=== PATIENT | female | born 1975 | race Caucasian/White ===

== ENCOUNTER 2018-08-23 20:25 | Emergency (ER) | END 2018-08-24 01:36 | disposition home or self-care (01) ==

== ENCOUNTER 2018-12-18 14:46 | Inpatient (IN) | payer MEDICAID ==
[~2018-12-18] VITALS: Ht 162.6 cm; Wt 48.7 kg
[~2018-12-18 14:46] MED LIST: ACET325T33 GTB; BISA10SU75 PR; CRAN425C6 GTB; DOCU-144 GTB; MAGN400O19 GTB; OXCA150T3 GTB; SODI1TAB2 GTB; TYL500 GTB
[2018-12-18] MEDS ORDERED: SODIUM CHLORIDE 0.9% 1L BAG IV* STA (14:53)
[2018-12-18] MEDS ORDERED: CEFEPIME 2GM/50 ML (PMX) 50 ML IVPB STA (14:53)
[2018-12-18] MEDS ORDERED: VANCOMYCIN 1 GM (PMX) 250 ML IVPB STA (14:53)
--- NOTE | 2018-12-18 15:12 | ERD ---
ER Documentation Chief Complaint Chief Complaint HPI 43-year-old nonverbal female sent from her custodial facility after she wa s noted to be warm to the touch with a temp of 101, pulse of 114, and oxygen saturation of 91% on 3 L of oxygen. She has a history of quadriplegia, respiratory failure, sepsis, UTI, bacteremia, and anemia. She was given Tylenol 650 mg at 12:25 PM today prior to being sent to the ER. Otherwise history is unavailable as patient is nonverbal and unable to answer questions. ROS Unable to obtain due to altered mental status Medications Home Meds Reported Medications Ascorbic Acid (Vitamin C) 500 Mg Tab, 500 MG GTB DAILY, TAB 12/18/18 Cran/Vitc/Mannose/Inulin/Brom (Uti-Stat Liquid) 3,875 Mg/30 Ml Liquid, 30 MG GTB BID 12/18/18 Acetaminophen* (Acetaminophen*) 500 MG Extra Strength Tablet, 1000 MG GTB BID PRN for PAIN AND OR ELEVATED TEMP, TAB 12/18/18 Acetaminophen* (Acetaminophen*) 500 MG Extra Strength Tablet, 1000 MG GTB Q4H PRN for PAIN -02/24, TAB 12/18/18 Acetaminophen* (Tylenol*) 325 Mg Tablet, 650 MG GTB Q4H PRN for MILD PAIN LEVEL 1-3, TAB 12/18/18 Oxcarbazepine* (Trileptal*) 150 Mg Tablet, 150 MG GTB BID, TAB 12/18/18 Sodium Chloride* (Sodium Chloride*) 1 Gm Tablet, 1 GM GTB TID, TAB 12/18/18 Amino Acids/Protein Hydrolys (PRO-STAT LIQUID) 30 Ml Liquid.pkt, 30 ML GTB BID SUGAR FREE 12/18/18 Multivit &Minerals/Ferrous Fum (MULTIVITAMIN LIQUID) 9 Mg/15 Ml Liquid, 5 MG GTB DAILY 12/18/18 Magnesium Hydroxide* (Milk Of Magnesia*) 400 Mg/5 Ml Oral.susp, 30 ML GTB NEEDED for CONSTIPATION, ML 12/18/18 Na Phos,M-B/Na Phos,Di-Ba (Fleet Enema Extra) 230 Ml Enema, 1 APPLIC RC Q 2D, ENEMA 12/18/18 Ipratropium-Albuterol (Ipratropium-Albuterol) 0.5-3 Mg/3 Ml Ampul.neb, 3 ML INHALATION Q6, #30 VIAL 12/18/18 Bisacodyl* (Bisacodyl*) 10 Mg Supp, 10 MG SC Q24H for CONSTIPATION, SUPP 12/18/18 Cranberry Extract (Cranberry) 425 Mg Capsule, 425 MG GTB DAILY, CAP 12/18/18 Docusate Sodium* (Colace*) 100 Mg Capsule, 200 MG GTB QHS, #30 CAP 12/18/18 Discontinued Reported Medications Oxcarbazepine* (Trileptal*) 150 Mg Tablet, 450 MG GTB QHS, TAB 08/23/18 Acetaminophen* (Tylenol*) 500 Mg Tab, 1000 MG GTB Q4H PRN for -02/24, TAB 08/23/18 Acetaminophen* (Tylenol*) 325 Mg Tablet, 650 MG GTB Q4H PRN for MILD PAIN LEVEL 1-3, TAB 08/23/18 Oxcarbazepine* (Trileptal*) 150 Mg Tablet, 150 MG GTB DAILY, TAB 08/23/18 Sodium Chloride* (Sodium Chloride*) 1 Gm Tablet, 1 GM GTB TID, TAB 08/23/18 Magnesium Hydroxide* (Milk Of Magnesia*) 400 Mg/5 Ml Oral.susp, 30 ML GTB Q24H PRN for NEEDED, ML 08/23/18 Bisacodyl* (Bisacodyl*) 10 Mg Supp, 10 MG SC Q24H for CONSTIPATION, SUPP 08/23/18 Cranberry Extract (Cranberry) 425 Mg Capsule, 425 MG GTB DAILY, CAP 08/23/18 Docusate Sodium* (Colace*) 100 Mg Capsule, 200 MG GTB QHS, #30 CAP 08/23/18 Allergies Allergies: Coded Allergies: No Known Allergy (Unverified , 12/18/18) PMhx/Soc History of Surgery: Yes Hx Neurological Disorder: Yes (cerebral palsy, epilepsy) Hx Psychiatric Problems: Yes (anxiety, depression) Hx Miscellaneous Medical Probl: Yes (muscular dystrophy, GERD) Hx Alcohol Use: No Hx Substance Use: No Hx Tobacco Use: No FmHx Unable to obtain Physical Exam Vitals Vital Signs Date Temp Pulse Resp B/P (MAP) Pulse Ox O2 O2 Flow FiO2 Time Delivery Rate 12/18/18 112 100 40 16:02 12/18/18 101.7 15:30 12/18/18 101.7 136 40 127/94 90 15:00 (105) 12/18/18 Non 15 15:00 Raginirehardikneftali dutton Physical Exam INITIAL VITAL SIGNS: Reviewed by me GENERAL: Patient is lying on gurney, facemask in place, appears ill HEAD: Normocephalic EYES: PERRL. ENT: Mucous membranes dry, no erythema or tonsillar exudates. Airway patent. NECK: Supple. No masses. Full range of motion. No meningismus. No lymphadenopathy RESPIRATORY: Tachypneic with accessory muscle usage. Rales bilaterally. No wheezing CV: Tachycardic with regular rhythm. No murmurs, No rubs or gallops. ABDOMEN: Soft, non-distended, non-tender. No guarding. No rebound. No pulsatile mass. Bowel sounds normal. BACK: No wounds EXTREMITIES: Contractures in all 4 extremities. No edema. No clubbing or cyanosis. Pulses symmetric. No deficits or delays. Calves non-tender. No cords. SKIN: Warm and dry. Decreased turgor. No obvious rash, petechiae or purpura. NEUROLOGIC: Awake and alert. Nonverbal. Result Diagram: 12/18/18 1511 12/18/18 1511 Results 24 hrs Laboratory Tests Test 12/18/18 15:02 12/18/18 15:11 12/18/18 15:15 12/18/18 16:38 Bedside Glucose 167 mg/dL White Blood 18.8 10^3/ul Count Red Blood Count 4.79 10^6/ul Hemoglobin 13.4 g/dl Hematocrit 43.5 % Mean Corpuscular 90.8 fl Volume Mean Corpuscular 28.0 pg Hemoglobin Mean Corpuscular 30.8 g/dl Hemoglobin Charmaine nt Red Cell 16.4 % Distribution Width Platelet Count 237 10^3/UL Mean Platelet 10.2 fl Volume Immature 0.500 % Granulocytes % Neutrophils % % Segmented 62 % Neutrophils % (Manual) Band Neutrophils 33 % % (Manual) Lymphocytes % % Lymphocytes % 1 % (Manual) Monocytes % % Monocytes % 4 % (Manual) Eosinophils % % Basophils % % Nucleated Red 0.0 /100WBC Blood Cells % Immature 0.100 10^3/ul Granulocytes # Neutrophils # 10^3/ul Neutrophils # 12.8 10^3/ul (Manual) Band Neutrophils 6.2 10^3/ul # Lymphocytes 0.1 10^3/ul (Manual) Lymphocytes # 10^3/ul Monocytes # 10^3/ul Monocytes # 0.7 10^3/ul (Manual) Eosinophils # 10^3/ul Basophils # 10^3/ul Nucleated Red 10^3/ul Blood Cells # Anisocytosis 1+ Microcytosis 1+ Prothrombin Time 15.9 Sec Prothrombin Time 1.2 Ratio INR 1.26 International Normalized Ratio Activated 35.2 Sec Partial Thrombop last Time Sodium Level 148 mmol/L Potassium Level 3.3 mmol/L Chloride Level 114 mmol/L Carbon Dioxide 24 mmol/L Level Anion Gap 10 Blood Urea 27 mg/dl Nitrogen Creatinine 0.24 mg/dl Est Glomerular > 60 mL/min Filtrat Rate mL/min Glucose Level 171 mg/dl Lactic Acid 4.0 mmol/L Level Calcium Level 9.3 mg/dl Total Bilirubin 0.4 mg/dl Direct Bilirubin 0.00 mg/dl Indirect 0.4 mg/dl Bilirubin Aspartate Amino 33 IU/L Transf (AST/SGOT ) Alanine 8 IU/L Aminotransferase (ALT/SGPT) Alkaline 110 IU/L Phosphatase Troponin I < 0.012 ng/ml Total Protein 7.8 g/dl Albumin 3.7 g/dl Globulin 4.10 g/dl Albumin/Globulin 0.90 Ratio Urine Color SHRUTHI Urine Clarity CLOUDY Urine pH 5.0 Urine Specific 1.033 Douglas Urine Ketones TRACE mg/dL Urine Nitrite NEGATIVE mg/dL Urine Bilirubin NEGATIVE mg/dL Urine NEGATIVE mg/dL Urobilinogen Urine Leukocyte 2+ Margot/ul Esterase Urine 1 /HPF Microscopic RBC Urine 45 /HPF Microscopic WBC Urine Mucus FEW /HPF Urine Yeast MANY /HPF (Budding) Urine Hemoglobin NEGATIVE mg/dL Urine Glucose 1+ mg/dL Urine Total 1+ mg/dl Protein Blood Gas Blood arterial Specimen Source Arterial Blood 12/18/2018 4:45:1 Date Drawn 9 PM Arterial Blood 7.385 pH (Temp corrected) Arterial Blood 34.1 mmhg pCO2 (Temp correct) Arterial Blood 70.4 mmHG pO2 (Temp corrected) Arterial Blood 19.9 mmol/L HCO3 Arterial Blood -4.3 mmol/L Base Excess Arterial Blood 94.6 mmHG Oxygen Saturatio n Nabil Test ACCEPTAB Arterial Blood Left Radial Gas Puncture Site Arterial 0.3 % Blood Carboxyhem oglobin Arterial Blood 0.2 % Methemoglobin Blood Gas A-a O2 175.6 mmHg Differential Oxyhemoglobin 94.1 % Percent Blood Gas 37.0 C Temperature Blood Gas 14.0 Respiration Rate Blood Gas Actual 56 Respiration Rate Blood Gas MASK - BIPAP Modality FiO2 40.0 % Blood Gas 10 Pressure Support Blood Gas 15/5 IPAP/EPAP Ratio Blood Gas M.D. Notified Whom Blood Gas 12/18/2018 4:57:5 Notified Time 8 PM Current Medications Medications Dose Sig/Robyn Start Time Status Last (Trade) Ordered Route PRN Stop Time Admin Dose Reason Admin Sodium 1,590 ml BOLUS OVER 2 12/18/18 DC 12/18/18 Chloride HOURS STAT 14:53 12/18/18 15:16 (NS) IV* 14:57 Vancomycin 250 ml @ ONCE STAT 12/18/18 DC 12/18/18 HCl 125 mls/hr IVPB 14:53 12/18/18 15:52 16:52 Cefepime HCl 50 ml @ ONCE STAT 12/18/18 DC 12/18/18 100 mls/hr IVPB 14:53 12/18/18 15:16 15:22 Ibuprofen 400 mg ONCE STAT 12/18/18 DC 12/18/18 (Motrin GTB 15:18 12/18/18 15:30 Liquid 15:19 (Ped)) Morphine 4 mg ONCE STAT 12/18/18 DC 12/18/18 Sulfate IV 16:38 12/18/18 16:46 (morphine) 16:39 Ondansetron 4 mg ER BRIDGE 12/18/18 HCl (Zofran PRN IV 17:00 12/19/18 Inj) NAUSEA/VOMITI 16:59 NG 650 mg ER BRIDGE 12/18/18 Acetaminophen PRN PO 17:00 12/19/18 (Tylenol .MILD PAIN 16:59 Tab) 1-3 OR TEMP Procedures/MDM EMERGENT LABS AND DIAGNOSTIC STUDIES: Lab Results above were reviewed and interpreted by me. CBC: Leukocytosis, concerning for infection CMP: Hypernatremia with prerenal azotemia, likely due to dehydration. Borderline hypokalemia. No hypoglycemia. Troponin within normal limits, not indicative of cardiac ischemia Lactate 4, consistent with severe sepsis UA: evidence of infection 12-lead EKG was interpreted by Juancarlos Donovan MD: Sinus tachycardia at 129 bpm Left anterior fascicular block anterior Q waves normal intervals No acute ST or T wave changes suggestive of acute ischemia or STEMI. Radiology Results as interpreted by Radiology below were reviewed by Michael Donovan MD: Chest x-ray: Patchy air space disease in the left mid and bilateral lower lung zones with small bilateral pleural effusions, suspicious for pneumonia. Initial Nursing notes reviewed. Previous Medical Records requested via the Electronic Health Record. EMERGENCY DEPARTMENT COURSE / MEDICAL DECISION MAKING: Patient is presenting with fever and hypoxia, concerning for pneumonia. Sepsis workup initiated. Evidence of UTI and pneumonia. Given her tachypnea, she was placed on BiPAP. Her blood gas after she was on BiPAP was normal. She was given morphine for symptom control as she is DNR and DNI. Patient's infectious symptoms have not stabilized and the patient is at risk of rapid decompensation. The patient will be admitted for careful hydration, antibiotic therapy, and infectious source control. Severe Sepsis Assessment: Infectious Source: UTI, healthcare associated pneumonia End organ damage indicated by: Lactate > 2.0 mmol/L Acute Resp Failure (sat < 92% w/o oxygen) Severe Sepsis Managment: Blood Cultures X 2 before broad spectrum antibiotics initiated within 3 hours of recognition. 30 ml/kg NS bolus Completed Initial Lactate: 4 Repeat Lactate pending Critical Care: Time: 35 minutes Treatments/Evaluations: Emergent fluid management, while maintaining close respiratory support. Immediate broad spectrum antibiotic therapy. Simultaneous assessment for possible sources in order to direct therapy. Consideration for invasive and chemical support to prevent respiratory or cardiac collapse. Septic Shock Assessment (1 hour post 30 ml/kg fluid bolus): Hypotension (SBP < 90 or 40 mmHg drop, MAP < 65): No Lactic acid > 4.0 no Accepting Care Team: Current data and ongoing care discussed. Time: Time of admission Primary Provider: Dr. Bowman Patient is DNR Departure Diagnosis: Primary Impression: Severe sepsis Additional Impressions: Healthcare-associated pneumonia UTI (urinary tract infection) Urinary tract infection type: site unspecified Hematuria presence: without hematuria Qualified Codes: N39.0 - Urinary tract infection, site not specified Prerenal azotemia Acute respiratory failure with hypoxia Condition: Serious EKAGUSTO RODRIGUEZ MD Dec 18, 2018 15:07
[2018-12-18] MEDS ORDERED: IBUPROFEN LIQUID (PED) 20 MG/ML CUP GTB STA (15:18)
[2018-12-18] MEDS ORDERED: DOCU-144 GTB (16:08)
[2018-12-18] MEDS ORDERED: CRAN425C6 GTB (16:09)
[2018-12-18] MEDS ORDERED: BISA10SU75 PR (16:09)
[2018-12-18] MEDS ORDERED: IPRA3AMP29 INHALATION (16:10)
[2018-12-18] MEDS ORDERED: NA P230E RC (16:11)
[2018-12-18] MEDS ORDERED: MAGN400O19 GTB (16:12)
[2018-12-18] MEDS ORDERED: MULT9LIQ4 GTB (16:13)
[2018-12-18] MEDS ORDERED: AMIN30LI GTB (16:14)
[2018-12-18] MEDS ORDERED: SODI1TAB2 GTB (16:15)
[2018-12-18] MEDS ORDERED: OXCA150T3 GTB (16:16)
[2018-12-18] MEDS ORDERED: ACET-141 GTB ×2 (16:22→16:23)
[2018-12-18] MEDS ORDERED: ACET325T33 GTB (16:22)
[2018-12-18] MEDS ORDERED: ASC500 GTB (16:24)
[2018-12-18] MEDS ORDERED: CRAN3875 GTB (16:24)
[2018-12-18] MEDS ORDERED: morphine 4 MG/ML VIAL IV STA (16:38)
[2018-12-18] MEDS ORDERED: ONDANSETRON 4 MG INJ IV PRN (17:00)
[2018-12-18] MEDS ORDERED: ACETAMINOPHEN 325 MG TAB PO PRN (17:00)
[2018-12-18] MEDS ORDERED: POTASSIUM CHLORIDE (SR) 20 MEQ TAB PO STA (19:37)
[2018-12-18] MEDS ORDERED: VANCOMYCIN IV PER PHARMACY XX SCH (20:00)
[2018-12-18] MEDS: ALBUTEROL/IPRATROPIUM (NEB) 3 ML AMP HHN SCH (20:00)
[2018-12-18 21:50] VITALS: Ht 162.6 cm; Wt 48.7 kg
[2018-12-18 22:00] VITALS: BP 93/62; PULSE 100; RESP 16
[2018-12-18] MEDS: D5W-0.45 NACL + KCL 20 MEQ 1,000 ML IV SCH (22:33)
[2018-12-18] MEDS: CEFEPIME 1GM/50 ML (PMX) 50 ML IVPB SCH (22:38)
[2018-12-18 23:45] VITALS: PULSE 100
[2018-12-18 23:52] VITALS: BP 101/68; PULSE 98; RESP 16
[2018-12-19] VITALS (23 sets, daily range): BP systolic 96–138; BP diastolic 60–81; PULSE 81–108; RESP 16–25
[2018-12-19] MEDS: VANCOMYCIN 1 GM 250 ML IVPB SCH ×3 (00:38→17:29)
--- NOTE | 2018-12-19 00:54 | HP ---
DATE OF ADMISSION: 12/18/2018 CHIEF COMPLAINT: Shortness of breath and fever. HISTORY OF PRESENT ILLNESS: History is obtained from medical record as the patient is nonverbal due to cerebral palsy. The patient is a 43-year-old female with cerebral palsy, dysphagia, status post G -tube placement. The patient is a resident of [facility]. The patient was sent to [facility] ER after she was noted to have hypoxemia. The patient was saturating 85% on room ai r and on 3 liters oxygen via nasal cannula. Her saturation went up to 90%. The patient also had fev er at [facility]. The patient was subsequently sent to [facility] for furt her evaluation and management. The patient was evaluated by Dr. Donovan. The patient was noted to have white count of 18.8. Lactic acid was 4. Chest x-ray revealed pneumonia. The patient received vancomycin and cefepime due to a possibility of healthcare-acquired pneumonia. The patient also rec eived IV fluid bolus for severe sepsis. The patient was noted to be in acute respiratory failure and had to be placed on BiPAP. The patient has not had any tonic-clonic seizure. No reported vomiting. No reported leg edema. No report of any acute skin rash or any acute joint swelling. REVIEW OF SYSTEMS: Limited as the patient is nonverbal at baseline. PAST SURGICAL HISTORY: The patient is status post G-tube placement. ALLERGIES: NONE. SOCIAL HISTORY: Could not be obtained. FAMILY HISTORY: Noncontributory for patient's condition. PHYSICAL EXAMINATION: GENERAL: The patient appears lethargic but arousable, nonverbal at baseline. VITAL SIGNS: T-max 101.7, pulse 136, respirations 14, blood pressure 127/94, O2 saturation 90% initi ally on nonrebreather mask. After treatment in the ER, pulses gone down to 107 and the patient is sa turating 100% on BiPAP. HEENT: No eye discharge or redness. Nose is normal externally. Oropharynx examination was deferred due to BiPAP. NECK: No mass. CHEST: Diminished air entry at bases. No use of accessory muscles. CARDIOVASCULAR: S1, S2 normal. Sinus tachycardia. ABDOMEN: Soft, nondistended, nontender. G-tube in place. EXTREMITIES: No edema, clubbing, cyanosis. The patient has severe contractures in all extremities. NEUROLOGIC: The patient is nonverbal. LABORATORY DATA: WBC 18.8, hemoglobin 13.4. The patient has 33% bands. Sodium 148, potassium 3.3, BUN 27, creatinine 0.2. Lactic acid 4, liver enzymes normal. IMPRESSION: 1. Acute respiratory failure due to healthcare facility-acquired pneumonia. The patient will be adm itted on telemetry floor and will be continued on BiPAP and breathing treatment. Will continue IV va ncomycin and cefepime. Will hold off on G-tube feeding and will give IV fluids. The patient has alr luly gotten a bolus dose in the ER as per protocol. The patient is DNR and I called and spoke with nba welch's daughter, Alissa, who told me that patient's mom and mom also agrees with the DNR status du e to poor quality of life. 2. Dysphagia. Hold off on G-tube placement as mentioned above. 3. Cerebral palsy. The patient is not agitated. We will continue to monitor. We will use Lovenox for DVT prophylaxis and Protonix for gastrointestinal prophylaxis. We will also obtain a pulmonary consultation. The patient is unable to expectorate, therefore, will have to empir ically treat her for healthcare facility acquired pneumonia. Septic workup has been sent from ER. [facility] recommendation will depend on patient's hospital course. Dictated By: GLORIA PETTIT/TIP Conf#: [id number] DID#: [id number]
[2018-12-19] MEDS: ALBUTEROL/IPRATROPIUM (NEB) 3 ML AMP HHN SCH ×4 (01:52→19:36)
[2018-12-19] MEDS ORDERED: PENDING SANTYL ORDER FOR WOUND CARE XX PRN (05:00)
[2018-12-19] MEDS: PANTOPRAZOLE (EC) 40 MG TAB PO SCH (05:47)
[2018-12-19] MEDS: D5W-0.45 NACL + KCL 20 MEQ 1,000 ML IV SCH ×2 (08:20→17:32)
[2018-12-19] MEDS: CEFEPIME 1GM/50 ML (PMX) 50 ML IVPB SCH ×2 (08:25→22:04)
[2018-12-19] MEDS: ENOXAPARIN 40 MG/0.4 ML SYG SC SCH (09:05)
--- NOTE | 2018-12-19 13:56 | PN ---
Date/Time of Note Date/Time of Note DATE: 12/19/18 TIME: 13:50 Assessment/Plan VTE Prophylaxis Risk score (from Ns)>0 risk: 6 SCD applied (from Ns): No SCD contraindicated: other (contracted) Pharmacological prophylaxis: LMWH Lines/Catheters IV Catheter Type (from [facility]): Saline Lock Urinary Cath still in place: Yes Reason Cath still needed: urinary retention Assessment/Plan Hospital Course Patient is tachycardic, no fever today, continues on BiPAP, will restart G-tube feeding, continue to monitor residual. Assessment/Plan -Acute respiratory failure due to healthcare facility-acquired pneumonia requiring BiPAP. Dr. Hyatt is asked to see patient in pulmonology consultation. -Healthcare facility acquired pneumonia. Continue vancomycin and cefepime. -Dysphagia with G-tube. -Cerebral palsy. -Protein calorie malnutrition -DNR status. Further recommendations based on clinical course. Plan of care discussed with Dr. Bowman. Result Diagram: 12/19/18 0540 12/19/18 0540 Results 24hrs Laboratory Tests Test 12/18/18 15:02 12/18/18 15:11 12/18/18 15:15 12/18/18 16:38 Bedside Glucose 167 White Blood 18.8 H Count Red Blood Count 4.79 Hemoglobin 13.4 Hematocrit 43.5 Mean Corpuscular 90.8 Volume Mean Corpuscular 28.0 L Hemoglobin Mean Corpuscular 30.8 L Hemoglobin Charmaine nt Red Cell 16.4 H Distribution Width Platelet Count 237 Mean Platelet 10.2 Volume Immature 0.500 H Granulocytes % Neutrophils % Segmented 62 Neutrophils % (Manual) Band Neutrophils 33 H % (Manual) Lymphocytes % Lymphocytes % 1 L (Manual) Monocytes % Monocytes % 4 (Manual) Eosinophils % Basophils % Nucleated Red 0.0 Blood Cells % Immature 0.100 H Granulocytes # Neutrophils # Neutrophils # 12.8 H (Manual) Band Neutrophils 6.2 H # Lymphocytes 0.1 L (Manual) Lymphocytes # Monocytes # Monocytes # 0.7 (Manual) Eosinophils # Basophils # Nucleated Red Blood Cells # Anisocytosis 1+ Microcytosis 1+ Prothrombin Time 15.9 H Prothrombin Time 1.2 Ratio INR 1.26 International Normalized Ratio Activated 35.2 H Partial Thrombop last Time Sodium Level 148 H Potassium Level 3.3 L Chloride Level 114 H Carbon Dioxide 24 Level Anion Gap 10 Blood Urea 27 H Nitrogen Creatinine 0.24 L Est Glomerular > 60 Filtrat Rate mL/min Glucose Level 171 Lactic Acid 4.0 *H Level Calcium Level 9.3 Total Bilirubin 0.4 Direct Bilirubin 0.00 Indirect 0.4 Bilirubin Aspartate Amino 33 Transf (AST/SGOT ) Alanine 8 L Aminotransferase (ALT/SGPT) Alkaline 110 Phosphatase Troponin I < 0.012 Total Protein 7.8 Albumin 3.7 Globulin 4.10 H Albumin/Globulin 0.90 Ratio Urine Color SHRUTHI Urine Clarity CLOUDY A Urine pH 5.0 Urine Specific 1.033 H Ronald Urine Ketones TRACE A Urine Nitrite NEGATIVE Urine Bilirubin NEGATIVE Urine NEGATIVE Urobilinogen Urine Leukocyte 2+ H Esterase Urine 1 Microscopic RBC Urine 45 H Microscopic WBC Urine Mucus FEW A Urine Yeast MANY A (Budding) Urine Hemoglobin NEGATIVE Urine Glucose 1+ H Urine Total 1+ H Protein Blood Gas Blood arterial Specimen Source Arterial Blood 12/18/2018 4:45:19 Date Drawn PM Arterial Blood 7.385 pH (Temp corrected) Arterial Blood 34.1 L pCO2 (Temp correct) Arterial Blood 70.4 L pO2 (Temp corrected) Arterial Blood 19.9 L HCO3 Arterial Blood -4.3 L Base Excess Arterial Blood 94.6 L Oxygen Saturatio n Nabil Test ACCEPTAB Arterial Blood Left Radial Gas Puncture Site Arterial 0.3 Blood Carboxyhem oglobin Arterial Blood 0.2 Methemoglobin Blood Gas A-a O2 175.6 H Differential Oxyhemoglobin 94.1 Percent Blood Gas 37.0 Temperature Blood Gas 14.0 Respiration Rate Blood Gas Actual 56 Respiration Rate Blood Gas MASK - BIPAP Modality FiO2 40.0 Blood Gas 10 Pressure Support Blood Gas 15/5 IPAP/EPAP Ratio Blood Gas M.D. Notified Whom Blood Gas 12/18/2018 4:57:58 Notified Time PM Test 12/18/18 18:37 12/18/18 21:08 12/19/18 05:39 12/19/18 05:40 Lactic Acid 3.0 *H 2.5 *H 2.0 Level White Blood 12.3 #H Count Red Blood Count 3.94 L Hemoglobin 10.7 #L Hematocrit 37.0 Mean Corpuscular 93.9 Volume Mean Corpuscular 27.2 L Hemoglobin Mean Corpuscular 28.9 L Hemoglobin Charmaine nt Red Cell 16.4 H Distribution Width Platelet Count 177 # Mean Platelet 10.5 H Volume Immature 0.500 H Granulocytes % Neutrophils % Segmented 53 Neutrophils % (Manual) Band Neutrophils 38 H % (Manual) Lymphocytes % Lymphocytes % 8 L (Manual) Monocytes % Monocytes % 1 (Manual) Eosinophils % Basophils % Nucleated Red 0.0 Blood Cells % Immature 0.060 H Granulocytes # Neutrophils # Neutrophils # 7.1 (Manual) Band Neutrophils 4.6 H # Lymphocytes 0.9 (Manual) Lymphocytes # Monocytes # Monocytes # 0.1 L (Manual) Eosinophils # Basophils # Nucleated Red Blood Cells # Platelet NORMAL Estimate Poikilocytosis 1+ Anisocytosis 1+ Microcytosis 1+ Sodium Level 148 H Potassium Level 4.0 Chloride Level 116 H Carbon Dioxide 25 Level Anion Gap 7 Blood Urea 24 H Nitrogen Creatinine 0.17 L Est Glomerular > 60 Filtrat Rate mL/min Glucose Level 96 # Calcium Level 8.6 Prealbumin 14.4 L Test 12/19/18 07:00 Blood Gas Blood arterial Specimen Source Arterial Blood 12/19/2018 9:00:40 Date Drawn AM Arterial Blood 7.461 H pH (Temp corrected) Arterial Blood 32.7 L pCO2 (Temp correct) Arterial Blood 108.7 H pO2 (Temp corrected) Arterial Blood 22.8 HCO3 Arterial Blood -0.5 Base Excess Arterial Blood 98.0 Oxygen Saturatio n Nabil Test ACCEPTAB Arterial Blood Right Radial Gas Puncture Site Arterial 0.2 Blood Carboxyhem oglobin Arterial Blood 0.2 Methemoglobin Blood Gas A-a O2 138.9 H Differential Oxyhemoglobin 97.6 Percent Blood Gas 37.0 Temperature Blood Gas 14.0 Respiration Rate Blood Gas Actual 37 Respiration Rate Blood Gas MASK - BIPAP Modality FiO2 40.0 Blood Gas 10 Pressure Support Blood Gas 15/5 IPAP/EPAP Ratio Blood Gas RR Notified Whom Blood Gas 12/19/2018 9:11:43 Notified Time AM Exam/Review of Systems Exam Vitals Vital Signs Date Temp Pulse Resp B/P (MAP) Pulse Ox O2 O2 Flow FiO2 Time Delivery Rate 12/19/18 104 12:34 12/19/18 100 40 11:11 12/19/18 98.2 19 119/71 11:07 (87) 12/18/18 BIPAP 22:00 12/18/18 15 15:00 Intake and Output 12/18/18 12/18/18 12/19/18 1515:00 23:00 07:00 IntakeIntake Total 1640 ml 790 ml OutputOutput Total 300 ml BalanceBalance 1640 ml 490 ml Constitutional: non-verbal Head: normocephalic Respiratory: crackles/rales, diminished breath sounds Cardiovascular: regular rate and rhythm, other (Tachycardia) Gastrointestinal: soft, non-tender, other (G-tube) Musculoskeletal: muscle weakness Extremities: other (Contracted extremities) Neurological: confused, lethargic Results Results 24hrs Laboratory Tests Test 12/18/18 15:02 12/18/18 15:11 12/18/18 15:15 12/18/18 16:38 Bedside Glucose 167 White Blood 18.8 H Count Red Blood Count 4.79 Hemoglobin 13.4 Hematocrit 43.5 Mean Corpuscular 90.8 Volume Mean Corpuscular 28.0 L Hemoglobin Mean Corpuscular 30.8 L Hemoglobin Charmaine nt Red Cell 16.4 H Distribution Width Platelet Count 237 Mean Platelet 10.2 Volume Immature 0.500 H Granulocytes % Neutrophils % Segmented 62 Neutrophils % (Manual) Band Neutrophils 33 H % (Manual) Lymphocytes % Lymphocytes % 1 L (Manual) Monocytes % Monocytes % 4 (Manual) Eosinophils % Basophils % Nucleated Red 0.0 Blood Cells % Immature 0.100 H Granulocytes # Neutrophils # Neutrophils # 12.8 H (Manual) Band Neutrophils 6.2 H # Lymphocytes 0.1 L (Manual) Lymphocytes # Monocytes # Monocytes # 0.7 (Manual) Eosinophils # Basophils # Nucleated Red Blood Cells # Anisocytosis 1+ Microcytosis 1+ Prothrombin Time 15.9 H Prothrombin Time 1.2 Ratio INR 1.26 International Normalized Ratio Activated 35.2 H Partial Thrombop last Time Sodium Level 148 H Potassium Level 3.3 L Chloride Level 114 H Carbon Dioxide 24 Level Anion Gap 10 Blood Urea 27 H Nitrogen Creatinine 0.24 L Est Glomerular > 60 Filtrat Rate mL/min Glucose Level 171 Lactic Acid 4.0 *H Level Calcium Level 9.3 Total Bilirubin 0.4 Direct Bilirubin 0.00 Indirect 0.4 Bilirubin Aspartate Amino 33 Transf (AST/SGOT ) Alanine 8 L Aminotransferase (ALT/SGPT) Alkaline 110 Phosphatase Troponin I < 0.012 Total Protein 7.8 Albumin 3.7 Globulin 4.10 H Albumin/Globulin 0.90 Ratio Urine Color SHRUTHI Urine Clarity CLOUDY A Urine pH 5.0 Urine Specific 1.033 H Ronald Urine Ketones TRACE A Urine Nitrite NEGATIVE Urine Bilirubin NEGATIVE Urine NEGATIVE Urobilinogen Urine Leukocyte 2+ H Esterase Urine 1 Microscopic RBC Urine 45 H Microscopic WBC Urine Mucus FEW A Urine Yeast MANY A (Budding) Urine Hemoglobin NEGATIVE Urine Glucose 1+ H Urine Total 1+ H Protein Blood Gas Blood arterial Specimen Source Arterial Blood 12/18/2018 4:45:19 Date Drawn PM Arterial Blood 7.385 pH (Temp corrected) Arterial Blood 34.1 L pCO2 (Temp correct) Arterial Blood 70.4 L pO2 (Temp corrected) Arterial Blood 19.9 L HCO3 Arterial Blood -4.3 L Base Excess Arterial Blood 94.6 L Oxygen Saturatio n Nabil Test ACCEPTAB Arterial Blood Left Radial Gas Puncture Site Arterial 0.3 Blood Carboxyhem oglobin Arterial Blood 0.2 Methemoglobin Blood Gas A-a O2 175.6 H Differential Oxyhemoglobin 94.1 Percent Blood Gas 37.0 Temperature Blood Gas 14.0 Respiration Rate Blood Gas Actual 56 Respiration Rate Blood Gas MASK - BIPAP Modality FiO2 40.0 Blood Gas 10 Pressure Support Blood Gas 15/5 IPAP/EPAP Ratio Blood Gas M.D. Notified Whom Blood Gas 12/18/2018 4:57:58 Notified Time PM Test 12/18/18 18:37 12/18/18 21:08 12/19/18 05:39 12/19/18 05:40 Lactic Acid 3.0 *H 2.5 *H 2.0 Level White Blood 12.3 #H Count Red Blood Count 3.94 L Hemoglobin 10.7 #L Hematocrit 37.0 Mean Corpuscular 93.9 Volume Mean Corpuscular 27.2 L Hemoglobin Mean Corpuscular 28.9 L Hemoglobin Charmaine nt Red Cell 16.4 H Distribution Width Platelet Count 177 # Mean Platelet 10.5 H Volume Immature 0.500 H Granulocytes % Neutrophils % Segmented 53 Neutrophils % (Manual) Band Neutrophils 38 H % (Manual) Lymphocytes % Lymphocytes % 8 L (Manual) Monocytes % Monocytes % 1 (Manual) Eosinophils % Basophils % Nucleated Red 0.0 Blood Cells % Immature 0.060 H Granulocytes # Neutrophils # Neutrophils # 7.1 (Manual) Band Neutrophils 4.6 H # Lymphocytes 0.9 (Manual) Lymphocytes # Monocytes # Monocytes # 0.1 L (Manual) Eosinophils # Basophils # Nucleated Red Blood Cells # Platelet NORMAL Estimate Poikilocytosis 1+ Anisocytosis 1+ Microcytosis 1+ Sodium Level 148 H Potassium Level 4.0 Chloride Level 116 H Carbon Dioxide 25 Level Anion Gap 7 Blood Urea 24 H Nitrogen Creatinine 0.17 L Est Glomerular > 60 Filtrat Rate mL/min Glucose Level 96 # Calcium Level 8.6 Prealbumin 14.4 L Test 12/19/18 07:00 Blood Gas Blood arterial Specimen Source Arterial Blood 12/19/2018 9:00:40 Date Drawn AM Arterial Blood 7.461 H pH (Temp corrected) Arterial Blood 32.7 L pCO2 (Temp correct) Arterial Blood 108.7 H pO2 (Temp corrected) Arterial Blood 22.8 HCO3 Arterial Blood -0.5 Base Excess Arterial Blood 98.0 Oxygen Saturatio n Nabil Test ACCEPTAB Arterial Blood Right Radial Gas Puncture Site Arterial 0.2 Blood Carboxyhem oglobin Arterial Blood 0.2 Methemoglobin Blood Gas A-a O2 138.9 H Differential Oxyhemoglobin 97.6 Percent Blood Gas 37.0 Temperature Blood Gas 14.0 Respiration Rate Blood Gas Actual 37 Respiration Rate Blood Gas MASK - BIPAP Modality FiO2 40.0 Blood Gas 10 Pressure Support Blood Gas 15/5 IPAP/EPAP Ratio Blood Gas RR Notified Whom Blood Gas 12/19/2018 9:11:43 Notified Time AM Medications Medication Current Medications Potassium Chloride/Dextrose/ Sod Cl 1,000 ml @ 80 mls/hr [id number] IV Last administered on 12/18/18at 22:33; Admin Dose 80 MLS/HR; Start 12/18/18 at 20:00 Vancomycin HCl (Vanco Iv Per Pharmacy) VANCOMYCIN PER PHARMACY PER PROTOCOL XX ; Start 12/18/18 at 20:00 Cefepime HCl 50 ml @ 100 mls/hr Q12 IVPB Last administered on 12/19/18at 08:25; Admin Dose 100 MLS/HR; Start 12/18/18 at 21:00 Acetaminophen (Tylenol Liquid) 650 mg Q4H PRN GTB MILD PAIN(1-3)OR ELEVATED TEMP; Start 12/18/18 at 20:00 Pantoprazole (Protonix Tab) 40 mg DAILY@06 PO Last administered on 12/19/18at 05:47; Admin Dose 40 MG; Start 12/19/18 at 06:00 Albuterol/ Ipratropium (Duoneb) 3 ml Q6H RESP THERAPY HHN Last administered on 12/19/18at 07:53; Admin Dose 3 ML; Start 12/18/18 at 20:00 Enoxaparin Sodium (Lovenox) 40 mg DAILY SC Last administered on 12/19/18at 09:05; Admin Dose 40 MG; Start 12/19/18 at 09:00 Vancomycin HCl 250 ml @ 125 mls/hr Q8H IVPB Last administered on 12/19/18at 09:15; Admin Dose 125 MLS/HR; Start 12/19/18 at 00:00 [facility] This patient huggins... PRN PRN XX WOUND CARE; Start 12/19/18 at 05:00 Miscellaneous Information (*Rx Drug Level Order Reminder*) VANCO TROUGH @ 1,500 ON... 1500 ONCE XX ; Start 12/19/18 at 15:00; Stop 12/19/18 at 15:01 LIBIA CARBALLO Dec 19, 2018 13:56
[2018-12-20] VITALS (16 sets, daily range): BP systolic 117–159; BP diastolic 71–97; PULSE 70–103; RESP 20–23
[2018-12-20] MEDS: VANCOMYCIN 1 GM 250 ML IVPB SCH ×3 (00:45→16:39)
[2018-12-20] MEDS: ALBUTEROL/IPRATROPIUM (NEB) 3 ML AMP HHN SCH ×4 (01:42→20:18)
[2018-12-20] MEDS: PANTOPRAZOLE (EC) 40 MG TAB PO SCH (05:25)
[2018-12-20] MEDS: CEFEPIME 1GM/50 ML (PMX) 50 ML IVPB SCH ×2 (08:13→20:49)
[2018-12-20] MEDS: D5W-0.45 NACL + KCL 20 MEQ 1,000 ML IV SCH ×2 (08:13→16:39)
[2018-12-20] MEDS: ENOXAPARIN 40 MG/0.4 ML SYG SC SCH (08:25)
--- NOTE | 2018-12-20 09:53 | CONS ---
Assessment/Plan Assessment/Plan Assessment/Plan (Daily) Chest x-ray showing bilateral pneumonia. Assessment recommendations; 1. Patient with history of cerebral palsy admitted for bilateral pneumonia possibly aspiration, currently on appropriate antimicrobial regimen. 2. Anemia and thrombus cytopenia. Continue BiPAP. Continue current antibiotics. Obtain follow-up chest x-ray 24 hours. Consultation Date/Type/Reason Admit Date/Time Dec 18, 2018 at 16:43 Date of Consultation: Dec 20, 2018 Type of Consult Pulmonary Patient is a 43-year-old lady with history of cerebral palsy who was transferred from [facility] because of hypoxemia. Patient has been diagnosed with brown ateral pneumonia. By the time I saw the patient, the patient is on BiPAP and because of cerebral palsy is noncommunicative. Patient did not appear to be in any distress. Past medical history; 1. Cerebral palsy. Medications; reviewed. Allergies; none. Social history; noncontributory. Family history, not available. Review of systems; unable to be obtained. General exam; young female, awake, noncommunicative. Currently no distress. On BiPAP. Date/Time of Note DATE: 12/20/18 TIME: 09:50 Past Medical History Home Meds Reported Medications Ascorbic Acid (Vitamin C) 500 Mg Tab, 500 MG GTB DAILY, TAB 12/18/18 Cran/Vitc/Mannose/Inulin/Brom (Uti-Stat Liquid) 3,875 Mg/30 Ml Liquid, 30 MG GTB BID 12/18/18 Acetaminophen* (Acetaminophen*) 500 MG Extra Strength Tablet, 1000 MG GTB BID PRN for PAIN AND OR ELEVATED TEMP, TAB 12/18/18 Acetaminophen* (Acetaminophen*) 500 MG Extra Strength Tablet, 1000 MG GTB Q4H PRN for PAIN -02/24, TAB 12/18/18 Acetaminophen* (Tylenol*) 325 Mg Tablet, 650 MG GTB Q4H PRN for MILD PAIN LEVEL 1-3, TAB 12/18/18 Oxcarbazepine* (Trileptal*) 150 Mg Tablet, 150 MG GTB BID, TAB 12/18/18 Sodium Chloride* (Sodium Chloride*) 1 Gm Tablet, 1 GM GTB TID, TAB 12/18/18 Amino Acids/Protein Hydrolys (PRO-STAT LIQUID) 30 Ml Liquid.pkt, 30 ML GTB BID SUGAR FREE 12/18/18 Multivit &Minerals/Ferrous Fum (MULTIVITAMIN LIQUID) 9 Mg/15 Ml Liquid, 5 MG GTB DAILY 12/18/18 Magnesium Hydroxide* (Milk Of Magnesia*) 400 Mg/5 Ml Oral.susp, 30 ML GTB NEEDED for CONSTIPATION, ML 12/18/18 Na Phos,M-B/Na Phos,Di-Ba (Fleet Enema Extra) 230 Ml Enema, 1 APPLIC RC Q 2D, ENEMA 12/18/18 Ipratropium-Albuterol (Ipratropium-Albuterol) 0.5-3 Mg/3 Ml Ampul.neb, 3 ML INHALATION Q6, #30 VIAL 12/18/18 Bisacodyl* (Bisacodyl*) 10 Mg Supp, 10 MG WV Q24H for CONSTIPATION, SUPP 12/18/18 Cranberry Extract (Cranberry) 425 Mg Capsule, 425 MG GTB DAILY, CAP 12/18/18 Docusate Sodium* (Colace*) 100 Mg Capsule, 200 MG GTB QHS, #30 CAP 12/18/18 Discontinued Reported Medications Oxcarbazepine* (Trileptal*) 150 Mg Tablet, 450 MG GTB QHS, TAB 08/23/18 Acetaminophen* (Tylenol*) 500 Mg Tab, 1000 MG GTB Q4H PRN for -02/24, TAB 08/23/18 Acetaminophen* (Tylenol*) 325 Mg Tablet, 650 MG GTB Q4H PRN for MILD PAIN LEVEL 1-3, TAB 08/23/18 Oxcarbazepine* (Trileptal*) 150 Mg Tablet, 150 MG GTB DAILY, TAB 08/23/18 Sodium Chloride* (Sodium Chloride*) 1 Gm Tablet, 1 GM GTB TID, TAB 08/23/18 Magnesium Hydroxide* (Milk Of Magnesia*) 400 Mg/5 Ml Oral.susp, 30 ML GTB Q24H PRN for NEEDED, ML 08/23/18 Bisacodyl* (Bisacodyl*) 10 Mg Supp, 10 MG WV Q24H for CONSTIPATION, SUPP 08/23/18 Cranberry Extract (Cranberry) 425 Mg Capsule, 425 MG GTB DAILY, CAP 08/23/18 Docusate Sodium* (Colace*) 100 Mg Capsule, 200 MG GTB QHS, #30 CAP 08/23/18 Medications Current Medications Potassium Chloride/Dextrose/ Sod Cl 1,000 ml @ 80 mls/hr [id number] IV Last ad ministered on 12/19/18at 17:32; Admin Dose 80 MLS/HR; Start 12/18/18 at 20:00 Vancomycin HCl (Vanco Iv Per Pharmacy) VANCOMYCIN PER PHARMACY PER PROTOCOL XX ; Start 12/18/18 at 20:00 Cefepime HCl 50 ml @ 100 mls/hr Q12 IVPB Last administered on 12/20/18at 08:13; Admin Dose 100 MLS/HR; Start 12/18/18 at 21:00 Acetaminophen (Tylenol Liquid) 650 mg Q4H PRN GTB MILD PAIN(1-3)OR ELEVATED TEMP; Start 12/18/18 at 20:00 Pantoprazole (Protonix Tab) 40 mg DAILY@06 PO Last administered on 12/19/18at 05:47; Admin Dose 40 MG; Start 12/19/18 at 06:00 Albuterol/ Ipratropium (Duoneb) 3 ml Q6H RESP THERAPY HHN Last administered on 12/20/18 01:42; Admin Dose 3 ML; Start 12/18/18 at 20:00 Enoxaparin Sodium (Lovenox) 40 mg DAILY SC Last administered on 12/20/18 08:25; Admin Dose 40 MG; Start 12/19/18 at 09:00 Vancomycin HCl 250 ml @ 125 mls/hr Q8H IVPB Last administered on 12/20/18 08:46; Admin Dose 125 MLS/HR; Start 12/19/18 at 00:00 Miscellaneous Information (Pending [facility] Order For Wound Care) This patient huggins... PRN PRN XX WOUND CARE; Start 12/19/18 at 05:00 Allergies: Coded Allergies: No Known Allergy (Unverified , 12/18/18) Social History Smoking Status: Unknown if ever smoked Exam/Review of Systems Exam Vitals Vital Signs Date Temp Pulse Resp B/P (MAP) Pulse Ox O2 O2 Flow FiO2 Time Delivery Rate 12/20/18 70 08:00 12/20/18 98.3 22 129/79 99 07:31 (96) 12/20/18 30 05:40 12/18/18 BIPAP 22:00 12/18/18 15 15:00 Intake and Output 12/19/18 12/19/18 12/20/18 1515:00 23:00 07:00 IntakeIntake Total 300 ml 50 ml 1050 ml OutputOutput Total 350 ml BalanceBalance 300 ml -300 ml 1050 ml Exam H EENT exam; supple neck, no JVD. No lymphadenopathy. Midline trachea. No thyromegaly. Patient has fair dentition. Chest exam; diminished breath sounds bilaterally. S1-S2 audible, no murmurs. Regular rhythm. Abdomen exam; soft, G-tube in place. No organomegaly. Bowel sounds audible. Abdomen is nondistended. Extremity exam; peripheral edema. Patient does have flexion contractures. [employer] exam; she remains awake but noncommunicative. Results Result Diagram: 12/19/18 0540 12/19/18 0540 Results 24hrs Laboratory Tests Test 12/19/18 15:14 Vancomycin Level Trough 14.1 Medications Medication Current Medications Potassium Chloride/Dextrose/ Sod Cl 1,000 ml @ 80 mls/hr [id number] IV Last administered on 12/19/18at 17:32; Admin Dose 80 MLS/HR; Start 12/18/18 at 20:00 Vancomycin HCl (Vanco Iv Per Pharmacy) VANCOMYCIN PER PHARMACY PER PROTOCOL XX ; Start 12/18/18 at 20:00 Cefepime HCl 50 ml @ 100 mls/hr Q12 IVPB Last administered on 12/20/18 08:13; Admin Dose 100 MLS/HR; Start 12/18/18 at 21:00 Acetaminophen (Tylenol Liquid) 650 mg Q4H PRN GTB MILD PAIN(1-3)OR ELEVATED TEMP; Start 12/18/18 at 20:00 Pantoprazole (Protonix Tab) 40 mg DAILY@06 PO Last administered on 12/19/18 05:47; Admin Dose 40 MG; Start 12/19/18 at 06:00 Albuterol/ Ipratropium (Duoneb) 3 ml Q6H RESP THERAPY HHN Last administered on 12/20/18 01:42; Admin Dose 3 ML; Start 12/18/18 at 20:00 Enoxaparin Sodium (Lovenox) 40 mg DAILY SC Last administered on 12/20/18 08:25; Admin Dose 40 MG; Start 12/19/18 at 09:00 Vancomycin HCl 250 ml @ 125 mls/hr Q8H IVPB Last administered on 12/20/18at 08:46; Admin Dose 125 MLS/HR; Start 12/19/18 at 00:00 [facility] This patient huggins... PRN PRN XX WOUND CARE; Start 12/19/18 at 05:00 TRACY MARTINEZ Dec 20, 2018 09:53
[2018-12-20] MEDS: BALSAM PERU/CASTOR OIL 60 GM TUBE TOP SCH ×2 (13:00→20:49)
--- NOTE | 2018-12-20 14:42 | PN ---
Date/Time of Note Date/Time of Note DATE: 12/20/18 TIME: 14:42 Assessment/Plan VTE Prophylaxis Risk score (from Ns)>0 risk: 5 SCD applied (from [facility] [place]): No SCD contraindicated: other Pharmacological prophylaxis: other Pharm contraindication: other Lines/Catheters IV [facility] (from [facility] Saline Lock Urinary Cath still in place: Yes Reason Cath still needed: urinary retention Assessment/Plan Assessment/Plan DNR status -Acute respiratory failure due to healthcare facility-acquired pneumonia requiring BiPAP. -Dr. Hyatt is asked to see patient in pulmonology consultation. -Healthcare facility acquired pneumonia. Continue vancomycin and cefepime. -Dysphagia with G-tube. - aspiration precautions -Cerebral palsy. -cont assisting with ADLs -Protein calorie malnutrition - dietary recommendations - Hypernatremia- will change IVF - monitor BMP Further recommendations based on clinical course. Plan of care discussed with Dr. Bowman. Result Diagram: 12/19/18 0540 12/19/18 0540 Results 24hrs Laboratory Tests Test 12/19/18 15:14 Vancomycin Level Trough 14.1 Subjective 24 Hr Interval Summary Free Text/Dictation nad seems comfortable on BIPAP afebrile no new issues reported last night Constitutional: requiring O2 Exam/Review of Systems Exam Vitals Vital Signs Date Temp Pulse Resp B/P (MAP) Pulse Ox O2 O2 Flow FiO2 Time Delivery Rate 12/20/18 90 97 30 12:04 12/20/18 100.4 20 136/88 11:11 (104) 12/18/18 BIPAP 22:00 12/18/18 15 15:00 Intake and Output 12/19/18 12/19/18 12/20/18 1515:00 23:00 07:00 IntakeIntake Total 300 ml 50 ml 1050 ml OutputOutput Total 350 ml BalanceBalance 300 ml -300 ml 1050 ml Constitutional: non-verbal, frail Psych: nl mood/affect Head: atraumatic Eyes: nl lids, nl sclera ENMT: nl external ears & nose Neck: non-tender Cardiovascular: nl pulses, other (s1s2) Gastrointestinal: soft, other (gt intact) Musculoskeletal: muscle weakness, range of motion Extremities: normal pulses Neurological: confused Results Results 24hrs Laboratory Tests Test 12/19/18 15:14 Vancomycin Level Trough 14.1 Medications Medication Current Medications Potassium Chloride/Dextrose/ Sod Cl 1,000 ml @ 80 mls/hr [id number] IV Last administered on 12/19/18 17:32; Admin Dose 80 MLS/HR; Start 12/18/18 at 20:00 Vancomycin HCl (Vanco Iv Per Pharmacy) VANCOMYCIN PER PHARMACY PER PROTOCOL XX ; Start 12/18/18 at 20:00 Cefepime HCl 50 ml @ 100 mls/hr Q12 IVPB Last administered on 12/20/18 08:13; Admin Dose 100 MLS/HR; Start 12/18/18 at 21:00 Acetaminophen (Tylenol Liquid) 650 mg Q4H PRN GTB MILD PAIN(1-3)OR ELEVATED TEMP; Start 12/18/18 at 20:00 Pantoprazole (Protonix Tab) 40 mg DAILY@06 PO Last administered on 12/19/18 05:47; Admin Dose 40 MG; Start 12/19/18 at 06:00 Albuterol/ Ipratropium (Duoneb) 3 ml Q6H RESP THERAPY HHN Last administered on 12/20/18 14:20; Admin Dose 3 ML; Start 12/18/18 at 20:00 Enoxaparin Sodium (Lovenox) 40 mg DAILY SC Last administered on 12/20/18 08:25; Admin Dose 40 MG; Start 12/19/18 at 09:00 Vancomycin HCl 250 ml @ 125 mls/hr Q8H IVPB Last administered on 12/20/18 08:46; Admin Dose 125 MLS/HR; Start 12/19/18 at 00:00 Miscellaneous Information (Pending [facility] Order For Wound Care) This patient huggins... PRN PRN XX WOUND CARE; Start 12/19/18 at 05:00 JASMYNE HOOKS Dec 20, 2018 14:42
[2018-12-21] VITALS (13 sets, daily range): BP systolic 94–152; BP diastolic 57–96; PULSE 62–96; RESP 17–21
[2018-12-21] MEDS: VANCOMYCIN 1 GM 250 ML IVPB SCH ×3 (00:29→16:02)
[2018-12-21] MEDS: ALBUTEROL/IPRATROPIUM (NEB) 3 ML AMP HHN SCH ×4 (02:30→19:32)
[2018-12-21] MEDS: PANTOPRAZOLE (EC) 40 MG TAB PO SCH (05:36)
[2018-12-21] MEDS: BALSAM PERU/CASTOR OIL 60 GM TUBE TOP SCH ×2 (08:43→21:26)
[2018-12-21] MEDS: ACETAMINOPHEN 650MG/20.3ML CUP GTB PRN (08:43)
[2018-12-21] MEDS: CEFEPIME 1GM/50 ML (PMX) 50 ML IVPB SCH ×2 (08:43→21:25)
[2018-12-21] MEDS: ENOXAPARIN 40 MG/0.4 ML SYG SC SCH (09:18)
[2018-12-21] MEDS: D5W-0.45 NACL + KCL 20 MEQ 1,000 ML IV SCH ×2 (11:21→23:00)
--- NOTE | 2018-12-21 12:13 | PN ---
Date/Time of Note Date/Time of Note DATE: 12/21/18 TIME: 12:13 Assessment/Plan VTE Prophylaxis Risk score (from Ns)>0 risk: 5 SCD applied (from [facility] [place]): No SCD contraindicated: other Pharmacological prophylaxis: LMWH Lines/Catheters IV Catheter Type (from [facility]): Saline Lock Urinary Cath still in place: Yes Reason Cath still needed: skin wounds contaminated by urine Assessment/Plan Hospital Course -Acute respiratory failure due to healthcare facility-acquired pneumonia requiring BiPAP. Dr. Hyatt is asked to see patient in pulmonology cons ultation. -Healthcare facility acquired pneumonia. Continue vancomycin and cefepime. -Dysphagia with G-tube. -Cerebral palsy. -Protein calorie malnutrition -DNR status. Result Diagram: 12/19/18 0540 12/21/18 0542 Results 24hrs Laboratory Tests Test 12/21/18 05:42 Blood Urea Nitrogen 5 L Creatinine 0.24 L Subjective 24 Hr Interval Summary Free Text/Dictation Patient resting, appears comfortable Exam/Review of Systems Exam Vitals Vital Signs Date Temp Pulse Resp B/P (MAP) Pulse Ox O2 O2 Flow FiO2 Time Delivery Rate 12/21/18 98.7 62 20 94/57 (69) 100 11:07 12/21/18 Nasal 5.0 08:25 Cannula 12/20/18 40 20:33 Intake and Output 12/20/18 12/20/18 12/21/18 1515:00 23:00 07:00 IntakeIntake Total 300 ml 0 ml OutputOutput Total 500 ml 700 ml 1100 ml BalanceBalance -200 ml -700 ml -1100 ml Constitutional: well developed Head: normocephalic, atraumatic Neck: supple Respiratory: diminished breath sounds Cardiovascular: regular rate and rhythm Gastrointestinal: soft, non-tender Extremities: normal pulses Results Results 24hrs Laboratory Tests Test 12/21/18 05:42 Blood Urea Nitrogen 5 L Creatinine 0.24 L Medications Medication Current Medications Potassium Chloride/Dextrose/ Sod Cl 1,000 ml @ 80 mls/hr [id number] IV Last administered on 12/21/18at 11:21; Admin Dose 80 MLS/HR; Start 12/18/18 at 20:00 Vancomycin HCl (Vanco Iv Per Pharmacy) VANCOMYCIN PER PHARMACY PER PROTOCOL XX ; Start 12/18/18 at 20:00 Cefepime HCl 50 ml @ 100 mls/hr Q12 IVPB Last administered on 12/21/18 08:43; Admin Dose 100 MLS/HR; Start 12/18/18 at 21:00 Acetaminophen (Tylenol Liquid) 650 mg Q4H PRN GTB MILD PAIN(1-3)OR ELEVATED TEMP Last administered on 12/21/18 08:43; Admin Dose 650 MG; Start 12/18/18 at 20:00 Pantoprazole (Protonix Tab) 40 mg DAILY@06 PO Last administered on 12/21/18 05:36; Admin Dose 40 MG; Start 12/19/18 at 06:00 Albuterol/ Ipratropium (Duoneb) 3 ml Q6H RESP THERAPY HHN Last administered on 12/21/18 08:15; Admin Dose 3 ML; Start 12/18/18 at 20:00 Enoxaparin Sodium (Lovenox) 40 mg DAILY SC Last administered on 12/21/18 09:18; Admin Dose 40 MG; Start 12/19/18 at 09:00 Vancomycin HCl 250 ml @ 125 mls/hr Q8H IVPB Last administered on 12/21/18 08:43; Admin Dose 125 MLS/HR; Start 12/19/18 at 00:00 Miscellaneous Information (Pending [facility] Order For Wound Care) This patient huggins... PRN PRN XX WOUND CARE; Start 12/19/18 at 05:00 DICK WOOD Dec 21, 2018 12:13
--- NOTE | 2018-12-21 14:43 | CONS ---
Consult Date/Type/Reason Admit Date/Time Dec 18, 2018 at 16:43 Initial Consult Date 12/20/18 Type of Consultation: Pulm Date/Time of Note DATE: 12/21/18 TIME: 14:38 Subjective No events. Afebrile. Remains on high-flow FiO2. Objective Vitals Vital Signs Date Temp Pulse Resp B/P (MAP) Pulse Ox O2 O2 Flow FiO2 Time Delivery Rate 12/21/18 94 18 99 Nasal 5.0 13:32 Cannula 12/21/18 98.7 94/57 (69) 11:07 12/20/18 40 20:33 Intake and Output 12/20/18 12/20/18 12/21/18 1515:00 23:00 07:00 IntakeIntake Total 300 ml 0 ml OutputOutput Total 500 ml 700 ml 1100 ml BalanceBalance -200 ml -700 ml -1100 ml Exam HEENT: Neck supple; no JVD; no LAD CVS: RRR, S1 and S2 CHEST: Coarse rhonchi b/l ABD: Soft, NT, + BS EXT: No c/c/e Results/Medications Result Diagram: 12/19/18 0540 12/21/18 0542 Results 24 hrs Laboratory Tests Test 12/21/18 05:42 Blood Urea Nitrogen 5 L Creatinine 0.24 L Home Meds Reported Medications Ascorbic Acid (Vitamin C) 500 Mg Tab, 500 MG GTB DAILY, TAB 12/18/18 Cran/Vitc/Mannose/Inulin/Brom (Uti-Stat Liquid) 3,875 Mg/30 Ml Liquid, 30 MG GTB BID 12/18/18 Acetaminophen* (Acetaminophen*) 500 MG Extra Strength Tablet, 1000 MG GTB BID PRN for PAIN AND OR ELEVATED TEMP, TAB 12/18/18 Acetaminophen* (Acetaminophen*) 500 MG Extra Strength Tablet, 1000 MG GTB Q4H PRN for PAIN -02/24, TAB 12/18/18 Acetaminophen* (Tylenol*) 325 Mg Tablet, 650 MG GTB Q4H PRN for MILD PAIN LEVEL 1-3, TAB 12/18/18 Oxcarbazepine* (Trileptal*) 150 Mg Tablet, 150 MG GTB BID, TAB 12/18/18 Sodium Chloride* (Sodium Chloride*) 1 Gm Tablet, 1 GM GTB TID, TAB 12/18/18 Amino Acids/Protein Hydrolys (PRO-STAT LIQUID) 30 Ml Liquid.pkt, 30 ML GTB BID SUGAR FREE 12/18/18 Multivit &Minerals/Ferrous Fum (MULTIVITAMIN LIQUID) 9 Mg/15 Ml Liquid, 5 MG GTB DAILY 12/18/18 Magnesium Hydroxide* (Milk Of Magnesia*) 400 Mg/5 Ml Oral.susp, 30 ML GTB NEEDED for CONSTIPATION, ML 12/18/18 Na Phos,M-B/Na Phos,Di-Ba (Fleet Enema Extra) 230 Ml Enema, 1 APPLIC RC Q 2D, ENEMA 12/18/18 Ipratropium-Albuterol (Ipratropium-Albuterol) 0.5-3 Mg/3 Ml Ampul.neb, 3 ML INHALATION Q6, #30 VIAL 12/18/18 Bisacodyl* (Bisacodyl*) 10 Mg Supp, 10 MG [place] Q24H for CONSTIPATION, SUPP 12/18/18 Cranberry Extract (Cranberry) 425 Mg Capsule, 425 MG GTB DAILY, CAP 12/18/18 Docusate Sodium* (Colace*) 100 Mg Capsule, 200 MG GTB QHS, #30 CAP 12/18/18 Discontinued Reported Medications Oxcarbazepine* (Trileptal*) 150 Mg Tablet, 450 MG GTB QHS, TAB 08/23/18 Acetaminophen* (Tylenol*) 500 Mg Tab, 1000 MG GTB Q4H PRN for -02/24, TAB 08/23/18 Acetaminophen* (Tylenol*) 325 Mg Tablet, 650 MG GTB Q4H PRN for MILD PAIN LEVEL 1-3, TAB 08/23/18 Oxcarbazepine* (Trileptal*) 150 Mg Tablet, 150 MG GTB DAILY, TAB 08/23/18 Sodium Chloride* (Sodium Chloride*) 1 Gm Tablet, 1 GM GTB TID, TAB 08/23/18 Magnesium Hydroxide* (Milk Of Magnesia*) 400 Mg/5 Ml Oral.susp, 30 ML GTB Q24H PRN for NEEDED, ML 08/23/18 Bisacodyl* (Bisacodyl*) 10 Mg Supp, 10 MG [place] Q24H for CONSTIPATION, SUPP 08/23/18 Cranberry Extract (Cranberry) 425 Mg Capsule, 425 MG GTB DAILY, CAP 08/23/18 Docusate Sodium* (Colace*) 100 Mg Capsule, 200 MG GTB QHS, #30 CAP 08/23/18 Medications Current Medications Potassium Chloride/Dextrose/ Sod Cl 1,000 ml @ 80 mls/hr [id number] IV Last administered on 12/21/18 11:21; Admin Dose 80 MLS/HR; Start 12/18/18 at 20:00 Vancomycin HCl (Vanco Iv Per Pharmacy) VANCOMYCIN PER PHARMACY PER PROTOCOL XX ; Start 12/18/18 at 20:00 Cefepime HCl 50 ml @ 100 mls/hr Q12 IVPB Last administered on 12/21/18 08:43; Admin Dose 100 MLS/HR; Start 12/18/18 at 21:00 Acetaminophen (Tylenol Liquid) 650 mg Q4H PRN GTB MILD PAIN(1-3)OR ELEVATED TEMP Last administered on 12/21/18 08:43; Admin Dose 650 MG; Start 12/18/18 at 20:00 Pantoprazole (Protonix Tab) 40 mg DAILY@06 PO Last administered on 12/21/18 05:36; Admin Dose 40 MG; Start 12/19/18 at 06:00 Albuterol/ Ipratropium (Duoneb) 3 ml Q6H RESP THERAPY HHN Last administered on 12/21/18 13:22; Admin Dose 3 ML; Start 12/18/18 at 20:00 Enoxaparin Sodium (Lovenox) 40 mg DAILY SC Last administered on 12/21/18 09:18; Admin Dose 40 MG; Start 12/19/18 at 09:00 Vancomycin HCl 250 ml @ 125 mls/hr Q8H IVPB Last administered on 12/21/18 08:43; Admin Dose 125 MLS/HR; Start 12/19/18 at 00:00 Miscellaneous Information (Pending [facility] Order For Wound Care) This patient huggins... PRN PRN XX WOUND CARE; Start 12/19/18 at 05:00 Assessment/Plan Assessment/Plan (Daily) IMP: 1. Hypoxemic Respiratory Insufficiency 2. Aspiration pneumonitis 3. CP RECS: 1. Cont abx 2. Aspiration precautions 3. High flow FiO2 JOSSELYN COULTER MD Dec 21, 2018 14:43
[2018-12-22] VITALS (12 sets, daily range): BP systolic 115–146; BP diastolic 69–96; PULSE 77–94; RESP 18–21
[2018-12-22] MEDS: VANCOMYCIN 1 GM 250 ML IVPB SCH ×3 (01:14→18:39)
[2018-12-22] MEDS: ALBUTEROL/IPRATROPIUM (NEB) 3 ML AMP HHN SCH ×4 (02:41→19:40)
[2018-12-22] MEDS: PANTOPRAZOLE (EC) 40 MG TAB PO SCH (05:37)
[2018-12-22] MEDS: D5W-0.45 NACL + KCL 20 MEQ 1,000 ML IV SCH ×2 (05:38→19:21)
[2018-12-22] MEDS: BALSAM PERU/CASTOR OIL 60 GM TUBE TOP SCH ×2 (08:07→21:03)
[2018-12-22] MEDS: CEFEPIME 1GM/50 ML (PMX) 50 ML IVPB SCH ×2 (08:07→21:04)
[2018-12-22] MEDS: ENOXAPARIN 40 MG/0.4 ML SYG SC SCH (08:21)
--- NOTE | 2018-12-22 12:11 | PN ---
Date/Time of Note Date/Time of Note DATE: 12/22/18 TIME: 12:10 Assessment/Plan VTE Prophylaxis Risk score (from [facility] [place]0 risk: 5 SCD applied (from [facility] [place]): No SCD contraindicated: other Pharmacological prophylaxis: LMWH Lines/Catheters IV Catheter Type (from [facility]): Peripheral IV Urinary Cath still in place: Yes Reason Cath still needed: skin wounds contaminated by urine Assessment/Plan Hospital Course -Acute respiratory failure due to healthcare facility-acquired pneumonia requiring BiPAP. Dr. Hyatt is asked to see patient in pulmonology co nsultation. -Healthcare facility acquired pneumonia. Continue vancomycin and cefepime. -Dysphagia with G-tube. -Cerebral palsy. -Protein calorie malnutrition -DNR status. Result Diagram: 12/19/1840 12/21/18 0542 Results 24hrs Laboratory Tests Test 12/22/18 07:18 Vancomycin Level Trough 30.3 *H Subjective 24 Hr Interval Summary Free Text/Dictation Patient sedated but appears stable Exam/Review of Systems Exam Vitals Vital Signs Date Temp Pulse Resp B/P (MAP) Pulse Ox O2 O2 Flow FiO2 Time Delivery Rate 12/22/18 98.7 83 20 119/84 100 11:11 (96) 12/22/18 4.0 08:34 12/22/18 Nasal 08:32 Cannula 12/20/18 40 20:33 Intake and Output 12/21/18 12/21/18 12/22/18 1515:00 23:00 07:00 IntakeIntake Total 1000 ml 1130 ml 465 ml OutputOutput Total 1000 ml 700 ml BalanceBalance 1000 ml 130 ml -235 ml Constitutional: frail Head: normocephalic, atraumatic Neck: supple Respiratory: diminished breath sounds Cardiovascular: regular rate and rhythm Gastrointestinal: soft, non-tender Extremities: normal pulses Results Results 24hrs Laboratory Tests Test 12/22/18 07:18 Vancomycin Level Trough 30.3 *H Medications Medication Current Medications Potassium Chloride/Dextrose/ Sod Cl 1,000 ml @ 80 mls/hr [id number] IV Last a dministered on 12/22/18at 05:38; Admin Dose 80 MLS/HR; Start 12/18/18 at 20:00 Vancomycin HCl (Vanco Iv Per Pharmacy) VANCOMYCIN PER PHARMACY PER PROTOCOL XX ; Start 12/18/18 at 20:00 Cefepime HCl 50 ml @ 100 mls/hr Q12 IVPB Last administered on 12/22/18 08:07; Admin Dose 100 MLS/HR; Start 12/18/18 at 21:00 Acetaminophen (Tylenol Liquid) 650 mg Q4H PRN GTB MILD PAIN(1-3)OR ELEVATED TEMP Last administered on 12/21/18at 08:43; Admin Dose 650 MG; Start 12/18/18 at 20:00 Pantoprazole (Protonix Tab) 40 mg DAILY@06 PO Last administered on 12/22/18at 05:37; Admin Dose 40 MG; Start 12/19/18 at 06:00 Albuterol/ Ipratropium (Duoneb) 3 ml Q6H RESP THERAPY HHN Last administered on 12/22/18 08:28; Admin Dose 3 ML; Start 12/18/18 at 20:00 Enoxaparin Sodium (Lovenox) 40 mg DAILY SC Last administered on 12/22/18 08:21; Admin Dose 40 MG; Start 12/19/18 at 09:00 Miscellaneous Information (Pending [facility] Order For Wound Care) This patient huggins... PRN PRN XX WOUND CARE; Start 12/19/18 at 05:00 Vancomycin HCl 250 ml @ 125 mls/hr Q12H IVPB ; Start 12/22/18 at 19:00 DICK WOOD Dec 22, 2018 12:11
--- NOTE | 2018-12-22 13:12 | CONS ---
Consult Date/Type/Reason Admit Date/Time Dec 18, 2018 at 16:43 Initial Consult Date 12/20/18 Type of Consultation: Pulm Date/Time of Note DATE: 12/22/18 TIME: 13:11 Subjective Overall improved, having transitioned from high flow to NC Objective Vitals Vital Signs Date Temp Pulse Resp B/P (MAP) Pulse Ox O2 O2 Flow FiO2 Time Delivery Rate 12/22/18 98.7 83 20 119/84 100 11:11 (96) 12/22/18 4.0 08:34 12/22/18 Nasal 08:32 Cannula 12/20/18 40 20:33 Intake and Output 12/21/18 12/21/18 12/22/18 1515:00 23:00 07:00 IntakeIntake Total 1000 ml 1130 ml 465 ml OutputOutput Total 1000 ml 700 ml BalanceBalance 1000 ml 130 ml -235 ml Exam HEENT: Neck supple; no JVD; no LAD CVS: RRR, S1 and S2 CHEST: Coarse rhonchi b/l ABD: Soft, NT, + BS EXT: No c/c/e Results/Medications Result Diagram: 12/19/18 0540 12/21/18 0542 Results 24 hrs Laboratory Tests Test 12/22/18 07:18 Vancomycin Level Trough 30.3 *H Home Meds Reported Medications Ascorbic Acid (Vitamin C) 500 Mg Tab, 500 MG GTB DAILY, TAB 12/18/18 Cran/Vitc/Mannose/Inulin/Brom (Uti-Stat Liquid) 3,875 Mg/30 Ml Liquid, 30 MG GTB BID 12/18/18 Acetaminophen* (Acetaminophen*) 500 MG Extra Strength Tablet, 1000 MG GTB BID PRN for PAIN AND OR ELEVATED TEMP, TAB 12/18/18 Acetaminophen* (Acetaminophen*) 500 MG Extra Strength Tablet, 1000 MG GTB Q4H PRN for PAIN -02/24, TAB 12/18/18 Acetaminophen* (Tylenol*) 325 Mg Tablet, 650 MG GTB Q4H PRN for MILD PAIN LEVEL 1-3, TAB 12/18/18 Oxcarbazepine* (Trileptal*) 150 Mg Tablet, 150 MG GTB BID, TAB 12/18/18 Sodium Chloride* (Sodium Chloride*) 1 Gm Tablet, 1 GM GTB TID, TAB 12/18/18 Amino Acids/Protein Hydrolys (PRO-STAT LIQUID) 30 Ml Liquid.pkt, 30 ML GTB BID SUGAR FREE 12/18/18 Multivit &Minerals/Ferrous Fum (MULTIVITAMIN LIQUID) 9 Mg/15 Ml Liquid, 5 MG GTB DAILY 12/18/18 Magnesium Hydroxide* (Milk Of Magnesia*) 400 Mg/5 Ml Oral.susp, 30 ML GTB NEEDED for CONSTIPATION, ML 12/18/18 Na Phos,M-B/Na Phos,Di-Ba (Fleet Enema Extra) 230 Ml Enema, 1 APPLIC RC Q 2D, ENEMA 12/18/18 Ipratropium-Albuterol (Ipratropium-Albuterol) 0.5-3 Mg/3 Ml Ampul.neb, 3 ML INH ALATION Q6, #30 VIAL 12/18/18 Bisacodyl* (Bisacodyl*) 10 Mg Supp, 10 MG [place] Q24H for CONSTIPATION, SUPP 12/18/18 Cranberry Extract (Cranberry) 425 Mg Capsule, 425 MG GTB DAILY, CAP 12/18/18 Docusate Sodium* (Colace*) 100 Mg Capsule, 200 MG GTB QHS, #30 CAP 12/18/18 Discontinued Reported Medications Oxcarbazepine* (Trileptal*) 150 Mg Tablet, 450 MG GTB QHS, TAB 08/23/18 Acetaminophen* (Tylenol*) 500 Mg Tab, 1000 MG GTB Q4H PRN for 4-02/24, TAB 08/23/18 Acetaminophen* (Tylenol*) 325 Mg Tablet, 650 MG GTB Q4H PRN for MILD PAIN LEVEL 1-3, TAB 08/23/18 Oxcarbazepine* (Trileptal*) 150 Mg Tablet, 150 MG GTB DAILY, TAB 08/23/18 Sodium Chloride* (Sodium Chloride*) 1 Gm Tablet, 1 GM GTB TID, TAB 08/23/18 Magnesium Hydroxide* (Milk Of Magnesia*) 400 Mg/5 Ml Oral.susp, 30 ML GTB Q24H PRN for NEEDED, ML 08/23/18 Bisacodyl* (Bisacodyl*) 10 Mg Supp, 10 MG [place] Q24H for CONSTIPATION, SUPP 08/23/18 Cranberry Extract (Cranberry) 425 Mg Capsule, 425 MG GTB DAILY, CAP 08/23/18 Docusate Sodium* (Colace*) 100 Mg Capsule, 200 MG GTB QHS, #30 CAP 08/23/18 Medications Current Medications Potassium Chloride/Dextrose/ Sod Cl 1,000 ml @ 80 mls/hr [id number] IV Last administered on 12/22/18at 05:38; Admin Dose 80 MLS/HR; Start 12/18/18 at 20:00 Vancomycin HCl (Vanco Iv Per Pharmacy) VANCOMYCIN PER PHARMACY PER PROTOCOL XX ; Start 12/18/18 at 20:00 Cefepime HCl 50 ml @ 100 mls/hr Q12 IVPB Last administered on 12/22/18at 08:07; Admin Dose 100 MLS/HR; Start 12/18/18 at 21:00 Acetaminophen (Tylenol Liquid) 650 mg Q4H PRN GTB MILD PAIN(1-3)OR ELEVATED TEMP Last administered on 12/21/18at 08:43; Admin Dose 650 MG; Start 12/18/18 at 20:00 Pantoprazole (Protonix Tab) 40 mg DAILY@06 PO Last administered on 12/22/18at 05:37; Admin Dose 40 MG; Start 12/19/18 at 06:00 Albuterol/ Ipratropium (Duoneb) 3 ml Q6H RESP THERAPY HHN Last administered on 12/22/18at 08:28; Admin Dose 3 ML; Start 12/18/18 at 20:00 Enoxaparin Sodium (Lovenox) 40 mg DAILY SC Last administered on 12/22/18at 08:21; Admin Dose 40 MG; Start 12/19/18 at 09:00 [facility] This patient huggins... PRN PRN XX WOUND CARE; Start 12/19/18 at 05:00 Vancomycin HCl 250 ml @ 125 mls/hr Q12H IVPB ; Start 12/22/18 at 19:00 Assessment/Plan Assessment/Plan (Daily) IMP: 1. Hypoxemic Respiratory Insufficiency--improved 2. Aspiration pneumonitis 3. CP RECS: 1. Cont abx 2. Aspiration precautions 3. Titrate FiO2 JOSSELYN COULTER MD Dec 22, 2018 13:12
[2018-12-23] VITALS (11 sets, daily range): BP systolic 131–148; BP diastolic 79–88; PULSE 81–99; RESP 17–20
[2018-12-23] MEDS: ALBUTEROL/IPRATROPIUM (NEB) 3 ML AMP HHN SCH ×4 (01:29→19:40)
[2018-12-23] MEDS: PANTOPRAZOLE (EC) 40 MG TAB PO SCH (06:00)
[2018-12-23] MEDS: VANCOMYCIN 1 GM 250 ML IVPB SCH ×2 (06:01→18:44)
[2018-12-23] MEDS: CEFEPIME 1GM/50 ML (PMX) 50 ML IVPB SCH ×2 (10:12→22:18)
[2018-12-23] MEDS: BALSAM PERU/CASTOR OIL 60 GM TUBE TOP SCH ×2 (10:13→21:30)
--- NOTE | 2018-12-23 10:37 | CONS ---
Consult Date/Type/Reason Admit Date/Time Dec 18, 2018 at 16:43 Initial Consult Date 12/20/18 Type of Consult Pulmonary Date/Time of Note DATE: 12/23/18 TIME: 10:37 Subjective Patient appears comfortable this morning no new events decrease secretions no respiratory distress Objective Vital Signs Date Temp Pulse Resp B/P (MAP) Pulse Ox O2 O2 Flow FiO2 Time Delivery Rate 12/23/18 82 18 95 Nasal 2.0 08:44 Cannula 12/23/18 99.1 139/87 07:06 (104) 12/20/18 40 20:33 Intake and Output 12/22/18 12/22/18 12/23/18 1515:00 23:00 07:00 IntakeIntake Total 300 ml 1760 ml 660 ml OutputOutput Total 1300 ml 900 ml BalanceBalance 300 ml 460 ml -240 ml Exam GENERAL: Frail young lady on supplemental O2 VITAL SIGNS: per chart NECK: Supple. No JVD or lymphadenopathy. CARDIAC EXAM: S1, S2. No added sounds or murmurs. CHEST: Diminished air entry bilaterally ABDOMEN: Soft, nontender. No guarding or rebound. EXTREMITIES: No cyanosis, clubbing or edema. NEUROLOGIC: Generalized weakness. Vent Setting Fraction of Inspired Oxygen pe: 40 Results/Medications Result Diagram: 12/19/18 0540 12/23/18 0518 Results 24 hrs Laboratory Tests Test 12/23/18 05:18 Blood Urea Nitrogen 13 Creatinine 0.44 Medications Current Medications Potassium Chloride/Dextrose/ Sod Cl 1,000 ml @ 80 mls/hr [id number] IV Last administered on 12/22/18at 19:21; Admin Dose 80 MLS/HR; Start 12/18/18 at 20:00 Vancomycin HCl (Vanco Iv Per Pharmacy) VANCOMYCIN PER PHARMACY PER PROTOCOL XX ; Start 12/18/18 at 20:00 Cefepime HCl 50 ml @ 100 mls/hr Q12 IVPB Last administered on 12/23/18at 10:12; Admin Dose 100 MLS/HR; Start 12/18/18 at 21:00 Acetaminophen (Tylenol Liquid) 650 mg Q4H PRN GTB MILD PAIN(1-3)OR ELEVATED TEMP Last administered on 12/21/18at 08:43; Admin Dose 650 MG; Start 12/18/18 at 20:00 Pantoprazole (Protonix Tab) 40 mg DAILY@06 PO Last administered on 12/23/18at 06:00; Admin Dose 40 MG; Start 12/19/18 at 06:00 Albuterol/ Ipratropium (Duoneb) 3 ml Q6H RESP THERAPY HHN Last administered on 12/23/18at 07:45; Admin Dose 3 ML; Start 12/18/18 at 20:00 Enoxaparin Sodium (Lovenox) 40 mg DAILY SC Last administered on 12/22/18at 08:21; Admin Dose 40 MG; Start 12/19/18 at 09:00 [facility] This patient huggins... PRN PRN XX WOUND CARE; Start 12/19/18 at 05:00 Vancomycin HCl 250 ml @ 125 mls/hr Q12H IVPB Last administered on 12/23/18at 06:01; Admin Dose 125 MLS/HR; Start 12/22/18 at 19:00 Assessment/Plan Hospital Course (Demo Recall) IMP: 1. Hypoxemic Respiratory Insufficiency--improved 2. Aspiration pneumonitis 3. CP RECS: 1. Cont abx 2. Aspiration precautions 3. Titrate FiO2 DC planning okay from pulmonary standpoint Consider [facility] Kang [facility] Dec 23, 2018 10:37
[2018-12-23] MEDS: ENOXAPARIN 40 MG/0.4 ML SYG SC SCH (11:25)
[2018-12-23] MEDS: D5W-0.45 NACL + KCL 20 MEQ 1,000 ML IV SCH (12:30)
--- NOTE | 2018-12-23 14:44 | PN ---
Date/Time of Note Date/Time of Note DATE: 12/23/18 TIME: 14:37 Assessment/Plan VTE Prophylaxis Risk score (from Ns)>0 risk: 6 SCD applied (from Ns): Yes Pharmacological prophylaxis: LMWH Lines/Catheters IV C[facility]ter Type (from [facility]): Peripheral IV Urinary Cath still in place: Yes Reason Cath still needed: urinary retention Assessment/Plan Hospital Course Patient is currently on supplemental oxygen, sinus rhythm on telemetry residual is 60 cc per RN. Continue G-tube feeding at the goal rate of 55 cc/h, aspiration precaution head of bed 45 degrees continue to monitor residual. Continue to monitor patient on medical surgical floor. Assessment/Plan -Acute respiratory failure due to healthcare facility-acquired pneumonia requiring BiPAP. Dr. Hyatt is following in pulmonology consultation. -Healthcare facility acquired pneumonia. Continue vancomycin and cefepime. Dr. Poole to see patient in infection disease consultation. -Dysphagia with G-tube. -Cerebral palsy. -Protein calorie malnutrition, continue G-tube feeding, Adriana-Demi and zinc sulfate. -DNR status. Further recommendations based on clinical course. Plan of care discussed with Dr. Bowman. Result Diagram: 12/19/18 0540 12/23/18 0518 Results 24hrs Laboratory Tests Test 12/23/18 05:18 Blood Urea Nitrogen 13 Creatinine 0.44 Exam/Review of Systems Exam Vitals Vital Signs Date Temp Pulse Resp B/P (MAP) Pulse Ox O2 O2 Flow FiO2 Time Delivery Rate 12/23/18 2.0 14:31 12/23/18 86 18 95 Nasal 14:31 Cannula 12/23/18 98.2 147/88 11:20 (107) 12/20/18 40 20:33 Intake and Output 12/22/18 12/22/18 12/23/18 1515:00 23:00 07:00 IntakeIntake Total 300 ml 1760 ml 660 ml OutputOutput Total 1300 ml 900 ml BalanceBalance 300 ml 460 ml -240 ml Exam Constitutional: non-verbal Respiratory: diminished breath sounds Cardiovascular: regular rate and rhythm Gastrointestinal: soft, non-tender, other (G-tube) Musculoskeletal: muscle weakness Extremities: other (Contracted extremities) Results Results 24hrs Laboratory Tests Test 12/23/18 05:18 Blood Urea Nitrogen 13 Creatinine 0.44 Medications Medication Current Medications Potassium Chloride/Dextrose/ Sod Cl 1,000 ml @ 80 mls/hr [id number] IV Last administered on 12/22/18 19:21; Admin Dose 80 MLS/HR; Start 12/18/18 at 20:00 Vancomycin HCl (Vanco Iv Per Pharmacy) VANCOMYCIN PER PHARMACY PER PROTOCOL XX ; Start 12/18/18 at 20:00 Cefepime HCl 50 ml @ 100 mls/hr Q12 IVPB Last administered on 12/23/18 10:12; Admin Dose 100 MLS/HR; Start 12/18/18 at 21:00 Acetaminophen (Tylenol Liquid) 650 mg Q4H PRN GTB MILD PAIN(1-3)OR ELEVATED TEMP Last administered on 12/21/18 08:43; Admin Dose 650 MG; Start 12/18/18 at 20:00 Pantoprazole (Protonix Tab) 40 mg DAILY@06 PO Last administered on 12/23/18 06:00; Admin Dose 40 MG; Start 12/19/18 at 06:00 Albuterol/ Ipratropium (Duoneb) 3 ml Q6H RESP THERAPY HHN Last administered on 12/23/18 14:30; Admin Dose 3 ML; Start 12/18/18 at 20:00 Enoxaparin Sodium (Lovenox) 40 mg DAILY SC Last administered on 12/23/18 11:25; Admin Dose 40 MG; Start 12/19/18 at 09:00 Miscellaneous Information (Pending [facility] Order For Wound Care) This patient huggins... PRN PRN XX WOUND CARE; Start 12/19/18 at 05:00 Vancomycin HCl 250 ml @ 125 mls/hr Q12H IVPB Last administered on 12/23/18 06:01; Admin Dose 125 MLS/HR; Start 12/22/18 at 19:00 Miscellaneous Information (*Rx Drug Level Order Reminder*) 1 0600 ONCE XX ; Start 12/24/18 at 06:00; Stop 12/24/18 at 06:01 LIBIA CARBALLO Dec 23, 2018 14:44
--- NOTE | 2018-12-23 16:17 | CONS ---
DATE OF ADMISSION: 12/18/2018 DATE OF CONSULTATION: 12/23/2018 TYPE OF CONSULTATION: Infectious disease. REASON FOR CONSULTATION: Antibiotic management. HISTORY OF PRESENT ILLNESS: Rosaura Vega is a 43-year-old unfortunate female with cerebral palsy, comes in with shortness of breath and fever. The patient has: 1. Cerebral palsy. 2. Dysphagia. 3. Status post G-tube placement. [facility] She was sent to [facility] with hypoxemia with a saturation of 85% on room air. She also had fever. She was evaluated in the emergency room and had a white count of 18.8, lactic acid of 4. A chest x-ray revealed pneumonia. She was started on vanc omycin and cefepime due to the possibility of healthcare-associated or acquired pneumonia. She also received IV fluids for severe sepsis. She was noted to have acute respiratory failure and had to be placed on BiPAP. She did not have tonic-clonic seizures. No reported vomiting. No reported leg malik ma. On admission, her temperature was 101.7. Her white count was 18.8, hemoglobin 13.4. She had 33 % bands. BUN and creatinine is 27/0.2. She was seen by Dr. Clayton. Today, she seems comfortable. Chest x-ray showed bilateral patchy alveolar opacities with dense consolidation in the left lower lo be. Findings reflect a combination of edema and pneumonia. Small bilateral pleural effusions are al so markedly increased. Her urine is growing Marine glabrata. Blood cultures are negative. The pat ient is on vancomycin and cefepime. Currently, white count is 12.3. PAST MEDICAL HISTORY: Operations as outlined. FAMILY HISTORY: Noncontributory. SOCIAL HISTORY: She does not smoke, drink or abuse drugs. ALLERGIES: NONE TO PENICILLIN, SULFA OR FOODS. MEDICATIONS: Per chart. REVIEW OF SYSTEMS: As per HPI. PHYSICAL EXAMINATION: GENERAL: The patient is an elderly ill-appearing female who is awake, responsive, nonverbal. SKIN: Without generalized rash. HEENT: Within normal limits. NECK: Supple. LYMPH NODES: None palpable. CHEST: Decreased breath sounds at the bases. HEART: Without murmur or gallop. ABDOMEN: Soft, nontender. G-tube is in place. EXTREMITIES: Muscle weakness with contractions of both lower extremities. RECTAL AND GENITAL: Deferred. NEUROLOGICAL: No focal neurological abnormality. IMPRESSION AND PLAN: Continue vancomycin and cefepime. Add fluconazole to her regimen, which should cover Marine glabrata. She had 50,000 to 60,000 colony-forming units which may also be colonizatio n. I will dictate my findings to Dr. Vargas and nurse practitioner Dolores. Dictated By: JOEY TYLER MD, JD/NTS Conf#: [id number] DID#: [id number] CC: GLORIA VARGAS MD; PAYTON CLAYTON MD;*EndCC*
[2018-12-23] MEDS ORDERED: FAMOTIDINE 20 MG TAB NGT SCH (21:00)
[2018-12-23] MEDS: OXCARBAZEPINE 150 MG TAB GTB SCH (23:51)
[2018-12-24 02:00] VITALS: BP 157/95; PULSE 89; RESP 18
[2018-12-24] MEDS: ALBUTEROL/IPRATROPIUM (NEB) 3 ML AMP HHN SCH ×4 (02:45→20:58)
[2018-12-24] MEDS: LANSOPRAZOLE 30 MG CAP PO SCH (06:20)
[2018-12-24] MEDS: VANCOMYCIN 1 GM 250 ML IVPB SCH (07:00)
[2018-12-24 07:21] VITALS: BP 125/80; PULSE 87; RESP 16
[2018-12-24] MEDS ORDERED: POTASSIUM CHLORIDE (SR) 20 MEQ TAB PO STA (08:08)
[2018-12-24] MEDS: ZINC SULFATE 220 MG CAP GTB SCH (09:00)
[2018-12-24] MEDS: MULTIVIT/CA CARB/B CMPLX/FA TAB GTB SCH (09:00)
[2018-12-24] MEDS ORDERED: FLUCONAZOLE 200 MG TAB GTB SCH (09:00)
[2018-12-24] MEDS: OXCARBAZEPINE 150 MG TAB GTB SCH ×2 (09:00→21:44)
[2018-12-24] MEDS: ENOXAPARIN 40 MG/0.4 ML SYG SC SCH (09:01)
[2018-12-24] MEDS: BALSAM PERU/CASTOR OIL 60 GM TUBE TOP SCH ×2 (09:01→21:44)
[2018-12-24] MEDS: CEFEPIME 1GM/50 ML (PMX) 50 ML IVPB SCH ×2 (10:45→21:45)
[2018-12-24] MEDS ORDERED: POTASSIUM CHLORIDE (SR) 20 MEQ TAB PO ONE (12:30)
[2018-12-24 14:10] VITALS: BP 161/82; PULSE 88; RESP 20
--- NOTE | 2018-12-24 17:03 | PN ---
Date/Time of Note Date/Time of Note DATE: 12/24/18 TIME: 17:00 Assessment/Plan VTE Prophylaxis Risk score (from Ns)>0 risk: 5 SCD applied (from Ns): Yes Pharmacological prophylaxis: LMWH Lines/Catheters IV Catheter Type (from [facility]): Peripheral IV Central line still needed: Yes Urinary Cath still in place: Yes Reason Cath still needed: urinary retention Assessment/Plan Hospital Course No acute events overnight patient continues on supplemental oxygen via nasal cannula without distress. Patient's continues on antibiotics for healthcare associated pneumonia. Potassium is 2.7, status post replacement will check BMP and magnesium tomorrow. Assessment/Plan -Hypokalemia, status post potassium replacement, BMP tomorrow. -Acute respiratory failure due to healthcare facility-acquired pneumonia requiring BiPAP, resolving. Dr. Hyatt is following in pulmonology consultation. -Healthcare facility acquired pneumonia. Continue abx per ID. Dr. Poole is following in infection disease consultation. -Dysphagia with G-tube. -Cerebral palsy. -Protein calorie malnutrition, continue G-tube feeding, Adriana-Demi and zinc s ulfate. -DNR status. Further recommendations based on clinical course. Plan of care discussed with Dr. Bowman. Result Diagram: 12/24/18 0559 12/24/18 0559 Results 24hrs Laboratory Tests Test 12/24/18 05:59 White Blood Count 12.2 H Red Blood Count 3.49 L Hemoglobin 9.5 L Hematocrit 30.6 L Mean Corpuscular Volume 87.7 Mean Corpuscular Hemoglobin 27.2 L Mean Corpuscular Hemoglobin Concent 31.0 L Red Cell Distribution Width 15.2 H Platelet Count 263 # Mean Platelet Volume 10.4 Immature Granulocytes % 0.700 H Neutrophils % 76.8 Lymphocytes % 15.9 Monocytes % 3.6 Eosinophils % 2.8 Basophils % 0.2 Nucleated Red Blood Cells % 0.0 Immature Granulocytes # 0.080 H Neutrophils # 9.4 H Lymphocytes # 1.9 Monocytes # 0.4 Eosinophils # 0.3 Basophils # 0.0 Nucleated Red Blood Cells # 0.0 Sodium Level 145 H Potassium Level 2.7 *L Chloride Level 103 Carbon Dioxide Level 39 H Anion Gap 3 L Blood Urea Nitrogen 16 Creatinine 0.41 L Est Glomerular Filtrat Rate mL/min > 60 Glucose Level 118 Calcium Level 8.4 Magnesium Level 2.1 Vancomycin Level Trough 22.9 *H Exam/Review of Systems Exam Vitals Vital Signs Date Temp Pulse Resp B/P (MAP) Pulse Ox O2 O2 Flow FiO2 Time Delivery Rate 12/24/18 2.0 15:00 12/24/18 90 19 97 Nasal 14:59 Cannula 12/24/18 98.8 161/82 14:10 (108) 12/20/18 40 20:33 Intake and Output 12/23/18 12/23/18 12/24/18 1515:00 23:00 07:00 IntakeIntake Total 1310 ml OutputOutput Total 1200 ml 650 ml BalanceBalance 110 ml -650 ml Exam Constitutional: non-verbal Respiratory: diminished breath sounds Cardiovascular: nl pulse Gastrointestinal: soft, non-tender, other (G-tube) Musculoskeletal: muscle weakness Extremities: other (Contracted extremities) Results Results 24hrs Laboratory Tests Test 12/24/18 05:59 White Blood Count 12.2 H Red Blood Count 3.49 L Hemoglobin 9.5 L Hematocrit 30.6 L Mean Corpuscular Volume 87.7 Mean Corpuscular Hemoglobin 27.2 L Mean Corpuscular Hemoglobin Concent 31.0 L Red Cell Distribution Width 15.2 H Platelet Count 263 # Mean Platelet Volume 10.4 Immature Granulocytes % 0.700 H Neutrophils % 76.8 Lymphocytes % 15.9 Monocytes % 3.6 Eosinophils % 2.8 Basophils % 0.2 Nucleated Red Blood Cells % 0.0 Immature Granulocytes # 0.080 H Neutrophils # 9.4 H Lymphocytes # 1.9 Monocytes # 0.4 Eosinophils # 0.3 Basophils # 0.0 Nucleated Red Blood Cells # 0.0 Sodium Level 145 H Potassium Level 2.7 *L Chloride Level 103 Carbon Dioxide Level 39 H Anion Gap 3 L Blood Urea Nitrogen 16 Creatinine 0.41 L Est Glomerular Filtrat Rate mL/min > 60 Glucose Level 118 Calcium Level 8.4 Magnesium Level 2.1 Vancomycin Level Trough 22.9 *H Medications Medication Current Medications Vancomycin HCl (Vanco Iv Per Pharmacy) VANCOMYCIN PER PHARMACY PER PROTOCOL XX ; Start 12/18/18 at 20:00 Cefepime HCl 50 ml @ 100 mls/hr Q12 IVPB Last administered on 12/24/18at 10:45; Admin Dose 100 MLS/HR; Start 12/18/18 at 21:00 Acetaminophen (Tylenol Liquid) 650 mg Q4H PRN GTB MILD PAIN(1-3)OR ELEVATED TEMP Last administered on 12/21/18 08:43; Admin Dose 650 MG; Start 12/18/18 at 20:00 Albuterol/ Ipratropium (Duoneb) 3 ml Q6H RESP THERAPY HHN Last administered on 12/24/18 14:58; Admin Dose 3 ML; Start 12/18/18 at 20:00 Enoxaparin Sodium (Lovenox) 40 mg DAILY SC Last administered on 12/24/18 09:01; Admin Dose 40 MG; Start 12/19/18 at 09:00 Miscellaneous Information (Pending Santyl Order For Wound Care) This patient huggins... PRN PRN XX WOUND CARE; Start 12/19/18 at 05:00 Oxcarbazepine (Trileptal) 150 mg BID GTB Last administered on 12/24/18 09:00; Admin Dose 150 MG; Start 12/23/18 at 21:00 Zinc Sulfate (Zinc Sulfate) 220 mg DAILY GTB Last administered on 12/24/18 09:00; Admin Dose 220 MG; Start 12/24/18 at 09:00 Multivit/Ca Carb/ B Cmplx/FA/Prenat (Adriana-Demi) 1 tab DAILY GTB Last administered on 12/24/18 09:00; Admin Dose 1 TAB; Start 12/24/18 at 09:00 Fluconazole (Diflucan) 200 mg DAILY GTB Last administered on 12/24/18 09:00; Admin Dose 200 MG; Start 12/24/18 at 09:00 Lansoprazole (Prevacid) 30 mg DAILY@06 PO Last administered on 12/24/18at 06:20; Admin Dose 30 MG; Start 12/24/18 at 06:00 Vancomycin HCl 100 ml @ 100 mls/hr Q12H IVPB ; Start 12/24/18 at 18:00 LIBIA CARBALLO Dec 24, 2018 17:03
--- NOTE | 2018-12-24 17:18 | CONS ---
Assessment/Plan Assessment/Plan Hospital Course (Demo Recall) No acute changes patient is lying comfortably in bed no fevers overnight. WBC today 12.2 no shift no bands. BUN 16 creatinine 0.41. Microbiology: Blood cultures remain negative, urine culture grew Marine glabrata Indwelling: Stanford catheter, pack Chest x-ray on admission revealed pneumonia. Please see full report Antimicrobials: Vancomycin, cefepime Physical examination: Chronically ill-appearing debilitated middle-aged woman in no distress. Head atraumatic normocephalic. Neck is supple chest rise symmetrical breath sounds diminished bases. Heart: S1-S2. Abdomen soft bowel sounds present. Extremities wasted contractures. Skin: Patient has multiple pressure sores Assessment: 1. Sepsis, present on admission 2. Healthcare associated pneumonia possibly aspirated 3. Marine albicans UTI 4. Dysphagia 5. Cerebral palsy Plan: Add fluconazole, continue antibiotics, aspiration precautions Consultation Date/Type/Reason Admit Date/Time Dec 18, 2018 at 16:43 Initial Consult Date 12/20/18 Type of Consult id Date/Time of Note DATE: 12/24/18 TIME: 17:18 Exam/Review of Systems Exam Vitals Vital Signs Date Temp Pulse Resp B/P (MAP) Pulse Ox O2 O2 Flow FiO2 Time Delivery Rate 12/24/18 2.0 15:00 12/24/18 90 19 97 Nasal 14:59 Cannula 12/24/18 98.8 161/82 14:10 (108) 12/20/18 40 20:33 Intake and Output 12/23/18 12/23/18 12/24/18 1515:00 23:00 07:00 IntakeIntake Total 1310 ml OutputOutput Total 1200 ml 650 ml BalanceBalance 110 ml -650 ml Results Result Diagram: 12/24/18 0559 12/24/18 0559 Results 24hrs Laboratory Tests Test 12/24/18 05:59 White Blood Count 12.2 H Red Blood Count 3.49 L Hemoglobin 9.5 L Hematocrit 30.6 L Mean Corpuscular Volume 87.7 Mean Corpuscular Hemoglobin 27.2 L Mean Corpuscular Hemoglobin Concent 31.0 L Red Cell Distribution Width 15.2 H Platelet Count 263 # Mean Platelet Volume 10.4 Immature Granulocytes % 0.700 H Neutrophils % 76.8 Lymphocytes % 15.9 Monocytes % 3.6 Eosinophils % 2.8 Basophils % 0.2 Nucleated Red Blood Cells % 0.0 Immature Granulocytes # 0.080 H Neutrophils # 9.4 H Lymphocytes # 1.9 Monocytes # 0.4 Eosinophils # 0.3 Basophils # 0.0 Nucleated Red Blood Cells # 0.0 Sodium Level 145 H Potassium Level 2.7 *L Chloride Level 103 Carbon Dioxide Level 39 H Anion Gap 3 L Blood Urea Nitrogen 16 Creatinine 0.41 L Est Glomerular Filtrat Rate mL/min > 60 Glucose Level 118 Calcium Level 8.4 Magnesium Level 2.1 Vancomycin Level Trough 22.9 *H Medications Medication Current Medications Vancomycin HCl (Vanco Iv Per Pharmacy) VANCOMYCIN PER PHARMACY PER PROTOCOL XX ; Start 12/18/18 at 20:00 Cefepime HCl 50 ml @ 100 mls/hr Q12 IVPB Last administered on 12/24/18 10:45; Admin Dose 100 MLS/HR; Start 12/18/18 at 21:00 Acetaminophen (Tylenol Liquid) 650 mg Q4H PRN GTB MILD PAIN(1-3)OR ELEVATED TEMP Last administered on 12/21/18 08:43; Admin Dose 650 MG; Start 12/18/18 at 20:00 Albuterol/ Ipratropium (Duoneb) 3 ml Q6H RESP THERAPY HHN Last administered on 12/24/18 14:58; Admin Dose 3 ML; Start 12/18/18 at 20:00 Enoxaparin Sodium (Lovenox) 40 mg DAILY SC Last administered on 12/24/18 09:01; Admin Dose 40 MG; Start 12/19/18 at 09:00 Miscellaneous Information (Pending [facility] Order For Wound Care) This patient huggins... PRN PRN XX WOUND CARE; Start 12/19/18 at 05:00 Oxcarbazepine (Trileptal) 150 mg BID GTB Last administered on 12/24/18 09:00; Admin Dose 150 MG; Start 12/23/18 at 21:00 Zinc Sulfate (Zinc Sulfate) 220 mg DAILY GTB Last administered on 12/24/18 09:00; Admin Dose 220 MG; Start 12/24/18 at 09:00 Multivit/Ca Carb/ B Cmplx/FA/Prenat (Adriana-Demi) 1 tab DAILY GTB Last administered on 12/24/18 09:00; Admin Dose 1 TAB; Start 12/24/18 at 09:00 Fluconazole (Diflucan) 200 mg DAILY GTB Last administered on 12/24/18at 09:00; Admin Dose 200 MG; Start 12/24/18 at 09:00 Lansoprazole (Prevacid) 30 mg DAILY@06 PO Last administered on 12/24/18at 06:20; Admin Dose 30 MG; Start 12/24/18 at 06:00 Vancomycin HCl 100 ml @ 100 mls/hr Q12H IVPB ; Start 12/24/18 at 18:00 ALLISON LOMELI INSPECTOR [employer] Dec 24, 2018 17:18
[2018-12-24] MEDS: VANCOMYCIN 500 MG (PMX) 100 ML IVPB SCH (18:18)
[2018-12-24 20:00] VITALS: BP 143/97; PULSE 85; RESP 17
[2018-12-25] MEDS: ALBUTEROL/IPRATROPIUM (NEB) 3 ML AMP HHN SCH ×4 (01:45→19:36)
[2018-12-25 02:00] VITALS: BP 126/87; PULSE 97; RESP 17
[2018-12-25] MEDS: LANSOPRAZOLE 30 MG CAP PO SCH (04:43)
[2018-12-25] MEDS: VANCOMYCIN 500 MG (PMX) 100 ML IVPB SCH ×2 (04:45→18:00)
[2018-12-25 08:10] VITALS: BP 122/83; PULSE 83; RESP 20
[2018-12-25] MEDS: ENOXAPARIN 40 MG/0.4 ML SYG SC SCH (08:59)
[2018-12-25] MEDS: MULTIVIT/CA CARB/B CMPLX/FA TAB GTB SCH (08:59)
[2018-12-25] MEDS: OXCARBAZEPINE 150 MG TAB GTB SCH ×2 (08:59→20:27)
[2018-12-25] MEDS: ZINC SULFATE 220 MG CAP GTB SCH (08:59)
[2018-12-25] MEDS: FLUCONAZOLE 100 MG TAB GTB SCH (08:59)
[2018-12-25] MEDS: BALSAM PERU/CASTOR OIL 60 GM TUBE TOP SCH ×2 (09:02→20:29)
[2018-12-25] MEDS: CEFEPIME 1GM/50 ML (PMX) 50 ML IVPB SCH ×2 (09:45→20:29)
--- NOTE | 2018-12-25 10:37 | CONS ---
Assessment/Plan Assessment/Plan Assessment/Plan (Daily) Assessment and recommendations; 1. Patient with history of cerebral palsy admitted with bilateral pneumonia currently on appropriate antimicrobial regimen. Continue current supportive care. Obtain follow-up chest x-ray. Further recommendations once chest x-ray is obtained. Consultation Date/Type/Reason Admit Date/Time Dec 18, 2018 at 16:43 Initial Consult Date 12/20/18 Type of Consult Pulmonary Patient is a 43-year-old lady with history of cerebral palsy who was transferred from [facility] because of hypoxemia. Patient has been diagnosed with bilateral pneumonia. By the time I saw the patient, the patient is on BiPAP and because of cerebral palsy is noncommunicative. Patient did not appear to be in any distress. Past medical history; 1. Cerebral palsy. Medications; reviewed. Allergies; none. Social history; noncontributory. Family history, not available. Review of systems; unable to be obtained. General exam; young female, awake, noncommunicative. Currently no distress. On BiPAP. Date/Time of Note DATE: 12/25/18 TIME: 10:35 24 HR Interval Summary Free Text/Dictation Patient's condition is stable. Remains noncommunicative due to cerebral palsy. General exam; young female, awake, currently no distress. Remains noncommunicative. Exam/Review of Systems Exam Vitals Vital Signs Date Temp Pulse Resp B/P (MAP) Pulse Ox O2 O2 Flow FiO2 Time Delivery Rate 12/25/18 97.4 83 20 122/83 99 Nasal 08:10 (96) Cannula 12/25/18 2.0 01:45 Intake and Output 12/24/18 12/24/18 12/25/18 1414:59 22:59 06:59 IntakeIntake Total 50 ml 100 ml 150 ml OutputOutput Total 1100 ml BalanceBalance 50 ml -1000 ml 150 ml Exam HEENT exam; supple neck, no JVD. Patient has carious teeth. No neck masses. Chest exam; diminished breath sounds throughout. S1-S2 audible, no murmurs. Regular rhythm. Abdomen exam; soft, G-tube in place. Nondistended. Bowel sounds audible. No organomegaly. Extremity exam; peripheral edema. Patient does have flexion contractures. WELLNESS NURSE RN exam; patient remains awake but noncommunicative. Results Result Diagram: 12/25/1828 4/10/19 0528 Results 24hrs Laboratory Tests Test 12/25/18 05:28 White Blood Count 14.3 H Red Blood Count 3.48 L Hemoglobin 9.6 L Hematocrit 31.3 L Mean Corpuscular Volume 89.9 Mean Corpuscular Hemoglobin 27.6 L Mean Corpuscular Hemoglobin Concent 30.7 L Red Cell Distribution Width 15.1 H Platelet Count 300 Mean Platelet Volume 10.1 Immature Granulocytes % 0.400 Neutrophils % 79.8 H Lymphocytes % 13.3 L Monocytes % 3.7 Eosinophils % 2.6 Basophils % 0.2 Nucleated Red Blood Cells % 0.0 Immature Granulocytes # 0.060 H Neutrophils # 11.4 H Lymphocytes # 1.9 Monocytes # 0.5 Eosinophils # 0.4 Basophils # 0.0 Nucleated Red Blood Cells # 0.0 Sodium Level 143 Potassium Level 4.4 Chloride Level 104 Carbon Dioxide Level 36 H Anion Gap 3 L Blood Urea Nitrogen 18 Creatinine 0.40 L Est Glomerular Filtrat Rate mL/min > 60 Glucose Level 129 Calcium Level 8.8 Magnesium Level 2.1 Medications Medication Current Medications Vancomycin HCl (Vanco Iv Per Pharmacy) VANCOMYCIN PER PHARMACY PER PROTOCOL XX ; Start 12/18/18 at 20:00 Cefepime HCl 50 ml @ 100 mls/hr Q12 IVPB Last administered on 12/25/18at 09:45; Admin Dose 100 MLS/HR; Start 12/18/18 at 21:00 Acetaminophen (Tylenol Liquid) 650 mg Q4H PRN GTB MILD PAIN(1-3)OR ELEVATED TEMP Last administered on 12/21/18at 08:43; Admin Dose 650 MG; Start 12/18/18 at 20:00 Albuterol/ Ipratropium (Duoneb) 3 ml Q6H RESP THERAPY HHN Last administered on 12/25/18at 08:54; Admin Dose 3 ML; Start 12/18/18 at 20:00 Enoxaparin Sodium (Lovenox) 40 mg DAILY SC Last administered on 12/25/18at 08:59; Admin Dose 40 MG; Start 12/19/18 at 09:00 Miscellaneous Information (Pending Santyl Order For Wound Care) This patient huggins... PRN PRN XX WOUND CARE; Start 12/19/18 at 05:00 Oxcarbazepine (Trileptal) 150 mg BID GTB Last administered on 12/25/18 08:59; Admin Dose 150 MG; Start 12/23/18 at 21:00 Zinc Sulfate (Zinc Sulfate) 220 mg DAILY GTB Last administered on 12/25/18 08:59; Admin Dose 220 MG; Start 12/24/18 at 09:00 Multivit/Ca Carb/ B Cmplx/FA/Prenat (Adriana-Demi) 1 tab DAILY GTB Last administered on 12/25/18 08:59; Admin Dose 1 TAB; Start 12/24/18 at 09:00 Lansoprazole (Prevacid) 30 mg DAILY@06 PO Last administered on 12/25/18 04:43; Admin Dose 30 MG; Start 12/24/18 at 06:00 Vancomycin HCl 100 ml @ 100 mls/hr Q12H IVPB Last administered on 12/25/18 04:45; Admin Dose 100 MLS/HR; Start 12/24/18 at 18:00 Fluconazole (Diflucan) 100 mg DAILY GTB Last administered on 12/25/18 08:59; Admin Dose 100 MG; Start 12/25/18 at 09:00 TRACY MARTINEZ Dec 25, 2018 10:37
--- NOTE | 2018-12-25 13:05 | CONS ---
Assessment/Plan Assessment/Plan Hospital Course (Demo Recall) No acute events, looks comfortable Microbiology: Blood cultures remain negative, urine culture grew Marine glabrata Indwelling: Stanford catheter, PEG Chest x-ray on admission revealed pneumonia. Please see full report Antimicrobials: Vancomycin, cefepime Diflucan Physical examination: Chronically ill-appearing debilitated middle-aged woman in no distress. Head atraumatic normocephalic. Neck is supple chest rise symmetrical breath sounds diminished bases. Heart: S1-S2. Abdomen soft bowel sounds present. Extremities wasted contractures. Skin: Patient has multiple pressure sores Assessment: 1. Sepsis, present on admission 2. Healthcare associated pneumonia possibly aspirated 3. Marine albicans UTI 4. Dysphagia 5. Cerebral palsy Plan: Clinically unchanged, cxr noted, continue antibiotics, aspiration precautions, f/u pulmonary rec-s Consultation Date/Type/Reason Admit Date/Time Dec 18, 2018 at 16:43 Initial Consult Date 12/20/18 Type of Consult id Date/Time of Note DATE: 12/25/18 TIME: 13:04 Exam/Review of Systems Exam Vitals Vital Signs Date Temp Pulse Resp B/P (MAP) Pulse Ox O2 O2 Flow FiO2 Time Delivery Rate 12/25/18 Nasal 2.0 10:45 Cannula 12/25/18 97.4 83 20 122/83 99 08:10 (96) Intake and Output 12/24/18 12/24/18 12/25/18 1515:00 23:00 07:00 IntakeIntake Total 50 ml 150 ml 100 ml OutputOutput Total 1100 ml BalanceBalance 50 ml -950 ml 100 ml Results Result Diagram: 12/25/18 0528 12/25/18 0528 Results 24hrs Laboratory Tests Test 12/25/18 05:28 White Blood Count 14.3 H Red Blood Count 3.48 L Hemoglobin 9.6 L Hematocrit 31.3 L Mean Corpuscular Volume 89.9 Mean Corpuscular Hemoglobin 27.6 L Mean Corpuscular Hemoglobin Concent 30.7 L Red Cell Distribution Width 15.1 H Platelet Count 300 Mean Platelet Volume 10.1 Immature Granulocytes % 0.400 Neutrophils % 79.8 H Lymphocytes % 13.3 L Monocytes % 3.7 Eosinophils % 2.6 Basophils % 0.2 Nucleated Red Blood Cells % 0.0 Immature Granulocytes # 0.060 H Neutrophils # 11.4 H Lymphocytes # 1.9 Monocytes # 0.5 Eosinophils # 0.4 Basophils # 0.0 Nucleated Red Blood Cells # 0.0 Sodium Level 143 Potassium Level 4.4 Chloride Level 104 Carbon Dioxide Level 36 H Anion Gap 3 L Blood Urea Nitrogen 18 Creatinine 0.40 L Est Glomerular Filtrat Rate mL/min > 60 Glucose Level 129 Calcium Level 8.8 Magnesium Level 2.1 Medications Medication Current Medications Vancomycin HCl (Vanco Iv Per Pharmacy) VANCOMYCIN PER PHARMACY PER PROTOCOL XX ; Start 12/18/18 at 20:00 Cefepime HCl 50 ml @ 100 mls/hr Q12 IVPB Last administered on 12/25/18 09:45; Admin Dose 100 MLS/HR; Start 12/18/18 at 21:00 Acetaminophen (Tylenol Liquid) 650 mg Q4H PRN GTB MILD PAIN(1-3)OR ELEVATED TEMP Last administered on 12/21/18 08:43; Admin Dose 650 MG; Start 12/18/18 at 20:00 Albuterol/ Ipratropium (Duoneb) 3 ml Q6H RESP THERAPY HHN Last administered on 12/25/18 08:54; Admin Dose 3 ML; Start 12/18/18 at 20:00 Enoxaparin Sodium (Lovenox) 40 mg DAILY SC Last administered on 12/25/18 08 :59; Admin Dose 40 MG; Start 12/19/18 at 09:00 Miscellaneous Information (Pending [facility] Order For Wound Care) This patient huggins... PRN PRN XX WOUND CARE; Start 12/19/18 at 05:00 Oxcarbazepine (Trileptal) 150 mg BID GTB Last administered on 12/25/18 08:59; Admin Dose 150 MG; Start 12/23/18 at 21:00 Zinc Sulfate (Zinc Sulfate) 220 mg DAILY GTB Last administered on 12/25/18 08:59; Admin Dose 220 MG; Start 12/24/18 at 09:00 Multivit/Ca Carb/ B Cmplx/FA/Prenat (Adriana-Demi) 1 tab DAILY GTB Last admini stered on 12/25/18 08:59; Admin Dose 1 TAB; Start 12/24/18 at 09:00 Lansoprazole (Prevacid) 30 mg DAILY@06 PO Last administered on 4/10/19at 04:43; Admin Dose 30 MG; Start 12/24/18 at 06:00 Vancomycin HCl 100 ml @ 100 mls/hr Q12H IVPB Last administered on 12/25/18at 04:45; Admin Dose 100 MLS/HR; Start 12/24/18 at 18:00 Fluconazole (Diflucan) 100 mg DAILY GTB Last administered on 12/25/18at 08:59; Admin Dose 100 MG; Start 12/25/18 at 09:00 ALLISON LOMELI NP Dec 25, 2018 13:05
[2018-12-25 13:35] VITALS: BP 130/87; PULSE 86; RESP 20
--- NOTE | 2018-12-25 16:14 | PN ---
Date/Time of Note Date/Time of Note DATE: 12/25/18 TIME: 16:11 Assessment/Plan VTE Prophylaxis Risk score (from Ns)>0 risk: 5 SCD applied (from Ns): Yes Pharmacological prophylaxis: LMWH Lines/Catheters IV Catheter Type (from [email or web address] Peripheral IV Urinary Cath still in place: Yes Reason Cath still needed: urinary retention Assessment/Plan Hospital Course Patient was persistent leukocytosis, continued on antibiotics for pneumonia, no acute events reported per RN patient remains afebrile. Assessment/Plan -Hypokalemia, resolved. -Acute respiratory failure due to healthcare facility-acquired pneumonia requiring BiPAP, resolving. Dr. Hyatt is following in pulmonology consultation. -Healthcare facility acquired pneumonia. Continue abx per ID. Dr. Poole is following in infection disease consultation. -Dysphagia with G-tube. -Cerebral palsy. -Protein calorie malnutrition, continue G-tube feeding, Adriana-Demi and zinc sulfate. -DNR status. Further recommendations based on clinical course. Plan of care discussed with Dr. Bowman. Result Diagram: 12/25/1852712/25/1828 Results 24hrs Laboratory Tests Test 12/25/18 05:28 White Blood Count 14.3 H Red Blood Count 3.48 L Hemoglobin 9.6 L Hematocrit 31.3 L Mean Corpuscular Volume 89.9 Mean Corpuscular Hemoglobin 27.6 L Mean Corpuscular Hemoglobin Concent 30.7 L Red Cell Distribution Width 15.1 H Platelet Count 300 Mean Platelet Volume 10.1 Immature Granulocytes % 0.400 Neutrophils % 79.8 H Lymphocytes % 13.3 L Monocytes % 3.7 Eosinophils % 2.6 Basophils % 0.2 Nucleated Red Blood Cells % 0.0 Immature Granulocytes # 0.060 H Neutrophils # 11.4 H Lymphocytes # 1.9 Monocytes # 0.5 Eosinophils # 0.4 Basophils # 0.0 Nucleated Red Blood Cells # 0.0 Sodium Level 143 Potassium Level 4.4 Chloride Level 104 Carbon Dioxide Level 36 H Anion Gap 3 L Blood Urea Nitrogen 18 Creatinine 0.40 L Est Glomerular Filtrat Rate mL/min > 60 Glucose Level 129 Calcium Level 8.8 Magnesium Level 2.1 Exam/Review of Systems Exam Vitals Vital Signs Date Temp Pulse Resp B/P (MAP) Pulse Ox O2 O2 Flow FiO2 Time Delivery Rate 12/25/18 84 18 100 Nasal 2.0 14:32 Cannula 12/25/18 98.5 130/87 13:35 (101) Intake and Output 12/24/18 12/24/18 12/25/18 1515:00 23:00 07:00 IntakeIntake Total 50 ml 150 ml 100 ml OutputOutput Total 1100 ml BalanceBalance 50 ml -950 ml 100 ml Exam Constitutional: non-verbal Respiratory: diminished breath sounds Cardiovascular: nl pulse Gastrointestinal: soft, non-tender, other (G-tube) Musculoskeletal: muscle weakness Extremities: other (Contracted extremities) Results Results 24hrs Laboratory Tests Test 12/25/18 05:28 White Blood Count 14.3 H Red Blood Count 3.48 L Hemoglobin 9.6 L Hematocrit 31.3 L Mean Corpuscular Volume 89.9 Mean Corpuscular Hemoglobin 27.6 L Mean Corpuscular Hemoglobin Concent 30.7 L Red Cell Distribution Width 15.1 H Platelet Count 300 Mean Platelet Volume 10.1 Immature Granulocytes % 0.400 Neutrophils % 79.8 H Lymphocytes % 13.3 L Monocytes % 3.7 Eosinophils % 2.6 Basophils % 0.2 Nucleated Red Blood Cells % 0.0 Immature Granulocytes # 0.060 H Neutrophils # 11.4 H Lymphocytes # 1.9 Monocytes # 0.5 Eosinophils # 0.4 Basophils # 0.0 Nucleated Red Blood Cells # 0.0 Sodium Level 143 Potassium Level 4.4 Chloride Level 104 Carbon Dioxide Level 36 H Anion Gap 3 L Blood Urea Nitrogen 18 Creatinine 0.40 L Est Glomerular Filtrat Rate mL/min > 60 Glucose Level 129 Calcium Level 8.8 Magnesium Level 2.1 Medications Medication Current Medications Vancomycin HCl (Vanco Iv Per Pharmacy) VANCOMYCIN PER PHARMACY PER PROTOCOL XX ; Start 12/18/18 at 20:00 Cefepime HCl 50 ml @ 100 mls/hr Q12 IVPB Last administered on 12/25/18at 09:45; Admin Dose 100 MLS/HR; Start 12/18/18 at 21:00 Acetaminophen (Tylenol Liquid) 650 mg Q4H PRN GTB MILD PAIN(1-3)OR ELEVATED TEMP Last administered on 12/21/18at 08:43; Admin Dose 650 MG; Start 12/18/18 at 20:00 Albuterol/ Ipratropium (Duoneb) 3 ml Q6H RESP THERAPY HHN Last administered on 12/25/18 14:31; Admin Dose 3 ML; Start 12/18/18 at 20:00 Enoxaparin Sodium (Lovenox) 40 mg DAILY SC Last administered on 12/25/18 08:59; Admin Dose 40 MG; Start 12/19/18 at 09:00 Miscellaneous Information (Pending Santyl Order For Wound Care) This patient huggins... PRN PRN XX WOUND CARE; Start 12/19/18 at 05:00 Oxcarbazepine (Trileptal) 150 mg BID GTB Last administered on 12/25/18 08:59; Admin Dose 150 MG; Start 12/23/18 at 21:00 Zinc Sulfate (Zinc Sulfate) 220 mg DAILY GTB Last administered on 12/25/18 08:59; Admin Dose 220 MG; Start 12/24/18 at 09:00 Multivit/Ca Carb/ B Cmplx/FA/Prenat (Adriana-Demi) 1 tab DAILY GTB Last administered on 12/25/18 08:59; Admin Dose 1 TAB; Start 12/24/18 at 09:00 Lansoprazole (Prevacid) 30 mg DAILY@06 PO Last administered on 12/25/18 04:43; Admin Dose 30 MG; Start 12/24/18 at 06:00 Vancomycin HCl 100 ml @ 100 mls/hr Q12H IVPB Last administered on 12/25/18 04:45; Admin Dose 100 MLS/HR; Start 12/24/18 at 18:00 Fluconazole (Diflucan) 100 mg DAILY GTB Last administered on 12/25/18 08:59; Admin Dose 100 MG; Start 12/25/18 at 09:00 LIBIA CARBALLO Dec 25, 2018 16:14
[2018-12-25] MEDS: ACETAMINOPHEN 650MG/20.3ML CUP GTB PRN (16:43)
[2018-12-25 20:15] VITALS: BP 111/78; PULSE 95; RESP 20
[2018-12-26] MEDS: ALBUTEROL/IPRATROPIUM (NEB) 3 ML AMP HHN SCH ×4 (01:29→21:41)
[2018-12-26 01:42] VITALS: BP 98/57; PULSE 81; RESP 20
[2018-12-26] MEDS: LANSOPRAZOLE 30 MG CAP PO SCH (05:57)
[2018-12-26] MEDS: VANCOMYCIN 500 MG (PMX) 100 ML IVPB SCH ×2 (05:57→19:43)
[2018-12-26 07:36] VITALS: BP 126/75; PULSE 77; RESP 16
--- NOTE | 2018-12-26 09:11 | CONS ---
Assessment/Plan Assessment/Plan Assessment/Plan (Daily) Chest x-ray was reviewed from yesterday which went significant improvement in bilateral pneumonia. Assessment and recommendations; 1. Patient with history of cerebral palsy admitted with bilateral pneumonia with significant clinical and radiological improvement. 2. Chronic anemia. Continue current supportive care. Consider discharge on antibiotics per ID recommendations at correction. Consultation Date/Type/Reason Admit Date/Time Dec 18, 2018 at 16:43 Initial Consult Date 12/20/18 Type of Consult Pulmonary Patient is a 43-year-old lady with history of cerebral palsy who was transferred from correction because of hypoxemia. Patient has been diagnosed with bilateral pneumonia. By the time I saw the patient, the patient is on BiPAP and because of cerebral palsy is noncommunicative. Patient did not appear to be in any distress. Past medical history; 1. Cerebral palsy. Medications; reviewed. Allergies; none. Social history; noncontributory. Family history, not available. Review of systems; unable to be obtained. General exam; young female, awake, noncommunicative. Currently no distress. On BiPAP. Date/Time of Note DATE: 12/26/18 TIME: 09:09 24 HR Interval Summary Free Text/Dictation Patient's condition is stable. Has remained hemodynamically stable. Also exhibiting stable pulmonary status. General exam; middle-aged woman, awake, noncommunicative due to cerebral palsy, currently in no distress. Exam/Review of Systems Exam Vitals Vital Signs Date Temp Pulse Resp B/P (MAP) Pulse Ox O2 O2 Flow FiO2 Time Delivery Rate 12/26/18 98.4 77 16 126/75 99 Nasal 07:36 (92) Cannula 12/26/18 2.0 01:29 Intake and Output 12/25/18 12/25/18 12/26/18 1515:00 23:00 07:00 IntakeIntake Total 50 ml 50 ml 100 ml OutputOutput Total 1200 ml 900 ml 250 ml BalanceBalance -1150 ml -850 ml -150 ml Exam H EENT exam; supple neck, no JVD. No lymphadenopathy. Midline trachea. No thyromegaly. Patient has fair dentition. Chest exam; diminished but clear breath sounds. S1-S2 audible, no murmurs. Regular rhythm. Abdomen exam; soft, scaphoid. G-tube in place. No organomegaly. Bowel sounds audible. Extremity exam; peripheral edema. Patient does have flexion contractures. L[employer]OGR[employer]IC [employer]ATEMAKER exam; patient is awake but noncommunicative. Results Result Diagram: 12/26/18 0542 12/26/18 0542 Results 24hrs Laboratory Tests Test 12/26/18 05:42 White Blood Count 9.9 # Red Blood Count 3.21 L Hemoglobin 8.7 L Hematocrit 30.3 L Mean Corpuscular Volume 94.4 Mean Corpuscular Hemoglobin 27.1 L Mean Corpuscular Hemoglobin Concent 28.7 L Red Cell Distribution Width 15.4 H Platelet Count 297 Mean Platelet Volume 10.2 Immature Granulocytes % 0.500 H Neutrophils % 76.1 Lymphocytes % 16.0 Monocytes % 4.1 Eosinophils % 3.0 Basophils % 0.3 Nucleated Red Blood Cells % 0.0 Immature Granulocytes # 0.050 H Neutrophils # 7.6 H Lymphocytes # 1.6 Monocytes # 0.4 Eosinophils # 0.3 Basophils # 0.0 Nucleated Red Blood Cells # 0.0 Sodium Level 139 Potassium Level 4.6 Chloride Level 101 Carbon Dioxide Level 33 H Anion Gap 5 Blood Urea Nitrogen 25 H Creatinine 0.40 L Est Glomerular Filtrat Rate mL/min > 60 Glucose Level 131 Calcium Level 8.6 Medications Medication Current Medications Vancomycin HCl (Vanco Iv Per Pharmacy) VANCOMYCIN PER PHARMACY PER PROTOCOL XX ; Start 12/18/18 at 20:00 Cefepime HCl 50 ml @ 100 mls/hr Q12 IVPB Last administered on 12/25/18at 20:29; Admin Dose 100 MLS/HR; Start 12/18/18 at 21:00 Acetaminophen (Tylenol Liquid) 650 mg Q4H PRN GTB MILD PAIN(1-3)OR ELEVATED TEMP Last administered on 12/25/18at 16:43; Admin Dose 650 MG; Start 12/18/18 at 20:00 Albuterol/ Ipratropium (Duoneb) 3 ml Q6H RESP THERAPY HHN Last administered on 12/26/18at 01:29; Admin Dose 3 ML; Start 12/18/18 at 20:00 Enoxaparin Sodium (Lovenox) 40 mg DAILY SC Last administered on 12/25/18 08:59; Admin Dose 40 MG; Start 12/19/18 at 09:00 Miscellaneous Information (Pending Santyl Order For Wound Care) This patient huggins... PRN PRN XX WOUND CARE; Start 12/19/18 at 05:00 Oxcarbazepine (Trileptal) 150 mg BID GTB Last administered on 12/25/18at 20:27; Admin Dose 150 MG; Start 12/23/18 at 21:00 Zinc Sulfate (Zinc Sulfate) 220 mg DAILY GTB Last administered on 12/25/18at 08:59; Admin Dose 220 MG; Start 12/24/18 at 09:00 Multivit/Ca Carb/ B Cmplx/FA/Prenat (Adriana-Demi) 1 tab DAILY GTB Last administered on 12/25/18at 08:59; Admin Dose 1 TAB; Start 12/24/18 at 09:00 Lansoprazole (Prevacid) 30 mg DAILY@06 PO Last administered on 12/26/18at 05:57; Admin Dose 30 MG; Start 12/24/18 at 06:00 Vancomycin HCl 100 ml @ 100 mls/hr Q12H IVPB Last administered on 12/26/18at 05:57; Admin Dose 100 MLS/HR; Start 12/24/18 at 18:00 Fluconazole (Diflucan) 100 mg DAILY GTB Last administered on 12/25/18at 08:59; Admin Dose 100 MG; Start 12/25/18 at 09:00 Miscellaneous Information (*Rx Drug Level Order Reminder*) VANCO TROUGH @ 1,700 1700 ONCE XX ; Start 12/26/18 at 17:00; Stop 12/26/18 at 17:01 TRACY MARTINEZ Dec 26, 2018 09:11
[2018-12-26] MEDS: FLUCONAZOLE 100 MG TAB GTB SCH (09:58)
[2018-12-26] MEDS: ZINC SULFATE 220 MG CAP GTB SCH (09:59)
[2018-12-26] MEDS: OXCARBAZEPINE 150 MG TAB GTB SCH ×2 (09:59→20:37)
[2018-12-26] MEDS: BALSAM PERU/CASTOR OIL 60 GM TUBE TOP SCH ×2 (10:00→20:37)
[2018-12-26] MEDS: ENOXAPARIN 40 MG/0.4 ML SYG SC SCH (10:06)
[2018-12-26] MEDS: MULTIVIT/CA CARB/B CMPLX/FA TAB GTB SCH (10:12)
[2018-12-26] MEDS: CEFEPIME 1GM/50 ML (PMX) 50 ML IVPB SCH ×2 (10:12→21:05)
--- NOTE | 2018-12-26 12:44 | CONS ---
Assessment/Plan Assessment/Plan Hospital Course (Demo Recall) No acute events, patient is noncommunicative, afebrile, looks comfortable Microbiology: Blood cultures remain negative, urine culture grew Marine glabrata Indwelling: Stanford catheter, PEG Chest x-ray on admission revealed pneumonia. Please see full report Antimicrobials: Vancomycin, cefepime Diflucan Physical examination: Chronically ill-appearing debilitated middle-aged woman in no distress. Head atraumatic normocephalic. Neck is supple chest rise symmetrical breath sounds diminished bases. Heart: S1-S2. Abdomen soft bowel sounds present. Extremities wasted contractures. Skin: Patient has multiple pressure sores Assessment: 1. Sepsis, present on admission 2. Healthcare associated pneumonia possibly aspirated 3. Marine albicans UTI 4. Dysphagia 5. Cerebral palsy Plan: Clinically unchanged, WBC trending down, continue antibiotics, aspiration precautions, f/u pulmonary rec-s Consultation Date/Type/Reason Admit Date/Time Dec 18, 2018 at 16:43 Initial Consult Date 12/20/18 Type of Consult id Date/Time of Note DATE: 12/26/18 TIME: 12:43 Exam/Review of Systems Exam Vitals Vital Signs Date Temp Pulse Resp B/P (MAP) Pulse Ox O2 O2 Flow FiO2 Time Delivery Rate 12/26/18 87 23 96 Nasal 2.0 12:36 Cannula 12/26/18 98.4 126/75 07:36 (92) Intake and Output 12/25/18 12/25/18 12/26/18 1515:00 23:00 07:00 IntakeIntake Total 50 ml 50 ml 100 ml OutputOutput Total 1200 ml 900 ml 250 ml BalanceBalance -1150 ml -850 ml -150 ml Results Result Diagram: 12/26/18 0542 12/26/18 0542 Results 24hrs Laboratory Tests Test 12/26/18 05:42 White Blood Count 9.9 # Red Blood Count 3.21 L Hemoglobin 8.7 L Hematocrit 30.3 L Mean Corpuscular Volume 94.4 Mean Corpuscular Hemoglobin 27.1 L Mean Corpuscular Hemoglobin Concent 28.7 L Red Cell Distribution Width 15.4 H Platelet Count 297 Mean Platelet Volume 10.2 Immature Granulocytes % 0.500 H Neutrophils % 76.1 Lymphocytes % 16.0 Monocytes % 4.1 Eosinophils % 3.0 Basophils % 0.3 Nucleated Red Blood Cells % 0.0 Immature Granulocytes # 0.050 H Neutrophils # 7.6 H Lymphocytes # 1.6 Monocytes # 0.4 Eosinophils # 0.3 Basophils # 0.0 Nucleated Red Blood Cells # 0.0 Sodium Level 139 Potassium Level 4.6 Chloride Level 101 Carbon Dioxide Level 33 H Anion Gap 5 Blood Urea Nitrogen 25 H Creatinine 0.40 L Est Glomerular Filtrat Rate mL/min > 60 Glucose Level 131 Calcium Level 8.6 Medications Medication Current Medications Vancomycin HCl (Vanco Iv Per Pharmacy) VANCOMYCIN PER PHARMACY PER PROTOCOL XX ; Start 12/18/18 at 20:00 Cefepime HCl 50 ml @ 100 mls/hr Q12 IVPB Last administered on 12/26/18 10:12; Admin Dose 100 MLS/HR; Start 12/18/18 at 21:00 Acetaminophen (Tylenol Liquid) 650 mg Q4H PRN GTB MILD PAIN(1-3)OR ELEVATED TEMP Last administered on 12/25/18 16:43; Admin Dose 650 MG; Start 12/18/18 at 20:00 Albuterol/ Ipratropium (Duoneb) 3 ml Q6H RESP THERAPY HHN Last administered on 12/26/18 12:35; Admin Dose 3 ML; Start 12/18/18 at 20:00 Enoxaparin Sodium (Lovenox) 40 mg DAILY SC Last administered on 12/26/18 10:06; Admin Dose 40 MG; Start 12/19/18 at 09:00 Miscellaneous Information (Pending Santyl Order For Wound Care) This patient huggins... PRN PRN XX WOUND CARE; Start 12/19/18 at 05:00 Oxcarbazepine (Trileptal) 150 mg BID GTB Last administered on 12/26/18 09:59; Admin Dose 150 MG; Start 12/23/18 at 21:00 Zinc Sulfate (Zinc Sulfate) 220 mg DAILY GTB Last administered on 12/26/18 09:59; Admin Dose 220 MG; Start 12/24/18 at 09:00 Multivit/Ca Carb/ B Cmplx/FA/Prenat (Adriana-Demi) 1 tab DAILY GTB Last administered on 12/26/18 10:12; Admin Dose 1 TAB; Start 12/24/18 at 09:00 Lansoprazole (Prevacid) 30 mg DAILY@06 PO Last administered on 12/26/18at 05:57; Admin Dose 30 MG; Start 12/24/18 at 06:00 Vancomycin HCl 100 ml @ 100 mls/hr Q12H IVPB Last administered on 12/26/18at 05:57; Admin Dose 100 MLS/HR; Start 12/24/18 at 18:00 Fluconazole (Diflucan) 100 mg DAILY GTB Last administered on 12/26/18at 09:58; Admin Dose 100 MG; Start 12/25/18 at 09:00 Miscellaneous Information (*Rx Drug Level Order Reminder*) VANCO TROUGH @ 1,700 1700 ONCE XX ; Start 12/26/18 at 17:00; Stop 12/26/18 at 17:01 ALLISON LOMELI NP Dec 26, 2018 12:44
[2018-12-26 14:32] VITALS: BP 128/76; RESP 16
--- NOTE | 2018-12-26 18:03 | PN ---
Date/Time of Note Date/Time of Note DATE: 12/26/18 TIME: 17:52 Assessment/Plan VTE Prophylaxis Risk score (from Ns)>0 risk: 6 SCD applied (from [facility] [place]): No SCD contraindicated: low risk/ambulating Pharmacological prophylaxis: LMWH Lines/Catheters IV Catheter Type (from [facility]): [place] Urinary Cath still in place: Yes Reason Cath still needed: urinary retention Assessment/Plan Hospital Course Patient continues on antibiotics for pneumonia, white blood cells are trending down, continue wound care per wound care consult recommendation. Assessment/Plan -Hypokalemia, resolved. -Acute respiratory failure due to healthcare facility-acquired pneumonia requiring BiPAP, resolving. Dr. Hyatt is following in pulmonology consultation. -Healthcare facility acquired pneumonia. Continue abx per ID. Dr. Poole is following in infection disease consultation. -Dysphagia with G-tube. -Cerebral palsy. -Protein calorie malnutrition, continue G-tube feeding, Adriana-Demi and zinc sulfate. -DNR status. Further recommendations based on clinical course. Plan of care discussed with Dr. Bowman. Result Diagram: 12/26/18 0542 12/26/18 0542 Results 24hrs Laboratory Tests Test 12/26/18 05:42 White Blood Count 9.9 # Red Blood Count 3.21 L Hemoglobin 8.7 L Hematocrit 30.3 L Mean Corpuscular Volume 94.4 Mean Corpuscular Hemoglobin 27.1 L Mean Corpuscular Hemoglobin Concent 28.7 L Red Cell Distribution Width 15.4 H Platelet Count 297 Mean Platelet Volume 10.2 Immature Granulocytes % 0.500 H Neutrophils % 76.1 Lymphocytes % 16.0 Monocytes % 4.1 Eosinophils % 3.0 Basophils % 0.3 Nucleated Red Blood Cells % 0.0 Immature Granulocytes # 0.050 H Neutrophils # 7.6 H Lymphocytes # 1.6 Monocytes # 0.4 Eosinophils # 0.3 Basophils # 0.0 Nucleated Red Blood Cells # 0.0 Sodium Level 139 Potassium Level 4.6 Chloride Level 101 Carbon Dioxide Level 33 H Anion Gap 5 Blood Urea Nitrogen 25 H Creatinine 0.40 L Est Glomerular Filtrat Rate mL/min > 60 Glucose Level 131 Calcium Level 8.6 Exam/Review of Systems Exam Vitals Vital Signs Date Temp Pulse Resp B/P (MAP) Pulse Ox O2 O2 Flow FiO2 Time Delivery Rate 12/26/18 98.6 16 128/76 98 Nasal 14:32 (93) Cannula 12/26/18 87 2.0 12:36 Intake and Output 12/25/18 12/25/18 12/26/18 1515:00 23:00 07:00 IntakeIntake Total 50 ml 50 ml 100 ml OutputOutput Total 1200 ml 900 ml 250 ml BalanceBalance -1150 ml -850 ml -150 ml Exam Constitutional: non-verbal Respiratory: diminished breath sounds Cardiovascular: nl pulse Gastrointestinal: soft, non-tender, other (G-tube) Musculoskeletal: muscle weakness Extremities: other (Contracted extremities) Results Results 24hrs Laboratory Tests Test 12/26/18 05:42 White Blood Count 9.9 # Red Blood Count 3.21 L Hemoglobin 8.7 L Hematocrit 30.3 L Mean Corpuscular Volume 94.4 Mean Corpuscular Hemoglobin 27.1 L Mean Corpuscular Hemoglobin Concent 28.7 L Red Cell Distribution Width 15.4 H Platelet Count 297 Mean Platelet Volume 10.2 Immature Granulocytes % 0.500 H Neutrophils % 76.1 Lymphocytes % 16.0 Monocytes % 4.1 Eosinophils % 3.0 Basophils % 0.3 Nucleated Red Blood Cells % 0.0 Immature Granulocytes # 0.050 H Neutrophils # 7.6 H Lymphocytes # 1.6 Monocytes # 0.4 Eosinophils # 0.3 Basophils # 0.0 Nucleated Red Blood Cells # 0.0 Sodium Level 139 Potassium Level 4.6 Chloride Level 101 Carbon Dioxide Level 33 H Anion Gap 5 Blood Urea Nitrogen 25 H Creatinine 0.40 L Est Glomerular Filtrat Rate mL/min > 60 Glucose Level 131 Calcium Level 8.6 Medications Medication Current Medications Vancomycin HCl (Vanco Iv Per Pharmacy) VANCOMYCIN PER PHARMACY PER PROTOCOL XX ; Start 12/18/18 at 20:00 Cefepime HCl 50 ml @ 100 mls/hr Q12 IVPB Last administered on 12/26/18at 10:12; Admin Dose 100 MLS/HR; Start 12/18/18 at 21:00 Acetaminophen (Tylenol Liquid) 650 mg Q4H PRN GTB MILD PAIN(1-3)OR ELEVATED TEMP Last administered on 12/25/18at 16:43; Admin Dose 650 MG; Start 12/18/18 at 20:00 Albuterol/ Ipratropium (Duoneb) 3 ml Q6H RESP THERAPY HHN Last administered on 12/26/18 12:35; Admin Dose 3 ML; Start 12/18/18 at 20:00 Enoxaparin Sodium (Lovenox) 40 mg DAILY SC Last administered on 12/26/18 10:06; Admin Dose 40 MG; Start 12/19/18 at 09:00 Miscellaneous Information (Pending Santyl Order For Wound Care) This patient huggins... PRN PRN XX WOUND CARE; Start 12/19/18 at 05:00 Oxcarbazepine (Trileptal) 150 mg BID GTB Last administered on 12/26/18 09:59; Admin Dose 150 MG; Start 12/23/18 at 21:00 Zinc Sulfate (Zinc Sulfate) 220 mg DAILY GTB Last administered on 12/26/18 09:59; Admin Dose 220 MG; Start 12/24/18 at 09:00 Multivit/Ca Carb/ B Cmplx/FA/Prenat (Adriana-Demi) 1 tab DAILY GTB Last adm inistered on 12/26/18 10:12; Admin Dose 1 TAB; Start 12/24/18 at 09:00 Lansoprazole (Prevacid) 30 mg DAILY@06 PO Last administered on 12/26/18 05:57; Admin Dose 30 MG; Start 12/24/18 at 06:00 Vancomycin HCl 100 ml @ 100 mls/hr Q12H IVPB Last administered on 12/26/18 05:57; Admin Dose 100 MLS/HR; Start 12/24/18 at 18:00 Fluconazole (Diflucan) 100 mg DAILY GTB Last administered on 12/26/18 09:58; Admin Dose 100 MG; Start 12/25/18 at 09:00 LIBIA CARBALLO Dec 26, 2018 18:02
[2018-12-26 19:51] VITALS: BP 127/81; PULSE 107; RESP 20
[2018-12-26] MEDS: ACETAMINOPHEN 650MG/20.3ML CUP GTB PRN (20:37)
[2018-12-27 01:47] VITALS: BP 85/55; PULSE 71; RESP 20
[2018-12-27] MEDS: ALBUTEROL/IPRATROPIUM (NEB) 3 ML AMP HHN SCH ×4 (02:03→21:16)
[2018-12-27] MEDS: LANSOPRAZOLE 30 MG CAP PO SCH (05:45)
[2018-12-27] MEDS: VANCOMYCIN 500 MG (PMX) 100 ML IVPB SCH (05:45)
[2018-12-27 07:49] VITALS: BP 110/72; PULSE 93; RESP 18
[2018-12-27] MEDS: CEFEPIME 1GM/50 ML (PMX) 50 ML IVPB SCH (09:54)
[2018-12-27] MEDS: FLUCONAZOLE 100 MG TAB GTB SCH (09:57)
[2018-12-27] MEDS: ZINC SULFATE 220 MG CAP GTB SCH (09:57)
[2018-12-27] MEDS: MULTIVIT/CA CARB/B CMPLX/FA TAB GTB SCH (09:58)
[2018-12-27] MEDS: OXCARBAZEPINE 150 MG TAB GTB SCH ×2 (09:58→20:22)
[2018-12-27] MEDS: BALSAM PERU/CASTOR OIL 60 GM TUBE TOP SCH ×2 (10:00→20:22)
[2018-12-27] MEDS: ENOXAPARIN 40 MG/0.4 ML SYG SC SCH (10:17)
--- NOTE | 2018-12-27 11:06 | CONS ---
Assessment/Plan Assessment/Plan Assessment/Plan (Daily) Assessment and recommendations; 1. Patient with history of cerebral palsy admitted with bilateral pneumonia with significant clinical improvement. Consider stopping antibiotics. Consider discharge. Consultation Date/Type/Reason Admit Date/Time Dec 18, 2018 at 16:43 Initial Consult Date 12/20/18 Type of Consult Pulmonary Patient is a 43-year-old lady with history of cerebral palsy who was transferred from assisted because of hypoxemia. Patient has been diagnosed with bilateral pneumonia. By the time I saw the patient, the patient is on BiPAP and because of cerebral palsy is noncommunicative. Patient did not appear to be in any distress. Past medical history; 1. Cerebral palsy. Medications; reviewed. Allergies; none. Social history; noncontributory. Family history, not available. Review of systems; unable to be obtained. General exam; young female, awake, noncommunicative. Currently no distress. On BiPAP. Date/Time of Note DATE: 12/27/18 TIME: 11:05 24 HR Interval Summary Free Text/Dictation Patient's condition is stable. Remains awake but noncommunicative due to cerebral palsy. General exam; young female, currently no distress. Exam/Review of Systems Exam Vitals Vital Signs Date Temp Pulse Resp B/P (MAP) Pulse Ox O2 O2 Flow FiO2 Time Delivery Rate 12/27/18 Nasal 2.0 08:25 Cannula 12/27/18 98.0 93 18 110/72 98 07:49 (85) Intake and Output 12/26/18 12/26/18 12/27/18 1515:00 23:00 07:00 IntakeIntake Total 50 ml 801 ml 950 ml OutputOutput Total 800 ml 600 ml BalanceBalance 50 ml 1 ml 350 ml Exam H EENT exam; supple neck, no JVD. No lymphadenopathy. Midline trachea. No thyromegaly. Patient does have carious teeth. Chest exam; diminished but clear breath sounds no added sounds S1-S2 audible no murmurs regular rhythm Abdomen exam; soft, scaphoid. No organomegaly. G-tube in place. Bowel sounds audible. Extremity exam; no peripheral edema. Patient does have flexion contractures. 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 Results Result Diagram: 12/27/18 0525 12/27/1825 Results 24hrs Laboratory Tests Test 12/26/18 17:14 12/27/18 05:25 12/27/18 06:55 Vancomycin Level Trough 14.8 White Blood Count 10.0 Red Blood Count 3.23 L Hemoglobin 8.8 L Hematocrit 29.6 L Mean Corpuscular Volume 91.6 Mean Corpuscular Hemoglobin 27.2 L Mean Corpuscular 29.7 L Hemoglobin Concent Red Cell Distribution Width 15.4 H Platelet Count 352 Mean Platelet Volume 10.1 Immature Granulocytes % 0.500 H Neutrophils % 76.6 Lymphocytes % 15.3 Monocytes % 3.6 Eosinophils % 3.6 Basophils % 0.4 Nucleated Red Blood Cells % 0.0 Immature Granulocytes # 0.050 H Neutrophils # 7.6 H Lymphocytes # 1.5 Monocytes # 0.4 Eosinophils # 0.4 Basophils # 0.0 Nucleated Red Blood Cells # 0.0 Sodium Level 142 Potassium Level 4.9 Chloride Level 105 Carbon Dioxide Level 32 H Anion Gap 5 Blood Urea Nitrogen 25 H Creatinine 0.40 L Est Glomerular Filtrat > 60 Rate mL/min Glucose Level 124 Calcium Level 8.6 Lab Scanned Report REFERENCE LAB Medications Medication Current Medications Vancomycin HCl (Vanco Iv Per Pharmacy) VANCOMYCIN PER PHARMACY PER PROTOCOL XX ; Start 12/18/18 at 20:00 Cefepime HCl 50 ml @ 100 mls/hr Q12 IVPB Last administered on 12/27/18at 09:54; Admin Dose 100 MLS/HR; Start 12/18/18 at 21:00 Acetaminophen (Tylenol Liquid) 650 mg Q4H PRN GTB MILD PAIN(1-3)OR ELEVATED TEMP Last administered on 12/26/18at 20:37; Admin Dose 650 MG; Start 12/18/18 at 20:00 Albuterol/ Ipratropium (Duoneb) 3 ml Q6H RESP THERAPY HHN Last administered on 12/27/18at 07:13; Admin Dose 3 ML; Start 12/18/18 at 20:00 Enoxaparin Sodium (Lovenox) 40 mg DAILY SC Last administered on 12/27/18at 10:17; Admin Dose 40 MG; Start 12/19/18 at 09:00 Miscellaneous Information (Pending Santyl Order For Wound Care) This patient huggins... PRN PRN XX WOUND CARE; Start 12/19/18 at 05:00 Oxcarbazepine (Trileptal) 150 mg BID GTB Last administered on 12/27/18 09:58; Admin Dose 150 MG; Start 12/23/18 at 21:00 Zinc Sulfate (Zinc Sulfate) 220 mg DAILY GTB Last administered on 12/27/18 09:57; Admin Dose 220 MG; Start 12/24/18 at 09:00 Multivit/Ca Carb/ B Cmplx/FA/Prenat (Adriana-Demi) 1 tab DAILY GTB Last administered on 12/27/18 09:58; Admin Dose 1 TAB; Start 12/24/18 at 09:00 Lansoprazole (Prevacid) 30 mg DAILY@06 PO Last administered on 12/27/18 05:45; Admin Dose 30 MG; Start 12/24/18 at 06:00 Vancomycin HCl 100 ml @ 100 mls/hr Q12H IVPB Last administered on 12/27/18 05:45; Admin Dose 100 MLS/HR; Start 12/24/18 at 18:00 Fluconazole (Diflucan) 100 mg DAILY GTB Last administered on 12/27/18 09:57; Admin Dose 100 MG; Start 12/25/18 at 09:00 TRACY MARTINEZ Dec 27, 2018 11:06
--- NOTE | 2018-12-27 11:41 | CONS ---
Assessment/Plan Assessment/Plan Hospital Course (Demo Recall) No acute events, all noted, no fevers Microbiology: Blood cultures remain negative, urine culture grew Marine glabrata Indwelling: Stanford catheter, PEG Chest x-ray on admission revealed pneumonia. Please see full report Antimicrobials: Vancomycin, cefepime Diflucan Physical examination: Chronically ill-appearing debilitated middle-aged woman in no distress. Head atraumatic normocephalic. Neck is supple chest rise symmetrical breath sounds diminished bases. Heart: S1-S2. Abdomen soft bowel sounds present. Extremities wasted contractures. Skin: Patient has multiple pressure sores Assessment: 1. Sepsis, present on admission 2. Healthcare associated pneumonia possibly aspirated 3. Marine albicans UTI 4. Dysphagia 5. Cerebral palsy Plan: Stable, pulmonary rec-s noted, will dc abx and observe Consultation Date/Type/Reason Admit Date/Time Dec 18, 2018 at 16:43 Initial Consult Date 12/20/18 Type of Consult id Date/Time of Note DATE: 12/27/18 TIME: 11:40 Exam/Review of Systems Exam Vitals Vital Signs Date Temp Pulse Resp B/P (MAP) Pulse Ox O2 O2 Flow FiO2 Time Delivery Rate 12/27/18 Nasal 2.0 08:25 Cannula 12/27/18 98.0 93 18 110/72 98 07:49 (85) Intake and Output 12/26/18 12/26/18 12/27/18 1414:59 22:59 06:59 IntakeIntake Total 150 ml 801 ml 100 ml OutputOutput Total 800 ml 600 ml BalanceBalance 150 ml 1 ml -500 ml Results Result Diagram: 12/27/18 0525 12/27/18 0525 Results 24hrs Laboratory Tests Test 12/26/18 17:14 12/27/18 05:25 12/27/18 06:55 Vancomycin Level Trough 14.8 White Blood Count 10.0 Red Blood Count 3.23 L Hemoglobin 8.8 L Hematocrit 29.6 L Mean Corpuscular Volume 91.6 Mean Corpuscular Hemoglobin 27.2 L Mean Corpuscular 29.7 L Hemoglobin Concent Red Cell Distribution Width 15.4 H Platelet Count 352 Mean Platelet Volume 10.1 Immature Granulocytes % 0.500 H Neutrophils % 76.6 Lymphocytes % 15.3 Monocytes % 3.6 Eosinophils % 3.6 Basophils % 0.4 Nucleated Red Blood Cells % 0.0 Immature Granulocytes # 0.050 H Neutrophils # 7.6 H Lymphocytes # 1.5 Monocytes # 0.4 Eosinophils # 0.4 Basophils # 0.0 Nucleated Red Blood Cells # 0.0 Sodium Level 142 Potassium Level 4.9 Chloride Level 105 Carbon Dioxide Level 32 H Anion Gap 5 Blood Urea Nitrogen 25 H Creatinine 0.40 L Est Glomerular Filtrat > 60 Rate mL/min Glucose Level 124 Calcium Level 8.6 Lab Scanned Report REFERENCE LAB Medications Medication Current Medications Vancomycin HCl (Vanco Iv Per Pharmacy) VANCOMYCIN PER PHARMACY PER PROTOCOL XX ; Start 12/18/18 at 20:00 Cefepime HCl 50 ml @ 100 mls/hr Q12 IVPB Last administered on 12/27/18 09:54; Admin Dose 100 MLS/HR; Start 12/18/18 at 21:00 Acetaminophen (Tylenol Liquid) 650 mg Q4H PRN GTB MILD PAIN(1-3)OR ELEVATED TEMP Last administered on 12/26/18 20:37; Admin Dose 650 MG; Start 12/18/18 at 20:00 Albuterol/ Ipratropium (Duoneb) 3 ml Q6H RESP THERAPY HHN Last administered on 12/27/18 07:13; Admin Dose 3 ML; Start 12/18/18 at 20:00 Enoxaparin Sodium (Lovenox) 40 mg DAILY SC Last administered on 12/27/18 10:17; Admin Dose 40 MG; Start 12/19/18 at 09:00 Miscellaneous Information (Pending [facility] Order For Wound Care) This patient huggisn... PRN PRN XX WOUND CARE; Start 12/19/18 at 05:00 Oxcarbazepine (Trileptal) 150 mg BID GTB Last administered on 12/27/18 09:58; Admin Dose 150 MG; Start 12/23/18 at 21:00 Zinc Sulfate (Zinc Sulfate) 220 mg DAILY GTB Last administered on 12/27/18 09:57; Admin Dose 220 MG; Start 12/24/18 at 09:00 Multivit/Ca Carb/ B Cmplx/FA/Prenat (Adriana-Demi) 1 tab DAILY GTB Last administered on 12/27/18 09:58; Admin Dose 1 TAB; Start 12/24/18 at 09:00 Lansoprazole (Prevacid) 30 mg DAILY@06 PO Last administered on 12/27/18at 05:45; Admin Dose 30 MG; Start 12/24/18 at 06:00 Vancomycin HCl 100 ml @ 100 mls/hr Q12H IVPB Last administered on 12/27/18at 05:45; Admin Dose 100 MLS/HR; Start 12/24/18 at 18:00 Fluconazole (Diflucan) 100 mg DAILY GTB Last administered on 12/27/18at 09:57; Admin Dose 100 MG; Start 12/25/18 at 09:00 ALLISON LOMELI NP Dec 27, 2018 11:41
[2018-12-27 13:50] VITALS: BP 133/84; PULSE 90
--- NOTE | 2018-12-27 15:13 | PN ---
Date/Time of Note Date/Time of Note DATE: 12/27/18 TIME: 15:12 Assessment/Plan VTE Prophylaxis [place] [facility] risk: 4 SCD applied [place]from [facility] No SCD contraindicated: other Pharmacological prophylaxis: other Pharm contraindication: other Lines/Catheters IV [facility] Type ([facility] Saline Lock Urinary Cath still in place: Yes Reason Cath still needed: urinary retention Assessment/Plan Assessment/Plan -Hypokalemia, resolved. -Acute respiratory failure due to healthcare facility-acquired pneumonia requiring BiPAP, resolving. Dr. Hyatt is following in pulmonology consultation. -Healthcare facility acquired pneumonia. Continue abx per ID. Dr. Poole is following in infection disease consultation. -Dysphagia with G-tube. -Cerebral palsy. -Protein calorie malnutrition, continue G-tube feeding, Adriana-Demi and zinc sulfate. -DNR status. Further recommendations based on clinical course. Plan of care discussed with Dr. Bowman. Result Diagram: 12/27/1825 12/27/1825 Results 24hrs Laboratory Tests Test 12/26/18 17:14 12/27/18 05:25 12/27/18 06:55 Vancomycin Level Trough 14.8 White Blood Count 10.0 Red Blood Count 3.23 L Hemoglobin 8.8 L Hematocrit 29.6 L Mean Corpuscular Volume 91.6 Mean Corpuscular Hemoglobin 27.2 L Mean Corpuscular 29.7 L Hemoglobin Concent Red Cell Distribution Width 15.4 H Platelet Count 352 Mean Platelet Volume 10.1 Immature Granulocytes % 0.500 H Neutrophils % 76.6 Lymphocytes % 15.3 Monocytes % 3.6 Eosinophils % 3.6 Basophils % 0.4 Nucleated Red Blood Cells % 0.0 Immature Granulocytes # 0.050 H Neutrophils # 7.6 H Lymphocytes # 1.5 Monocytes # 0.4 Eosinophils # 0.4 Basophils # 0.0 Nucleated Red Blood Cells # 0.0 Sodium Level 142 Potassium Level 4.9 Chloride Level 105 Carbon Dioxide Level 32 H Anion Gap 5 Blood Urea Nitrogen 25 H Creatinine 0.40 L Est Glomerular Filtrat > 60 Rate mL/min Glucose Level 124 Calcium Level 8.6 Lab Scanned Report REFERENCE LAB Exam/Review of Systems Exam Vitals Vital Signs Date Temp Pulse Resp B/P (MAP) Pulse Ox O2 O2 Flow FiO2 Time Delivery Rate 12/27/18 89 18 100 Nasal 2.0 14:32 Cannula 12/27/18 98.0 133/84 13:50 (100) Intake and Output 12/26/18 12/26/18 12/27/18 1515:00 23:00 07:00 IntakeIntake Total 50 ml 801 ml 950 ml OutputOutput Total 800 ml 600 ml BalanceBalance 50 ml 1 ml 350 ml Results Results 24hrs Laboratory Tests Test 12/26/18 17:14 12/27/18 05:25 12/27/18 06:55 Vancomycin Level Trough 14.8 White Blood Count 10.0 Red Blood Count 3.23 L Hemoglobin 8.8 L Hematocrit 29.6 L Mean Corpuscular Volume 91.6 Mean Corpuscular Hemoglobin 27.2 L Mean Corpuscular 29.7 L Hemoglobin Concent Red Cell Distribution Width 15.4 H Platelet Count 352 Mean Platelet Volume 10.1 Immature Granulocytes % 0.500 H Neutrophils % 76.6 Lymphocytes % 15.3 Monocytes % 3.6 Eosinophils % 3.6 Basophils % 0.4 Nucleated Red Blood Cells % 0.0 Immature Granulocytes # 0.050 H Neutrophils # 7.6 H Lymphocytes # 1.5 Monocytes # 0.4 Eosinophils # 0.4 Basophils # 0.0 Nucleated Red Blood Cells # 0.0 Sodium Level 142 Potassium Level 4.9 Chloride Level 105 Carbon Dioxide Level 32 H Anion Gap 5 Blood Urea Nitrogen 25 H Creatinine 0.40 L Est Glomerular Filtrat > 60 Rate mL/min Glucose Level 124 Calcium Level 8.6 Lab Scanned Report REFERENCE LAB Medications Medication Current Medications Acetaminophen (Tylenol Liquid) 650 mg Q4H PRN GTB MILD PAIN(1-3)OR ELEVATED TEMP Last administered on 12/26/18at 20:37; Admin Dose 650 MG; Start 12/18/18 at 20:00 Albuterol/ Ipratropium (Duoneb) 3 ml Q6H RESP THERAPY HHN Last administered on 12/27/18at 14:30; Admin Dose 3 ML; Start 12/18/18 at 20:00 Enoxaparin Sodium (Lovenox) 40 mg DAILY SC Last administered on 12/27/18at 10:17; Admin Dose 40 MG; Start 12/19/18 at 09:00 Miscellaneous Information (Pending Santyl Order For Wound Care) This patient huggins... PRN PRN XX WOUND CARE; Start 12/19/18 at 05:00 Oxcarbazepine (Trileptal) 150 mg BID GTB Last administered on 12/27/18 09:58; Admin Dose 150 MG; Start 12/23/18 at 21:00 Zinc Sulfate (Zinc Sulfate) 220 mg DAILY GTB Last administered on 12/27/18at 09:57; Admin Dose 220 MG; Start 12/24/18 at 09:00 Multivit/Ca Carb/ B Cmplx/FA/Prenat (Adriana-Demi) 1 tab DAILY GTB Last administered on 12/27/18 09:58; Admin Dose 1 TAB; Start 12/24/18 at 09:00 Lansoprazole (Prevacid) 30 mg DAILY@06 PO Last administered on 12/27/18at 05:45; Admin Dose 30 MG; Start 12/24/18 at 06:00 JASMYNE HOOKS Dec 27, 2018 15:13
[2018-12-27 20:00] VITALS: BP 131/84; PULSE 86; RESP 18
[2018-12-28 02:00] VITALS: BP 103/64; PULSE 77; RESP 18
[2018-12-28] MEDS: ALBUTEROL/IPRATROPIUM (NEB) 3 ML AMP HHN SCH ×4 (02:04→20:03)
[2018-12-28] MEDS: LANSOPRAZOLE 30 MG CAP PO SCH (05:25)
[2018-12-28 07:27] VITALS: BP 106/64; PULSE 62; RESP 16
[2018-12-28 08:00] VITALS: BP 116/68; PULSE 81; RESP 18
[2018-12-28] MEDS: ENOXAPARIN 40 MG/0.4 ML SYG SC SCH (08:20)
[2018-12-28] MEDS: BALSAM PERU/CASTOR OIL 60 GM TUBE TOP SCH ×2 (08:21→20:58)
[2018-12-28] MEDS: MULTIVIT/CA CARB/B CMPLX/FA TAB GTB SCH (08:21)
[2018-12-28] MEDS: ZINC SULFATE 220 MG CAP GTB SCH (08:21)
[2018-12-28] MEDS: OXCARBAZEPINE 150 MG TAB GTB SCH ×2 (08:21→20:58)
[2018-12-28] MEDS ORDERED: BISACODYL 10 MG SUPP PR PRN (10:30)
[2018-12-28 13:59] VITALS: BP 113/71; PULSE 89; RESP 18
--- NOTE | 2018-12-28 16:35 | CONS ---
Consultation Date/Type/Reason Admit Date/Time Dec 18, 2018 at 16:43 Initial Consult Date SUBJECTIVE: No acute events. Looks comfortable, no fevers Microbiology: Blood cultures remain negative, urine culture grew Marine glabrata Indwelling: Stanford catheter, PEG Chest x-ray on admission revealed pneumonia. Please see full report Antimicrobials: off of antbx. Physical examination: GEN: Chronically ill-appearing debilitated middle-aged woman in no distress. HENT: Head atraumatic normocephalic. Neck is supple PULM: chest rise symmetrical, breath sounds diminished bases. Heart: S1-S2. Abdomen: soft bowel sounds present. Extremities: muscle wasting, contractures. Skin: Patient has multiple pressure sores Assessment: 1. Sepsis, present on admission 2. Healthcare associated pneumonia possibly aspirated 3. Marine albicans UTI 4. Dysphagia 5. Cerebral palsy Plan: Pt is stable. Will continue to observe off of abx. Date/Time of Note DATE: 12/28/18 TIME: 16:33 Exam/Review of Systems Exam Vitals Vital Signs Date Temp Pulse Resp B/P (MAP) Pulse Ox O2 O2 Flow FiO2 Time Delivery Rate 12/28/18 87 20 98 Nasal 2.0 15:18 Cannula 12/28/18 97.9 113/71 13:59 (85) Intake and Output 12/27/18 12/27/18 12/28/18 1515:00 23:00 07:00 IntakeIntake Total 50 ml OutputOutput Total 400 ml 450 ml 600 ml BalanceBalance -350 ml -450 ml -600 ml Results Result Diagram: 12/27/18 0525 12/27/18 0525 Medications Medication Current Medications Acetaminophen (Tylenol Liquid) 650 mg Q4H PRN GTB MILD PAIN(1-3)OR ELEVATED TEMP Last administered on 12/26/18at 20:37; Admin Dose 650 MG; Start 12/18/18 at 20:00 Albuterol/ Ipratropium (Duoneb) 3 ml Q6H RESP THERAPY HHN Last administered on 12/28/18at 15:18; Admin Dose 3 ML; Start 12/18/18 at 20:00 Enoxaparin Sodium (Lovenox) 40 mg DAILY SC Last administered on 12/28/18at 08:20; Admin Dose 40 MG; Start 12/19/18 at 09:00 Miscellaneous Information (Pending Santyl Order For Wound Care) This patient huggins... PRN PRN XX WOUND CARE; Start 12/19/18 at 05:00 Oxcarbazepine (Trileptal) 150 mg BID GTB Last administered on 12/28/18at 08:21; Admin Dose 150 MG; Start 12/23/18 at 21:00 Zinc Sulfate (Zinc Sulfate) 220 mg DAILY GTB Last administered on 12/28/18at 08:21; Admin Dose 220 MG; Start 12/24/18 at 09:00 Multivit/Ca Carb/ B Cmplx/FA/Prenat (Adriana-Demi) 1 tab DAILY GTB Last administered on 12/28/18at 08:21; Admin Dose 1 TAB; Start 12/24/18 at 09:00 Lansoprazole (Prevacid) 30 mg DAILY@06 PO Last administered on 12/28/18 05:25; Admin Dose 30 MG; Start 12/24/18 at 06:00 Bisacodyl (Dulcolax Supp) 10 mg DAILY PRN [place] CON[employer]IPATION Last administered on 12/28/18at 10:39; Admin Dose 10 MG; Start 12/28/18 at 10:30 CASPER RODRIGUEZ Dec 28, 2018 16:35
[2018-12-28] MEDS: METOCLOPRAMIDE (1 MG/ML) 10 ML CUP PO SCH (18:00)
--- NOTE | 2018-12-28 19:51 | PN ---
DATE: 12/28/2018 SUBJECTIVE: The patient is breathing comfortably, looks more awake; however, remains nonverbal. Occ asional dry cough. Occasional chest congestion. PHYSICAL EXAMINATION: GENERAL: Revealed the patient to be awake, but nonverbal. VITAL SIGNS: Temperature 97.9, pulse 89, respirations 18, blood pressure 130/71, O2 saturation 100% on 2 liters nasal cannula. HEENT: No eye discharge or redness. No nystagmus. NECK: No mass. CHEST: Fairly clear. CARDIOVASCULAR: S1, S2 normal. Regular rate and rhythm. ABDOMEN: Soft, nondistended, nontender. EXTREMITIES: Contracted and atrophic. IMPRESSION: 1. Healthcare facility-acquired pneumonia, status post IV antibiotic including vancomycin, cefepime and Diflucan. 2. Marine albicans, urinary tract infection. The patient is currently afebrile. 3. Cerebral palsy. No acute issue. 4. Dysphagia. Continue G-tube feeding. DISPOSITION: Will initiate discharge planning to SNF. The patient did have high residual. Once the patient is able to tolerate G-tube feeding, she will be discharged back to SNF. Patient also had hi gh residual last night. I will add Reglan. Dictated By: GLORIA PETTIT/TIP Conf#: [id number] DID#: [id number]
[2018-12-28 20:07] VITALS: BP 122/75; PULSE 90; RESP 18
[2018-12-29] MEDS: METOCLOPRAMIDE (1 MG/ML) 10 ML CUP PO SCH ×4 (00:20→17:50)
[2018-12-29] MEDS: ALBUTEROL/IPRATROPIUM (NEB) 3 ML AMP HHN SCH ×3 (01:47→15:49)
[2018-12-29 02:29] VITALS: BP 97/54; PULSE 79; RESP 20
[2018-12-29] MEDS: LANSOPRAZOLE 30 MG CAP PO SCH (05:17)
[2018-12-29 07:33] VITALS: BP 101/58; PULSE 86; RESP 18
[2018-12-29] MEDS: OXCARBAZEPINE 150 MG TAB GTB SCH (08:10)
[2018-12-29] MEDS: ZINC SULFATE 220 MG CAP GTB SCH (08:10)
[2018-12-29] MEDS: MULTIVIT/CA CARB/B CMPLX/FA TAB GTB SCH (08:10)
[2018-12-29] MEDS: ENOXAPARIN 40 MG/0.4 ML SYG SC SCH (08:11)
[2018-12-29] MEDS: BALSAM PERU/CASTOR OIL 60 GM TUBE TOP SCH (08:11)
[2018-12-29] MEDS: ACETAMINOPHEN 650MG/20.3ML CUP GTB PRN (12:41)
--- NOTE | 2018-12-29 13:16 | CONS ---
Consultation Date/Type/Reason Admit Date/Time Dec 18, 2018 at 16:43 Initial Consult Date SUBJECTIVE: No acute events over night. No fevers. VS: stable. T: 98.4 LABS: Reviewed. Microbiology: Blood cultures remain negative, urine culture grew Marine glabrata Indwelling: Stanford catheter, PEG Chest x-ray on admission revealed pneumonia. Please see full report Antimicrobials: off of antbx at this time. Physical examination: GEN: Chronically ill-appearing debilitated middle-aged woman in no distress. HENT: Head atraumatic normocephalic. Neck is supple PULM: chest rise symmetrical, breath sounds diminished bases. Heart: S1-S2. Abdomen: soft bowel sounds present. Extremities: muscle wasting, contractures. Skin: Patient has multiple pressure sores Assessment: 1. Sepsis, present on admission 2. Healthcare associated pneumonia possibly aspirated 3. Marine albicans UTI 4. Dysphagia 5. Cerebral palsy Plan: Pt is stable. Will continue to observe off of abx. Date/Time of Note DATE: 12/29/18 TIME: 13:14 Exam/Review of Systems Exam Vitals Vital Signs Date Temp Pulse Resp B/P (MAP) Pulse Ox O2 O2 Flow FiO2 Time Delivery Rate 12/29/18 Nasal 2.0 10:58 Cannula 12/29/18 88 16 96 10:27 12/29/18 98.4 101/58 07:33 (72) Intake and Output 12/28/18 12/28/18 12/29/18 1515:00 23:00 07:00 IntakeIntake Total 520 ml OutputOutput Total 700 ml 200 ml 400 ml BalanceBalance -700 ml 320 ml -400 ml Results Result Diagram: 12/27/18 0525 12/27/18 0525 Medications Medication Current Medications Acetaminophen (Tylenol Liquid) 650 mg Q4H PRN GTB MILD PAIN(1-3)OR ELEVATED TEMP Last administered on 12/29/18at 12:41; Admin Dose 650 MG; Start 12/18/18 at 20:00 Albuterol/ Ipratropium (Duoneb) 3 ml Q6H RESP THERAPY HHN Last administered on 12/29/18at 10:25; Admin Dose 3 ML; Start 12/18/18 at 20:00 Enoxaparin Sodium (Lovenox) 40 mg DAILY SC Last administered on 12/29/18at 08:11; Admin Dose 40 MG; Start 12/19/18 at 09:00 Miscellaneous Information (Pending [facility] Order For Wound Care) This patient huggins... PRN PRN XX WOUND CARE; Start 12/19/18 at 05:00 Oxcarbazepine (Trileptal) 150 mg BID GTB Last administered on 12/29/18at 08:10; Admin Dose 150 MG; Start 12/23/18 at 21:00 Zinc Sulfate (Zinc Sulfate) 220 mg DAILY GTB Last administered on 12/29/18at 08:10; Admin Dose 220 MG; Start 12/24/18 at 09:00 Multivit/Ca Carb/ B Cmplx/FA/Prenat (Adriana-Demi) 1 tab DAILY GTB Last administered on 12/29/18at 08:10; Admin Dose 1 TAB; Start 12/24/18 at 09:00 Lansoprazole (Prevacid) 30 mg DAILY@06 PO Last administered on 12/29/18 05:17; Admin Dose 30 MG; Start 12/24/18 at 06:00 Bisacodyl (Dulcolax Supp) 10 mg DAILY PRN [place] CONSTIPATION Last administered on 12/28/18at 10:39; Admin Dose 10 MG; Start 12/28/18 at 10:30 Metoclopramide HCl (Reglan Liq) 10 mg Q6 PO Last administered on 12/29/18at 12:41; Admin Dose 10 MG; Start 12/28/18 at 18:00 CASPER RODRIGUEZ Dec 29, 2018 13:16
[2018-12-29 14:06] VITALS: BP 94/53; PULSE 97; RESP 18
[2018-12-29] MEDS ORDERED: DOCUSATE SODIUM 10 MG/ML (10ML CUP) GTB SCH (21:00)
--- NOTE | 2018-12-30 03:08 | DS ---
DATE OF ADMISSION: 12/18/2018 DATE OF DISCHARGE: 12/29/2018 DISCHARGE DIAGNOSES: 1. Healthcare-associated pneumonia, resolved, off antibiotic. 2. Marine albicans urinary tract infection, resolved. 3. Dysphagia. 4. Cerebral palsy. 5. Seizure disorder. REASON FOR ADMISSION: The patient is a 43-year-old female with cerebral palsy who had been nonverbal for the last several years. The patient also has dysphagia and is being fed through G-tube. The rommel lombardo was sent to [facility] ER for hypoxemia. The patient was saturating 85% on room air. The patient also was noted to be febrile with temperature of 101.7, tachycardic with pulse of 136. The patient was diagnosed with sepsis due to healthcare-associated pneumonia. The patient's lactic a elijah level was 4. The patient was started on broad spectrum IV antibiotic including vancomycin and ce fepime. The patient also was put on BiPAP, which was subsequently weaned off. While the patient was on BiPAP, she was taken off G-tube feeding and was only given IV fluid. The patient did have compon ent of dehydration with BUN of 27. With treatment, the patient continued to get better and her lacti c acid got better within 24 hours. The patient was seen by Dr. Poole from infectious disease standp oint and Dr. Hughes from pulmonary standpoint and their recommendations were carried out. The patient on the day of discharge is breathing comfortably and was tolerating G-tube feeding well after she huggins d a bowel movement. PHYSICAL EXAMINATION: VITAL SIGNS: Today, temperature 98.5, pulse 97, respirations 18, blood pressure 94/53, O2 saturation 95% on 2 liters cannula. HEENT: No eye discharge or redness. Nose and ears are normal. NECK: No mass. CHEST: Fairly clear. CARDIOVASCULAR: S1, S2 normal. No murmur. ABDOMEN: Soft, nondistended, nontender. EXTREMITIES: No edema. NEUROLOGIC: The patient is awake, alert, but nonverbal. CONDITION ON DISCHARGE: Stable. DIET: Via G-tube. MEDICATIONS: Via G-tube. CODE STATUS: DNR. Dictated By: GLORIA VARGAS MD AB/TIP Conf#: [id number] DID#: [id number] CC: PAYTON SOTO MD;*EndCC*
== END 2018-12-29 18:00 | DRG 871 ==
LOC: E/R 14:46 → 6WM 16:43 → 5EC 12-23 21:06
PROVIDERS: ADMIT Internal Medicine; ATTEND Internal Medicine
PROC: 5A09357 Assistance with Respiratory Ventilation, Less than 24 Consecutive Hours, Continuous Positive Airway Pressure (ICD-10-PCS; principal; 2018-12-18)
DX: A41.9 Sepsis, unspecified organism (principal); J96.01 Acute respiratory failure with hypoxia; J18.9 Pneumonia, unspecified organism; G80.8 Other cerebral palsy; E46 Unspecified protein-calorie malnutrition; R65.20 Severe sepsis without septic shock; Z68.1 Body mass index [BMI] 19.9 or less, adult; B37.49 Other urogenital candidiasis; E87.0 Hyperosmolality and hypernatremia; E87.6 Hypokalemia; E86.0 Dehydration; Y95 Nosocomial condition; D64.9 Anemia, unspecified; G40.909 Epilepsy, unspecified, not intractable, without status epilepticus; Z66 Do not resuscitate
CPT/HCPCS: 36415; 36600; 71045; 80048; 80053; 80202; 81001; 82565; 82803; 82962; 83605; 83735; 84134; 84484; 84520; 85025; 85610; 85730; 87081; 87086; 93005; 94640; 94660; 94664; 96365; 96375; J0692; J1650; J2270; J3370; J3480; J7030

== ENCOUNTER 2019-01-15 20:32 | Inpatient (IN) | payer MEDICAID ==
[~2019-01-15] VITALS: Ht 154.9 cm; Wt 44.0 kg
[~2019-01-15 20:32] MED LIST changes: +ACET-141 GTB; +AMIN30LI GTB; +ASC500 GTB; +CRAN3875 GTB; +IPRA3AMP29 INHALATION; +MULT9LIQ4 GTB; +NA P230E RC; -TYL500 GTB
[2019-01-15] MEDS ORDERED: SODIUM CHLORIDE 0.9% 1L BAG IV* STA (21:02)
[2019-01-15] MEDS ORDERED: VANCOMYCIN 1 GM (PMX) 250 ML IVPB STA (21:02)
[2019-01-15] MEDS ORDERED: CEFEPIME 2GM/50 ML (PMX) 50 ML IVPB STA (21:02)
--- NOTE | 2019-01-15 22:35 | ERD ---
ER Documentation Chief Complaint Chief Complaint bib ra from care home for sob, chest congestion HPI 43-year-old female brought in from her care home with shortness of breath and chest congestion. She has a history of cerebral palsy and is nonverbal at baseline. Otherwise history is limited as the patient is unable to answer questions. ROS Unable to obtain due to mental status Medications Home Meds Reported Medications Ascorbic Acid (Vitamin C) 500 Mg Tab, 500 MG GTB DAILY, TAB 12/18/18 Cran/Vitc/Mannose/Inulin/Brom (Uti-Stat Liquid) 3,875 Mg/30 Ml Liquid, 30 MG GTB BID 12/18/18 Acetaminophen* (Acetaminophen*) 500 MG Extra Strength Tablet, 1000 MG GTB BID PRN for PAIN AND OR ELEVATED TEMP, TAB 12/18/18 Acetaminophen* (Acetaminophen*) 500 MG Extra Strength Tablet, 1000 MG GTB Q4H PRN for PAIN -02/24, TAB 12/18/18 Acetaminophen* (Tylenol*) 325 Mg Tablet, 650 MG GTB Q4H PRN for MILD PAIN LEVEL 1-3, TAB 12/18/18 Oxcarbazepine* (Trileptal*) 150 Mg Tablet, 150 MG GTB BID, TAB 12/18/18 Sodium Chloride* (Sodium Chloride*) 1 Gm Tablet, 1 GM GTB TID, TAB 12/18/18 Amino Acids/Protein Hydrolys (PRO-STAT LIQUID) 30 Ml Liquid.pkt, 30 ML GTB BID SUGAR FREE 12/18/18 Multivit &Minerals/Ferrous Fum (MULTIVITAMIN LIQUID) 9 Mg/15 Ml Liquid, 5 MG GTB DAILY 12/18/18 Magnesium Hydroxide* (Milk Of Magnesia*) 400 Mg/5 Ml Oral.susp, 30 ML GTB NEEDED for CONSTIPATION, ML 12/18/18 Na Phos,M-B/Na Phos,Di-Ba (Fleet Enema Extra) 230 Ml Enema, 1 APPLIC RC Q 2D, ENEMA 12/18/18 Ipratropium-Albuterol (Ipratropium-Albuterol) 0.5-3 Mg/3 Ml Ampul.neb, 3 ML I NHALATION Q6, #30 VIAL 12/18/18 Bisacodyl* (Bisacodyl*) 10 Mg Supp, 10 MG MI Q24H for CONSTIPATION, SUPP 12/18/18 Cranberry Extract (Cranberry) 425 Mg Capsule, 425 MG GTB DAILY, CAP 12/18/18 Docusate Sodium* (Colace*) 100 Mg Capsule, 200 MG GTB QHS, #30 CAP 12/18/18 Allergies Allergies: Coded Allergies: No Known Allergy (Unverified , 12/18/18) PMhx/Soc Medical and Surgical Hx: Unable to obtain History of Surgery: Yes (PEG placement) Hx Neurological Disorder: Yes (cerebral palsy, epilepsy) Hx Respiratory Disorders: Yes (respiratory failure) Hx Cardiac Disorders: No Hx Psychiatric Problems: Yes (anxiety, depression) Hx Miscellaneous Medical Probl: Yes (depression, anxiety) Hx Alcohol Use: No Hx Tobacco Use: No Smoking Status: Never smoker FmHx Unable to obtain Physical Exam Vitals Vital Signs Date Temp Pulse Resp B/P (MAP) Pulse Ox O2 O2 Flow FiO2 Time Delivery Rate 01/15/19 Nasal 21:21 Cannula 01/15/19 122 32 100 Nasal 3.0 21:20 Cannula 01/15/19 100 3.0 21:20 01/15/19 99.1 124 27 128/79 100 Nasal 2.0 20:48 (95) Cannula 01/15/19 99.1 126 21 132/102 97 20:35 (112) Physical Exam Const: Appears to be in mild respiratory distress, audible rhonchi Head: Atraumatic Eyes: Normal Conjunctiva ENT: Dry mucous membranes Neck: Full range of motion. No meningismus. Resp: Tachypneic, rhonchi bilaterally Cardio: Tachycardic with regular rhythm, no murmurs Abd: Soft, non tender, non distended. Normal bowel sounds Skin: No petechiae or rashes Back: No midline or flank tenderness Ext: No cyanosis, or edema Neur: Awake and alert, nonverbal, not moving extremities spontaneously. Contractures in all 4 extremities Result Diagram: 01/15/19211601/15/192116 Results 24 hrs Laboratory Tests Test 01/15/19 21:16 01/15/19 21:17 01/15/19 21:20 01/15/19 22:10 Prothrombin Time 14.5 Sec Prothrombin Time 1.1 Ratio INR International 1.12 Normalized Ratio Activated 29.8 Sec Partial Thromboplas t Time White Blood Count 13.1 10^3/ul Red Blood Count 3.74 10^6/ul Hemoglobin 10.2 g/dl Hematocrit 33.0 % Mean Corpuscular 88.2 fl Volume Mean Corpuscular 27.3 pg Hemoglobin Mean Corpuscular 30.9 g/dl Hemoglobin Concent Red Cell 14.1 % Distribution Width Platelet Count 438 10^3/UL Mean Platelet 10.0 fl Volume Immature 0.300 % Granulocytes % Neutrophils % 77.7 % Lymphocytes % 15.3 % Monocytes % 3.8 % Eosinophils % 2.6 % Basophils % 0.3 % Nucleated Red Blood 0.0 /100WBC Cells % Immature 0.040 10^3/ul Granulocytes # Neutrophils # 10.2 10^3/ul Lymphocytes # 2.0 10^3/ul Monocytes # 0.5 10^3/ul Eosinophils # 0.3 10^3/ul Basophils # 0.0 10^3/ul Nucleated Red Blood 0.0 10^3/ul Cells # Sodium Level 141 mmol/L Potassium Level 4.2 mmol/L Chloride Level 101 mmol/L Carbon Dioxide 32 mmol/L Level Anion Gap 8 Blood Urea Nitrogen 16 mg/dl Creatinine 0.33 mg/dl Est Glomerular > 60 mL/min Filtrat Rate mL/min Glucose Level 121 mg/dl Calcium Level 9.3 mg/dl Total Bilirubin 0.1 mg/dl Direct Bilirubin 0.00 mg/dl Indirect Bilirubin 0.1 mg/dl Aspartate Amino 24 IU/L Transf (AST/SGOT) Alanine 9 IU/L Aminotransferase (A LT/SGPT) Alkaline 121 IU/L Phosphatase Troponin I < 0.012 ng/ml Total Protein 8.3 g/dl Albumin 3.4 g/dl Globulin 4.90 g/dl Albumin/Globulin 0.69 Ratio POC Venous Lactate 1.6 mmol/L Urine Color YELLOW Urine Clarity SLIGHTLY CLOUDY Urine pH 7.0 Urine Specific 1.015 [place] Urine Ketones NEGATIVE mg/dL Urine Nitrite NEGATIVE mg/dL Urine Bilirubin NEGATIVE mg/dL Urine Urobilinogen NEGATIVE mg/dL Urine Leukocyte NEGATIVE Margot/ul Esterase Urine Microscopic 1 /HPF RBC Urine Microscopic 8 /HPF WBC Urine Hemoglobin NEGATIVE mg/dL Urine Glucose NEGATIVE mg/dL Urine Total Protein NEGATIVE mg/dl Current Medications Medications Dose Sig/Robyn Start Time Status Last (Trade) Ordered Route PRN Stop Time Admin Dose Reason Admin Sodium 1,670 ml BOLUS OVER 2 01/15/19 DC 01/15/19 Chloride HOURS STAT 21:02 01/15/19 21:26 (NS) IV* 21:04 Vancomycin 250 ml @ ONCE STAT 01/15/19 DC HCl 125 mls/hr IVPB 21:02 01/15/19 23:01 Cefepime HCl 50 ml @ ONCE STAT 01/15/19 DC 01/15/19 100 mls/hr IVPB 21:02 01/15/19 21:26 21:31 Ondansetron 4 mg ER BRIDGE 01/15/19 HCl (Zofran PRN IV 23:00 01/16/19 Inj) NAUSEA/VOMITI 22:59 NG 650 mg ER BRIDGE 01/15/19 Acetaminophen PRN PO 23:00 01/16/19 (Tylenol .MILD PAIN 22:59 Tab) 1-3 OR TEMP Procedures/MDM EMERGENT LABS AND DIAGNOSTIC STUDIES: Lab Results above were reviewed and interpreted by me. CBC: Mild leukocytosis, anemia, thrombocytosis, possibly due to infection CMP: No evidence of clinically significant electrolyte abnormality, acidosis, renal failure, hypoglycemia, liver disease, or biliary obstruction Troponin within normal limits, not indicative of cardiac ischemia Lactate within normal limits without evidence of sepsis or tissue hypoperfusion UA: 8 WBCs, possibly due to infection 12-lead EKG was interpreted by Juancarlos Donovan MD: Sinus tachycardia at 121 bpm Left anterior fascicular block Normal intervals No acute ST or T wave changes suggestive of acute ischemia or STEMI. Radiology Results as interpreted by Radiology below were reviewed by Michael Donovan MD: Chest x-ray: 1. Bibasilar infiltrates, left greater than right. 2. Probable trace pleural effusions. Initial Nursing notes reviewed. Previous Medical Records requested via the Electronic Health Record. EMERGENCY DEPARTMENT COURSE / MEDICAL DECISION MAKING: Patient is presenting with cough and congestion. Sepsis work-up was initiated. However there is no evidence of severe sepsis or septic shock. Patient does not require BiPAP at this time. She is DNR. IV antibiotics and fluids were given. Patient will be admitted for further stabilization. I spoke with Dr. Bowman, who agreed to admit the patient. Departure Diagnosis: Primary Impression: Bilateral pneumonia Pneumonia type: due to unspecified organism Lung location: unspecified part of lung Qualified Codes: J18.9 - Pneumonia, unspecified organism Additional Impression: Sepsis Sepsis type: sepsis due to unspecified organism Qualified Codes: A41.9 - Sepsis, unspecified organism Condition: Serious AGUSTO DONOVAN MD January 15, 2019 22:35
[2019-01-15] MEDS ORDERED: ONDANSETRON 4 MG INJ IV PRN (23:00)
[2019-01-15] MEDS ORDERED: ACETAMINOPHEN 325 MG TAB PO PRN (23:00)
[2019-01-16] VITALS (10 sets, daily range): BP systolic 105–156; BP diastolic 69–95; PULSE 13–113; RESP 18–20; Ht 154.9 cm; Wt 44.0 kg
[2019-01-16] MEDS ORDERED: VANCOMYCIN IV PER PHARMACY XX SCH ×2 (02:30→13:00)
[2019-01-16] MEDS: DEXTROSE 5%-0.45% NACL 1,000 ML IV SCH ×2 (03:40→15:55)
[2019-01-16] MEDS ORDERED: ALBUTEROL/IPRATROPIUM (NEB) 3 ML AMP ONE (04:13)
[2019-01-16] MEDS: ALBUTEROL/IPRATROPIUM (NEB) 3 ML AMP HHN SCH ×4 (04:19→20:38)
[2019-01-16] MEDS ORDERED: PENDING SANTYL ORDER FOR WOUND CARE XX PRN (06:30)
[2019-01-16] MEDS: CEFEPIME 1GM/50 ML (PMX) 50 ML IVPB SCH ×2 (09:30→21:07)
[2019-01-16] MEDS ORDERED: COLLAGENASE 5 GM (UD JAR) TOP ONE (12:27)
[2019-01-16] MEDS: VANCOMYCIN 500 MG (PMX) 100 ML IVPB SCH ×2 (12:29→23:45)
--- NOTE | 2019-01-16 12:53 | HP ---
Date/Time of Note Date/Time of Note DATE: 01/16/19 TIME: 12:25 Assessment/Plan VTE [place] [facility] [place]: 5 [place] [facility] [place] SCD contraindicated: other Pharmacological prophylaxis: other Pharm contraindication: other Lines/Catheters [facility] Peripheral IV Assessment/Plan Assessment/Plan Do Not Resuscitate Code Status - Sepsis - admitted on telemetry floor - admission orders done - 02 by NC - ID consult - Pneumonia - 02 by NC - Pulm consult - breathing treatment. - IV vancomycin and cefepime. - Possible Community Acquired Pneumonia . The patient is unable to expectorate SO - cont empirically treatment - hold off on G-tube feeding - cont IV fluids. - Cerebral palsy. - continue to monitor. - Lovenox for DVT prophylaxis - Protonix for gastrointestinal prophylaxis. Patient is seen in collaboration with Dr Perez. The patient is DNR - Dr Bowman spoke with patient's daughter, Alissa. Further recommendation will depend on patient's hospital course. Result Diagram: 01/16/19 0459 01/16/19 0459 Results 24hrs Laboratory Tests Test 01/15/19 21:16 01/15/19 21:17 01/15/19 21:20 01/15/19 22:10 Prothrombin Time 14.5 Prothrombin Time 1.1 Ratio INR International 1.12 Normalized Ratio Activated 29.[address] Time White Blood Count 13.1 #H Red Blood Count 3.74 L Hemoglobin 10.2 L Hematocrit 33.0 L Mean Corpuscular 88.2 Volume Mean Corpuscular 27.3 L Hemoglobin Mean Corpuscular 30.9 L Hemoglobin Concent Red Cell 14.1 Distribution Width Platelet Count 438 #H Mean Platelet 10.0 Volume Immature 0.300 Granulocytes % Neutrophils % 77.7 H Lymphocytes % 15.3 Monocytes % 3.8 Eosinophils % 2.6 Basophils % 0.3 Nucleated Red 0.0 Blood Cells % Immature 0.040 H Granulocytes # Neutrophils # 10.2 H Lymphocytes # 2.0 Monocytes # 0.5 Eosinophils # 0.3 Basophils # 0.0 Nucleated Red 0.0 Blood Cells # Sodium Level 141 Potassium Level 4.2 Chloride Level 101 Carbon Dioxide 32 H Level Anion Gap 8 Blood Urea 16 Nitrogen Creatinine 0.33 L Est Glomerular > 60 Filtrat Rate mL/min Glucose Level 121 Calcium Level 9.3 Total Bilirubin 0.1 L Direct Bilirubin 0.00 Indirect Bilirubin 0.1 Aspartate Amino 24 Transf (AST/SGOT) Alanine 9 L Aminotransferase ( ALT/SGPT) Alkaline 121 Phosphatase Troponin I < 0.012 Total Protein 8.3 H Albumin 3.4 Globulin 4.90 H Albumin/Globulin 0.69 Ratio POC Venous Lactate 1.6 Urine Color YELLOW Urine Clarity SLIGHTLY CLOUDY A Urine pH 7.0 Urine Specific 1.015 [place] Urine Ketones NEGATIVE Urine Nitrite NEGATIVE Urine Bilirubin NEGATIVE Urine Urobilinogen NEGATIVE Urine Leukocyte NEGATIVE Esterase Urine Microscopic 1 RBC Urine Microscopic 8 H WBC Urine Hemoglobin NEGATIVE Urine Glucose NEGATIVE Urine Total NEGATIVE Protein Test 01/15/19 23:49 01/16/19 00:33 01/16/19 04:59 01/16/19 05:00 POC Venous Lactate 1.2 Lactic Acid Level 1.1 1.3 White Blood Count 12.7 H Red Blood Count 3.23 L Hemoglobin 8.8 L Hematocrit 28.5 L Mean Corpuscular 88.2 Volume Mean Corpuscular 27.2 L Hemoglobin Mean Corpuscular 30.9 L Hemoglobin Concent Red Cell 14.3 Distribution Width Platelet Count 373 Mean Platelet 10.0 Volume Immature 0.500 H Granulocytes % Neutrophils % 71.3 Lymphocytes % 20.9 Monocytes % 4.2 Eosinophils % 2.8 Basophils % 0.3 Nucleated Red 0.0 Blood Cells % Immature 0.060 H Granulocytes # Neutrophils # 9.1 H Lymphocytes # 2.7 Monocytes # 0.5 Eosinophils # 0.4 Basophils # 0.0 Nucleated Red 0.0 Blood Cells # Sodium Level 141 Potassium Level 3.9 Chloride Level 108 Carbon Dioxide 26 Level Anion Gap 7 Blood Urea 12 Nitrogen Creatinine 0.24 L Est Glomerular > 60 Filtrat Rate mL/min Glucose Level 111 Calcium Level 8.6 Blood Gas Specimen Blood arterial Source Arterial Blood 01/16/2019 6:00:52 Date Drawn AM Arterial Blood pH 7.457 H (Temp corrected) Arterial Blood 36.0 pCO2 (Temp correct) Arterial Blood pO2 98.4 (Temp corrected) Arterial Blood 24.9 HCO3 Arterial Blood 1.1 Base Excess Arterial Blood 97.5 Oxygen Saturation Nabil Test ACCEPTAB Arterial Blood Gas Left Radial Puncture Site Arterial 0.3 Blood Carboxyhemog lobin Arterial Blood 0.3 Methemoglobin Blood Gas A-a O2 94.9 H Differential Oxyhemoglobin 96.9 Percent Blood Gas 37.0 Temperature Blood Gas Modality NASAL CANNULA FiO2 33.0 Blood Gas Notified MA Whom Blood Gas Notified 01/16/2019 6:11:36 Time AM HPI/ROS Admit Date/Time Admit Date/Time January 15, 2019 at 22:36 ROS bib ra from shelter for sob, chest congestion HPI 43-year-old female brought in from her shelter with shortness of breath and chest congestion. She has a history of cerebral palsy and is nonverbal at baseline. Otherwise history is limited as the patient is unable to answer questions. During assessment, no reported shortness of breath, chest pain, palpitations, headache, fever, chills, focal weakness or numbness, abdominal pain, urinary frequency, dysuria, nausea/vomiting, diarrhea, constipation, any right/left calf pain/swelling. Patient denies any recent sick contacts or hospitalizations. Patient is admitted under Dr Bowman for further treatment and evaluation. ROS Unable to obtain due to mental status Medications Home Meds Reported Medications Ascorbic Acid (Vitamin C) 500 Mg Tab, 500 MG GTB DAILY, TAB 12/18/18 Cran/Vitc/Mannose/Inulin/Brom (Uti-Stat Liquid) 3,875 Mg/30 Ml Liquid, 30 MG GTB BID 12/18/18 Acetaminophen* (Acetaminophen*) 500 MG Extra Strength Tablet, 1000 MG GTB BID PRN for PAIN AND OR ELEVATED TEMP, TAB 12/18/18 Acetaminophen* (Acetaminophen*) 500 MG Extra Strength Tablet, 1000 MG GTB Q4H PRN for PAIN 4-10, TAB 12/18/18 Acetaminophen* (Tylenol*) 325 Mg Tablet, 650 MG GTB Q4H PRN for MILD PAIN LEVEL 1-3, TAB 12/18/18 Oxcarbazepine* (Trileptal*) 150 Mg Tablet, 150 MG GTB BID, TAB 12/18/18 Sodium Chloride* (Sodium Chloride*) 1 Gm Tablet, 1 GM GTB TID, TAB 12/18/18 Amino Acids/Protein Hydrolys (PRO-STAT LIQUID) 30 Ml Liquid.pkt, 30 ML GTB BID SUGAR FREE 12/18/18 Multivit &Minerals/Ferrous Fum (MULTIVITAMIN LIQUID) 9 Mg/15 Ml Liquid, 5 MG GTB DAILY 12/18/18 Magnesium Hydroxide* (Milk Of Magnesia*) 400 Mg/5 Ml Oral.susp, 30 ML GTB NEEDED for CONSTIPATION, ML 12/18/18 Na Phos,M-B/Na Phos,Di-Ba (Fleet Enema Extra) 230 Ml Enema, 1 APPLIC RC Q 2D, ENEMA 12/18/18 Ipratropium-Albuterol (Ipratropium-Albuterol) 0.5-3 Mg/3 Ml Ampul.neb, 3 ML INHALATION Q6, #30 VIAL 12/18/18 Bisacodyl* (Bisacodyl*) 10 Mg Supp, 10 MG MS Q24H for CONSTIPATION, SUPP 12/18/18 Cranberry Extract (Cranberry) 425 Mg Capsule, 425 MG GTB DAILY, CAP 12/18/18 Docusate Sodium* (Colace*) 100 Mg Capsule, 200 MG GTB QHS, #30 CAP 12/18/18 Allergies Allergies: Coded Allergies: No Known Allergy (Unverified , 12/18/18) PMhx/Soc Medical and Surgical Hx: Unable to obtain History of Surgery: Yes (PEG placement) Hx Neurological Disorder: Yes (cerebral palsy, epilepsy) Hx Respiratory Disorders: Yes (respiratory failure) Hx Cardiac Disorders: No Hx Psychiatric Problems: Yes (anxiety, depression) Hx Miscellaneous Medical Probl: Yes (depression, anxiety) Hx Alcohol Use: No Hx Tobacco Use: No Smoking Status: Never smoker FmHx Unable to obtain PMH/Family/Social Past Medical History Medications Current Medications Ondansetron HCl (Zofran Inj) 4 mg ER BRIDGE PRN IV NAUSEA/VOMITING; Start 01/15/19 at 23:00; Stop 01/16/19 at 22:59 Acetaminophen (Tylenol Tab) 650 mg ER BRIDGE PRN PO .MILD PAIN 1-3 OR TEMP; Start 01/15/19 at 23:00; Stop 01/16/19 at 22:59 Cefepime HCl 50 ml @ 100 mls/hr Q12 IVPB Last administered on 01/16/19at 09:30; Admin Dose 100 MLS/HR; Start 01/16/19 at 09:00 Vancomycin HCl (Vanco Iv Per Pharmacy) VANCOMYCIN PER PHARMACY PER PROTOCOL XX ; Start 01/16/19 at 02:30 Albuterol/ Ipratropium (Duoneb) 3 ml Q6HWA RESP THERAPY HHN Last administered on 01/16/19at 04:19; Admin Dose 3 ML; Start 01/16/19 at 08:00 Dextrose/Sodium Chloride 1,000 ml @ 75 mls/hr [id number] IV Last administered on 01/16/19at 03:40; Admin Dose 75 MLS/HR; Start 01/16/19 at 02:30 Vancomycin HCl 100 ml @ 100 mls/hr Q12H IVPB ; Start 01/16/19 at 11:30 Miscellaneous Information (Pending Santyl Order For Wound Care) This patient huggins... PRN PRN XX WOUND CARE; Start 01/16/19 at 06:30 Collagenase (Santyl) 1 applic DAILY TOP ; Start 01/17/19 at 09:00 Coded Allergies: No Known Allergy (Unverified , 01/23/19) Social History Smoking Status: Never smoker Exam/Review of Systems Vital Signs Vitals Vital Signs Date Temp Pulse Resp B/P (MAP) Pulse Ox O2 O2 Flow FiO2 Time Delivery Rate 01/16/19 97.8 97 19 155/92 100 11:21 (113) 01/16/19 Nasal 3.0 08:00 Cannula 01/16/19 33 05:03 Intake and Output 01/15/19 01/15/19 01/16/19 1515:00 23:00 07:00 IntakeIntake Total 0 ml BalanceBalance 0 ml Exam Constitutional: non-verbal, frail Psych: nl mood/affect Eyes: EOMI ENMT: nl external ears & nose Neck: supple Respiratory: diminished breath sounds (bilaterally at bases) Cardiovascular: nl pulses, other (s1s2) Gastrointestinal: soft, other (gt inatct) Musculoskeletal: joint tenderness, muscle weakness, range of motion Extremities: normal pulses Neurological: confused, unresponsive Skin: other JASMYNE HOOKS January 16, 2019 12:35
--- NOTE | 2019-01-16 18:39 | CONS ---
DATE OF ADMISSION: 01/15/2019 DATE OF CONSULTATION: 01/16/2019 TYPE OF CONSULTATION: Infectious disease. REASON FOR CONSULTATION: Antibiotic management. HISTORY OF PRESENT ILLNESS: Rosaura Vega is a 43-year-old female who was brought in from [facility] with shortness of breath and congestion. The patient has a history of cerebral palsy and is non verbal. Her past problems include cerebral palsy, epilepsy, G-tube placement, respiratory failure, a nxiety, and depression. On admission, her white count was 13.1, H and H of 10.2 and 33, and platelet count 438,000. BUN and creatinine 16/0.33, and neutrophils were 78%. PAST MEDICAL HISTORY: As outlined. FAMILY HISTORY: Noncontributory. SOCIAL HISTORY: She does not smoke, drink, or abuse drugs. ALLERGIES: NONE TO PENICILLIN, SULFA, OR FOODS. MEDICATIONS: Per chart. REVIEW OF SYSTEMS: As per HPI. PHYSICAL EXAMINATION: GENERAL: She is awake, nonverbal, and in mild respiratory distress. VITAL SIGNS: Stable. She is afebrile. SKIN: Without generalized rash. HEENT: Within normal limits. NECK: Supple. LYMPH NODES: None palpable. CHEST: Decreased breath sounds at the bases with scattered rhonchi bilaterally. She is tachypneic. HEART: Tachycardic without murmur or gallop. ABDOMEN: Soft. Nontender. Without organosplenomegaly or masses. EXTREMITIES: Without cyanosis or clubbing or edema. RECTAL AND GENITAL: Deferred. NEUROLOGIC: The patient has contractures in all 4 extremities. She is nonverbal. IMPRESSION AND PLAN: She comes in with an elevated white count and shortness of breath. Her urine i s negative for leukocytes and for nitrites. Her x-ray shows bibasilar infiltrates, left greater than right and probable trace pleural effusion. She has mild leukocytosis, anemia, and thrombocytosis an d she is started on vancomycin and cefepime for bilateral pneumonia. Urine culture is negative at th is point. She has what appears to be healthcare-acquired pneumonia. We are going to hold off on her G-tube feeding. Her white count today is 12.7, slightly lower. The patient is DNR. Dictate my findings to Dr. Vargas. Dictated By: JOEY TYLER MD, JD/TIP Conf#: [id number] [facility]#: [id number] CC: GLORIA VARGAS MD; MELYSSA BORDEN MD; JOEY TYLER MD; PAYTON SOTO MD;*EndCC*
[2019-01-16] MEDS ORDERED: hydrALAzine 20 MG INJ IV PRN (20:30)
[2019-01-16] MEDS ORDERED: CEFEPIME 1GM/50 ML (PMX) 50 ML IVPB SCH (21:00)
[2019-01-16] MEDS: FAMOTIDINE 20 MG INJ IV SCH (21:07)
[2019-01-17] VITALS (9 sets, daily range): BP systolic 113–136; BP diastolic 68–97; PULSE 79–101; RESP 15–19
[2019-01-17] MEDS: DEXTROSE 5%-0.45% NACL 1,000 ML IV SCH ×2 (05:10→10:03)
[2019-01-17] MEDS ORDERED: PANTOPRAZOLE 40 MG INJ IV SCH (06:00)
[2019-01-17] MEDS: ALBUTEROL/IPRATROPIUM (NEB) 3 ML AMP HHN SCH ×3 (09:06→19:43)
--- NOTE | 2019-01-17 09:40 | PN ---
Date/Time of Note Date/Time of Note DATE: 01/17/19 TIME: 09:38 Assessment/Plan VTE Prophylaxis Risk score (from Nsg)>0 risk: 3 SCD applied (from Nsg): No Lines/Catheters IV Catheter Type (from Nrsg): Peripheral IV Assessment/Plan Assessment/Plan - Sepsis - admitted on telemetry floor - 02 by NC - id CONSULT - PNA - - 02 by NC - Pulm consult - breathing treatment. - IV vancomycin and cefepime. The patient is unable to expectorate SO - empirically treat her for healthcare facility acquired pneumonia. - hold off on G-tube feeding and will give IV fluids. - Cerebral palsy. - continue to monitor. - Lovenox for DVT prophylaxis - Protonix for gastrointestinal prophylaxis. The patient is DNR Dr Bowman spoke with patient's daughter, Alissa. Further recommendation will depend on patient's hospital course. Result Diagram: 01/17/19 0456 01/17/19 0456 Results 24hrs Laboratory Tests Test 01/16/19 12:57 01/17/19 04:56 Lactic Acid Level 0.9 White Blood Count 15.0 H Red Blood Count 3.01 L Hemoglobin 8.0 L Hematocrit 26.4 L Mean Corpuscular Volume 87.7 Mean Corpuscular Hemoglobin 26.6 L Mean Corpuscular Hemoglobin Concent 30.3 L Red Cell Distribution Width 14.1 Platelet Count 405 Mean Platelet Volume 10.0 Immature Granulocytes % 0.600 H Neutrophils % 78.5 H Lymphocytes % 15.1 Monocytes % 3.5 Eosinophils % 2.0 Basophils % 0.3 Nucleated Red Blood Cells % 0.0 Immature Granulocytes # 0.090 H Neutrophils # 11.8 H Lymphocytes # 2.3 Monocytes # 0.5 Eosinophils # 0.3 Basophils # 0.0 Nucleated Red Blood Cells # 0.0 Sodium Level 140 Potassium Level 3.6 Chloride Level 105 Carbon Dioxide Level 29 Anion Gap 6 Blood Urea Nitrogen 9 Creatinine 0.30 L Est Glomerular Filtrat Rate mL/min > 60 Glucose Level 96 Calcium Level 8.5 Subjective 24 Hr Interval Summary Free Text/Dictation 0603- pt seen today Exam/Review of Systems Exam Vitals Vital Signs Date Temp Pulse Resp B/P (MAP) Pulse Ox O2 O2 Flow FiO2 Time Delivery Rate 01/17/19 80 08:00 01/17/19 97.8 15 116/78 100 07:29 (91) 01/17/19 100 02:24 01/16/19 Aerosol 6.0 20:50 Mask Intake and Output 01/16/19 01/16/19 01/17/19 1515:00 23:00 07:00 IntakeIntake Total 525 ml 225 ml 0 ml BalanceBalance 525 ml 225 ml 0 ml Results Results 24hrs Laboratory Tests Test 01/16/19 12:57 01/17/19 04:56 Lactic Acid Level 0.9 White Blood Count 15.0 H Red Blood Count 3.01 L Hemoglobin 8.0 L Hematocrit 26.4 L Mean Corpuscular Volume 87.7 Mean Corpuscular Hemoglobin 26.6 L Mean Corpuscular Hemoglobin Concent 30.3 L Red Cell Distribution Width 14.1 Platelet Count 405 Mean Platelet Volume 10.0 Immature Granulocytes % 0.600 H Neutrophils % 78.5 H Lymphocytes % 15.1 Monocytes % 3.5 Eosinophils % 2.0 Basophils % 0.3 Nucleated Red Blood Cells % 0.0 Immature Granulocytes # 0.090 H Neutrophils # 11.8 H Lymphocytes # 2.3 Monocytes # 0.5 Eosinophils # 0.3 Basophils # 0.0 Nucleated Red Blood Cells # 0.0 Sodium Level 140 Potassium Level 3.6 Chloride Level 105 Carbon Dioxide Level 29 Anion Gap 6 Blood Urea Nitrogen 9 Creatinine 0.30 L Est Glomerular Filtrat Rate mL/min > 60 Glucose Level 96 Calcium Level 8.5 Medications Medication Current Medications Cefepime HCl 50 ml @ 100 mls/hr Q12 IVPB Last administered on 01/16/19at 21:07; Admin Dose 100 MLS/HR; Start 01/16/19 at 09:00 Vancomycin HCl (Vanco Iv Per Pharmacy) VANCOMYCIN PER PHARMACY PER PROTOCOL XX ; Start 01/16/19 at 02:30 Albuterol/ Ipratropium (Duoneb) 3 ml Q6HWA RESP THERAPY HHN Last administered on 01/17/19at 09:06; Admin Dose 3 ML; Start 01/16/19 at 08:00 Dextrose/Sodium Chloride 1,000 ml @ 75 mls/hr [id number] IV Last administered on 01/17/19at 05:10; Admin Dose 75 MLS/HR; Start 01/16/19 at 02:30 Vancomycin HCl 100 ml @ 100 mls/hr Q12H IVPB Last administered on 01/16/19at 23:45; Admin Dose 100 MLS/HR; Start 01/16/19 at 11:30 Miscellaneous Information (Pending Santyl Order For Wound Care) This patient huggins... PRN PRN XX WOUND CARE; Start 01/16/19 at 06:30 Collagenase (Santyl) 1 applic DAILY TOP ; Start 01/17/19 at 09:00 Famotidine (Pepcid Iv) 20 mg BID IV Last administered on 01/16/19at 21:07; Admin Dose 20 MG; Start 01/16/19 at 21:00 Miscellaneous Information (*Rx Drug Level Order Reminder*) VANCO TR LEVEL PRIOR... 1030 ONCE XX ; Start 01/17/19 at 10:30; Stop 01/17/19 at 10:31 Amlodipine Besylate (Norvasc) 5 mg DAILY GTB ; Start 01/17/19 at 09:00 Hydralazine HCl (Apresoline) 20 mg Q6H PRN IV HIGH BP; SYSTOLIC > 170; Start 01/16/19 at 20:30 JASMYNE HOOKS January 17, 2019 09:40
[2019-01-17] MEDS: CEFEPIME 1GM/50 ML (PMX) 50 ML IVPB SCH ×2 (10:03→20:23)
[2019-01-17] MEDS: AMLODIPINE 5 MG TAB GTB SCH (10:04)
[2019-01-17] MEDS: COLLAGENASE 5 GM (UD JAR) TOP SCH (10:04)
[2019-01-17] MEDS: FAMOTIDINE 20 MG INJ IV SCH ×2 (10:04→20:22)
--- NOTE | 2019-01-17 11:43 | CONS ---
Assessment/Plan Assessment/Plan Assessment/Plan (Daily) Chest x-ray showing bilateral basilar pneumonia slightly more pronounced in the left lung. Assessment and recommendations; 1. Patient with history of cerebral palsy admitted with bilateral pneumonia possibly aspiration, currently on appropriate antimicrobial regimen. Continue current supportive care. Obtain follow-up chest x-ray in 48 hours. Consultation Date/Type/Reason Admit Date/Time January 15, 2019 at 22:36 Date of Consultation: January 17, 2019 Type of Consult Pulmonary Patient is a 43-year-old lady with history of cerebral palsy admitted for fever. Chest x-ray showing bilateral pneumonia. Patient has advanced dementia and was unable to give any history by herself whatsoever. Patient however did not appear to be in any distress. Past medical history; Cerebral palsy. Medications; reviewed. Allergies; none. Family history, social history not available. Review of system; unable to be obtained. General exam; middle-aged woman, awake, noncommunicative. Currently no distress. She appears contracted. Date/Time of Note DATE: 01/17/19 TIME: 11:41 Past Medical History Home Meds Reported Medications Ascorbic Acid (Vitamin C) 500 Mg Tab, 500 MG GTB DAILY, TAB 12/18/18 Cran/Vitc/Mannose/Inulin/Brom (Uti-Stat Liquid) 3,875 Mg/30 Ml Liquid, 30 MG GTB BID 12/18/18 Acetaminophen* (Acetaminophen*) 500 MG Extra Strength Tablet, 1000 MG GTB BID PRN for PAIN AND OR ELEVATED TEMP, TAB 12/18/18 Acetaminophen* (Acetaminophen*) 500 MG Extra Strength Tablet, 1000 MG GTB Q4H PRN for PAIN 4-6/10, TAB 12/18/18 Acetaminophen* (Tylenol*) 325 Mg Tablet, 650 MG GTB Q4H PRN for MILD PAIN LEVEL 1-3, TAB 12/18/18 Oxcarbazepine* (Trileptal*) 150 Mg Tablet, 150 MG GTB BID, TAB 12/18/18 Sodium Chloride* (Sodium Chloride*) 1 Gm Tablet, 1 GM GTB TID, TAB 12/18/18 Amino Acids/Protein Hydrolys (PRO-STAT LIQUID) 30 Ml Liquid.pkt, 30 ML GTB BID SUGAR FREE 12/18/18 Multivit &Minerals/Ferrous Fum (MULTIVITAMIN LIQUID) 9 Mg/15 Ml Liquid, 5 MG GTB DAILY 12/18/18 Magnesium Hydroxide* (Milk Of Magnesia*) 400 Mg/5 Ml Oral.susp, 30 ML GTB NEEDED for CONSTIPATION, ML 12/18/18 Na Phos,M-B/Na Phos,Di-Ba (Fleet Enema Extra) 230 Ml Enema, 1 APPLIC RC Q 2D, ENEMA 12/18/18 Ipratropium-Albuterol (Ipratropium-Albuterol) 0.5-3 Mg/3 Ml Ampul.neb, 3 ML INHALATION Q6, #30 VIAL 12/18/18 Bisacodyl* (Bisacodyl*) 10 Mg Supp, 10 MG [place] Q24H for CONSTIPATION, SUPP 12/18/18 Cranberry Extract (Cranberry) 425 Mg Capsule, 425 MG GTB DAILY, CAP 12/18/18 Docusate Sodium* (Colace*) 100 Mg Capsule, 200 MG GTB QHS, #30 CAP 12/18/18 Medications Current Medications Cefepime HCl 50 ml @ 100 mls/hr Q12 IVPB Last administered on 01/17/19at 10:03; Admin Dose 100 MLS/HR; Start 01/16/19 at 09:00 Vancomycin HCl (Vanco Iv Per Pharmacy) VANCOMYCIN PER PHARMACY PER PROTOCOL XX ; Start 01/16/19 at 02:30 Albuterol/ Ipratropium (Duoneb) 3 ml Q6HWA RESP THERAPY HHN Last administered on 01/17/19 09:06; Admin Dose 3 ML; Start 01/16/19 at 08:00 Dextrose/Sodium Chloride 1,000 ml @ 75 mls/hr [id number] IV Last administered on 01/17/19at 10:03; Admin Dose 75 MLS/HR; Start 01/16/19 at 02:30 Vancomycin HCl 100 ml @ 100 mls/hr Q12H IVPB Last administered on 01/16/19at 23:45; Admin Dose 100 MLS/HR; Start 01/16/19 at 11:30 Miscellaneous Information (Pending Santyl Order For Wound Care) This patient huggins... PRN PRN XX WOUND CARE; Start 01/16/19 at 06:30 Collagenase (Santyl) 1 applic DAILY TOP Last administered on 01/17/19at 10:04; Admin Dose 1 APPLIC; Start 01/17/19 at 09:00 Famotidine (Pepcid Iv) 20 mg BID IV Last administered on 01/17/19at 10:04; Admin Dose 20 MG; Start 01/16/19 at 21:00 Amlodipine Besylate (Norvasc) 5 mg DAILY GTB Last administered on 01/17/19at 10:04; Admin Dose 5 MG; Start 01/17/19 at 09:00 Hydralazine HCl (Apresoline) 20 mg Q6H PRN IV HIGH BP; SYSTOLIC > 170; Start 01/16/19 at 20:30 Allergies: Coded Allergies: No Known Allergy (Unverified , 12/18/18) Social History Smoking Status: Never smoker Exam/Review of Systems Exam Vitals Vital Signs Date Temp Pulse Resp B/P (MAP) Pulse Ox O2 O2 Flow FiO2 Time Delivery Rate 01/17/19 80 08:00 01/17/19 97.8 15 116/78 100 07:29 (91) 01/17/19 100 02:24 01/16/19 Aerosol 6.0 20:50 Mask Intake and Output 01/16/19 01/16/19 01/17/19 1515:00 23:00 07:00 IntakeIntake Total 525 ml 225 ml 0 ml BalanceBalance 525 ml 225 ml 0 ml Exam H EENT exam; supple neck, no JVD. No lymphadenopathy. Midline trachea. No thyromegaly. Patient has fair dentition. No neck masses. Chest exam; diminished breath sounds bilaterally. No added sounds. S1-S2 audible, no murmurs. Regular rhythm. Abdomen exam; soft, nondistended. No organomegaly. Bowel sounds audible. Extremity exam; no peripheral edema. Patient has a flexion contractures. SENIOR MANAGER MMCOE exam; patient is awake but noncommunicative. Results Result Diagram: 01/17/19 0456 01/17/19 0456 Results 24hrs Laboratory Tests Test 01/16/19 12:57 01/17/19 04:56 Lactic Acid Level 0.9 White Blood Count 15.0 H Red Blood Count 3.01 L Hemoglobin 8.0 L Hematocrit 26.4 L Mean Corpuscular Volume 87.7 Mean Corpuscular Hemoglobin 26.6 L Mean Corpuscular Hemoglobin Concent 30.3 L Red Cell Distribution Width 14.1 Platelet Count 405 Mean Platelet Volume 10.0 Immature Granulocytes % 0.600 H Neutrophils % 78.5 H Lymphocytes % 15.1 Monocytes % 3.5 Eosinophils % 2.0 Basophils % 0.3 Nucleated Red Blood Cells % 0.0 Immature Granulocytes # 0.090 H Neutrophils # 11.8 H Lymphocytes # 2.3 Monocytes # 0.5 Eosinophils # 0.3 Basophils # 0.0 Nucleated Red Blood Cells # 0.0 Sodium Level 140 Potassium Level 3.6 Chloride Level 105 Carbon Dioxide Level 29 Anion Gap 6 Blood Urea Nitrogen 9 Creatinine 0.30 L Est Glomerular Filtrat Rate mL/min > 60 Glucose Level 96 Calcium Level 8.5 Medications Medication Current Medications Cefepime HCl 50 ml @ 100 mls/hr Q12 IVPB Last administered on 01/17/19 10:03; Admin Dose 100 MLS/HR; Start 01/16/19 at 09:00 Vancomycin HCl (Vanco Iv Per Pharmacy) VANCOMYCIN PER PHARMACY PER PROTOCOL XX ; Start 01/16/19 at 02:30 Albuterol/ Ipratropium (Duoneb) 3 ml Q6HWA RESP THERAPY HHN Last administered on 01/17/19 09:06; Admin Dose 3 ML; Start 01/16/19 at 08:00 Dextrose/Sodium Chloride 1,000 ml @ 75 mls/hr [id number] IV Last administered on 01/17/19 10:03; Admin Dose 75 MLS/HR; Start 01/16/19 at 02:30 Vancomycin HCl 100 ml @ 100 mls/hr Q12H IVPB Last administered on 01/16/19 23:45; Admin Dose 100 MLS/HR; Start 01/16/19 at 11:30 Miscellaneous Information (Pending Santyl Order For Wound Care) This patient huggisn... PRN PRN XX WOUND CARE; Start 01/16/19 at 06:30 Collagenase (Santyl) 1 applic DAILY TOP Last administered on 01/17/19 10:04; Admin Dose 1 APPLIC; Start 01/17/19 at 09:00 Famotidine (Pepcid Iv) 20 mg BID IV Last administered on 01/17/19 10:04; Admin Dose 20 MG; Start 01/16/19 at 21:00 Amlodipine Besylate (Norvasc) 5 mg DAILY GTB Last administered on 01/17/19 10:04; Admin Dose 5 MG; Start 01/17/19 at 09:00 Hydralazine HCl (Apresoline) 20 mg Q6H PRN IV HIGH BP; SYSTOLIC > 170; Start 01/16/19 at 20:30 TRACY MARTINEZ January 17, 2019 11:43
[2019-01-17] MEDS: VANCOMYCIN 500 MG (PMX) 100 ML IVPB SCH (12:28)
--- NOTE | 2019-01-17 13:34 | CONS ---
Assessment/Plan Assessment/Plan Hospital Course (Demo Recall) No acute changes overnight patient is in no distress looks comfortable she is on nonrebreather mask no fevers overnight WBC 15 H&H 8 and 26.4 platelets 405 neutrophils 78.4 BUN 9 creatinine 0.30 Microbiology: Blood and urine cultures negative Indwelling: PEG Antimicrobials Vanco, cefepime Physical examination: Chronically ill-appearing middle-aged woman who is laying comfortably in bed. Head atraumatic normocephalic sclera nonicteric vehicle mucosa dry neck is supple chest rise symmetrical breath sounds with bilateral rails. Heart: S1-S2 abdomen soft bowel sounds present extremities without cyanosis Assessment: 1. Acute hypoxemic respiratory failure 2. Pneumonia possibly aspirated 3. Dysphasia 4. Cerebral palsy Plan: Remains stable, on appropriate antibiotic regimen, continue aspiration precautions and pulmonary toilet Consultation Date/Type/Reason Admit Date/Time January 15, 2019 at 22:36 Initial Consult Date 01/17/19 Type of Consult id Date/Time of Note DATE: 01/17/19 TIME: 13:34 Exam/Review of Systems Exam Vitals Vital Signs Date Temp Pulse Resp B/P (MAP) Pulse Ox O2 O2 Flow FiO2 Time Delivery Rate 01/17/19 89 20 100 Non 15.0 100 12:06 Rebreather Mask 01/17/19 97.9 113/68 11:44 (83) Intake and Output 01/16/19 01/16/19 01/17/19 1515:00 23:00 07:00 IntakeIntake Total 525 ml 225 ml 0 ml BalanceBalance 525 ml 225 ml 0 ml Results Result Diagram: 01/17/19 0456 01/17/19 0456 Results 24hrs Laboratory Tests Test 01/17/19 04:56 01/17/19 10:49 White Blood Count 15.0 H Red Blood Count 3.01 L Hemoglobin 8.0 L Hematocrit 26.4 L Mean Corpuscular Volume 87.7 Mean Corpuscular Hemoglobin 26.6 L Mean Corpuscular Hemoglobin Concent 30.3 L Red Cell Distribution Width 14.1 Platelet Count 405 Mean Platelet Volume 10.0 Immature Granulocytes % 0.600 H Neutrophils % 78.5 H Lymphocytes % 15.1 Monocytes % 3.5 Eosinophils % 2.0 Basophils % 0.3 Nucleated Red Blood Cells % 0.0 Immature Granulocytes # 0.090 H Neutrophils # 11.8 H Lymphocytes # 2.3 Monocytes # 0.5 Eosinophils # 0.3 Basophils # 0.0 Nucleated Red Blood Cells # 0.0 Sodium Level 140 Potassium Level 3.6 Chloride Level 105 Carbon Dioxide Level 29 Anion Gap 6 Blood Urea Nitrogen 9 Creatinine 0.30 L Est Glomerular Filtrat Rate mL/min > 60 Glucose Level 96 Calcium Level 8.5 Vancomycin Level Trough 8.8 L Medications Medication Current Medications Cefepime HCl 50 ml @ 100 mls/hr Q12 IVPB Last administered on 01/17/19 10:03; Admin Dose 100 MLS/HR; Start 01/16/19 at 09:00 Vancomycin HCl (Vanco Iv Per Pharmacy) VANCOMYCIN PER PHARMACY PER PROTOCOL XX ; Start 01/16/19 at 02:30 Albuterol/ Ipratropium (Duoneb) 3 ml Q6HWA RESP THERAPY HHN Last administered on 01/17/19 09:06; Admin Dose 3 ML; Start 01/16/19 at 08:00 Dextrose/Sodium Chloride 1,000 ml @ 75 mls/hr [id number] IV Last administered on 01/17/19 10:03; Admin Dose 75 MLS/HR; Start 01/16/19 at 02:30 Vancomycin HCl 100 ml @ 100 mls/hr Q12H IVPB Last administered on 01/17/19 12:28; Admin Dose 100 MLS/HR; Start 01/16/19 at 11:30 Miscellaneous Information (Pending Santyl Order For Wound Care) This patient huggins... PRN PRN XX WOUND CARE; Start 01/16/19 at 06:30 Collagenase (Santyl) 1 applic DAILY TOP Last administered on 01/17/19 10:04; Admin Dose 1 APPLIC; Start 01/17/19 at 09:00 Famotidine (Pepcid Iv) 20 mg BID IV Last administered on 01/17/19 10:04; Admin Dose 20 MG; Start 01/16/19 at 21:00 Amlodipine Besylate (Norvasc) 5 mg DAILY GTB Last administered on 01/17/19 10:04; Admin Dose 5 MG; Start 01/17/19 at 09:00 Hydralazine HCl (Apresoline) 20 mg Q6H PRN IV HIGH BP; SYSTOLIC > 170; Start 5/2/19 at 20:30 ALLISON LOMELI NP January 17, 2019 13:34
[2019-01-17] MEDS: VANCOMYCIN 750 MG (PMX) 250 ML IVPB SCH (23:15)
[2019-01-18] VITALS (10 sets, daily range): BP systolic 110–140; BP diastolic 70–94; PULSE 70–86; RESP 17–20
[2019-01-18] MEDS: DEXTROSE 5%-0.45% NACL 1,000 ML IV SCH ×2 (03:11→19:59)
[2019-01-18] MEDS: ALBUTEROL/IPRATROPIUM (NEB) 3 ML AMP HHN SCH ×3 (07:40→20:07)
[2019-01-18] MEDS: CEFEPIME 1GM/50 ML (PMX) 50 ML IVPB SCH ×2 (09:53→21:47)
[2019-01-18] MEDS: COLLAGENASE 5 GM (UD JAR) TOP SCH (09:54)
[2019-01-18] MEDS: AMLODIPINE 5 MG TAB GTB SCH (09:54)
[2019-01-18] MEDS: FAMOTIDINE 20 MG INJ IV SCH ×2 (09:54→21:45)
--- NOTE | 2019-01-18 10:54 | CONS ---
Consultation Date/Type/Reason Admit Date/Time January 15, 2019 at 22:36 Initial Consult Date 01/17/19 Type of Consult SUBJECTIVE: Pt is awake, afebrile. NO acute events over night. VS: stable T: 98.2 LABS: Reviewed. CXR 01/15/19: IMPRESSION: 1. Bibasilar infiltrates, left greater than right. 2. Probable trace pleural effusions. Microbiology: Blood and urine cultures negative Indwelling: PEG Antimicrobials Vanco, cefepime Physical examination: GEN: Chronically ill-appearing middle-aged woman, who is laying comfortably in bed. HENT: Head atraumatic normocephalic; sclera nonicteric vehicle mucosa dry; neck is supple PULM: chest rise symmetrical breath sounds with bilateral rails. Heart: S1-S2 Abdomen: soft, bowel sounds present Extremities without cyanosis Assessment: 1. Acute hypoxemic respiratory failure 2. Pneumonia possibly aspirated 3. Dysphasia 4. Cerebral palsy Plan: Pt is stable. Will continue current antibiotic regimen. Aspiration precautions and pulmonary toilet. Repeat CXR in AM Date/Time of Note DATE: 01/18/19 TIME: 10:50 Exam/Review of Systems Exam Vitals Vital Signs Date Temp Pulse Resp B/P (MAP) Pulse Ox O2 O2 Flow FiO2 Time Delivery Rate 01/18/19 84 08:01 01/18/19 99 5.0 07:46 01/18/19 20 Nasal 07:44 Cannula 01/18/19 98.2 132/79 07:29 (96) 01/17/19 100 16:05 Intake and Output 01/17/19 01/17/19 01/18/19 1414:59 22:59 06:59 IntakeIntake Total 750 ml 225 ml BalanceBalance 750 ml 225 ml Results Result Diagram: 01/17/19 0456 01/17/19 0456 Medications Medication Current Medications Cefepime HCl 50 ml @ 100 mls/hr Q12 IVPB Last administered on 01/18/19at 09:53; Admin Dose 100 MLS/HR; Start 01/16/19 at 09:00 Vancomycin HCl (Vanco Iv Per Pharmacy) VANCOMYCIN PER PHARMACY PER PROTOCOL XX ; Start 01/16/19 at 02:30 Albuterol/ Ipratropium (Duoneb) 3 ml Q6HWA RESP THERAPY HHN Last administered on 5/4/19at 07:40; Admin Dose 3 ML; Start 01/16/19 at 08:00 Dextrose/Sodium Chloride 1,000 ml @ 75 mls/hr [id number] IV Last administered on 01/18/19 03:11; Admin Dose 75 MLS/HR; Start 01/16/19 at 02:30 Miscellaneous Information (Pending Santyl Order For Wound Care) This patient huggins... PRN PRN XX WOUND CARE; Start 01/16/19 at 06:30 Collagenase (Santyl) 1 applic DAILY TOP Last administered on 01/18/19 09:54; Admin Dose 1 APPLIC; Start 01/17/19 at 09:00 Famotidine (Pepcid Iv) 20 mg BID IV Last administered on 01/18/19 09:54; Admin Dose 20 MG; Start 01/16/19 at 21:00 Amlodipine Besylate (Norvasc) 5 mg DAILY GTB Last administered on 01/18/19 09:54; Admin Dose 5 MG; Start 01/17/19 at 09:00 Hydralazine HCl (Apresoline) 20 mg Q6H PRN IV HIGH BP; SYSTOLIC > 170; Start 01/16/19 at 20:30 Vancomycin/Sodium Chloride 250 ml @ 125 mls/hr Q12H IVPB Last administered on 01/17/19 23:15; Admin Dose 125 MLS/HR; Start 01/17/19 at 23:00 CASPER RODRIGUEZ January 18, 2019 10:54
--- NOTE | 2019-01-18 11:36 | PN ---
Date/Time of Note Date/Time of Note DATE: 01/18/19 TIME: 11:36 Assessment/Plan VTE Prophylaxis Risk score (from Ns)>0 risk: 5 SCD applied (from Ns): Yes Pharmacological prophylaxis: LMWH Lines/Catheters IV Catheter Type (from [facility]): Peripheral IV Assessment/Plan Hospital Course - Sepsis - admitted on telemetry floor - 02 by NC - id CONSULT - PNA - - 02 by NC - Pulm consult - breathing treatment. - IV vancomycin and cefepime. The patient is unable to expectorate SO - empirically treat her for healthcare facility acquired pneumonia. - hold off on G-tube feeding and will give IV fluids. - Cerebral palsy. - continue to monitor. - Lovenox for DVT prophylaxis - Protonix for gastrointestinal prophylaxis. Result Diagram: 01/17/19 0456 01/17/196 Subjective 24 Hr Interval Summary Free Text/Dictation Patient has no complaints Exam/Review of Systems Exam Vitals Vital Signs Date Temp Pulse Resp B/P (MAP) Pulse Ox O2 O2 Flow FiO2 Time Delivery Rate 01/18/19 84 08:01 01/18/19 99 5.0 07:46 01/18/19 20 Nasal 07:44 Cannula 01/18/19 98.2 132/79 07:29 (96) 01/17/19 100 16:05 Intake and Output 01/17/19 01/17/19 01/18/19 1515:00 23:00 07:00 IntakeIntake Total 750 ml 225 ml BalanceBalance 750 ml 225 ml Constitutional: well developed Head: normocephalic, atraumatic Neck: supple Respiratory: diminished breath sounds Cardiovascular: regular rate and rhythm Gastrointestinal: soft, non-tender Extremities: normal pulses Medications Medication Current Medications Cefepime HCl 50 ml @ 100 mls/hr Q12 IVPB Last administered on 01/18/19at 09:53; Admin Dose 100 MLS/HR; Start 01/16/19 at 09:00 Vancomycin HCl (Vanco Iv Per Pharmacy) VANCOMYCIN PER PHARMACY PER PROTOCOL XX ; Start 01/16/19 at 02:30 Albuterol/ Ipratropium (Duoneb) 3 ml Q6HWA RESP THERAPY HHN Last administered on 01/18/19at 07:40; Admin Dose 3 ML; Start 01/16/19 at 08:00 Dextrose/Sodium Chloride 1,000 ml @ 75 mls/hr [id number] IV Last administered on 01/18/19 03:11; Admin Dose 75 MLS/HR; Start 01/16/19 at 02:30 Miscellaneous Information (Pending Santyl Order For Wound Care) This patient huggins... PRN PRN XX WOUND CARE; Start 01/16/19 at 06:30 Collagenase (Santyl) 1 applic DAILY TOP Last administered on 01/18/19 09:54; Admin Dose 1 APPLIC; Start 01/17/19 at 09:00 Famotidine (Pepcid Iv) 20 mg BID IV Last administered on 01/18/19 09:54; Admin Dose 20 MG; Start 01/16/19 at 21:00 Amlodipine Besylate (Norvasc) 5 mg DAILY GTB Last administered on 01/18/19 09:54; Admin Dose 5 MG; Start 01/17/19 at 09:00 Hydralazine HCl (Apresoline) 20 mg Q6H PRN IV HIGH BP; SYSTOLIC > 170; Start 01/16/19 at 20:30 Vancomycin/Sodium Chloride 250 ml @ 125 mls/hr Q12H IVPB Last administered on 01/17/19 23:15; Admin Dose 125 MLS/HR; Start 01/17/19 at 23:00 DICK WOOD January 18, 2019 11:36
[2019-01-18] MEDS: VANCOMYCIN 750 MG (PMX) 250 ML IVPB SCH ×2 (11:52→23:35)
--- NOTE | 2019-01-18 14:41 | CONS ---
Consult Date/Type/Reason Admit Date/Time January 15, 2019 at 22:36 Initial Consult Date 01/17/19 Type of Consultation: Pulm Date/Time of Note DATE: 01/18/19 TIME: 14:39 Subjective No events overnight Objective Vitals Vital Signs Date Temp Pulse Resp B/P (MAP) Pulse Ox O2 O2 Flow FiO2 Time Delivery Rate 01/18/19 100 4.0 13:54 01/18/19 83 20 Nasal 13:51 Cannula 01/18/19 97.6 140/87 11:42 (104) 01/17/19 100 16:05 Intake and Output 01/17/19 01/17/19 01/18/19 1515:00 23:00 07:00 IntakeIntake Total 750 ml 225 ml BalanceBalance 750 ml 225 ml Exam HEENT: Neck supple; no JVD; no LAD CVS: RRR, S1 and S2 CHEST: Coarse BS b/l ABD: Soft, NT, + BS EXT: No c/c/e Results/Medications Result Diagram: 01/17/19 0456 01/17/19 045 Home Meds Reported Medications Ascorbic Acid (Vitamin C) 500 Mg Tab, 500 MG GTB DAILY, TAB 12/18/18 Cran/Vitc/Mannose/Inulin/Brom (Uti-Stat Liquid) 3,875 Mg/30 Ml Liquid, 30 MG GTB BID 12/18/18 Acetaminophen* (Acetaminophen*) 500 MG Extra Strength Tablet, 1000 MG GTB BID PRN for PAIN AND OR ELEVATED TEMP, TAB 12/18/18 Acetaminophen* (Acetaminophen*) 500 MG Extra Strength Tablet, 1000 MG GTB Q4H PRN for PAIN 4-610, TAB 12/18/18 Acetaminophen* (Tylenol*) 325 Mg Tablet, 650 MG GTB Q4H PRN for MILD PAIN LEVEL 1-3, TAB 12/18/18 Oxcarbazepine* (Trileptal*) 150 Mg Tablet, 150 MG GTB BID, TAB 12/18/18 Sodium Chloride* (Sodium Chloride*) 1 Gm Tablet, 1 GM GTB TID, TAB 12/18/18 Amino Acids/Protein Hydrolys (PRO-STAT LIQUID) 30 Ml Liquid.pkt, 30 ML GTB BID SUGAR FREE 12/18/18 Multivit &Minerals/Ferrous Fum (MULTIVITAMIN LIQUID) 9 Mg/15 Ml Liquid, 5 MG GTB DAILY 12/18/18 Magnesium Hydroxide* (Milk Of Magnesia*) 400 Mg/5 Ml Oral.susp, 30 ML GTB NEEDED for CONSTIPATION, ML 12/18/18 Na Phos,M-B/Na Phos,Di-Ba (Fleet Enema Extra) 230 Ml Enema, 1 APPLIC RC Q 2D, ENEMA 12/18/18 Ipratropium-Albuterol (Ipratropium-Albuterol) 0.5-3 Mg/3 Ml Ampul.neb, 3 ML INHALATION Q6, #30 VIAL 12/18/18 Bisacodyl* (Bisacodyl*) 10 Mg Supp, 10 MG [place] Q24H for CONSTIPATION, SUPP 12/18/18 Cranberry Extract (Cranberry) 425 Mg Capsule, 425 MG GTB DAILY, CAP 12/18/18 Docusate Sodium* (Colace*) 100 Mg Capsule, 200 MG GTB QHS, #30 CAP 12/18/18 Medications Current Medications Cefepime HCl 50 ml @ 100 mls/hr Q12 IVPB Last administered on 01/18/19at 09:53; Admin Dose 100 MLS/HR; Start 01/16/19 at 09:00 Vancomycin HCl (Vanco Iv Per Pharmacy) VANCOMYCIN PER PHARMACY PER PROTOCOL XX ; Start 01/16/19 at 02:30 Albuterol/ Ipratropium (Duoneb) 3 ml Q6HWA RESP THERAPY HHN Last administered on 01/18/19at 13:48; Admin Dose 3 ML; Start 01/16/19 at 08:00 Dextrose/Sodium Chloride 1,000 ml @ 75 mls/hr [id number] IV Last administered on 01/18/19at 03:11; Admin Dose 75 MLS/HR; Start 01/16/19 at 02:30 Miscellaneous Information (Pending Santyl Order For Wound Care) This patient huggins... PRN PRN XX WOUND CARE; Start 01/16/19 at 06:30 Collagenase (Santyl) 1 applic DAILY TOP Last administered on 01/18/19at 09:54; Admin Dose 1 APPLIC; Start 01/17/19 at 09:00 Famotidine (Pepcid Iv) 20 mg BID IV Last administered on 01/18/19at 09:54; Admin Dose 20 MG; Start 01/16/19 at 21:00 Amlodipine Besylate (Norvasc) 5 mg DAILY GTB Last administered on 01/18/19at 09:54; Admin Dose 5 MG; Start 01/17/19 at 09:00 Hydralazine HCl (Apresoline) 20 mg Q6H PRN IV HIGH BP; SYSTOLIC > 170; Start 01/16/19 at 20:30 Vancomycin/Sodium Chloride 250 ml @ 125 mls/hr Q12H IVPB Last administered on 01/18/19at 11:52; Admin Dose 125 MLS/HR; Start 01/17/19 at 23:00 Assessment/Plan Assessment/Plan (Daily) IMP: 1. Hypoxemic Resp Insufficiency 2. Aspiration vs. CAP 3. Anemia 4. CP RECS: 1. BDs 2. Abx 3. Aspiration precautions 4. Follow H/H JOSSELYN COULTER MD January 18, 2019 14:41
[2019-01-19] VITALS (11 sets, daily range): BP systolic 96–156; BP diastolic 67–96; PULSE 75–99; RESP 16–18
[2019-01-19] MEDS: ALBUTEROL/IPRATROPIUM (NEB) 3 ML AMP HHN SCH ×3 (08:18→19:34)
[2019-01-19] MEDS: COLLAGENASE 5 GM (UD JAR) TOP SCH (09:00)
[2019-01-19] MEDS: CEFEPIME 1GM/50 ML (PMX) 50 ML IVPB SCH ×2 (09:38→21:11)
[2019-01-19] MEDS: DEXTROSE 5%-0.45% NACL 1,000 ML IV SCH ×2 (09:39→23:25)
[2019-01-19] MEDS: FAMOTIDINE 20 MG INJ IV SCH ×2 (09:39→21:10)
[2019-01-19] MEDS: AMLODIPINE 5 MG TAB GTB SCH (09:40)
--- NOTE | 2019-01-19 11:49 | CONS ---
Consultation Date/Type/Reason Admit Date/Time January 15, 2019 at 22:36 Initial Consult Date 01/17/19 Type of Consult SUBJECTIVE: Pt is awake, afebrile. NO acute events over night.Resting in bed. VS: stable T: 98.2 LABS: Reviewed. CXR 01/15/19: IMPRESSION: 1. Bibasilar infiltrates, left greater than right. 2. Probable trace pleural effusions. Microbiology: Blood and urine cultures negative Indwelling: PEG Antimicrobials Vanco, cefepime Physical examination: GEN: Chronically ill-appearing middle-aged woman, who is laying comfortably in bed. HENT: Head atraumatic normocephalic; sclera nonicteric vehicle mucosa dry; neck is supple PULM: chest rise symmetrical breath sounds with bilateral rails. Heart: S1-S2 Abdomen: soft, bowel sounds present Extremities without cyanosis Assessment: 1. Acute hypoxemic respiratory failure 2. Pneumonia possibly aspirated 3. Dysphasia 4. Cerebral palsy Plan: Pt is stable. Will continue current antibiotics. Aspiration precautions and pulmonary toilet. Date/Time of Note DATE: 01/19/19 TIME: 11:48 Exam/Review of Systems Exam Vitals Vital Signs Date Temp Pulse Resp B/P (MAP) Pulse Ox O2 O2 Flow FiO2 Time Delivery Rate 01/19/19 99 3.0 08:25 01/19/19 76 20 Nasal 08:23 Cannula 01/19/19 98.2 154/96 07:58 (115) 01/17/19 100 16:05 Intake and Output 01/18/19 01/18/19 01/19/19 1515:00 23:00 07:00 IntakeIntake Total 50 ml 1000 ml BalanceBalance 50 ml 1000 ml Results Result Diagram: 01/17/19 0456 01/17/19 0456 Results 24hrs Laboratory Tests Test 01/19/19 10:04 Vancomycin Level Trough 13.3 Medications Medication Current Medications Cefepime HCl 50 ml @ 100 mls/hr Q12 IVPB Last administered on 01/19/19at 09:38; Admin Dose 100 MLS/HR; Start 01/16/19 at 09:00 Vancomycin HCl (Vanco Iv Per Pharmacy) VANCOMYCIN PER PHARMACY PER PROTOCOL XX ; Start 01/16/19 at 02:30 Albuterol/ Ipratropium (Duoneb) 3 ml Q6HWA RESP THERAPY HHN Last administered on 01/19/19 08:18; Admin Dose 3 ML; Start 01/16/19 at 08:00 Dextrose/Sodium Chloride 1,000 ml @ 75 mls/hr [id number] IV Last administered on 01/19/19 09:39; Admin Dose 75 MLS/HR; Start 01/16/19 at 02:30 Miscellaneous Information (Pending Santyl Order For Wound Care) This patient huggins... PRN PRN XX WOUND CARE; Start 01/16/19 at 06:30 Collagenase (Santyl) 1 applic DAILY TOP Last administered on 01/18/19 09:54; Admin Dose 1 APPLIC; Start 01/17/19 at 09:00 Famotidine (Pepcid Iv) 20 mg BID IV Last administered on 01/19/19 09:39; Admin Dose 20 MG; Start 01/16/19 at 21:00 Amlodipine Besylate (Norvasc) 5 mg DAILY GTB Last administered on 01/19/19 0 9:40; Admin Dose 5 MG; Start 01/17/19 at 09:00 Hydralazine HCl (Apresoline) 20 mg Q6H PRN IV HIGH BP; SYSTOLIC > 170; Start 01/16/19 at 20:30 Vancomycin/Sodium Chloride 250 ml @ 125 mls/hr Q12H IVPB Last administered on 01/18/19 23:35; Admin Dose 125 MLS/HR; Start 01/17/19 at 23:00 CASPER RODRIGUEZ January 19, 2019 11:49
[2019-01-19] MEDS: VANCOMYCIN 750 MG (PMX) 250 ML IVPB SCH ×2 (12:07→23:25)
--- NOTE | 2019-01-19 12:35 | PN ---
Date/Time of Note Date/Time of Note DATE: 01/19/19 TIME: 12:34 Assessment/Plan VTE Prophylaxis Risk score (from Ns)>0 risk: 7 SCD applied (from Ns): Yes Pharmacological prophylaxis: LMWH Lines/Catheters IV Catheter Type (from Nrs): Peripheral IV Assessment/Plan Hospital Course - Sepsis - admitted on telemetry floor - 02 by NC - id CONSULT - PNA - - 02 by NC - Pulm consult - breathing treatment. - IV vancomycin and cefepime. The patient is unable to expectorate SO - empirically treat her for healthcare facility acquired pneumonia. - hold off on G-tube feeding and will give IV fluids. - Cerebral palsy. - continue to monitor. - Lovenox for DVT prophylaxis - Protonix for gastrointestinal prophylaxis. Result Diagram: 01/17/19 0456 01/17/19 0456 Results 24hrs Laboratory Tests Test 01/19/19 10:04 Vancomycin Level Trough 13.3 Subjective 24 Hr Interval Summary Free Text/Dictation Patient is not verbally responsive Exam/Review of Systems Exam Vitals Vital Signs Date Temp Pulse Resp B/P (MAP) Pulse Ox O2 O2 Flow FiO2 Time Delivery Rate 01/19/19 Nasal 3.0 12:08 Cannula 01/19/19 98.1 85 16 140/93 97 12:01 (109) 01/17/19 100 16:05 Intake and Output 01/18/19 01/18/19 01/19/19 1515:00 23:00 07:00 IntakeIntake Total 50 ml 1000 ml BalanceBalance 50 ml 1000 ml Constitutional: well developed Head: normocephalic, atraumatic Neck: supple Respiratory: diminished breath sounds Cardiovascular: regular rate and rhythm Gastrointestinal: soft, non-tender Extremities: normal pulses Results Results 24hrs Laboratory Tests Test 01/19/19 10:04 Vancomycin Level Trough 13.3 Medications Medication Current Medications Cefepime HCl 50 ml @ 100 mls/hr Q12 IVPB Last administered on 01/19/19at 09:38; Admin Dose 100 MLS/HR; Start 01/16/19 at 09:00 Vancomycin HCl (Vanco Iv Per Pharmacy) VANCOMYCIN PER PHARMACY PER PROTOCOL XX ; Start 01/16/19 at 02:30 Albuterol/ Ipratropium (Duoneb) 3 ml Q6HWA RESP THERAPY HHN Last administered on 5/5/19at 08:18; Admin Dose 3 ML; Start 01/16/19 at 08:00 Dextrose/Sodium Chloride 1,000 ml @ 75 mls/hr [id number] IV Last administered on 01/19/19 09:39; Admin Dose 75 MLS/HR; Start 01/16/19 at 02:30 Miscellaneous Information (Pending Santyl Order For Wound Care) This patient huggins... PRN PRN XX WOUND CARE; Start 01/16/19 at 06:30 Collagenase (Santyl) 1 applic DAILY TOP Last administered on 01/18/19 09:54; Admin Dose 1 APPLIC; Start 01/17/19 at 09:00 Famotidine (Pepcid Iv) 20 mg BID IV Last administered on 01/19/19 09:39; Admin Dose 20 MG; Start 01/16/19 at 21:00 Amlodipine Besylate (Norvasc) 5 mg DAILY GTB Last administered on 01/19/19 09:40; Admin Dose 5 MG; Start 01/17/19 at 09:00 Hydralazine HCl (Apresoline) 20 mg Q6H PRN IV HIGH BP; SYSTOLIC > 170; Start 01/16/19 at 20:30 Vancomycin/Sodium Chloride 250 ml @ 125 mls/hr Q12H IVPB Last administered on 01/19/19 12:07; Admin Dose 125 MLS/HR; Start 01/17/19 at 23:00 DICK WOOD January 19, 2019 12:35
--- NOTE | 2019-01-19 13:08 | CONS ---
Consult Date/Type/Reason Admit Date/Time January 15, 2019 at 22:36 Initial Consult Date 01/17/19 Type of Consultation: Pulm Date/Time of Note DATE: 01/19/19 TIME: 13:07 Subjective No events overnight. Objective Vitals Vital Signs Date Temp Pulse Resp B/P (MAP) Pulse Ox O2 O2 Flow FiO2 Time Delivery Rate 01/19/19 Nasal 3.0 12:08 Cannula 01/19/19 98.1 85 16 140/93 97 12:01 (109) 01/17/19 100 16:05 Intake and Output 01/18/19 01/18/19 01/19/19 1515:00 23:00 07:00 IntakeIntake Total 50 ml 1000 ml BalanceBalance 50 ml 1000 ml Exam HEENT: Neck supple; no JVD; no LAD CVS: RRR, S1 and S2 CHEST: Coarse BS b/l ABD: Soft, NT, + BS EXT: No c/c/e Results/Medications Result Diagram: 01/17/19 0456 01/17/19 0456 Results 24 hrs Laboratory Tests Test 01/19/19 10:04 Vancomycin Level Trough 13.3 Home Meds Reported Medications Ascorbic Acid (Vitamin C) 500 Mg Tab, 500 MG GTB DAILY, TAB 12/18/18 Cran/Vitc/Mannose/Inulin/Brom (Uti-Stat Liquid) 3,875 Mg/30 Ml Liquid, 30 MG GTB BID 12/18/18 Acetaminophen* (Acetaminophen*) 500 MG Extra Strength Tablet, 1000 MG GTB BID PRN for PAIN AND OR ELEVATED TEMP, TAB 12/18/18 Acetaminophen* (Acetaminophen*) 500 MG Extra Strength Tablet, 1000 MG GTB Q4H PRN for PAIN 4-02/24, TAB 12/18/18 Acetaminophen* (Tylenol*) 325 Mg Tablet, 650 MG GTB Q4H PRN for MILD PAIN LEVEL 1-3, TAB 12/18/18 Oxcarbazepine* (Trileptal*) 150 Mg Tablet, 150 MG GTB BID, TAB 12/18/18 Sodium Chloride* (Sodium Chloride*) 1 Gm Tablet, 1 GM GTB TID, TAB 12/18/18 Amino Acids/Protein Hydrolys (PRO-STAT LIQUID) 30 Ml Liquid.pkt, 30 ML GTB BID SUGAR FREE 12/18/18 Multivit &Minerals/Ferrous Fum (MULTIVITAMIN LIQUID) 9 Mg/15 Ml Liquid, 5 MG GTB DAILY 12/18/18 Magnesium Hydroxide* (Milk Of Magnesia*) 400 Mg/5 Ml Oral.susp, 30 ML GTB NEEDED for CONSTIPATION, ML 12/18/18 Na Phos,M-B/Na Phos,Di-Ba (Fleet Enema Extra) 230 Ml Enema, 1 APPLIC RC Q 2D, ENEMA 12/18/18 Ipratropium-Albuterol (Ipratropium-Albuterol) 0.5-3 Mg/3 Ml Ampul.neb, 3 ML INHALATION Q6, #30 VIAL 12/18/18 Bisacodyl* (Bisacodyl*) 10 Mg Supp, 10 MG WV Q24H for CONSTIPATION, SUPP 12/18/18 Cranberry Extract (Cranberry) 425 Mg Capsule, 425 MG GTB DAILY, CAP 12/18/18 Docusate Sodium* (Colace*) 100 Mg Capsule, 200 MG GTB QHS, #30 CAP 12/18/18 Medications Current Medications Cefepime HCl 50 ml @ 100 mls/hr Q12 IVPB Last administered on 01/19/19 09:38; Admin Dose 100 MLS/HR; Start 01/16/19 at 09:00 Vancomycin HCl (Vanco Iv Per Pharmacy) VANCOMYCIN PER PHARMACY PER PROTOCOL XX ; Start 01/16/19 at 02:30 Albuterol/ Ipratropium (Duoneb) 3 ml Q6HWA RESP THERAPY HHN Last administered on 01/19/19 08:18; Admin Dose 3 ML; Start 01/16/19 at 08:00 Dextrose/Sodium Chloride 1,000 ml @ 75 mls/hr [id number] IV Last administered on 01/19/19 09:39; Admin Dose 75 MLS/HR; Start 01/16/19 at 02:30 Miscellaneous Information (Pending Santyl Order For Wound Care) This patient huggins... PRN PRN XX WOUND CARE; Start 01/16/19 at 06:30 Collagenase (Santyl) 1 applic DAILY TOP Last administered on 01/18/19 09:54; Admin Dose 1 APPLIC; Start 01/17/19 at 09:00 Famotidine (Pepcid Iv) 20 mg BID IV Last administered on 01/19/19 09:39; Admin Dose 20 MG; Start 01/16/19 at 21:00 Amlodipine Besylate (Norvasc) 5 mg DAILY GTB Last administered on 01/19/19at 09:40; Admin Dose 5 MG; Start 01/17/19 at 09:00 Hydralazine HCl (Apresoline) 20 mg Q6H PRN IV HIGH BP; SYSTOLIC > 170; Start 01/16/19 at 20:30 Vancomycin/Sodium Chloride 250 ml @ 125 mls/hr Q12H IVPB Last administered on 01/19/19at 12:07; Admin Dose 125 MLS/HR; Start 01/17/19 at 23:00 Assessment/Plan Assessment/Plan (Daily) IMP: 1. Hypoxemic Resp Insufficiency 2. Aspiration vs. CAP--CXR with mildly increased volume and subsegmental atx. 3. Anemia 4. CP RECS: 1. BDs 2. Abx 3. Aspiration precautions 4. Follow H/H JOSSELYN COULTER MD January 19, 2019 13:08
[2019-01-20] VITALS (12 sets, daily range): BP systolic 108–184; BP diastolic 66–93; PULSE 62–102; RESP 17–20
[2019-01-20] MEDS: DEXTROSE 5%-0.45% NACL 1,000 ML IV SCH (05:48)
[2019-01-20] MEDS: ALBUTEROL/IPRATROPIUM (NEB) 3 ML AMP HHN SCH ×3 (08:33→20:56)
[2019-01-20] MEDS: COLLAGENASE 5 GM (UD JAR) TOP SCH (08:35)
[2019-01-20] MEDS ORDERED: POTASSIUM CHLORIDE 20 MEQ POWDER FOR ORAL SOLN GTB ONE (09:00)
[2019-01-20] MEDS: CEFEPIME 1GM/50 ML (PMX) 50 ML IVPB SCH ×2 (09:05→21:13)
[2019-01-20] MEDS: AMLODIPINE 5 MG TAB GTB SCH (09:06)
[2019-01-20] MEDS: FAMOTIDINE 20 MG INJ IV SCH ×2 (09:06→21:13)
[2019-01-20] MEDS: VANCOMYCIN 750 MG (PMX) 250 ML IVPB SCH ×2 (12:04→22:57)
--- NOTE | 2019-01-20 12:21 | PN ---
Date/Time of Note Date/Time of Note DATE: 01/20/19 TIME: 12:17 Assessment/Plan VTE Prophylaxis Risk score (from Ns)>0 risk: 7 SCD applied (from Ns): Yes Pharmacological prophylaxis: LMWH Lines/Catheters IV C[facility]ter Type (from [facility] Peripheral IV Assessment/Plan Hospital Course Patient remains hemodynamically stable, afebrile still slightly congested with worsening chest x-ray. Will resume G-tube feeding, hold IV fluids, continue aspiration precaution, replace potassium, BMP tomorrow. Assessment/Plan -Hypokalemia, potassium replaced. -Acute respiratory insufficiency. Dr. Clayton is following in pulmonology consultation -Healthcare facility acquired pneumonia versus aspiration pneumonia. Continue abx per ID. Dr. Poole is following in infection disease consultation. -Dysphagia with G-tube. -Cerebral palsy. -Chronic coccygeal decubitus ulcer. Continue current wound care, air mattress, offloading. -Protein calorie malnutrition, continue G-tube feeding, vitamins, zinc sulfate. -DNR status. Further recommendations based on clinical course. Plan of care discussed with Dr. Bowman. Result Diagram: 01/20/1919 01/20/19 0519 Results 24hrs Laboratory Tests Test 01/20/19 05:19 White Blood Count 8.0 # Red Blood Count 3.49 L Hemoglobin 9.3 L Hematocrit 30.3 L Mean Corpuscular Volume 86.8 Mean Corpuscular Hemoglobin 26.6 L Mean Corpuscular Hemoglobin Concent 30.7 L Red Cell Distribution Width 14.2 Platelet Count 432 H Mean Platelet Volume 9.4 Immature Granulocytes % 0.400 Neutrophils % 68.9 Lymphocytes % 20.9 Monocytes % 5.3 Eosinophils % 3.9 Basophils % 0.6 Nucleated Red Blood Cells % 0.0 Immature Granulocytes # 0.030 Neutrophils # 5.5 Lymphocytes # 1.7 Monocytes # 0.4 Eosinophils # 0.3 Basophils # 0.1 Nucleated Red Blood Cells # 0.0 Sodium Level 142 Potassium Level 2.9 *L Chloride Level 102 Carbon Dioxide Level 34 H Anion Gap 6 Blood Urea Nitrogen 4 L Creatinine 0.22 L Est Glomerular Filtrat Rate mL/min > 60 Glucose Level 109 Calcium Level 9.0 Exam/Review of Systems Exam Vitals Vital Signs Date Temp Pulse Resp B/P (MAP) Pulse Ox O2 O2 Flow FiO2 Time Delivery Rate 01/20/19 Nasal 3.0 12:07 Cannula 01/20/19 98.3 91 20 124/90 100 11:20 (101) 01/17/19 100 16:05 Intake and Output 01/19/19 01/19/19 01/20/19 1414:59 22:59 06:59 IntakeIntake Total 300 ml 750 ml 1175 ml BalanceBalance 300 ml 750 ml 1175 ml Exam Constitutional: non-verbal Respiratory: diminished breath sounds Cardiovascular: nl pulse Gastrointestinal: soft, non-tender, other (G-tube) Musculoskeletal: muscle weakness Extremities: other (Contracted extremities) Results Results 24hrs Laboratory Tests Test 01/20/19 05:19 White Blood Count 8.0 # Red Blood Count 3.49 L Hemoglobin 9.3 L Hematocrit 30.3 L Mean Corpuscular Volume 86.8 Mean Corpuscular Hemoglobin 26.6 L Mean Corpuscular Hemoglobin Concent 30.7 L Red Cell Distribution Width 14.2 Platelet Count 432 H Mean Platelet Volume 9.4 Immature Granulocytes % 0.400 Neutrophils % 68.9 Lymphocytes % 20.9 Monocytes % 5.3 Eosinophils % 3.9 Basophils % 0.6 Nucleated Red Blood Cells % 0.0 Immature Granulocytes # 0.030 Neutrophils # 5.5 Lymphocytes # 1.7 Monocytes # 0.4 Eosinophils # 0.3 Basophils # 0.1 Nucleated Red Blood Cells # 0.0 Sodium Level 142 Potassium Level 2.9 *L Chloride Level 102 Carbon Dioxide Level 34 H Anion Gap 6 Blood Urea Nitrogen 4 L Creatinine 0.22 L Est Glomerular Filtrat Rate mL/min > 60 Glucose Level 109 Calcium Level 9.0 Medications Medication Current Medications Cefepime HCl 50 ml @ 100 mls/hr Q12 IVPB Last administered on 01/20/19at 09:05; Admin Dose 100 MLS/HR; Start 01/16/19 at 09:00 Vancomycin HCl (Vanco Iv Per Pharmacy) VANCOMYCIN PER PHARMACY PER PROTOCOL XX ; Start 01/16/19 at 02:30 Albuterol/ Ipratropium (Duoneb) 3 ml Q6HWA RESP THERAPY HHN Last administered on 01/20/19at 08:33; Admin Dose 3 ML; Start 01/16/19 at 08:00 Dextrose/Sodium Chloride 1,000 ml @ 75 mls/hr [id number] IV Last administered on 01/20/19 05:48; Admin Dose 75 MLS/HR; Start 01/16/19 at 02:30 Miscellaneous Information (Pending Santyl Order For Wound Care) This patient huggins... PRN PRN XX WOUND CARE; Start 01/16/19 at 06:30 Collagenase (Santyl) 1 applic DAILY TOP Last administered on 01/18/19 09:54; Admin Dose 1 APPLIC; Start 01/17/19 at 09:00 Famotidine (Pepcid Iv) 20 mg BID IV Last administered on 01/20/19 09:06; Admin Dose 20 MG; Start 01/16/19 at 21:00 Amlodipine Besylate (Norvasc) 5 mg DAILY GTB Last administered on 01/20/19 09:06; Admin Dose 5 MG; Start 01/17/19 at 09:00 Hydralazine HCl (Apresoline) 20 mg Q6H PRN IV HIGH BP; SYSTOLIC > 170; Start 01/16/19 at 20:30 Vancomycin/Sodium Chloride 250 ml @ 125 mls/hr Q12H IVPB Last administered on 01/20/19 12:04; Admin Dose 125 MLS/HR; Start 01/17/19 at 23:00 LIBIA CARBALLO January 20, 2019 12:21
--- NOTE | 2019-01-20 13:10 | CONS ---
Consult Date/Type/Reason Admit Date/Time January 15, 2019 at 22:36 Initial Consult Date 01/17/19 Type of Consult Pulmonary Date/Time of Note DATE: 01/20/19 TIME: 13:09 Subjective Patient appears comfortable this morning no respiratory distress moderate secretions. Objective Vital Signs Date Temp Pulse Resp B/P (MAP) Pulse Ox O2 O2 Flow FiO2 Time Delivery Rate 01/20/19 Nasal 3.0 12:30 Cannula 01/20/19 98.3 91 20 124/90 100 11:20 (101) 01/17/19 100 16:05 Intake and Output 01/19/19 01/19/19 01/20/19 1515:00 23:00 07:00 IntakeIntake Total 300 ml 750 ml 1175 ml BalanceBalance 300 ml 750 ml 1175 ml Exam GENERAL: VITAL SIGNS: per chart NECK: Supple. No JVD or lymphadenopathy. Trach site clean and intact CARDIAC EXAM: S1, S2. No added sounds or murmurs. CHEST: Diminished air entry bilaterally with few rales ABDOMEN: Soft, nontender. No guarding or rebound. EXTREMITIES: No cyanosis, clubbing or edema. NEUROLOGIC: Generalized weakness. No focal deficits. Frail elderly lady comfortable at rest Vent Setting Fraction of Inspired Oxygen pe: 100 Results/Medications Result Diagram: 01/20/1951801/20/19518 Results 24 hrs Laboratory Tests Test 01/20/19 05:19 White Blood Count 8.0 # Red Blood Count 3.49 L Hemoglobin 9.3 L Hematocrit 30.3 L Mean Corpuscular Volume 86.8 Mean Corpuscular Hemoglobin 26.6 L Mean Corpuscular Hemoglobin Concent 30.7 L Red Cell Distribution Width 14.2 Platelet Count 432 H Mean Platelet Volume 9.4 Immature Granulocytes % 0.400 Neutrophils % 68.9 Lymphocytes % 20.9 Monocytes % 5.3 Eosinophils % 3.9 Basophils % 0.6 Nucleated Red Blood Cells % 0.0 Immature Granulocytes # 0.030 Neutrophils # 5.5 Lymphocytes # 1.7 Monocytes # 0.4 Eosinophils # 0.3 Basophils # 0.1 Nucleated Red Blood Cells # 0.0 Sodium Level 142 Potassium Level 2.9 *L Chloride Level 102 Carbon Dioxide Level 34 H Anion Gap 6 Blood Urea Nitrogen 4 L Creatinine 0.22 L Est Glomerular Filtrat Rate mL/min > 60 Glucose Level 109 Calcium Level 9.0 Medications Current Medications Cefepime HCl 50 ml @ 100 mls/hr Q12 IVPB Last administered on 01/20/19 09:05; Admin Dose 100 MLS/HR; Start 01/16/19 at 09:00 Vancomycin HCl (Vanco Iv Per Pharmacy) VANCOMYCIN PER PHARMACY PER PROTOCOL XX ; Start 01/16/19 at 02:30 Albuterol/ Ipratropium (Duoneb) 3 ml Q6HWA RESP THERAPY HHN Last administered on 01/20/19 08:33; Admin Dose 3 ML; Start 01/16/19 at 08:00 Dextrose/Sodium Chloride 1,000 ml @ 75 mls/hr [id number] IV Last administered on 01/20/19 05:48; Admin Dose 75 MLS/HR; Start 01/16/19 at 02:30 Miscellaneous Information (Pending Santyl Order For Wound Care) This patient huggins... PRN PRN XX WOUND CARE; Start 01/16/19 at 06:30 Collagenase (Santyl) 1 applic DAILY TOP Last administered on 01/18/19 09:54; Admin Dose 1 APPLIC; Start 01/17/19 at 09:00 Famotidine (Pepcid Iv) 20 mg BID IV Last administered on 01/20/19 09:06; Admin Dose 20 MG; Start 01/16/19 at 21:00 Amlodipine Besylate (Norvasc) 5 mg DAILY GTB Last administered on 01/20/19 09:06; Admin Dose 5 MG; Start 01/17/19 at 09:00 Hydralazine HCl (Apresoline) 20 mg Q6H PRN IV HIGH BP; SYSTOLIC > 170; Start 01/16/19 at 20:30 Vancomycin/Sodium Chloride 250 ml @ 125 mls/hr Q12H IVPB Last administered on 01/20/19 12:04; Admin Dose 125 MLS/HR; Start 01/17/19 at 23:00 Assessment/Plan Hospital Course (Demo Recall) IMP: 1. Hypoxemic Resp Insufficiency 2. Aspiration vs. CAP--CXR with mildly increased volume and subsegmental atx. 3. Anemia 4. CP RECS: 1. BDs 2. Abx 3. Aspiration precautions 4. Follow H/H DC planning? PAYTON SOTO [facility] January 20, 2019 13:10
--- NOTE | 2019-01-20 13:50 | CONS ---
Assessment/Plan Assessment/Plan Hospital Course (Demo Recall) Noncommunicative in no distress. No fevers overnight. Microbiology: Blood and urine cultures negative Indwelling: PEG Antimicrobials Vanco, cefepime Physical examination: Chronically ill-appearing middle-aged woman who is laying comfortably in bed. Head atraumatic normocephalic sclera nonicteric vehicle mucosa dry neck is supple chest rise symmetrical breath sounds with bilateral rails. Heart: S1-S2 abdomen soft bowel sounds present extremities without cyanosis Assessment: 1. Acute hypoxemic respiratory failure 2. Pneumonia possibly aspirated 3. Dysphasia 4. Cerebral palsy Plan: Clinically unchanged, comfortable on nasal cannula, chest x-ray noted, continue antibiotics, aspiration precautions and pulmonary toilet, consider to start on tube feeding and discontinue IV fluids Consultation Date/Type/Reason Admit Date/Time January 15, 2019 at 22:36 Initial Consult Date 01/17/19 Type of Consult id Date/Time of Note DATE: 01/20/19 TIME: 13:49 Exam/Review of Systems Exam Vitals Vital Signs Date Temp Pulse Resp B/P (MAP) Pulse Ox O2 O2 Flow FiO2 Time Delivery Rate 01/20/19 Nasal 3.0 12:30 Cannula 01/20/19 91 12:01 01/20/19 98.3 20 124/90 100 11:20 (101) 01/17/19 100 16:05 Intake and Output 01/19/19 01/19/19 01/20/19 1515:00 23:00 07:00 IntakeIntake Total 300 ml 750 ml 1175 ml BalanceBalance 300 ml 750 ml 1175 ml Results Result Diagram: 01/20/1951801/20/19518 Results 24hrs Laboratory Tests Test 01/20/19 05:19 White Blood Count 8.0 # Red Blood Count 3.49 L Hemoglobin 9.3 L Hematocrit 30.3 L Mean Corpuscular Volume 86.8 Mean Corpuscular Hemoglobin 26.6 L Mean Corpuscular Hemoglobin Concent 30.7 L Red Cell Distribution Width 14.2 Platelet Count 432 H Mean Platelet Volume 9.4 Immature Granulocytes % 0.400 Neutrophils % 68.9 Lymphocytes % 20.9 Monocytes % 5.3 Eosinophils % 3.9 Basophils % 0.6 Nucleated Red Blood Cells % 0.0 Immature Granulocytes # 0.030 Neutrophils # 5.5 Lymphocytes # 1.7 Monocytes # 0.4 Eosinophils # 0.3 Basophils # 0.1 Nucleated Red Blood Cells # 0.0 Sodium Level 142 Potassium Level 2.9 *L Chloride Level 102 Carbon Dioxide Level 34 H Anion Gap 6 Blood Urea Nitrogen 4 L Creatinine 0.22 L Est Glomerular Filtrat Rate mL/min > 60 Glucose Level 109 Calcium Level 9.0 Medications Medication Current Medications Cefepime HCl 50 ml @ 100 mls/hr Q12 IVPB Last administered on 01/20/19 09:05; Admin Dose 100 MLS/HR; Start 01/16/19 at 09:00 Vancomycin HCl (Vanco Iv Per Pharmacy) VANCOMYCIN PER PHARMACY PER PROTOCOL XX ; Start 01/16/19 at 02:30 Albuterol/ Ipratropium (Duoneb) 3 ml Q6HWA RESP THERAPY HHN Last administered on 01/20/19 08:33; Admin Dose 3 ML; Start 01/16/19 at 08:00 Dextrose/Sodium Chloride 1,000 ml @ 75 mls/hr [id number] IV Last administered on 01/20/19 05:48; Admin Dose 75 MLS/HR; Start 01/16/19 at 02:30 Miscellaneous Information (Pending Santyl Order For Wound Care) This patient huggins... PRN PRN XX WOUND CARE; Start 01/16/19 at 06:30 Collagenase (Santyl) 1 applic DAILY TOP Last administered on 01/18/19 09:54; Admin Dose 1 APPLIC; Start 01/17/19 at 09:00 Famotidine (Pepcid Iv) 20 mg BID IV Last administered on 01/20/19 09:06; Admin Dose 20 MG; Start 01/16/19 at 21:00 Amlodipine Besylate (Norvasc) 5 mg DAILY GTB Last administered on 01/20/19 09:06; Admin Dose 5 MG; Start 01/17/19 at 09:00 Hydralazine HCl (Apresoline) 20 mg Q6H PRN IV HIGH BP; SYSTOLIC > 170; Start 01/16/19 at 20:30 Vancomycin/Sodium Chloride 250 ml @ 125 mls/hr Q12H IVPB Last administered on 01/20/19 12:04; Admin Dose 125 MLS/HR; Start 01/17/19 at 23:00 ALLISON LOMELI NP January 20, 2019 13:50
[2019-01-21] VITALS (10 sets, daily range): BP systolic 101–157; BP diastolic 64–96; PULSE 69–102; RESP 18–20
[2019-01-21] MEDS: ALBUTEROL/IPRATROPIUM (NEB) 3 ML AMP HHN SCH ×3 (08:04→20:03)
[2019-01-21] MEDS: COLLAGENASE 5 GM (UD JAR) TOP SCH (09:09)
[2019-01-21] MEDS: FAMOTIDINE 20 MG INJ IV SCH ×2 (09:09→20:36)
[2019-01-21] MEDS: AMLODIPINE 5 MG TAB GTB SCH (09:09)
[2019-01-21] MEDS: CEFEPIME 1GM/50 ML (PMX) 50 ML IVPB SCH ×2 (09:09→20:36)
[2019-01-21] MEDS: VANCOMYCIN 750 MG (PMX) 250 ML IVPB SCH ×2 (11:49→23:56)
--- NOTE | 2019-01-21 12:02 | CONS ---
Assessment/Plan Assessment/Plan Hospital Course (Demo Recall) Noncommunicative in no distress. No fevers overnight. Microbiology: Blood and urine cultures negative Indwelling: PEG Antimicrobials Vanco, cefepime Physical examination: Chronically ill-appearing middle-aged woman who is laying comfortably in bed. Head atraumatic normocephalic sclera nonicteric vehicle mucosa dry neck is supple chest rise symmetrical breath sounds with bilateral rails. Heart: S1-S2 abdomen soft bowel sounds present extremities without cyanosis Assessment: 1. Acute hypoxemic respiratory failure 2. Pneumonia possibly aspirated 3. Dysphasia 4. Cerebral palsy Plan: Clinically unchanged, comfortable on nasal cannula, continue antibiotics, aspiration precautions and pulmonary toilet Consultation Date/Type/Reason Admit Date/Time January 15, 2019 at 22:36 Initial Consult Date 01/17/19 Type of Consult id Date/Time of Note DATE: 01/21/19 TIME: 12:01 Exam/Review of Systems Exam Vitals Vital Signs Date Temp Pulse Resp B/P (MAP) Pulse Ox O2 O2 Flow FiO2 Time Delivery Rate 01/21/19 Nasal 4.0 09:20 Cannula 01/21/19 84 20 100 08:04 01/21/19 98.3 157/95 07:23 (115) 01/17/19 100 16:05 Intake and Output 01/20/19 01/20/19 01/21/19 1515:00 23:00 07:00 IntakeIntake Total 300 ml 510 ml 440 ml BalanceBalance 300 ml 510 ml 440 ml Results Result Diagram: 01/21/19 0531 01/21/19 0531 Results 24hrs Laboratory Tests Test 01/21/19 05:31 White Blood Count 7.4 Red Blood Count 3.65 L Hemoglobin 9.6 L Hematocrit 32.3 L Mean Corpuscular Volume 88.5 Mean Corpuscular Hemoglobin 26.3 L Mean Corpuscular Hemoglobin Concent 29.7 L Red Cell Distribution Width 14.2 Platelet Count 469 H Mean Platelet Volume 9.6 Immature Granulocytes % 0.300 Neutrophils % 66.8 Lymphocytes % 23.1 Monocytes % 5.8 Eosinophils % 3.5 Basophils % 0.5 Nucleated Red Blood Cells % 0.0 Immature Granulocytes # 0.020 Neutrophils # 5.0 Lymphocytes # 1.7 Monocytes # 0.4 Eosinophils # 0.3 Basophils # 0.0 Nucleated Red Blood Cells # 0.0 Sodium Level 141 Potassium Level 3.4 L Chloride Level 104 Carbon Dioxide Level 29 Anion Gap 8 Blood Urea Nitrogen 9 Creatinine 0.21 L Est Glomerular Filtrat Rate mL/min > 60 Glucose Level 98 Calcium Level 9.1 Medications Medication Current Medications Cefepime HCl 50 ml @ 100 mls/hr Q12 IVPB Last administered on 01/21/19 09:09; Admin Dose 100 MLS/HR; Start 01/16/19 at 09:00 Vancomycin HCl (Vanco Iv Per Pharmacy) VANCOMYCIN PER PHARMACY PER PROTOCOL XX ; Start 01/16/19 at 02:30 Albuterol/ Ipratropium (Duoneb) 3 ml Q6HWA RESP THERAPY [facility]N Last administered on 01/21/19 08:04; Admin Dose 3 ML; Start 01/16/19 at 08:00 Miscellaneous Information (Pending Santyl Order For Wound Care) This patient huggins... PRN PRN XX WOUND CARE; Start 01/16/19 at 06:30 Collagenase (Santyl) 1 applic DAILY TOP Last administered on 01/21/19 09:09; Admin Dose 1 APPLIC; Start 01/17/19 at 09:00 Famotidine (Pepcid Iv) 20 mg BID IV Last administered on 01/21/19 09:09; Admin Dose 20 MG; Start 01/16/19 at 21:00 Amlodipine Besylate (Norvasc) 5 mg DAILY GTB Last administered on 01/21/19 09:09; Admin Dose 5 MG; Start 01/17/19 at 09:00 Hydralazine HCl (Apresoline) 20 mg Q6H PRN IV HIGH BP; SYSTOLIC > 170; Start 01/16/19 at 20:30 Vancomycin/Sodium Chloride 250 ml @ 125 mls/hr Q12H IVPB Last administered on 01/21/19at 11:49; Admin Dose 125 MLS/HR; Start 01/17/19 at 23:00 Potassium Chloride (Potassium Chloride Pwd/Soln) 20 meq ONCE ONCE NGT ; Start 01/21/19 at 12:00; Stop 01/21/19 at 12:01; Status UNV Ascorbic Acid (Vitamin C) 500 mg DAILY GTB ; Start 01/22/19 at 09:00; Status UNV Zinc Sulfate (Zinc Sulfate) 220 mg DAILY GTB ; Start 01/21/19 at 12:00; Status ALLISON CORDOVA NP January 21, 2019 12:02
[2019-01-21] MEDS: ZINC SULFATE 220 MG CAP GTB SCH (12:14)
[2019-01-21] MEDS ORDERED: POTASSIUM CHLORIDE 20 MEQ POWDER FOR ORAL SOLN NGT ONE (12:30)
--- NOTE | 2019-01-21 13:56 | CONS ---
Consult Date/Type/Reason Admit Date/Time January 15, 2019 at 22:36 Initial Consult Date 01/17/19 Type of Consult Pulmonary Date/Time of Note DATE: 01/21/19 TIME: 13:53 Subjective Patient stable this morning. No new events Objective Vital Signs Date Temp Pulse Resp B/P (MAP) Pulse Ox O2 O2 Flow FiO2 Time Delivery Rate 01/21/19 98 12:01 01/21/19 Nasal 4.0 09:20 Cannula 01/21/19 20 100 08:04 01/21/19 98.3 157/95 07:23 (115) 01/17/19 100 16:05 Intake and Output 01/20/19 01/20/19 01/21/19 1515:00 23:00 07:00 IntakeIntake Total 300 ml 510 ml 440 ml BalanceBalance 300 ml 510 ml 440 ml Exam GENERAL: VITAL SIGNS: per chart NECK: Supple. No JVD or lymphadenopathy. Trach site clean and intact CARDIAC EXAM: S1, S2. No added sounds or murmurs. CHEST: Diminished air entry bilaterally with few rales ABDOMEN: Soft, nontender. No guarding or rebound. EXTREMITIES: No cyanosis, clubbing or edema. NEUROLOGIC: Generalized weakness. No focal deficits. Frail elderly lady comfortable at rest Vent Setting Fraction of Inspired Oxygen pe: 100 Results/Medications Result Diagram: 01/21/1953001/21/19530 Results 24 hrs Laboratory Tests Test 01/21/19 05:31 White Blood Count 7.4 Red Blood Count 3.65 L Hemoglobin 9.6 L Hematocrit 32.3 L Mean Corpuscular Volume 88.5 Mean Corpuscular Hemoglobin 26.3 L Mean Corpuscular Hemoglobin Concent 29.7 L Red Cell Distribution Width 14.2 Platelet Count 469 H Mean Platelet Volume 9.6 Immature Granulocytes % 0.300 Neutrophils % 66.8 Lymphocytes % 23.1 Monocytes % 5.8 Eosinophils % 3.5 Basophils % 0.5 Nucleated Red Blood Cells % 0.0 Immature Granulocytes # 0.020 Neutrophils # 5.0 Lymphocytes # 1.7 Monocytes # 0.4 Eosinophils # 0.3 Basophils # 0.0 Nucleated Red Blood Cells # 0.0 Sodium Level 141 Potassium Level 3.4 L Chloride Level 104 Carbon Dioxide Level 29 Anion Gap 8 Blood Urea Nitrogen 9 Creatinine 0.21 L Est Glomerular Filtrat Rate mL/min > 60 Glucose Level 98 Calcium Level 9.1 Medications Current Medications Cefepime HCl 50 ml @ 100 mls/hr Q12 IVPB Last administered on 01/21/19 09:09; Admin Dose 100 MLS/HR; Start 01/16/19 at 09:00 Vancomycin HCl (Vanco Iv Per Pharmacy) VANCOMYCIN PER PHARMACY PER PROTOCOL XX ; Start 01/16/19 at 02:30 Albuterol/ Ipratropium (Duoneb) 3 ml Q6HWA RESP THERAPY HHN Last administered on 01/21/19 08:04; Admin Dose 3 ML; Start 01/16/19 at 08:00 Miscellaneous Information (Pending Santyl Order For Wound Care) This patient huggins... PRN PRN XX WOUND CARE; Start 01/16/19 at 06:30 Collagenase (Santyl) 1 applic DAILY TOP Last administered on 01/21/19 09:09; Admin Dose 1 APPLIC; Start 01/17/19 at 09:00 Famotidine (Pepcid Iv) 20 mg BID IV Last administered on 01/21/19 09:09; Admin Dose 20 MG; Start 01/16/19 at 21:00 Amlodipine Besylate (Norvasc) 5 mg DAILY GTB Last administered on 01/21/19 09:09; Admin Dose 5 MG; Start 01/17/19 at 09:00 Hydralazine HCl (Apresoline) 20 mg Q6H PRN IV HIGH BP; SYSTOLIC > 170; Start 01/16/19 at 20:30 Vancomycin/Sodium Chloride 250 ml @ 125 mls/hr Q12H IVPB Last administered on 01/21/19 11:49; Admin Dose 125 MLS/HR; Start 01/17/19 at 23:00 Ascorbic Acid (Vitamin C) 500 mg DAILY GTB ; Start 01/22/19 at 09:00 Zinc Sulfate (Zinc Sulfate) 220 mg DAILY GTB Last administered on 01/21/19 12:14; Admin Dose 220 MG; Start 01/21/19 at 12:30 Assessment/Plan Hospital Course (Demo Recall) IMP: 1. Hypoxemic Resp Insufficiency 2. Aspiration vs. CAP--CXR with mildly increased volume and subsegmental atx. 3. Anemia 4. CP RECS: 1. BDs 2. Abx 3. Aspiration precautions 4. Follow H/H DC planning? [facility], [facility] January 21, 2019 13:56
--- NOTE | 2019-01-21 18:27 | PN ---
Date/Time of Note Date/Time of Note DATE: 01/21/19 TIME: 18:25 Assessment/Plan VTE Prophylaxis Risk score (from Ns)>0 risk: 7 SCD applied (from Ns): Yes Pharmacological prophylaxis: LMWH Lines/Catheters IV Catheter Type (from [facility]): Saline Lock Assessment/Plan Hospital Course Patient requires frequent suctioning, continue gradually to increase her G-tube feeding to the goal of 50 cc/h, aspiration precaution. Assessment/Plan -Hypokalemia, potassium replaced. -Acute respiratory insufficiency. Dr. Clayton is following in pulmonology consultation -Healthcare facility acquired pneumonia versus aspiration pneumonia. Continue abx per ID. Dr. Poole is following in infection disease consultation. -Dysphagia with G-tube. -Cerebral palsy. -Chronic coccygeal decubitus ulcer. Continue current wound care, air mattress, offloading. -Protein calorie malnutrition, continue G-tube feeding, vitamins, zinc sulfate. -DNR status. Further recommendations based on clinical course. Plan of care discussed with Dr. Bowman. Result Diagram: 01/21/1931 01/21/1931 Results 24hrs Laboratory Tests Test 01/21/19 05:31 White Blood Count 7.4 Red Blood Count 3.65 L Hemoglobin 9.6 L Hematocrit 32.3 L Mean Corpuscular Volume 88.5 Mean Corpuscular Hemoglobin 26.3 L Mean Corpuscular Hemoglobin Concent 29.7 L Red Cell Distribution Width 14.2 Platelet Count 469 H Mean Platelet Volume 9.6 Immature Granulocytes % 0.300 Neutrophils % 66.8 Lymphocytes % 23.1 Monocytes % 5.8 Eosinophils % 3.5 Basophils % 0.5 Nucleated Red Blood Cells % 0.0 Immature Granulocytes # 0.020 Neutrophils # 5.0 Lymphocytes # 1.7 Monocytes # 0.4 Eosinophils # 0.3 Basophils # 0.0 Nucleated Red Blood Cells # 0.0 Sodium Level 141 Potassium Level 3.4 L Chloride Level 104 Carbon Dioxide Level 29 Anion Gap 8 Blood Urea Nitrogen 9 Creatinine 0.21 L Est Glomerular Filtrat Rate mL/min > 60 Glucose Level 98 Calcium Level 9.1 Exam/Review of Systems Exam Vitals Vital Signs Date Temp Pulse Resp B/P (MAP) Pulse Ox O2 O2 Flow FiO2 Time Delivery Rate 01/21/19 97 16:01 01/21/19 98.6 20 138/96 100 16:01 (110) 01/21/19 3.0 15:44 01/21/19 Nasal 13:57 Cannula 01/17/19 100 16:05 Intake and Output 01/20/19 01/20/19 01/21/19 1414:59 22:59 06:59 IntakeIntake Total 300 ml 510 ml 440 ml BalanceBalance 300 ml 510 ml 440 ml Exam Constitutional: non-verbal Respiratory: diminished breath sounds Cardiovascular: nl pulse Gastrointestinal: soft, non-tender, other (G-tube) Musculoskeletal: muscle weakness Extremities: other (Contracted extremities) Results Results 24hrs Laboratory Tests Test 01/21/19 05:31 White Blood Count 7.4 Red Blood Count 3.65 L Hemoglobin 9.6 L Hematocrit 32.3 L Mean Corpuscular Volume 88.5 Mean Corpuscular Hemoglobin 26.3 L Mean Corpuscular Hemoglobin Concent 29.7 L Red Cell Distribution Width 14.2 Platelet Count 469 H Mean Platelet Volume 9.6 Immature Granulocytes % 0.300 Neutrophils % 66.8 Lymphocytes % 23.1 Monocytes % 5.8 Eosinophils % 3.5 Basophils % 0.5 Nucleated Red Blood Cells % 0.0 Immature Granulocytes # 0.020 Neutrophils # 5.0 Lymphocytes # 1.7 Monocytes # 0.4 Eosinophils # 0.3 Basophils # 0.0 Nucleated Red Blood Cells # 0.0 Sodium Level 141 Potassium Level 3.4 L Chloride Level 104 Carbon Dioxide Level 29 Anion Gap 8 Blood Urea Nitrogen 9 Creatinine 0.21 L Est Glomerular Filtrat Rate mL/min > 60 Glucose Level 98 Calcium Level 9.1 Medications Medication Current Medications Cefepime HCl 50 ml @ 100 mls/hr Q12 IVPB Last administered on 01/21/19at 09:09; Admin Dose 100 MLS/HR; Start 01/16/19 at 09:00 Vancomycin HCl (Vanco Iv Per Pharmacy) VANCOMYCIN PER PHARMACY PER PROTOCOL XX ; Start 01/16/19 at 02:30 Albuterol/ Ipratropium (Duoneb) 3 ml Q6HWA RESP THERAPY HHN Last administered on 01/21/19at 13:56; Admin Dose 3 ML; Start 01/16/19 at 08:00 Miscellaneous Information (Pending [facility] Order For Wound Care) This patient huggins... PRN PRN XX WOUND CARE; Start 01/16/19 at 06:30 Collagenase (Santyl) 1 applic DAILY TOP Last administered on 01/21/19at 09:09; Admin Dose 1 APPLIC; Start 01/17/19 at 09:00 Famotidine (Pepcid Iv) 20 mg BID IV Last administered on 01/21/19at 09:09; Admin Dose 20 MG; Start 01/16/19 at 21:00 Amlodipine Besylate (Norvasc) 5 mg DAILY GTB Last administered on 01/21/19at 09:09; Admin Dose 5 MG; Start 01/17/19 at 09:00 Hydralazine HCl (Apresoline) 20 mg Q6H PRN IV HIGH BP; SYSTOLIC > 170; Start 01/16/19 at 20:30 Vancomycin/Sodium Chloride 250 ml @ 125 mls/hr Q12H IVPB Last administered on 01/21/19at 11:49; Admin Dose 125 MLS/HR; Start 01/17/19 at 23:00 Ascorbic Acid (Vitamin C) 500 mg DAILY GTB ; Start 01/22/19 at 09:00 Zinc Sulfate (Zinc Sulfate) 220 mg DAILY GTB Last administered on 01/21/19at 12:14; Admin Dose 220 MG; Start 01/21/19 at 12:30 Miscellaneous Information (*Rx Drug Level Order Reminder*) KIMBERLYN HAYES 01/22 AT 1000 1000 ONCE XX ; Start 01/22/19 at 10:00; Stop 01/22/19 at 10:01 LIBIA CARBALLO January 21, 2019 18:27
[2019-01-22] VITALS (9 sets, daily range): BP systolic 114–147; BP diastolic 60–95; PULSE 92–113; RESP 18–20
[2019-01-22] MEDS: ZINC SULFATE 220 MG CAP GTB SCH (08:10)
[2019-01-22] MEDS: ASCORBIC ACID 500 MG TAB GTB SCH (08:10)
[2019-01-22] MEDS: AMLODIPINE 5 MG TAB GTB SCH (08:10)
[2019-01-22] MEDS: FAMOTIDINE 20 MG INJ IV SCH (08:10)
[2019-01-22] MEDS: CEFEPIME 1GM/50 ML (PMX) 50 ML IVPB SCH ×2 (08:10→21:03)
[2019-01-22] MEDS: ALBUTEROL/IPRATROPIUM (NEB) 3 ML AMP HHN SCH ×3 (08:38→19:56)
[2019-01-22] MEDS: COLLAGENASE 5 GM (UD JAR) TOP SCH (09:36)
[2019-01-22] MEDS: HYDROCODONE/APAP (5/325) TAB PO PRN (09:36)
--- NOTE | 2019-01-22 11:12 | PN ---
Date/Time of Note Date/Time of Note DATE: 01/22/19 TIME: 11:09 Assessment/Plan VTE Prophylaxis Risk score (from Ns)>0 risk: 7 SCD applied (from Ns): Yes Pharmacological prophylaxis: LMWH Lines/Catheters IV Catheter Type (from [facility]): Saline Lock Assessment/Plan Hospital Course Patient sounds congested requiring frequent suctioning, bilateral rhonchi will give 1 dose of Lasix. Patient continues on G-tube feeding at 40 cc/h., Continue aspiration precaution. Is currently on vancomycin and cefepime for H CAP. Assessment/Plan -Hypokalemia, potassium replaced. -Acute respiratory insufficiency. Dr. Clayton is following in pulmonology consultation -Healthcare facility acquired pneumonia versus aspiration pneumonia. Continue abx per ID. Dr. Poole is following in infection disease consultation. -Dysphagia with G-tube. -Cerebral palsy. -Chronic coccygeal decubitus ulcer. Continue current wound care, air mattress, offloading. -Protein calorie malnutrition, continue G-tube feeding, vitamins, zinc sulfate. -DNR status. Further recommendations based on clinical course. Plan of care discussed with Dr. Bowman. Result Diagram: 01/21/19 0531 01/22/19 0458 Results 24hrs Laboratory Tests Test 01/22/19 04:58 Sodium Level 142 Potassium Level 3.6 Chloride Level 101 Carbon Dioxide Level 36 H Anion Gap 5 Blood Urea Nitrogen 12 Creatinine 0.27 L Est Glomerular Filtrat Rate mL/min > 60 Glucose Level 115 Calcium Level 9.1 Exam/Review of Systems Exam Vitals Vital Signs Date Temp Pulse Resp B/P (MAP) Pulse Ox O2 O2 Flow FiO2 Time Delivery Rate 01/22/19 97 20 97 Aerosol 3.0 08:50 Mask 01/22/19 98.7 128/87 07:50 (101) Intake and Output 01/21/19 01/21/19 01/22/19 1515:00 23:00 07:00 IntakeIntake Total 300 ml 650 ml 930 ml BalanceBalance 300 ml 650 ml 930 ml Exam Constitutional: non-verbal Respiratory: diminished breath sounds Cardiovascular: nl pulse Gastrointestinal: soft, non-tender, other (G-tube) Musculoskeletal: muscle weakness Extremities: other (Contracted extremities) Results Results 24hrs Laboratory Tests Test 01/22/19 04:58 Sodium Level 142 Potassium Level 3.6 Chloride Level 101 Carbon Dioxide Level 36 H Anion Gap 5 Blood Urea Nitrogen 12 Creatinine 0.27 L Est Glomerular Filtrat Rate mL/min > 60 Glucose Level 115 Calcium Level 9.1 Medications Medication Current Medications Cefepime HCl 50 ml @ 100 mls/hr Q12 IVPB Last administered on 01/22/19 08:10; Admin Dose 100 MLS/HR; Start 01/16/19 at 09:00 Vancomycin HCl (Vanco Iv Per Pharmacy) VANCOMYCIN PER PHARMACY PER PROTOCOL XX ; Start 01/16/19 at 02:30 Albuterol/ Ipratropium (Duoneb) 3 ml Q6HWA RESP THERAPY HHN Last administered on 01/22/19 08:38; Admin Dose 3 ML; Start 01/16/19 at 08:00 Miscellaneous Information (Pending Santyl Order For Wound Care) This patient huggins... PRN PRN XX WOUND CARE; Start 01/16/19 at 06:30 Collagenase (Santyl) 1 applic DAILY TOP Last administered on 01/22/19 09:36; Admin Dose 1 APPLIC; Start 01/17/19 at 09:00 Famotidine (Pepcid Iv) 20 mg BID IV Last administered on 01/22/19 08:10; Admin Dose 20 MG; Start 01/16/19 at 21:00 Amlodipine Besylate (Norvasc) 5 mg DAILY GTB Last administered on 01/22/19 08:10; Admin Dose 5 MG; Start 01/17/19 at 09:00 Hydralazine HCl (Apresoline) 20 mg Q6H PRN IV HIGH BP; SYSTOLIC > 170; Start 01/16/19 at 20:30 Vancomycin/Sodium Chloride 250 ml @ 125 mls/hr Q12H IVPB Last administered on 01/21/19 23:56; Admin Dose 125 MLS/HR; Start 01/17/19 at 23:00 Ascorbic Acid (Vitamin C) 500 mg DAILY GTB Last administered on 01/22/19 08:10; Admin Dose 500 MG; Start 01/22/19 at 09:00 Zinc Sulfate (Zinc Sulfate) 220 mg DAILY GTB Last administered on 01/22/19 08:10; Admin Dose 220 MG; Start 01/21/19 at 12:30 Acetaminophen (Tylenol Tab) 650 mg Q6H PRN PO MILD PAIN(1-3)OR ELEVATED TEMP; Start 01/22/19 at 09:00 Acetaminophen/ Hydrocodone Bitart ([place] (5/325)) 1 tab Q6H PRN PO MODERATE PAIN LEVEL 4-6 Last administered on 01/22/19at 09:36; Admin Dose 1 TAB; Start 01/22/19 at 09:00 LIBIA CARBALLO January 22, 2019 11:12
[2019-01-22] MEDS ORDERED: FUROSEMIDE 20 MG INJ IV ONE (11:30)
--- NOTE | 2019-01-22 11:56 | CONS ---
Consult Date/Type/Reason Admit Date/Time January 15, 2019 at 22:36 Initial Consult Date 01/17/19 Type of Consult Pulmonary Date/Time of Note DATE: 01/22/19 TIME: 11:55 Subjective Patient appears comfortable no respiratory distress Objective Vital Signs Date Temp Pulse Resp B/P (MAP) Pulse Ox O2 O2 Flow FiO2 Time Delivery Rate 01/22/19 98.8 98 20 119/87 96 Nasal 11:24 (98) Cannula 01/22/19 3.0 08:50 Intake and Output 01/21/19 01/21/19 01/22/19 1515:00 23:00 07:00 IntakeIntake Total 300 ml 650 ml 930 ml BalanceBalance 300 ml 650 ml 930 ml Exam GENERAL: VITAL SIGNS: per chart NECK: Supple. No JVD or lymphadenopathy. Trach site clean and intact CARDIAC EXAM: S1, S2. No added sounds or murmurs. CHEST: Diminished air entry bilaterally with few rales ABDOMEN: Soft, nontender. No guarding or rebound. EXTREMITIES: No cyanosis, clubbing or edema. NEUROLOGIC: Generalized weakness. No focal deficits. Frail elderly lady comfortable at rest Vent Setting Fraction of Inspired Oxygen pe: 100 Results/Medications Result Diagram: 01/21/19 0531 01/22/19 0458 Results 24 hrs Laboratory Tests Test 01/22/19 04:58 01/22/19 10:28 Sodium Level 142 Potassium Level 3.6 Chloride Level 101 Carbon Dioxide Level 36 H Anion Gap 5 Blood Urea Nitrogen 12 Creatinine 0.27 L Est Glomerular Filtrat Rate mL/min > 60 Glucose Level 115 Calcium Level 9.1 Vancomycin Level Trough 8.6 L Medications Current Medications Cefepime HCl 50 ml @ 100 mls/hr Q12 IVPB Last administered on 01/22/19at 08:10; Admin Dose 100 MLS/HR; Start 01/16/19 at 09:00 Vancomycin HCl (Vanco Iv Per Pharmacy) VANCOMYCIN PER PHARMACY PER PROTOCOL XX ; Start 01/16/19 at 02:30 Albuterol/ Ipratropium (Duoneb) 3 ml Q6HWA RESP THERAPY HHN Last administered on 01/22/19at 08:38; Admin Dose 3 ML; Start 01/16/19 at 08:00 Miscellaneous Information (Pending [facility] Order For Wound Care) This patient huggins... PRN PRN XX WOUND CARE; Start 01/16/19 at 06:30 Collagenase (Santyl) 1 applic DAILY TOP Last administered on 01/22/19 09:36; Admin Dose 1 APPLIC; Start 01/17/19 at 09:00 Famotidine (Pepcid Iv) 20 mg BID IV Last administered on 01/22/19 08:10; Admin Dose 20 MG; Start 01/16/19 at 21:00 Amlodipine Besylate (Norvasc) 5 mg DAILY GTB Last administered on 01/22/19 08:10; Admin Dose 5 MG; Start 01/17/19 at 09:00 Hydralazine HCl (Apresoline) 20 mg Q6H PRN IV HIGH BP; SYSTOLIC > 170; Start 01/16/19 at 20:30 Vancomycin/Sodium Chloride 250 ml @ 125 mls/hr Q12H IVPB Last administered on 01/21/19 23:56; Admin Dose 125 MLS/HR; Start 01/17/19 at 23:00 Ascorbic Acid (Vitamin C) 500 mg DAILY GTB Last administered on 01/22/19 08:10; Admin Dose 500 MG; Start 01/22/19 at 09:00 Zinc Sulfate (Zinc Sulfate) 220 mg DAILY GTB Last administered on 01/22/19 08:10; Admin Dose 220 MG; Start 01/21/19 at 12:30 Acetaminophen (Tylenol Tab) 650 mg Q6H PRN PO MILD PAIN(1-3)OR ELEVATED TEMP; Start 01/22/19 at 09:00 Acetaminophen/ Hydrocodone Bitart ([place] (5/325)) 1 tab Q6H PRN PO MODERATE PAIN LEVEL 4-6 Last administered on 01/22/19 09:36; Admin Dose 1 TAB; Start 01/22/19 at 09:00 Metoclopramide HCl (Reglan) 5 mg Q6 IV ; Start 01/22/19 at 12:00 Assessment/Plan Hospital Course (Demo Recall) IMP: 1. Hypoxemic Resp Insufficiency 2. Aspiration vs. CAP--CXR with mildly increased volume and subsegmental atx. 3. Anemia 4. CP RECS: 1. BDs 2. Consider stopping antibiotics 3. Aspiration precautions 4. Follow H/H DC planning? PAYTON SOTO MD, [facility] January 22, 2019 11:55
[2019-01-22] MEDS: METOCLOPRAMIDE 10 MG INJ IV SCH ×3 (12:12→23:38)
[2019-01-22] MEDS: VANCOMYCIN 750 MG (PMX) 250 ML IVPB SCH ×2 (12:12→23:34)
--- NOTE | 2019-01-22 14:13 | CONS ---
Assessment/Plan Assessment/Plan Hospital Course (Demo Recall) No acute events, looks comfortable, no fevers, tolerates TF Microbiology: Blood and urine cultures negative Indwelling: PEG Antimicrobials Vanco, cefepime Physical examination: Chronically ill-appearing middle-aged woman who is laying comfortably in bed. Head atraumatic normocephalic sclera nonicteric vehicle mucosa dry neck is supple chest rise symmetrical breath sounds with bilateral rails. Heart: S1-S2 abdomen soft bowel sounds present extremities without cyanosis Assessment: 1. Acute hypoxemic respiratory failure on admission 2. Pneumonia possibly aspirated 3. Dysphasia 4. Cerebral palsy Plan: Clinically unchanged, comfortable on nasal cannula, continue antibiotics, repeat cxr Consultation Date/Type/Reason Admit Date/Time January 15, 2019 at 22:36 Initial Consult Date 01/17/19 Type of Consult id Date/Time of Note DATE: 01/22/19 TIME: 14:11 Exam/Review of Systems Exam Vitals Vital Signs Date Temp Pulse Resp B/P (MAP) Pulse Ox O2 O2 Flow FiO2 Time Delivery Rate 01/22/19 93 20 98 Nasal 3.0 14:07 Cannula 01/22/19 98.8 119/87 11:24 (98) Intake and Output 01/21/19 01/21/19 01/22/19 1414:59 22:59 06:59 IntakeIntake Total 300 ml 650 ml 930 ml BalanceBalance 300 ml 650 ml 930 ml Results Result Diagram: 01/21/19 0531 01/22/19 0458 Results 24hrs Laboratory Tests Test 01/22/19 04:58 01/22/19 10:28 Sodium Level 142 Potassium Level 3.6 Chloride Level 101 Carbon Dioxide Level 36 H Anion Gap 5 Blood Urea Nitrogen 12 Creatinine 0.27 L Est Glomerular Filtrat Rate mL/min > 60 Glucose Level 115 Calcium Level 9.1 Vancomycin Level Trough 8.6 L Medications Medication Current Medications Cefepime HCl 50 ml @ 100 mls/hr Q12 IVPB Last administered on 01/22/19at 08:10; Admin Dose 100 MLS/HR; Start 01/16/19 at 09:00 Vancomycin HCl (Vanco Iv Per Pharmacy) VANCOMYCIN PER PHARMACY PER PROTOCOL XX ; Start 01/16/19 at 02:30 Albuterol/ Ipratropium (Duoneb) 3 ml Q6HWA RESP THERAPY HHN Last administered on 01/22/19 14:06; Admin Dose 3 ML; Start 01/16/19 at 08:00 Miscellaneous Information (Pending Santyl Order For Wound Care) This patient huggins... PRN PRN XX WOUND CARE; Start 01/16/19 at 06:30 Collagenase (Santyl) 1 applic DAILY TOP Last administered on 01/22/19 09:36; Admin Dose 1 APPLIC; Start 01/17/19 at 09:00 Famotidine (Pepcid Iv) 20 mg BID IV Last administered on 01/22/19 08:10; Admin Dose 20 MG; Start 01/16/19 at 21:00 Amlodipine Besylate (Norvasc) 5 mg DAILY GTB Last administered on 01/22/19 08:10; Admin Dose 5 MG; Start 01/17/19 at 09:00 Hydralazine HCl (Apresoline) 20 mg Q6H PRN IV HIGH BP; SYSTOLIC > 170; Start 01/16/19 at 20:30 Vancomycin/Sodium Chloride 250 ml @ 125 mls/hr Q12H IVPB Last administered on 01/22/19 12:12; Admin Dose 125 MLS/HR; Start 01/17/19 at 23:00 Ascorbic Acid (Vitamin C) 500 mg DAILY GTB Last administered on 01/22/19 08:10; Admin Dose 500 MG; Start 01/22/19 at 09:00 Zinc Sulfate (Zinc Sulfate) 220 mg DAILY GTB Last administered on 01/22/19 08:10; Admin Dose 220 MG; Start 01/21/19 at 12:30 Acetaminophen (Tylenol Tab) 650 mg Q6H PRN PO MILD PAIN(1-3)OR ELEVATED TEMP; Start 01/22/19 at 09:00 Acetaminophen/ Hydrocodone Bitart ([place] (5/325)) 1 tab Q6H PRN PO MODERATE P AIN LEVEL 4-6 Last administered on 01/22/19 09:36; Admin Dose 1 TAB; Start 01/22/19 at 09:00 Metoclopramide HCl (Reglan) 5 mg Q6 IV Last administered on 01/22/19 12:12; Admin Dose 5 MG; Start 01/22/19 at 12:00 ALLISON LOMELI NP January 22, 2019 14:13
[2019-01-22] MEDS: SCOPOLAMINE 1.5 MG PATCH TRANSDERM SCH (17:34)
[2019-01-22] MEDS: FAMOTIDINE 20 MG TAB PO SCH (21:03)
[2019-01-23] VITALS (12 sets, daily range): BP systolic 102–139; BP diastolic 63–78; PULSE 81–102; RESP 16–20
[2019-01-23] MEDS: METOCLOPRAMIDE 10 MG INJ IV SCH ×4 (05:16→23:07)
[2019-01-23] MEDS: ALBUTEROL/IPRATROPIUM (NEB) 3 ML AMP HHN SCH ×3 (08:17→19:45)
[2019-01-23] MEDS: ASCORBIC ACID 500 MG TAB GTB SCH (09:25)
[2019-01-23] MEDS: FAMOTIDINE 20 MG TAB PO SCH ×2 (09:25→20:59)
[2019-01-23] MEDS: ZINC SULFATE 220 MG CAP GTB SCH (09:25)
[2019-01-23] MEDS: CEFEPIME 1GM/50 ML (PMX) 50 ML IVPB SCH ×2 (09:26→20:59)
[2019-01-23] MEDS: COLLAGENASE 5 GM (UD JAR) TOP SCH (09:26)
[2019-01-23] MEDS: AMLODIPINE 5 MG TAB GTB SCH (09:26)
[2019-01-23] MEDS: VANCOMYCIN 750 MG (PMX) 250 ML IVPB SCH ×2 (10:48→23:07)
--- NOTE | 2019-01-23 12:37 | CONS ---
Consult Date/Type/Reason Admit Date/Time January 15, 2019 at 22:36 Initial Consult Date 01/17/19 Type of Consult Pulmonary Date/Time of Note DATE: 01/23/19 TIME: 12:37 Subjective Patient stable. No new events. Objective Vital Signs Date Temp Pulse Resp B/P (MAP) Pulse Ox O2 O2 Flow FiO2 Time Delivery Rate 01/23/19 98.2 97 19 110/74 100 Nasal 3.0 11:30 (86) Cannula Intake and Output 01/22/19 01/22/19 01/23/19 1515:00 23:00 07:00 IntakeIntake Total 300 ml 730 ml 950 ml BalanceBalance 300 ml 730 ml 950 ml Exam GENERAL: VITAL SIGNS: per chart NECK: Supple. No JVD or lymphadenopathy. Trach site clean and intact CARDIAC EXAM: S1, S2. No added sounds or murmurs. CHEST: Diminished air entry bilaterally with few rales ABDOMEN: Soft, nontender. No guarding or rebound. EXTREMITIES: No cyanosis, clubbing or edema. NEUROLOGIC: Generalized weakness. No focal deficits. Frail elderly lady comfortable at rest Vent Setting Fraction of Inspired Oxygen pe: 100 Results/Medications Result Diagram: 01/21/19 0531 01/23/19 0520 Results 24 hrs Laboratory Tests Test 01/23/19 05:20 Sodium Level 141 Potassium Level 4.0 Chloride Level 100 Carbon Dioxide Level 37 H Anion Gap 4 L Blood Urea Nitrogen 18 Creatinine 0.26 L Est Glomerular Filtrat Rate mL/min > 60 Glucose Level 108 Calcium Level 9.0 Medications Current Medications Cefepime HCl 50 ml @ 100 mls/hr Q12 IVPB Last administered on 01/23/19at 09:26; Admin Dose 100 MLS/HR; Start 01/16/19 at 09:00 Vancomycin HCl (Vanco Iv Per Pharmacy) VANCOMYCIN PER PHARMACY PER PROTOCOL XX ; Start 01/16/19 at 02:30 Albuterol/ Ipratropium (Duoneb) 3 ml Q6HWA RESP THERAPY [facility]N Last administered on 01/23/19at 08:17; Admin Dose 3 ML; Start 01/16/19 at 08:00 Miscellaneous Information (Pending Santyl Order For Wound Care) This patient huggins... PRN PRN XX WOUND CARE; Start 01/16/19 at 06:30 Collagenase (Santyl) 1 applic DAILY TOP Last administered on 01/23/19 09:26; Admin Dose 1 APPLIC; Start 01/17/19 at 09:00 Amlodipine Besylate (Norvasc) 5 mg DAILY GTB Last administered on 01/23/19 09:26; Admin Dose 5 MG; Start 01/17/19 at 09:00 Hydralazine HCl (Apresoline) 20 mg Q6H PRN IV HIGH BP; SYSTOLIC > 170; Start 01/16/19 at 20:30 Vancomycin/Sodium Chloride 250 ml @ 125 mls/hr Q12H IVPB Last administered on 01/23/19 10:48; Admin Dose 125 MLS/HR; Start 01/17/19 at 23:00 Ascorbic Acid (Vitamin C) 500 mg DAILY GTB Last administered on 01/23/19 09:25; Admin Dose 500 MG; Start 01/22/19 at 09:00 Zinc Sulfate (Zinc Sulfate) 220 mg DAILY GTB Last administered on 01/23/19 09:25; Admin Dose 220 MG; Start 01/21/19 at 12:30 Acetaminophen (Tylenol Tab) 650 mg Q6H PRN PO MILD PAIN(1-3)OR ELEVATED TEMP; Start 01/22/19 at 09:00 Acetaminophen/ Hydrocodone Bitart ([place] (5/325)) 1 tab Q6H PRN PO MODERATE PAIN LEVEL 4-6 Last administered on 01/22/19 09:36; Admin Dose 1 TAB; Start 01/22/19 at 09:00 Metoclopramide HCl (Reglan) 5 mg Q6 IV Last administered on 01/23/19 10:47; Admin Dose 5 MG; Start 01/22/19 at 12:00 Famotidine (Pepcid) 20 mg BID PO Last administered on 01/23/19 09:25; Admin Dose 20 MG; Start 01/22/19 at 21:00 Scopolamine (Transderm-Scop) 1 patch Q72H TRANSDERM Last administered on 01/22/19 17:34; Admin Dose 1 PATCH; Start 01/22/19 at 17:00 Assessment/Plan Hospital Course (Demo Recall) IMP: 1. Hypoxemic Resp Insufficiency 2. Aspiration vs. CAP--CXR with mildly increased volume and subsegmental atx. 3. Anemia 4. CP RECS: 1. BDs 2. Consider stopping antibiotics 3. Aspiration precautions 4. Follow H/H DC planning? [facility] SOTO MD, [facility] January 23, 2019 12:37
--- NOTE | 2019-01-23 12:37 | CONS ---
Assessment/Plan Assessment/Plan Hospital Course (Demo Recall) No acute events, looks comfortable, no fevers Microbiology: Blood and urine cultures negative Indwelling: PEG Antimicrobials Vanco, cefepime Physical examination: Chronically ill-appearing middle-aged woman who is laying comfortably in bed. Head atraumatic normocephalic sclera nonicteric vehicle mucosa dry neck is supple chest rise symmetrical breath sounds with bilateral rails. Heart: S1-S2 abdomen soft bowel sounds present extremities without cyanosis Assessment: 1. Acute hypoxemic respiratory failure on admission 2. Pneumonia possibly aspirated 3. Dysphasia 4. Cerebral palsy Plan: Overall improving, continue antibiotics, aspiration precautions, f/u repeat cxr Consultation Date/Type/Reason Admit Date/Time January 15, 2019 at 22:36 Initial Consult Date 01/17/19 Type of Consult id Date/Time of Note DATE: 01/23/19 TIME: 12:36 Exam/Review of Systems Exam Vitals Vital Signs Date Temp Pulse Resp B/P (MAP) Pulse Ox O2 O2 Flow FiO2 Time Delivery Rate 01/23/19 98.2 97 19 110/74 100 Nasal 3.0 11:30 (86) Cannula Intake and Output 01/22/19 01/22/19 01/23/19 1515:00 23:00 07:00 IntakeIntake Total 300 ml 730 ml 950 ml BalanceBalance 300 ml 730 ml 950 ml Results Result Diagram: 01/21/19 0531 01/23/19 0520 Results 24hrs Laboratory Tests Test 01/23/19 05:20 Sodium Level 141 Potassium Level 4.0 Chloride Level 100 Carbon Dioxide Level 37 H Anion Gap 4 L Blood Urea Nitrogen 18 Creatinine 0.26 L Est Glomerular Filtrat Rate mL/min > 60 Glucose Level 108 Calcium Level 9.0 Medications Medication Current Medications Cefepime HCl 50 ml @ 100 mls/hr Q12 IVPB Last administered on 01/23/19at 09:26; Admin Dose 100 MLS/HR; Start 01/16/19 at 09:00 Vancomycin HCl (Vanco Iv Per Pharmacy) VANCOMYCIN PER PHARMACY PER PROTOCOL XX ; Start 01/16/19 at 02:30 Albuterol/ Ipratropium (Duoneb) 3 ml Q6HWA RESP THERAPY HHN Last administered on 01/23/19at 08:17; Admin Dose 3 ML; Start 01/16/19 at 08:00 Miscellaneous Information (Pending Santyl Order For Wound Care) This patient huggins... PRN PRN XX WOUND CARE; Start 01/16/19 at 06:30 Collagenase (Santyl) 1 applic DAILY TOP Last administered on 01/23/19 09:26; Admin Dose 1 APPLIC; Start 01/17/19 at 09:00 Amlodipine Besylate (Norvasc) 5 mg DAILY GTB Last administered on 01/23/19 09:26; Admin Dose 5 MG; Start 01/17/19 at 09:00 Hydralazine HCl (Apresoline) 20 mg Q6H PRN IV HIGH BP; SYSTOLIC > 170; Start 01/16/19 at 20:30 Vancomycin/Sodium Chloride 250 ml @ 125 mls/hr Q12H IVPB Last administered on 01/23/19 10:48; Admin Dose 125 MLS/HR; Start 01/17/19 at 23:00 Ascorbic Acid (Vitamin C) 500 mg DAILY GTB Last administered on 01/23/19 09:25; Admin Dose 500 MG; Start 01/22/19 at 09:00 Zinc Sulfate (Zinc Sulfate) 220 mg DAILY GTB Last administered on 01/23/19 09:25; Admin Dose 220 MG; Start 01/21/19 at 12:30 Acetaminophen (Tylenol Tab) 650 mg Q6H PRN PO MILD PAIN(1-3)OR ELEVATED TEMP; Start 01/22/19 at 09:00 Acetaminophen/ Hydrocodone Bitart ([place] (5/325)) 1 tab Q6H PRN PO MODERATE PAIN LEVEL 4-6 Last administered on 01/22/19 09:36; Admin Dose 1 TAB; Start 01/22/19 at 09:00 Metoclopramide HCl (Reglan) 5 mg Q6 IV Last administered on 01/23/19 10:47; Admin Dose 5 MG; Start 01/22/19 at 12:00 Famotidine (Pepcid) 20 mg BID PO Last administered on 01/23/19 09:25; Admin Dose 20 MG; Start 01/22/19 at 21:00 Scopolamine (Transderm-Scop) 1 patch Q72H TRANSDERM Last administered on 01/22/19 17:34; Admin Dose 1 PATCH; Start 01/22/19 at 17:00 ALLISON LOMELI NP January 23, 2019 12:37
--- NOTE | 2019-01-23 13:17 | PN ---
Date/Time of Note Date/Time of Note DATE: 01/23/19 TIME: 13:14 Assessment/Plan VTE Prophylaxis Risk score (from Ns)>0 risk: 7 SCD applied (from Ns): Yes Pharmacological prophylaxis: LMWH Lines/Catheters IV Catheter Type (from [facility]): Peripheral IV Assessment/Plan Hospital Course Patient still has a lot of congestion requiring frequent suctioning and sometimes deep suctioning by RT, remains hemodynamically stable, patient has G- tube feeding now with a goal rate of 50, residual is 40 cc per RN, continue R eglan. Patient continues on vancomycin and cefepime for healthcare associated pneumonia. Assessment/Plan -Hypokalemia, potassium replaced. -Acute respiratory insufficiency. Dr. Clayton is following in pulmonology consultation -Healthcare facility acquired pneumonia versus aspiration pneumonia. Continue abx per ID. Dr. Poole is following in infection disease consultation. -Dysphagia with G-tube. -Cerebral palsy. -Chronic coccygeal decubitus ulcer. Continue current wound care, air mattress, offloading. -Protein calorie malnutrition, continue G-tube feeding, vitamins, zinc sulfate. -DNR status. Further recommendations based on clinical course. Plan of care discussed with Dr. Bowman. Result Diagram: 01/21/19 0531 01/23/19 0520 Results 24hrs Laboratory Tests Test 01/23/19 05:20 Sodium Level 141 Potassium Level 4.0 Chloride Level 100 Carbon Dioxide Level 37 H Anion Gap 4 L Blood Urea Nitrogen 18 Creatinine 0.26 L Est Glomerular Filtrat Rate mL/min > 60 Glucose Level 108 Calcium Level 9.0 Exam/Review of Systems Exam Vitals Vital Signs Date Temp Pulse Resp B/P (MAP) Pulse Ox O2 O2 Flow FiO2 Time Delivery Rate 01/23/19 98.2 97 19 110/74 100 Nasal 3.0 11:30 (86) Cannula Intake and Output 01/22/19 01/22/19 01/23/19 1515:00 23:00 07:00 IntakeIntake Total 300 ml 730 ml 950 ml BalanceBalance 300 ml 730 ml 950 ml Exam Constitutional: non-verbal Respiratory: diminished breath sounds Cardiovascular: nl pulse Gastrointestinal: soft, non-tender, other (G-tube) Musculoskeletal: muscle weakness Extremities: other (Contracted extremities) Results Results 24hrs Laboratory Tests Test 01/23/19 05:20 Sodium Level 141 Potassium Level 4.0 Chloride Level 100 Carbon Dioxide Level 37 H Anion Gap 4 L Blood Urea Nitrogen 18 Creatinine 0.26 L Est Glomerular Filtrat Rate mL/min > 60 Glucose Level 108 Calcium Level 9.0 Medications Medication Current Medications Cefepime HCl 50 ml @ 100 mls/hr Q12 IVPB Last administered on 01/23/19 09:26; Admin Dose 100 MLS/HR; Start 01/16/19 at 09:00 Vancomycin HCl (Vanco Iv Per Pharmacy) VANCOMYCIN PER PHARMACY PER PROTOCOL XX ; Start 01/16/19 at 02:30 Albuterol/ Ipratropium (Duoneb) 3 ml Q6HWA RESP THERAPY HHN Last administered on 01/23/19 08:17; Admin Dose 3 ML; Start 01/16/19 at 08:00 Miscellaneous Information (Pending Santyl Order For Wound Care) This patient huggins... PRN PRN XX WOUND CARE; Start 01/16/19 at 06:30 Collagenase (Santyl) 1 applic DAILY TOP Last administered on 01/23/19 09:26; Admin Dose 1 APPLIC; Start 01/17/19 at 09:00 Amlodipine Besylate (Norvasc) 5 mg DAILY GTB Last administered on 01/23/19 09:26; Admin Dose 5 MG; Start 01/17/19 at 09:00 Hydralazine HCl (Apresoline) 20 mg Q6H PRN IV HIGH BP; SYSTOLIC > 170; Start 01/16/19 at 20:30 Vancomycin/Sodium Chloride 250 ml @ 125 mls/hr Q12H IVPB Last administered on 01/23/19 10:48; Admin Dose 125 MLS/HR; Start 01/17/19 at 23:00 Ascorbic Acid (Vitamin C) 500 mg DAILY GTB Last administered on 01/23/19 09:25; Admin Dose 500 MG; Start 01/22/19 at 09:00 Zinc Sulfate (Zinc Sulfate) 220 mg DAILY GTB Last administered on 01/23/19 09:25; Admin Dose 220 MG; Start 01/21/19 at 12:30 Acetaminophen (Tylenol Tab) 650 mg Q6H PRN PO MILD PAIN(1-3)OR ELEVATED TEMP; Start 01/22/19 at 09:00 Acetaminophen/ Hydrocodone Bitart ([place] (5/325)) 1 tab Q6H PRN PO MODERATE PAIN LEVEL 4-6 Last administered on 01/22/19 09:36; Admin Dose 1 TAB; Start 01/22/19 at 09:00 Metoclopramide HCl (Reglan) 5 mg Q6 IV Last administered on 01/23/19 10:47; Admin Dose 5 MG; Start 01/22/19 at 12:00 Famotidine (Pepcid) 20 mg BID PO Last administered on 01/23/19 09:25; Admin Dose 20 MG; Start 01/22/19 at 21:00 Scopolamine (Transderm-Scop) 1 patch Q72H TRANSDERM Last administered on 01/22/19 17:34; Admin Dose 1 PATCH; Start 01/22/19 at 17:00 LIBIA CARBALLO January 23, 2019 13:17
[2019-01-24] VITALS (12 sets, daily range): BP systolic 109–124; BP diastolic 68–88; PULSE 70–109; RESP 18–20
[2019-01-24] MEDS: METOCLOPRAMIDE 10 MG INJ IV SCH ×3 (05:46→17:12)
[2019-01-24] MEDS: ALBUTEROL/IPRATROPIUM (NEB) 3 ML AMP HHN SCH ×3 (07:19→20:22)
[2019-01-24] MEDS: FAMOTIDINE 20 MG TAB PO SCH ×2 (09:29→20:49)
[2019-01-24] MEDS: ZINC SULFATE 220 MG CAP GTB SCH (09:30)
[2019-01-24] MEDS: CEFEPIME 1GM/50 ML (PMX) 50 ML IVPB SCH (09:30)
[2019-01-24] MEDS: AMLODIPINE 5 MG TAB GTB SCH (09:30)
[2019-01-24] MEDS: ASCORBIC ACID 500 MG TAB GTB SCH (09:30)
--- NOTE | 2019-01-24 10:20 | PN ---
Date/Time of Note Date/Time of Note DATE: 01/24/19 TIME: 10: Assessment/Plan VTE Prophylaxis Risk score (from Ns)>0 risk: 6 SCD applied (from Nsg): Yes Lines/Catheters IV Catheter Type (from Nrsg): Peripheral IV Assessment/Plan Assessment/Plan -Hypokalemia, potassium replaced. -Acute respiratory insufficiency. Dr. Clayton is following in pulmonology consultation -Healthcare facility acquired pneumonia versus aspiration pneumonia. Continue abx per ID. Dr. Poole is following in infection disease consultation. -Dysphagia with G-tube. -Cerebral palsy. -Chronic coccygeal decubitus ulcer. Continue current wound care, air mattress, offloading. -Protein calorie malnutrition, continue G-tube feeding, vitamins, zinc sulfate. -DNR status. Further recommendations based on clinical course. Plan of care discussed with Dr. Bowman. Result Diagram: Result Diagram: 01/21/19 0531 01/24/19 0513 Results 24hrs Laboratory Tests Test 01/24/19 05:13 Sodium Level 137 Potassium Level 4.5 Chloride Level 98 Carbon Dioxide Level 35 H Anion Gap 4 L Blood Urea Nitrogen 15 Creatinine 0.26 L Est Glomerular Filtrat Rate mL/min > 60 Glucose Level 101 Calcium Level 9.0 Exam/Review of Systems Exam Vitals Vital Signs Date Temp Pulse Resp B/P (MAP) Pulse Ox O2 O2 Flow FiO2 Time Delivery Rate 01/24/19 109 08:58 01/24/19 98.2 19 121/72 96 07:55 (88) 01/24/19 2.0 07:20 01/24/19 Nasal 07:20 Cannula Intake and Output 01/23/19 01/23/19 01/24/19 1515:00 23:00 07:00 IntakeIntake Total 900 ml 1050 ml BalanceBalance 900 ml 1050 ml Constitutional: well developed, non-verbal, frail Psych: nl mood/affect Eyes: nl lids, nl sclera ENMT: nl external ears & nose Neck: non-tender Respiratory: clear to auscultation Cardiovascular: nl pulses Gastrointestinal: soft, non-tender, other Musculoskeletal: muscle weakness Neurological: confused Results Results 24hrs Laboratory Tests Test 01/24/19 05:13 Sodium Level 137 Potassium Level 4.5 Chloride Level 98 Carbon Dioxide Level 35 H Anion Gap 4 L Blood Urea Nitrogen 15 Creatinine 0.26 L Est Glomerular Filtrat Rate mL/min > 60 Glucose Level 101 Calcium Level 9.0 Medications Medication Current Medications Albuterol/ Ipratropium (Duoneb) 3 ml Q6HWA RESP THERAPY HHN Last administered on 01/24/19 07:19; Admin Dose 3 ML; Start 01/16/19 at 08:00 Miscellaneous Information (Pending Santyl Order For Wound Care) This patient huggins... PRN PRN XX WOUND CARE; Start 01/16/19 at 06:30 Collagenase (Santyl) 1 applic DAILY TOP Last administered on 01/23/19 09:26; Admin Dose 1 APPLIC; Start 01/17/19 at 09:00 Amlodipine Besylate (Norvasc) 5 mg DAILY GTB Last administered on 01/24/19 09:30; Admin Dose 5 MG; Start 01/17/19 at 09:00 Hydralazine HCl (Apresoline) 20 mg Q6H PRN IV HIGH BP; SYSTOLIC > 170; Start 01/16/19 at 20:30 Ascorbic Acid (Vitamin C) 500 mg DAILY GTB Last administered on 01/24/19 09:30; Admin Dose 500 MG; Start 01/22/19 at 09:00 Zinc Sulfate (Zinc Sulfate) 220 mg DAILY GTB Last administered on 01/24/19 09:30; Admin Dose 220 MG; Start 01/21/19 at 12:30 Acetaminophen (Tylenol Tab) 650 mg Q6H PRN PO MILD PAIN(1-3)OR ELEVATED TEMP; Start 01/22/19 at 09:00 Acetaminophen/ Hydrocodone Bitart ([place] (5/325)) 1 tab Q6H PRN PO MODERATE PAIN LEVEL 4-6 Last administered on 01/22/19 09:36; Admin Dose 1 TAB; Start 01/22/19 at 09:00 Metoclopramide HCl (Reglan) 5 mg Q6 IV Last administered on 01/24/19 05:46; Admin Dose 5 MG; Start 01/22/19 at 12:00 Famotidine (Pepcid) 20 mg BID PO Last administered on 01/24/19 09:29; Admin Dose 20 MG; Start 01/22/19 at 21:00 Scopolamine (Transderm-Scop) 1 patch Q72H TRANSDERM Last administered on 01/22/19at 17:34; Admin Dose 1 PATCH; Start 01/22/19 at 17:00 JASMYNE HOOKS January 24, 2019 10:20
--- NOTE | 2019-01-24 12:42 | CONS ---
Assessment/Plan Assessment/Plan Hospital Course (Demo Recall) No acute events pt loosk comfortable, no fevers Microbiology: Blood and urine cultures negative Indwelling: PEG Antimicrobials Vanco, cefepime Physical examination: Chronically ill-appearing middle-aged woman who is laying comfortably in bed. Head atraumatic normocephalic sclera nonicteric vehicle mucosa dry neck is supple chest rise symmetrical breath sounds with bilateral rails. Heart: S1-S2 abdomen soft bowel sounds present extremities without cyanosis Assessment: 1. Acute hypoxemic respiratory failure on admission 2. Pneumonia possibly aspirated 3. Dysphasia 4. Cerebral palsy Plan: Stable, pulmonary rec-s noted, continue aspiration precautions, dc abx Consultation Date/Type/Reason Admit Date/Time January 15, 2019 at 22:36 Initial Consult Date 01/17/19 Type of Consult id Date/Time of Note DATE: 01/24/19 TIME: 12:42 Exam/Review of Systems Exam Vitals Vital Signs Date Temp Pulse Resp B/P (MAP) Pulse Ox O2 O2 Flow FiO2 Time Delivery Rate 01/24/19 97.9 100 19 118/88 99 11:57 (98) 01/24/19 2.0 07:20 01/24/19 Nasal 07:20 Cannula Intake and Output 01/23/19 01/23/19 01/24/19 1414:59 22:59 06:59 IntakeIntake Total 900 ml 1050 ml BalanceBalance 900 ml 1050 ml Results Result Diagram: 01/24/19 1051 01/24/19 1051 Results 24hrs Laboratory Tests Test 01/24/19 05:13 01/24/19 10:51 Sodium Level 137 135 Potassium Level 4.5 4.5 Chloride Level 98 95 L Carbon Dioxide Level 35 H 34 H Anion Gap 4 L 6 Blood Urea Nitrogen 15 16 Creatinine 0.26 L 0.29 L Est Glomerular Filtrat Rate mL/min > 60 > 60 Glucose Level 101 106 Calcium Level 9.0 9.4 White Blood Count 10.1 # Red Blood Count 3.53 L Hemoglobin 9.3 L Hematocrit 30.6 L Mean Corpuscular Volume 86.7 Mean Corpuscular Hemoglobin 26.3 L Mean Corpuscular Hemoglobin Concent 30.4 L Red Cell Distribution Width 14.1 Platelet Count 375 # Mean Platelet Volume 9.4 Immature Granulocytes % 0.400 Neutrophils % 69.2 Lymphocytes % 19.4 Monocytes % 5.2 Eosinophils % 5.0 Basophils % 0.8 Nucleated Red Blood Cells % 0.0 Immature Granulocytes # 0.040 H Neutrophils # 7.0 Lymphocytes # 2.0 Monocytes # 0.5 Eosinophils # 0.5 Basophils # 0.1 Nucleated Red Blood Cells # 0.0 Medications Medication Current Medications Albuterol/ Ipratropium (Duoneb) 3 ml Q6HWA RESP THERAPY HHN Last administered on 01/24/19 07:19; Admin Dose 3 ML; Start 01/16/19 at 08:00 Miscellaneous Information (Pending Santyl Order For Wound Care) This patient huggins... PRN PRN XX WOUND CARE; Start 01/16/19 at 06:30 Collagenase (Santyl) 1 applic DAILY TOP Last administered on 01/23/19 09:26; Admin Dose 1 APPLIC; Start 01/17/19 at 09:00 Amlodipine Besylate (Norvasc) 5 mg DAILY GTB Last administered on 01/24/19 09:30; Admin Dose 5 MG; Start 01/17/19 at 09:00 Hydralazine HCl (Apresoline) 20 mg Q6H PRN IV HIGH BP; SYSTOLIC > 170; Start 01/16/19 at 20:30 Ascorbic Acid (Vitamin C) 500 mg DAILY GTB Last administered on 01/24/19 09:30; Admin Dose 500 MG; Start 01/22/19 at 09:00 Zinc Sulfate (Zinc Sulfate) 220 mg DAILY GTB Last administered on 01/24/19 09:30; Admin Dose 220 MG; Start 01/21/19 at 12:30 Acetaminophen (Tylenol Tab) 650 mg Q6H PRN PO MILD PAIN(1-3)OR ELEVATED TEMP; Start 01/22/19 at 09:00 Acetaminophen/ Hydrocodone Bitart ([place] (5/325)) 1 tab Q6H PRN PO MODERATE PAIN LEVEL 4-6 Last administered on 01/22/19 09:36; Admin Dose 1 TAB; Start 01/22/19 at 09:00 Metoclopramide HCl (Reglan) 5 mg Q6 IV Last administered on 01/24/19 12:24; Admin Dose 5 MG; Start 01/22/19 at 12:00 Famotidine (Pepcid) 20 mg BID PO Last administered on 5/10/19at 09:29; Admin Dose 20 MG; Start 01/22/19 at 21:00 Scopolamine (Transderm-Scop) 1 patch Q72H TRANSDERM Last administered on 01/22/19at 17:34; Admin Dose 1 PATCH; Start 01/22/19 at 17:00 ALLISON LOMELI NP January 24, 2019 12:42
[2019-01-24] MEDS: COLLAGENASE 5 GM (UD JAR) TOP SCH (14:07)
--- NOTE | 2019-01-24 14:28 | PN ---
DATE: 01/24/2019 ATTENDING PHYSICIAN: Amaya Hassan MD SUBJECTIVE: Chart was reviewed. The patient remains congested requiring frequent suctioning. Curre ntly on 2 liters' O2 nasal cannula, saturating 97%. PHYSICAL EXAMINATION: VITAL SIGNS: Blood pressure 118/88, pulse 100, respiration 19, temperature 97.9. HEENT: Pupils are equal and reactive to light. NECK: Supple. No JVD noted. LUNGS: Scattered rhonchi bilaterally. CARDIOVASCULAR: S1, S2 normal. ABDOMEN: Soft, nontender. G-tube in place. EXTREMITIES: No clubbing, cyanosis. Contractures are present. NEUROLOGIC: Encephalopathic. LABORATORY DATA: WBC 10.1, hemoglobin 9.3, hematocrit 30.6, platelets 375. Sodium 135, potassium 4. 5, chloride 95, CO2 of 34, BUN 16, creatinine 0.29, glucose 106. DIAGNOSTIC DATA: Chest x-ray shows no significant change, patchy bibasilar infiltrates. IMPRESSION: 1. Healthcare-associated pneumonia. 2. History of cerebral palsy. 3. Hypoxemic respiratory failure, improving. 4. Anemia. RECOMMENDATIONS: 1. Continue aggressive pulmonary toilet. 2. Antibiotics per ID. 3. Bronchodilators. 4. Aspiration precautions. 5. Nutritional support. 6. Wound care. 7. Consultants noted. Dictated By: AMAYA HASSAN MD, MA/TIP Conf#: [id number] DID#: [id number] CC: GLORIA VARGAS MD; JOEY TYLER MD;*EndCC*
[2019-01-25] VITALS (10 sets, daily range): BP systolic 107–122; BP diastolic 77–82; PULSE 94–117; RESP 20–28
[2019-01-25] MEDS: METOCLOPRAMIDE 10 MG INJ IV SCH ×4 (00:27→17:10)
[2019-01-25] MEDS: FAMOTIDINE 20 MG TAB PO SCH ×2 (08:24→21:58)
[2019-01-25] MEDS: AMLODIPINE 5 MG TAB GTB SCH (08:24)
[2019-01-25] MEDS: ASCORBIC ACID 500 MG TAB GTB SCH (08:24)
[2019-01-25] MEDS: ZINC SULFATE 220 MG CAP GTB SCH (08:24)
[2019-01-25] MEDS: COLLAGENASE 5 GM (UD JAR) TOP SCH (08:24)
[2019-01-25] MEDS: LEVALBUTEROL (NEB) 0.63 MG/3 ML AMP HHN SCH ×3 (09:50→23:55)
--- NOTE | 2019-01-25 13:21 | CONS ---
Assessment/Plan Assessment/Plan Hospital Course (Demo Recall) ID PROGRESS NOTE CURRENT ABX: DAY # => OFF ABX s/p Vanco IV + Cefepime 01/16 - 01/2401/25/19 0502 01/25/19 0502 24H INTERVAL SUMMARY * ABX DC'd yesterday -- she now demonstrates low grade higher temps 99.7 + tachycardia, (+) dyspnea and rising WBC * Secretion retention due to cerebral palsy neurogenic weakness w/ chest congestion requiring frequent suctioning. Currently on 2 liters * TF dependent for nutrition w/dysphagia RADIOLOGY IMAGING * 01/24/19 CXR: No significant change. Very limited study due to overlying patient's hands. Repeat study is recommended.Patchy bibasilar atelectatic changes and infiltrates. MICRO/OTHER * 01/15/19: BCX (-) * 01/15/19: URINE CX (-) PHYSICAL EXAMINATION: GENERAL: VSS, NAD HEENT: AT, NC, anicteric, oral secretions NECK: Supple, laryngeal congestion CHEST: Equal chest rise bilaterally, without dyspnea on observation = coarse chest congestion HEART: Pulse RRR ABDOMEN: Soft / NT EXTREMITIES: Warm, dry SKIN: No rash, no diaphoresis ID ASSESSMENT 43 yo F admit with: 1. SIRS w/Twmp 99.7, tachycardia, hypoxemia, dyspnea == WORSE AFTER ABX DC'D YESTERDAY 2. HCAP w/significant secretion retention, aspiration syndrome 3. Acute hypoxemic respiratory failure on admission 4. Dysphasia 5. Cerebral palsy w/neuromuscular degenerative weakness ABX ALLERGIES: KNDA INVASIVES: PIV CURRENT ABX: DAY # > OFF ABX s/p Vanco IV + Cefepime 01/16 - 01/24 ID RECOMMENDATIONS/PLAN: 1. Concern for recurrent secretion retention, chest congestion w/ongoing aspiration * Restart Cefepime + Doxy IV 2. Check nares for MRSA . Consultation Date/Type/Reason Admit Date/Time January 15, 2019 at 22:36 Initial Consult Date 01/17/19 Date/Time of Note DATE: 01/25/19 TIME: 13:21 Exam/Review of Systems Exam Vitals Vital Signs Date Temp Pulse Resp B/P (MAP) Pulse Ox O2 O2 Flow FiO2 Time Delivery Rate 01/25/19 99.3 115 21 117/80 99 11:11 (92) 01/25/19 Nasal 2.0 09:51 Cannula Intake and Output 01/24/19 01/24/19 01/25/19 1515:00 23:00 07:00 IntakeIntake Total 50 ml 950 ml 900 ml BalanceBalance 50 ml 950 ml 900 ml Results Result Diagram: 01/25/19 0502 01/25/19 0502 Results 24hrs Laboratory Tests Test 01/25/19 05:02 White Blood Count 12.2 #H Red Blood Count 4.27 # Hemoglobin 11.3 #L Hematocrit 36.4 L Mean Corpuscular Volume 85.2 Mean Corpuscular Hemoglobin 26.5 L Mean Corpuscular Hemoglobin Concent 31.0 L Red Cell Distribution Width 14.2 Platelet Count 385 Mean Platelet Volume 9.6 Immature Granulocytes % 0.300 Neutrophils % 74.2 Lymphocytes % 17.0 Monocytes % 5.0 Eosinophils % 3.0 Basophils % 0.5 Nucleated Red Blood Cells % 0.0 Immature Granulocytes # 0.040 H Neutrophils # 9.0 H Lymphocytes # 2.1 Monocytes # 0.6 Eosinophils # 0.4 Basophils # 0.1 Nucleated Red Blood Cells # 0.0 Sodium Level 134 L Potassium Level 5.0 Chloride Level 94 L Carbon Dioxide Level 33 H Anion Gap 7 Blood Urea Nitrogen 17 Creatinine 0.26 L Est Glomerular Filtrat Rate mL/min > 60 Glucose Level 122 Calcium Level 9.7 Medications Medication Current Medications Miscellaneous Information (Pending Santyl Order For Wound Care) This patient huggins... PRN PRN XX WOUND CARE; Start 01/16/19 at 06:30 Collagenase (Santyl) 1 applic DAILY TOP Last administered on 01/25/19at 08:24; Admin Dose 1 APPLIC; Start 01/17/19 at 09:00 Amlodipine Besylate (Norvasc) 5 mg DAILY GTB Last administered on 01/25/19at 08:24; Admin Dose 5 MG; Start 01/17/19 at 09:00 Hydralazine HCl (Apresoline) 20 mg Q6H PRN IV HIGH BP; SYSTOLIC > 170; Start 01/16/19 at 20:30 Ascorbic Acid (Vitamin C) 500 mg DAILY GTB Last administered on 01/25/19at 08:24; Admin Dose 500 MG; Start 01/22/19 at 09:00 Zinc Sulfate (Zinc Sulfate) 220 mg DAILY GTB Last administered on 01/25/19 08:24; Admin Dose 220 MG; Start 01/21/19 at 12:30 Acetaminophen (Tylenol Tab) 650 mg Q6H PRN PO MILD PAIN(1-3)OR ELEVATED TEMP; Start 01/22/19 at 09:00 Acetaminophen/ Hydrocodone Bitart ([place] (5/325)) 1 tab Q6H PRN PO MODERATE PAIN LEVEL 4-6 Last administered on 01/22/19 09:36; Admin Dose 1 TAB; Start 01/22/19 at 09:00 Metoclopramide HCl (Reglan) 5 mg Q6 IV Last administered on 01/25/19 12:16; Admin Dose 5 MG; Start 01/22/19 at 12:00 Famotidine (Pepcid) 20 mg BID PO Last administered on 01/25/19 08:24; Admin Dose 20 MG; Start 01/22/19 at 21:00 Scopolamine (Transderm-Scop) 1 patch Q72H TRANSDERM Last administered on 01/22/19 17:34; Admin Dose 1 PATCH; Start 01/22/19 at 17:00 Levalbuterol (Xopenex Neb) 0.63 mg Q8H RESP THERAPY HHN Last administered on 01/25/19 09:50; Admin Dose 0.63 MG; Start 01/25/19 at 08:00 CHARLOTTE THOMAS NP January 25, 2019 13:21
--- NOTE | 2019-01-25 13:26 | PN ---
Date/Time of Note Date/Time of Note DATE: 01/25/19 TIME: 13:15 Assessment/Plan VTE Prophylaxis Risk score (from Ns)>0 risk: 7 SCD applied (from Ns): Yes Lines/Catheters IV Catheter Type (from Nrs): Saline Lock Urinary Cath still in place: No Assessment/Plan Assessment/Plan -Acute respiratory insufficiency. Dr. Clayton is following in pulmonology consultation -Healthcare facility acquired pneumonia versus aspiration pneumonia. Continue abx per ID. Dr. Poole is following in infection disease consultation. -Dysphagia with G-tube. -Cerebral palsy. -Chronic coccygeal decubitus ulcer. Continue current wound care, air mattress, offloading. -Protein calorie malnutrition, continue G-tube feeding, vitamins, zinc sulfate. -DNR status. Further recommendations based on clinical course. Plan of care discussed with Dr. Bowman. Result Diagram: 01/25/19 0502 01/25/19 0502 Results 24hrs Laboratory Tests Test 01/25/19 05:02 White Blood Count 12.2 #H Red Blood Count 4.27 # Hemoglobin 11.3 #L Hematocrit 36.4 L Mean Corpuscular Volume 85.2 Mean Corpuscular Hemoglobin 26.5 L Mean Corpuscular Hemoglobin Concent 31.0 L Red Cell Distribution Width 14.2 Platelet Count 385 Mean Platelet Volume 9.6 Immature Granulocytes % 0.300 Neutrophils % 74.2 Lymphocytes % 17.0 Monocytes % 5.0 Eosinophils % 3.0 Basophils % 0.5 Nucleated Red Blood Cells % 0.0 Immature Granulocytes # 0.040 H Neutrophils # 9.0 H Lymphocytes # 2.1 Monocytes # 0.6 Eosinophils # 0.4 Basophils # 0.1 Nucleated Red Blood Cells # 0.0 Sodium Level 134 L Potassium Level 5.0 Chloride Level 94 L Carbon Dioxide Level 33 H Anion Gap 7 Blood Urea Nitrogen 17 Creatinine 0.26 L Est Glomerular Filtrat Rate mL/min > 60 Glucose Level 122 Calcium Level 9.7 Exam/Review of Systems Exam Vitals Vital Signs Date Temp Pulse Resp B/P (MAP) Pulse Ox O2 O2 Flow FiO2 Time Delivery Rate 01/25/19 99.3 115 21 117/80 99 11:11 (92) 01/25/19 Nasal 2.0 09:51 Cannula Intake and Output 01/24/19 01/24/19 01/25/19 1515:00 23:00 07:00 IntakeIntake Total 50 ml 950 ml 900 ml BalanceBalance 50 ml 950 ml 900 ml Constitutional: alert, non-verbal, frail Psych: nl mood/affect Eyes: nl lids ENMT: nl external ears & nose Respiratory: diminished breath sounds Cardiovascular: nl pulses, other Gastrointestinal: soft, other Musculoskeletal: muscle weakness, range of motion Extremities: normal pulses Neurological: confused Results Results 24hrs Laboratory Tests Test 01/25/19 05:02 White Blood Count 12.2 #H Red Blood Count 4.27 # Hemoglobin 11.3 #L Hematocrit 36.4 L Mean Corpuscular Volume 85.2 Mean Corpuscular Hemoglobin 26.5 L Mean Corpuscular Hemoglobin Concent 31.0 L Red Cell Distribution Width 14.2 Platelet Count 385 Mean Platelet Volume 9.6 Immature Granulocytes % 0.300 Neutrophils % 74.2 Lymphocytes % 17.0 Monocytes % 5.0 Eosinophils % 3.0 Basophils % 0.5 Nucleated Red Blood Cells % 0.0 Immature Granulocytes # 0.040 H Neutrophils # 9.0 H Lymphocytes # 2.1 Monocytes # 0.6 Eosinophils # 0.4 Basophils # 0.1 Nucleated Red Blood Cells # 0.0 Sodium Level 134 L Potassium Level 5.0 Chloride Level 94 L Carbon Dioxide Level 33 H Anion Gap 7 Blood Urea Nitrogen 17 Creatinine 0.26 L Est Glomerular Filtrat Rate mL/min > 60 Glucose Level 122 Calcium Level 9.7 Medications Medication Current Medications Miscellaneous Information (Pending Santyl Order For Wound Care) This patient huggins... PRN PRN XX WOUND CARE; Start 01/16/19 at 06:30 Collagenase (Santyl) 1 applic DAILY TOP Last administered on 01/25/19at 08:24; Admin Dose 1 APPLIC; Start 01/17/19 at 09:00 Amlodipine Besylate (Norvasc) 5 mg DAILY GTB Last administered on 01/25/19at 08:24; Admin Dose 5 MG; Start 01/17/19 at 09:00 Hydralazine HCl (Apresoline) 20 mg Q6H PRN IV HIGH BP; SYSTOLIC > 170; Start 01/16/19 at 20:30 Ascorbic Acid (Vitamin C) 500 mg DAILY GTB Last administered on 01/25/19at 08:24; Admin Dose 500 MG; Start 01/22/19 at 09:00 Zinc Sulfate (Zinc Sulfate) 220 mg DAILY GTB Last administered on 01/25/19 08:24; Admin Dose 220 MG; Start 01/21/19 at 12:30 Acetaminophen (Tylenol Tab) 650 mg Q6H PRN PO MILD PAIN(1-3)OR ELEVATED TEMP; Start 01/22/19 at 09:00 Acetaminophen/ Hydrocodone Bitart ([place] (5/325)) 1 tab Q6H PRN PO MODERATE PAIN LEVEL 4-6 Last administered on 01/22/19 09:36; Admin Dose 1 TAB; Start 01/22/19 at 09:00 Metoclopramide HCl (Reglan) 5 mg Q6 IV Last administered on 01/25/19 12:16; Admin Dose 5 MG; Start 01/22/19 at 12:00 Famotidine (Pepcid) 20 mg BID PO Last administered on 01/25/19 08:24; Admin Dose 20 MG; Start 01/22/19 at 21:00 Scopolamine (Transderm-Scop) 1 patch Q72H TRANSDERM Last administered on 01/22/19 17:34; Admin Dose 1 PATCH; Start 01/22/19 at 17:00 Levalbuterol (Xopenex Neb) 0.63 mg Q8H RESP THERAPY HHN Last administered on 01/25/19 09:50; Admin Dose 0.63 MG; Start 01/25/19 at 08:00 JASMYNE HOOKS January 25, 2019 13:25
[2019-01-25] MEDS: HYDROCODONE/APAP (5/325) TAB PO PRN (15:48)
[2019-01-25] MEDS: CEFEPIME 1GM/50 ML (PMX) 50 ML IVPB SCH (16:22)
--- NOTE | 2019-01-25 16:31 | CONS ---
Consult Date/Type/Reason Admit Date/Time January 15, 2019 at 22:36 Initial Consult Date 01/17/19 Type of Consultation: Pulm Date/Time of Note DATE: 01/25/19 TIME: 16:30 Subjective Low grade temp and tachycardia Objective Vitals Vital Signs Date Temp Pulse Resp B/P (MAP) Pulse Ox O2 O2 Flow FiO2 Time Delivery Rate 01/25/19 99.7 117 22 122/79 95 15:28 (93) 01/25/19 Nasal 2.0 15:08 Cannula Intake and Output 01/24/19 01/24/19 01/25/19 1515:00 23:00 07:00 IntakeIntake Total 50 ml 950 ml 900 ml BalanceBalance 50 ml 950 ml 900 ml Exam HEENT: Neck supple; no JVD; no LAD CVS: RRR, S1 and S2 CHEST: Coarse BS b/l ABD: Soft, NT, + BS EXT: No c/c/e Results/Medications Result Diagram: 01/25/19 0502 01/25/19 0502 Results 24 hrs Laboratory Tests Test 01/25/19 05:02 White Blood Count 12.2 #H Red Blood Count 4.27 # Hemoglobin 11.3 #L Hematocrit 36.4 L Mean Corpuscular Volume 85.2 Mean Corpuscular Hemoglobin 26.5 L Mean Corpuscular Hemoglobin Concent 31.0 L Red Cell Distribution Width 14.2 Platelet Count 385 Mean Platelet Volume 9.6 Immature Granulocytes % 0.300 Neutrophils % 74.2 Lymphocytes % 17.0 Monocytes % 5.0 Eosinophils % 3.0 Basophils % 0.5 Nucleated Red Blood Cells % 0.0 Immature Granulocytes # 0.040 H Neutrophils # 9.0 H Lymphocytes # 2.1 Monocytes # 0.6 Eosinophils # 0.4 Basophils # 0.1 Nucleated Red Blood Cells # 0.0 Sodium Level 134 L Potassium Level 5.0 Chloride Level 94 L Carbon Dioxide Level 33 H Anion Gap 7 Blood Urea Nitrogen 17 Creatinine 0.26 L Est Glomerular Filtrat Rate mL/min > 60 Glucose Level 122 Calcium Level 9.7 Home Meds Reported Medications Ascorbic Acid (Vitamin C) 500 Mg Tab, 500 MG GTB DAILY, TAB 12/18/18 Cran/Vitc/Mannose/Inulin/Brom (Uti-Stat Liquid) 3,875 Mg/30 Ml Liquid, 30 MG GTB BID 12/18/18 Acetaminophen* (Acetaminophen*) 500 MG Extra Strength Tablet, 1000 MG GTB BID PRN for PAIN AND OR ELEVATED TEMP, TAB 12/18/18 Acetaminophen* (Acetaminophen*) 500 MG Extra Strength Tablet, 1000 MG GTB Q4H PRN for PAIN -02/24, TAB 12/18/18 Acetaminophen* (Tylenol*) 325 Mg Tablet, 650 MG GTB Q4H PRN for MILD PAIN LEVEL 1-3, TAB 12/18/18 Oxcarbazepine* (Trileptal*) 150 Mg Tablet, 150 MG GTB BID, TAB 12/18/18 Sodium Chloride* (Sodium Chloride*) 1 Gm Tablet, 1 GM GTB TID, TAB 12/18/18 Amino Acids/Protein Hydrolys (PRO-STAT LIQUID) 30 Ml Liquid.pkt, 30 ML GTB BID SUGAR FREE 12/18/18 Multivit &Minerals/Ferrous Fum (MULTIVITAMIN LIQUID) 9 Mg/15 Ml Liquid, 5 MG GTB DAILY 12/18/18 Magnesium Hydroxide* (Milk Of Magnesia*) 400 Mg/5 Ml Oral.susp, 30 ML GTB NEEDED for CONSTIPATION, ML 12/18/18 Na Phos,M-B/Na Phos,Di-Ba (Fleet Enema Extra) 230 Ml Enema, 1 APPLIC RC Q 2D, ENEMA 12/18/18 Ipratropium-Albuterol (Ipratropium-Albuterol) 0.5-3 Mg/3 Ml Ampul.neb, 3 ML INHALATION Q6, #30 VIAL 12/18/18 Bisacodyl* (Bisacodyl*) 10 Mg Supp, 10 MG RI Q24H for CONSTIPATION, SUPP 12/18/18 Cranberry Extract (Cranberry) 425 Mg Capsule, 425 MG GTB DAILY, CAP 12/18/18 Docusate Sodium* (Colace*) 100 Mg Capsule, 200 MG GTB QHS, #30 CAP 12/18/18 Medications Current Medications Miscellaneous Information (Pending Santyl Order For Wound Care) This patient huggins... PRN PRN XX WOUND CARE; Start 01/16/19 at 06:30 Collagenase (Santyl) 1 applic DAILY TOP Last administered on 01/25/19at 08:24; Admin Dose 1 APPLIC; Start 01/17/19 at 09:00 Amlodipine Besylate (Norvasc) 5 mg DAILY GTB Last administered on 01/25/19 08: 24; Admin Dose 5 MG; Start 01/17/19 at 09:00 Hydralazine HCl (Apresoline) 20 mg Q6H PRN IV HIGH BP; SYSTOLIC > 170; Start 01/16/19 at 20:30 Ascorbic Acid (Vitamin C) 500 mg DAILY GTB Last administered on 01/25/19 08:24; Admin Dose 500 MG; Start 01/22/19 at 09:00 Zinc Sulfate (Zinc Sulfate) 220 mg DAILY GTB Last administered on 01/25/19 08:24; Admin Dose 220 MG; Start 01/21/19 at 12:30 Acetaminophen (Tylenol Tab) 650 mg Q6H PRN PO MILD PAIN(1-3)OR ELEVATED TEMP; Start 01/22/19 at 09:00 Acetaminophen/ Hydrocodone Bitart ([place] (5/325)) 1 tab Q6H PRN PO MODERATE PAIN LEVEL 4-6 Last administered on 01/25/19 15:48; Admin Dose 1 TAB; Start 01/22/19 at 09:00 Metoclopramide HCl (Reglan) 5 mg Q6 IV Last administered on 01/25/19 12:16; Admin Dose 5 MG; Start 01/22/19 at 12:00 Famotidine (Pepcid) 20 mg BID PO Last administered on 01/25/19 08:24; Admin Dose 20 MG; Start 01/22/19 at 21:00 Scopolamine (Transderm-Scop) 1 patch Q72H TRANSDERM Last administered on 01/22/19 17:34; Admin Dose 1 PATCH; Start 01/22/19 at 17:00 Levalbuterol (Xopenex Neb) 0.63 mg Q8H RESP THERAPY HHN Last administered on 01/25/19 15:07; Admin Dose 0.63 MG; Start 01/25/19 at 08:00 Cefepime HCl 50 ml @ 100 mls/hr Q12 IVPB Last administered on 01/25/19 16:22; Admin Dose 100 MLS/HR; Start 01/25/19 at 16:30 Doxycycline Hyclate 100 mg/ Sodium Chloride 250 ml @ 250 mls/hr Q12 IVPB ; Start 01/25/19 at 17:00 Assessment/Plan Assessment/Plan (Daily) IMP: 1. Hypoxemic Resp Insufficiency 2. Aspiration vs. CAP 3. Anemia 4. CP RECS: 1. BDs 2. Abx 3. Aspiration precautions 4. Am CXR JOSSELYN COULTER MD January 25, 2019 16:31
[2019-01-25] MEDS: DOXYCYCLINE 100 MG in SOD CHLORIDE 0.9% 250 ML IVPB SCH (17:12)
[2019-01-25] MEDS: SCOPOLAMINE 1.5 MG PATCH TRANSDERM SCH (17:12)
[2019-01-26] VITALS (11 sets, daily range): BP systolic 106–130; BP diastolic 62–81; PULSE 96–107; RESP 19–21
[2019-01-26] MEDS: METOCLOPRAMIDE 10 MG INJ IV SCH ×4 (00:13→17:21)
[2019-01-26] MEDS: CEFEPIME 1GM/50 ML (PMX) 50 ML IVPB SCH ×3 (00:14→21:28)
[2019-01-26] MEDS: DOXYCYCLINE 100 MG in SOD CHLORIDE 0.9% 250 ML IVPB SCH ×3 (01:52→21:31)
--- NOTE | 2019-01-26 05:54 | PN ---
Date/Time of Note Date/Time of Note DATE: 01/26/19 TIME: 05:54 Assessment/Plan VTE Prophylaxis Risk score (from Ns)>0 risk: 3 SCD applied (from Ns): Yes Lines/Catheters IV Catheter Type (from Nrs): Saline Lock Urinary Cath still in place: No Assessment/Plan Assessment/Plan -Acute respiratory insufficiency. Dr. Clayton is following in pulmonology consultation -Healthcare facility acquired pneumonia versus aspiration pneumonia. Continue abx per ID. Dr. Poole is following in infection disease consultation. -Dysphagia with G-tube. -Cerebral palsy. -Chronic coccygeal decubitus ulcer. Continue current wound care, air mattress, offloading. -Protein calorie malnutrition, continue G-tube feeding, vitamins, zinc sulfate. -DNR status. Further recommendations based on clinical course. Plan of care discussed with Dr. Bowman. Result Diagram: 01/25/19 0502 01/25/19 0502 Exam/Review of Systems Exam Vitals Vital Signs Date Temp Pulse Resp B/P (MAP) Pulse Ox O2 O2 Flow FiO2 Time Delivery Rate 01/26/19 99 2.0 04:20 01/26/19 100 20 Nasal 04:20 Cannula 01/26/19 98.1 110/69 04:03 (83) Intake and Output 01/25/19 01/25/19 01/26/19 1515:00 23:00 07:00 IntakeIntake Total 850 ml BalanceBalance 850 ml Medications Medication Current Medications Miscellaneous Information (Pending Santyl Order For Wound Care) This patient h a... PRN PRN XX WOUND CARE; Start 01/16/19 at 06:30 Collagenase (Santyl) 1 applic DAILY TOP Last administered on 01/25/19at 08:24; Admin Dose 1 APPLIC; Start 01/17/19 at 09:00 Amlodipine Besylate (Norvasc) 5 mg DAILY GTB Last administered on 01/25/19at 08:24; Admin Dose 5 MG; Start 01/17/19 at 09:00 Hydralazine HCl (Apresoline) 20 mg Q6H PRN IV HIGH BP; SYSTOLIC > 170; Start 01/16/19 at 20:30 Ascorbic Acid (Vitamin C) 500 mg DAILY GTB Last administered on 01/25/19at 08:24; Admin Dose 500 MG; Start 01/22/19 at 09:00 Zinc Sulfate (Zinc Sulfate) 220 mg DAILY GTB Last administered on 01/25/19 08:24; Admin Dose 220 MG; Start 01/21/19 at 12:30 Acetaminophen (Tylenol Tab) 650 mg Q6H PRN PO MILD PAIN(1-3)OR ELEVATED TEMP; Start 01/22/19 at 09:00 Acetaminophen/ Hydrocodone Bitart ([place] (5/325)) 1 tab Q6H PRN PO MODERATE PAIN LEVEL 4-6 Last administered on 01/25/19 15:48; Admin Dose 1 TAB; Start 01/22/19 at 09:00 Metoclopramide HCl (Reglan) 5 mg Q6 IV Last administered on 01/26/19 05:36; Admin Dose 5 MG; Start 01/22/19 at 12:00 Famotidine (Pepcid) 20 mg BID PO Last administered on 01/25/19 21:58; Admin Dose 20 MG; Start 01/22/19 at 21:00 Scopolamine (Transderm-Scop) 1 patch Q72H TRANSDERM Last administered on 01/25/19 17:12; Admin Dose 1 PATCH; Start 01/22/19 at 17:00 Levalbuterol (Xopenex Neb) 0.63 mg Q8H RESP THERAPY HHN Last administered on 01/25/19 23:55; Admin Dose 0.63 MG; Start 01/25/19 at 08:00 Cefepime HCl 50 ml @ 100 mls/hr Q12 IVPB Last administered on 01/26/19 00:14; Admin Dose 100 MLS/HR; Start 01/25/19 at 16:30 Doxycycline Hyclate 100 mg/ Sodium Chloride 250 ml @ 250 mls/hr Q12 IVPB Last administered on 01/26/19 01:52; Admin Dose 250 MLS/HR; Start 01/25/19 at 17:00 JASMYNE HOOKS January 26, 2019 05:54
[2019-01-26] MEDS: ZINC SULFATE 220 MG CAP GTB SCH (07:33)
[2019-01-26] MEDS: AMLODIPINE 5 MG TAB GTB SCH (07:33)
[2019-01-26] MEDS: ASCORBIC ACID 500 MG TAB GTB SCH (07:33)
[2019-01-26] MEDS: FAMOTIDINE 20 MG TAB PO SCH ×2 (07:33→21:32)
[2019-01-26] MEDS: COLLAGENASE 5 GM (UD JAR) TOP SCH (07:33)
[2019-01-26] MEDS: LEVALBUTEROL (NEB) 0.63 MG/3 ML AMP HHN SCH ×2 (08:08→15:25)
--- NOTE | 2019-01-26 13:28 | CONS ---
Assessment/Plan Assessment/Plan Hospital Course (Demo Recall) ID PROGRESS NOTE CURRENT ABX: DAY # => Doxy #1 + Cefepime restarted yesterday for SIRS and chest congestion s/p Vanco IV + Cefepime 01/16 - 01/24 24H INTERVAL SUMMARY * ABX restarted yesterday as she demonstrated SIRS w/concern early sepsis post ABX cessation w/ low grade higher temps 99.7 + tachycardia, (+) dyspnea and rising WBC == TODAY SIRS HAS RESOLVED W/RETURN TO IV ABX * Secretion retention due to cerebral palsy neurogenic weakness w/ chest congestion requiring frequent suctioning. Currently on 2 liters * TF dependent for nutrition w/dysphagia RADIOLOGY IMAGING * 01/24/19 CXR: No significant change. Very limited study due to overlying patient's hands. Repeat study is recommended.Patchy bibasilar atelectatic changes and infiltrates. MICRO/OTHER * 01/15/19: BCX (-) * 01/15/19: URINE CX (-) PHYSICAL EXAMINATION: GENERAL: VSS, NAD HEENT: AT, NC, anicteric, oral secretions NECK: Supple, laryngeal congestion CHEST: Equal chest rise bilaterally, without dyspnea on observation = coarse chest congestion HEART: Pulse RRR ABDOMEN: Soft / NT EXTREMITIES: Warm, dry SKIN: No rash, no diaphoresis ID ASSESSMENT 43 yo F admit with: 1. SIRS w/Twmp 99.7, tachycardia, hypoxemia, dyspnea == WORSE AFTER ABX DC'D * == TODAY SIRS HAS RESOLVED W/RETURN TO IV ABX 2. HCAP w/significant secretion retention, aspiration syndrome 3. Acute hypoxemic respiratory failure on admission 4. Dysphasia 5. Cerebral palsy w/neuromuscular degenerative weakness ABX ALLERGIES: KNDA INVASIVES: PIV CURRENT ABX: DAY # > Doxy #1 + Cefepime restarted yesterday for SIRS and chest congestion s/p Vanco IV + Cefepime 01/16 - 01/24 ID RECOMMENDATIONS/PLAN: 1. Concern for recurrent secretion retention, chest congestion w/ongoing aspiration * Restarted Cefepime + Doxy IV yesterday afternoon with resolution of SIRS 2. Checking nares for MRSA . Consultation Date/Type/Reason Admit Date/Time January 15, 2019 at 22:36 Initial Consult Date 01/17/19 Date/Time of Note DATE: 01/26/19 TIME: 13:24 Exam/Review of Systems Exam Vitals Vital Signs Date Temp Pulse Resp B/P (MAP) Pulse Ox O2 O2 Flow FiO2 Time Delivery Rate 01/26/19 102 12:00 01/26/19 98.0 21 109/62 100 11:26 (78) 01/26/19 Nasal 2.0 08:08 Cannula Intake and Output 01/25/19 01/25/19 01/26/19 1515:00 23:00 07:00 IntakeIntake Total 1150 ml 1100 ml BalanceBalance 1150 ml 1100 ml Results Result Diagram: 01/26/19 0544 01/26/19 0544 Results 24hrs Laboratory Tests Test 01/26/19 05:44 White Blood Count 9.7 # Red Blood Count 3.78 L Hemoglobin 9.9 L Hematocrit 32.8 L Mean Corpuscular Volume 86.8 Mean Corpuscular Hemoglobin 26.2 L Mean Corpuscular Hemoglobin Concent 30.2 L Red Cell Distribution Width 14.0 Platelet Count 288 # Mean Platelet Volume 9.6 Immature Granulocytes % 0.500 H Neutrophils % 62.2 Lymphocytes % 24.3 Monocytes % 7.2 Eosinophils % 5.3 Basophils % 0.5 Nucleated Red Blood Cells % 0.0 Immature Granulocytes # 0.050 H Neutrophils # 6.0 Lymphocytes # 2.4 Monocytes # 0.7 Eosinophils # 0.5 Basophils # 0.1 Nucleated Red Blood Cells # 0.0 Sodium Level 137 Potassium Level 4.6 Chloride Level 97 Carbon Dioxide Level 32 H Anion Gap 8 Blood Urea Nitrogen 19 Creatinine 0.25 L Est Glomerular Filtrat Rate mL/min > 60 Glucose Level 104 Calcium Level 9.4 Medications Medication Current Medications Miscellaneous Information (Pending Santyl Order For Wound Care) This patient huggins... PRN PRN XX WOUND CARE; Start 01/16/19 at 06:30 Collagenase (Santyl) 1 applic DAILY TOP Last administered on 01/26/19at 07:33; Admin Dose 1 APPLIC; Start 01/17/19 at 09:00 Amlodipine Besylate (Norvasc) 5 mg DAILY GTB Last administered on 01/26/19at 07:33; Admin Dose 5 MG; Start 01/17/19 at 09:00 Hydralazine HCl (Apresoline) 20 mg Q6H PRN IV HIGH BP; SYSTOLIC > 170; Start 01/16/19 at 20:30 Ascorbic Acid (Vitamin C) 500 mg DAILY GTB Last administered on 01/26/19 07:33; Admin Dose 500 MG; Start 01/22/19 at 09:00 Zinc Sulfate (Zinc Sulfate) 220 mg DAILY GTB Last administered on 01/26/19 07:33; Admin Dose 220 MG; Start 01/21/19 at 12:30 Acetaminophen (Tylenol Tab) 650 mg Q6H PRN PO MILD PAIN(1-3)OR ELEVATED TEMP; Start 01/22/19 at 09:00 Acetaminophen/ Hydrocodone Bitart ([place] (5/325)) 1 tab Q6H PRN PO MODERATE PAIN LEVEL 4-6 Last administered on 01/25/19 15:48; Admin Dose 1 TAB; Start 01/22/19 at 09:00 Metoclopramide HCl (Reglan) 5 mg Q6 IV Last administered on 01/26/19 12:33; Admin Dose 5 MG; Start 01/22/19 at 12:00 Famotidine (Pepcid) 20 mg BID PO Last administered on 01/26/19 07:33; Admin Dose 20 MG; Start 01/22/19 at 21:00 Scopolamine (Transderm-Scop) 1 patch Q72H TRANSDERM Last administered on 01/25/19 17:12; Admin Dose 1 PATCH; Start 01/22/19 at 17:00 Levalbuterol (Xopenex Neb) 0.63 mg Q8H RESP THERAPY HHN Last administered on 01/26/19 08:08; Admin Dose 0.63 MG; Start 01/25/19 at 08:00 Cefepime HCl 50 ml @ 100 mls/hr Q12 IVPB Last administered on 01/26/19 07:34; Admin Dose 100 MLS/HR; Start 01/25/19 at 16:30 Doxycycline Hyclate 100 mg/ Sodium Chloride 250 ml @ 250 mls/hr Q12 IVPB Last administered on 01/26/19 08:27; Admin Dose 250 MLS/HR; Start 01/25/19 at 17:00 CHARLOTTE THOMAS NP January 26, 2019 13:27
--- NOTE | 2019-01-26 15:03 | CONS ---
Consult Date/Type/Reason Admit Date/Time January 15, 2019 at 22:36 Initial Consult Date 01/17/19 Type of Consultation: Pulm Date/Time of Note DATE: 01/26/19 TIME: 15:01 Subjective No events. Back on antibiotics as per ID. Objective Vitals Vital Signs Date Temp Pulse Resp B/P (MAP) Pulse Ox O2 O2 Flow FiO2 Time Delivery Rate 01/26/19 102 12:00 01/26/19 98.0 21 109/62 100 11:26 (78) 01/26/19 Nasal 2.0 08:08 Cannula Intake and Output 01/25/19 01/25/19 01/26/19 1414:59 22:59 06:59 IntakeIntake Total 1150 ml 1100 ml BalanceBalance 1150 ml 1100 ml Exam HEENT: Neck supple; no JVD; no LAD CVS: RRR, S1 and S2 CHEST: Coarse BS b/l ABD: Soft, NT, + BS EXT: No c/c/e 3. Aspiration precautions 4. Am CXR Results/Medications Result Diagram: 01/26/19 0544 01/26/19 0544 Results 24 hrs Laboratory Tests Test 01/26/19 05:44 White Blood Count 9.7 # Red Blood Count 3.78 L Hemoglobin 9.9 L Hematocrit 32.8 L Mean Corpuscular Volume 86.8 Mean Corpuscular Hemoglobin 26.2 L Mean Corpuscular Hemoglobin Concent 30.2 L Red Cell Distribution Width 14.0 Platelet Count 288 # Mean Platelet Volume 9.6 Immature Granulocytes % 0.500 H Neutrophils % 62.2 Lymphocytes % 24.3 Monocytes % 7.2 Eosinophils % 5.3 Basophils % 0.5 Nucleated Red Blood Cells % 0.0 Immature Granulocytes # 0.050 H Neutrophils # 6.0 Lymphocytes # 2.4 Monocytes # 0.7 Eosinophils # 0.5 Basophils # 0.1 Nucleated Red Blood Cells # 0.0 Sodium Level 137 Potassium Level 4.6 Chloride Level 97 Carbon Dioxide Level 32 H Anion Gap 8 Blood Urea Nitrogen 19 Creatinine 0.25 L Est Glomerular Filtrat Rate mL/min > 60 Glucose Level 104 Calcium Level 9.4 Home Meds Reported Medications Ascorbic Acid (Vitamin C) 500 Mg Tab, 500 MG GTB DAILY, TAB 12/18/18 Cran/Vitc/Mannose/Inulin/Brom (Uti-Stat Liquid) 3,875 Mg/30 Ml Liquid, 30 MG GTB BID 12/18/18 Acetaminophen* (Acetaminophen*) 500 MG Extra Strength Tablet, 1000 MG GTB BID PRN for PAIN AND OR ELEVATED TEMP, TAB 12/18/18 Acetaminophen* (Acetaminophen*) 500 MG Extra Strength Tablet, 1000 MG GTB Q4H PRN for PAIN 4-02/24, TAB 12/18/18 Acetaminophen* (Tylenol*) 325 Mg Tablet, 650 MG GTB Q4H PRN for MILD PAIN LEVEL 1-3, TAB 12/18/18 Oxcarbazepine* (Trileptal*) 150 Mg Tablet, 150 MG GTB BID, TAB 12/18/18 Sodium Chloride* (Sodium Chloride*) 1 Gm Tablet, 1 GM GTB TID, TAB 12/18/18 Amino Acids/Protein Hydrolys (PRO-STAT LIQUID) 30 Ml Liquid.pkt, 30 ML GTB BID SUGAR FREE 12/18/18 Multivit &Minerals/Ferrous Fum (MULTIVITAMIN LIQUID) 9 Mg/15 Ml Liquid, 5 MG GTB DAILY 12/18/18 Magnesium Hydroxide* (Milk Of Magnesia*) 400 Mg/5 Ml Oral.susp, 30 ML GTB NEEDED for CONSTIPATION, ML 12/18/18 Na Phos,M-B/Na Phos,Di-Ba (Fleet Enema Extra) 230 Ml Enema, 1 APPLIC RC Q 2D, ENEMA 12/18/18 Ipratropium-Albuterol (Ipratropium-Albuterol) 0.5-3 Mg/3 Ml Ampul.neb, 3 ML INHALATION Q6, #30 VIAL 12/18/18 Bisacodyl* (Bisacodyl*) 10 Mg Supp, 10 MG ME Q24H for CONSTIPATION, SUPP 12/18/18 Cranberry Extract (Cranberry) 425 Mg Capsule, 425 MG GTB DAILY, CAP 12/18/18 Docusate Sodium* (Colace*) 100 Mg Capsule, 200 MG GTB QHS, #30 CAP 12/18/18 Medications Current Medications Miscellaneous Information (Pending Santyl Order For Wound Care) This patient huggins... PRN PRN XX WOUND CARE; Start 01/16/19 at 06:30 Collagenase (Santyl) 1 applic DAILY TOP Last administered on 01/26/19at 07:33; Admin Dose 1 APPLIC; Start 01/17/19 at 09:00 Amlodipine Besylate (Norvasc) 5 mg DAILY GTB Last administered on 01/26/19 07:33; Admin Dose 5 MG; Start 01/17/19 at 09:00 Hydralazine HCl (Apresoline) 20 mg Q6H PRN IV HIGH BP; SYSTOLIC > 170; Start 01/16/19 at 20:30 Ascorbic Acid (Vitamin C) 500 mg DAILY GTB Last administered on 01/26/19 07:33; Admin Dose 500 MG; Start 01/22/19 at 09:00 Zinc Sulfate (Zinc Sulfate) 220 mg DAILY GTB Last administered on 01/26/19 07:33; Admin Dose 220 MG; Start 01/21/19 at 12:30 Acetaminophen (Tylenol Tab) 650 mg Q6H PRN PO MILD PAIN(1-3)OR ELEVATED TEMP; Start 01/22/19 at 09:00 Acetaminophen/ Hydrocodone Bitart ([place] (5/325)) 1 tab Q6H PRN PO MODERATE PAIN LEVEL 4-6 Last administered on 01/25/19 15:48; Admin Dose 1 TAB; Start 01/22/19 at 09:00 Metoclopramide HCl (Reglan) 5 mg Q6 IV Last administered on 01/26/19 12:33; Admin Dose 5 MG; Start 01/22/19 at 12:00 Famotidine (Pepcid) 20 mg BID PO Last administered on 01/26/19 07:33; Admin Dose 20 MG; Start 01/22/19 at 21:00 Scopolamine (Transderm-Scop) 1 patch Q72H TRANSDERM Last administered on 01/25/19 17:12; Admin Dose 1 PATCH; Start 01/22/19 at 17:00 Levalbuterol (Xopenex Neb) 0.63 mg Q8H RESP THERAPY HHN Last administered on 01/26/19 08:08; Admin Dose 0.63 MG; Start 01/25/19 at 08:00 Cefepime HCl 50 ml @ 100 mls/hr Q12 IVPB Last administered on 01/26/19 07:34; Admin Dose 100 MLS/HR; Start 01/25/19 at 16:30 Doxycycline Hyclate 100 mg/ Sodium Chloride 250 ml @ 250 mls/hr Q12 IVPB Last administered on 01/26/19at 08:27; Admin Dose 250 MLS/HR; Start 01/25/19 at 17:00 Assessment/Plan Assessment/Plan (Daily) IMP: 1. Hypoxemic Resp Insufficiency 2. Aspiration vs. CAP--repeat CXR with no significant infiltrates/mild LLL atelectasis vs. consolidation (improved) 3. Anemia 4. CP RECS: 1. BDs 2. Abx per ID 3. Aspiration precautions JOSSELYN COULTER MD January 26, 2019 15:03
[2019-01-27] VITALS (10 sets, daily range): BP systolic 100–115; BP diastolic 68–76; PULSE 85–108; RESP 18–20
[2019-01-27] MEDS: LEVALBUTEROL (NEB) 0.63 MG/3 ML AMP HHN SCH ×3 (00:24→15:03)
[2019-01-27] MEDS: METOCLOPRAMIDE 10 MG INJ IV SCH ×4 (01:00→17:33)
[2019-01-27] MEDS: CEFEPIME 1GM/50 ML (PMX) 50 ML IVPB SCH ×2 (08:24→20:59)
[2019-01-27] MEDS: ZINC SULFATE 220 MG CAP GTB SCH (08:26)
[2019-01-27] MEDS: FAMOTIDINE 20 MG TAB PO SCH ×2 (08:26→21:06)
[2019-01-27] MEDS: DOXYCYCLINE 100 MG in SOD CHLORIDE 0.9% 250 ML IVPB SCH ×2 (08:26→21:31)
[2019-01-27] MEDS: ASCORBIC ACID 500 MG TAB GTB SCH (08:26)
[2019-01-27] MEDS: AMLODIPINE 5 MG TAB GTB SCH (08:27)
[2019-01-27] MEDS: COLLAGENASE 5 GM (UD JAR) TOP SCH (08:27)
[2019-01-27] MEDS: ACETAMINOPHEN 325 MG TAB PO PRN ×2 (09:57→16:26)
--- NOTE | 2019-01-27 13:42 | PN ---
Date/Time of Note Date/Time of Note DATE: 01/27/19 TIME: 13:42 Assessment/Plan VTE Prophylaxis Risk score (from Ns)>0 risk: 3 SCD applied (from Ns): Yes Pharmacological prophylaxis: LMWH Lines/Catheters IV Catheter Type (from Nrs): PICC Line Central line still needed: Yes Urinary Cath still in place: No Assessment/Plan Hospital Course Pt continues on Doxy and Cefepime, supplemental oxygen, tolerates GT feeding well. Continue pulm toilet, breathing treatment, aspiration precaution. Assessment/Plan -Acute respiratory insufficiency. Dr. Clayton is following in pulmonology consultation -Healthcare facility acquired pneumonia versus aspiration pneumonia. Continue abx per ID. Dr. Poole is following in infection disease consultation. -Dysphagia with G-tube. -Cerebral palsy. -Chronic coccygeal decubitus ulcer. Continue current wound care, air mattress, offloading. -Protein calorie malnutrition, continue G-tube feeding, vitamins, zinc sulfate. -DNR status. Further recommendations based on clinical course. Plan of care discussed with Dr. Bowman. Result Diagram: 01/26/1944 01/26/1944 Exam/Review of Systems Exam Vitals Vital Signs Date Temp Pulse Resp B/P (MAP) Pulse Ox O2 O2 Flow FiO2 Time Delivery Rate 01/27/19 2.0 12:36 01/27/19 91 12:35 01/27/19 98.3 20 100/70 100 11:18 (80) 01/27/19 21 09:34 01/27/19 Nasal 08:00 Cannula Intake and Output 01/26/19 01/26/19 01/27/19 1515:00 23:00 07:00 IntakeIntake Total 300 ml 850 ml BalanceBalance 300 ml 850 ml Exam Constitutional: non-verbal Respiratory: diminished breath sounds Cardiovascular: nl pulse Gastrointestinal: soft, non-tender, other (G-tube) Musculoskeletal: muscle weakness Extremities: other (Contracted extremities) Medications Medication Current Medications Miscellaneous Information (Pending Santyl Order For Wound Care) This patient huggins... PRN PRN XX WOUND CARE; Start 01/16/19 at 06:30 Collagenase (Santyl) 1 applic DAILY TOP Last administered on 01/27/19at 08:27; Admin Dose 1 APPLIC; Start 01/17/19 at 09:00 Amlodipine Besylate (Norvasc) 5 mg DAILY GTB Last administered on 01/27/19 08:27; Admin Dose 5 MG; Start 01/17/19 at 09:00 Hydralazine HCl (Apresoline) 20 mg Q6H PRN IV HIGH BP; SYSTOLIC > 170; Start 01/16/19 at 20:30 Ascorbic Acid (Vitamin C) 500 mg DAILY GTB Last administered on 01/27/19 08:26; Admin Dose 500 MG; Start 01/22/19 at 09:00 Zinc Sulfate (Zinc Sulfate) 220 mg DAILY GTB Last administered on 01/27/19 08:26; Admin Dose 220 MG; Start 01/21/19 at 12:30 Acetaminophen (Tylenol Tab) 650 mg Q6H PRN PO MILD PAIN(1-3)OR ELEVATED TEMP Last administered on 01/27/19 09:57; Admin Dose 650 MG; Start 01/22/19 at 09:00 Acetaminophen/ Hydrocodone Bitart ([place] (5/325)) 1 tab Q6H PRN PO MODERATE PAIN LEVEL 4-6 Last administered on 01/25/19 15:48; Admin Dose 1 TAB; Start 01/22/19 at 09:00 Metoclopramide HCl (Reglan) 5 mg Q6 IV Last administered on 01/27/19 12:06; Admin Dose 5 MG; Start 01/22/19 at 12:00 Famotidine (Pepcid) 20 mg BID PO Last administered on 01/27/19 08:26; Admin Dose 20 MG; Start 01/22/19 at 21:00 Scopolamine (Transderm-Scop) 1 patch Q72H TRANSDERM Last administered on 01/25/19 17:12; Admin Dose 1 PATCH; Start 01/22/19 at 17:00 Levalbuterol (Xopenex Neb) 0.63 mg Q8H RESP THERAPY HHN Last administered on 01/27/19 09:34; Admin Dose 0.63 MG; Start 01/25/19 at 08:00 Cefepime HCl 50 ml @ 100 mls/hr Q12 IVPB Last administered on 01/27/19 08:24; Admin Dose 100 MLS/HR; Start 01/25/19 at 16:30 Doxycycline Hyclate 100 mg/ Sodium Chloride 250 ml @ 250 mls/hr Q12 IVPB Last administered on 01/27/19at 08:26; Admin Dose 250 MLS/HR; Start 01/25/19 at 17:00 LIBIA CARBALLO January 27, 2019 13:42
--- NOTE | 2019-01-27 15:24 | CONS ---
Consult Date/Type/Reason Admit Date/Time January 15, 2019 at 22:36 Initial Consult Date 01/17/19 Type of Consult Pulmonary Date/Time of Note DATE: 01/27/19 TIME: 15:24 Subjective Is comfortable no respiratory distress Objective Vital Signs Date Temp Pulse Resp B/P (MAP) Pulse Ox O2 O2 Flow FiO2 Time Delivery Rate 01/27/19 98.3 87 20 115/75 100 15:16 (88) 01/27/19 2.0 12:36 01/27/19 21 09:34 01/27/19 Nasal 08:00 Cannula Intake and Output 01/26/19 01/26/19 01/27/19 1515:00 23:00 07:00 IntakeIntake Total 300 ml 850 ml BalanceBalance 300 ml 850 ml Exam General lady comfortable at rest no acute distress Vent Setting Fraction of Inspired Oxygen pe: 21 Results/Medications Result Diagram: 01/26/19 0544 01/26/19 0544 Medications Current Medications Miscellaneous Information (Pending Santyl Order For Wound Care) This patient huggins... PRN PRN XX WOUND CARE; Start 01/16/19 at 06:30 Collagenase (Santyl) 1 applic DAILY TOP Last administered on 01/27/19at 08:27; Admin Dose 1 APPLIC; Start 01/17/19 at 09:00 Amlodipine Besylate (Norvasc) 5 mg DAILY GTB Last administered on 01/27/19 08:27; Admin Dose 5 MG; Start 01/17/19 at 09:00 Hydralazine HCl (Apresoline) 20 mg Q6H PRN IV HIGH BP; SYSTOLIC > 170; Start 01/16/19 at 20:30 Ascorbic Acid (Vitamin C) 500 mg DAILY GTB Last administered on 01/27/19 08:26; Admin Dose 500 MG; Start 01/22/19 at 09:00 Zinc Sulfate (Zinc Sulfate) 220 mg DAILY GTB Last administered on 01/27/19 08:26; Admin Dose 220 MG; Start 01/21/19 at 12:30 Acetaminophen (Tylenol Tab) 650 mg Q6H PRN PO MILD PAIN(1-3)OR ELEVATED TEMP Last administered on 01/27/19at 09:57; Admin Dose 650 MG; Start 01/22/19 at 09:00 Acetaminophen/ Hydrocodone Bitart ([place] (5/325)) 1 tab Q6H PRN PO MODERATE PAIN LEVEL 4-6 Last administered on 01/25/19 15:48; Admin Dose 1 TAB; Start 01/22/19 at 09:00 Metoclopramide HCl (Reglan) 5 mg Q6 IV Last administered on 01/27/19 12:06; Admin Dose 5 MG; Start 01/22/19 at 12:00 Famotidine (Pepcid) 20 mg BID PO Last administered on 01/27/19 08:26; Admin Dose 20 MG; Start 01/22/19 at 21:00 Scopolamine (Transderm-Scop) 1 patch Q72H TRANSDERM Last administered on 01/25/19 17:12; Admin Dose 1 PATCH; Start 01/22/19 at 17:00 Levalbuterol (Xopenex Neb) 0.63 mg Q8H RESP THERAPY HHN Last administered on 01/27/19 15:03; Admin Dose 0.63 MG; Start 01/25/19 at 08:00 Cefepime HCl 50 ml @ 100 mls/hr Q12 IVPB Last administered on 01/27/19 08:24; Admin Dose 100 MLS/HR; Start 01/25/19 at 16:30 Doxycycline Hyclate 100 mg/ Sodium Chloride 250 ml @ 250 mls/hr Q12 IVPB Last administered on 01/27/19 08:26; Admin Dose 250 MLS/HR; Start 01/25/19 at 17:00 Assessment/Plan Hospital Course (Demo Recall) IMP: 1. Hypoxemic Resp Insufficiency 2. Aspiration vs. CAP--repeat CXR with no significant infiltrates/mild LLL atelectasis vs. consolidation (improved) 3. Anemia 4. CP RECS: 1. BDs 2. Abx per ID 3. Aspiration precautions PAYTON SOTO MD, FCCP January 27, 2019 15:24
--- NOTE | 2019-01-27 15:26 | CONS ---
Assessment/Plan Assessment/Plan Hospital Course (Demo Recall) No acute events pt looks comfortable, no fevers Microbiology: Blood and urine cultures negative Indwelling: PEG Antimicrobials: Doxycycline, cefepime Physical examination: Chronically ill-appearing middle-aged woman who is laying comfortably in bed. Head atraumatic normocephalic sclera nonicteric vehicle mucosa dry neck is supple chest rise symmetrical breath sounds with bilateral rails. Heart: S1-S2 abdomen soft bowel sounds present extremities without cyanosis Assessment: 1. Acute hypoxemic respiratory failure on admission 2. Pneumonia possibly aspirated 3. Dysphasia 4. Cerebral palsy Plan: Clinically unchanged, continue present care, continue aspiration precautions, antibiotics Consultation Date/Type/Reason Admit Date/Time January 15, 2019 at 22:36 Initial Consult Date 01/17/19 Type of Consult id Date/Time of Note DATE: 01/27/19 TIME: 15:25 Exam/Review of Systems Exam Vitals Vital Signs Date Temp Pulse Resp B/P (MAP) Pulse Ox O2 O2 Flow FiO2 Time Delivery Rate 01/27/19 98.3 87 20 115/75 100 15:16 (88) 01/27/19 2.0 12:36 01/27/19 21 09:34 01/27/19 Nasal 08:00 Cannula Intake and Output 01/26/19 01/26/19 01/27/19 1515:00 23:00 07:00 IntakeIntake Total 300 ml 850 ml BalanceBalance 300 ml 850 ml Results Result Diagram: 01/26/19 0544 01/26/19 0544 Medications Medication Current Medications Miscellaneous Information (Pending Santyl Order For Wound Care) This patient huggins... PRN PRN XX WOUND CARE; Start 01/16/19 at 06:30 Collagenase (Santyl) 1 applic DAILY TOP Last administered on 01/27/19at 08:27; Admin Dose 1 APPLIC; Start 01/17/19 at 09:00 Amlodipine Besylate (Norvasc) 5 mg DAILY GTB Last administered on 01/27/19at 08:27; Admin Dose 5 MG; Start 01/17/19 at 09:00 Hydralazine HCl (Apresoline) 20 mg Q6H PRN IV HIGH BP; SYSTOLIC > 170; Start 01/16/19 at 20:30 Ascorbic Acid (Vitamin C) 500 mg DAILY GTB Last administered on 01/27/19 08:26; Admin Dose 500 MG; Start 01/22/19 at 09:00 Zinc Sulfate (Zinc Sulfate) 220 mg DAILY GTB Last administered on 01/27/19 08:26; Admin Dose 220 MG; Start 01/21/19 at 12:30 Acetaminophen (Tylenol Tab) 650 mg Q6H PRN PO MILD PAIN(1-3)OR ELEVATED TEMP Last administered on 01/27/19 09:57; Admin Dose 650 MG; Start 01/22/19 at 09:00 Acetaminophen/ Hydrocodone Bitart ([place] (5/325)) 1 tab Q6H PRN PO MODERATE PAIN LEVEL 4-6 Last administered on 01/25/19 15:48; Admin Dose 1 TAB; Start 01/22/19 at 09:00 Metoclopramide HCl (Reglan) 5 mg Q6 IV Last administered on 01/27/19 12:06; Admin Dose 5 MG; Start 01/22/19 at 12:00 Famotidine (Pepcid) 20 mg BID PO Last administered on 01/27/19 08:26; Admin Dose 20 MG; Start 01/22/19 at 21:00 Scopolamine (Transderm-Scop) 1 patch Q72H TRANSDERM Last administered on 01/25/19 17:12; Admin Dose 1 PATCH; Start 01/22/19 at 17:00 Levalbuterol (Xopenex Neb) 0.63 mg Q8H RESP THERAPY HHN Last administered on 01/27/19 15:03; Admin Dose 0.63 MG; Start 01/25/19 at 08:00 Cefepime HCl 50 ml @ 100 mls/hr Q12 IVPB Last administered on 01/27/19 08:24; Admin Dose 100 MLS/HR; Start 01/25/19 at 16:30 Doxycycline Hyclate 100 mg/ Sodium Chloride 250 ml @ 250 mls/hr Q12 IVPB Last administered on 01/27/19 08:26; Admin Dose 250 MLS/HR; Start 01/25/19 at 17:00 ALLISON LOMELI NP January 27, 2019 15:26
[2019-01-28] VITALS (10 sets, daily range): BP systolic 99–123; BP diastolic 58–73; PULSE 63–102; RESP 18–20
[2019-01-28] MEDS: METOCLOPRAMIDE 10 MG INJ IV SCH ×4 (01:04→17:36)
[2019-01-28] MEDS: HYDROCODONE/APAP (5/325) TAB PO PRN (01:04)
[2019-01-28] MEDS: LEVALBUTEROL (NEB) 0.63 MG/3 ML AMP HHN SCH ×4 (08:11→23:10)
[2019-01-28] MEDS: ASCORBIC ACID 500 MG TAB GTB SCH (09:05)
[2019-01-28] MEDS: FAMOTIDINE 20 MG TAB PO SCH ×2 (09:05→21:16)
[2019-01-28] MEDS: ZINC SULFATE 220 MG CAP GTB SCH (09:06)
[2019-01-28] MEDS: CEFEPIME 1GM/50 ML (PMX) 50 ML IVPB SCH (09:07)
[2019-01-28] MEDS: COLLAGENASE 5 GM (UD JAR) TOP SCH (09:07)
[2019-01-28] MEDS: AMLODIPINE 5 MG TAB GTB SCH (09:07)
[2019-01-28] MEDS: ENOXAPARIN 30 MG/0.3 ML SYG SC SCH (09:30)
[2019-01-28] MEDS: DOXYCYCLINE 100 MG in SOD CHLORIDE 0.9% 250 ML IVPB SCH (10:42)
--- NOTE | 2019-01-28 15:12 | PN ---
Date/Time of Note Date/Time of Note DATE: 01/28/19 TIME: 15:10 Assessment/Plan VTE Prophylaxis Risk score (from Ns)>0 risk: 7 SCD applied (from Ns): Yes Pharmacological prophylaxis: LMWH Lines/Catheters IV Catheter Type (from [facility]): [place] Urinary Cath still in place: No Assessment/Plan Hospital Course Patient continues on supplemental oxygen, less secretions however still requires frequent suctioning, pt continues on Doxy and Cefepime for pneumonia. continue pulm toilet, breathing treatment, aspiration precaution. Assessment/Plan -Acute respiratory insufficiency. Dr. Clayton is following in pulmonology consultation -Healthcare facility acquired pneumonia versus aspiration pneumonia. Continue abx per ID. Dr. Poole is following in infection disease consultation. -Dysphagia with G-tube. -Cerebral palsy. -Chronic coccygeal decubitus ulcer. Continue current wound care, air mattress, offloading. -Protein calorie malnutrition, continue G-tube feeding, vitamins, zinc sulfate. -DNR status. Further recommendations based on clinical course. Plan of care discussed with Dr. Bowman. Result Diagram: 01/28/1917 01/28/19 0517 Results 24hrs Laboratory Tests Test 01/28/19 05:17 White Blood Count 10.8 Red Blood Count 3.67 L Hemoglobin 9.6 L Hematocrit 31.9 L Mean Corpuscular Volume 86.9 Mean Corpuscular Hemoglobin 26.2 L Mean Corpuscular Hemoglobin Concent 30.1 L Red Cell Distribution Width 13.6 Platelet Count 248 Mean Platelet Volume 10.3 Immature Granulocytes % 0.400 Neutrophils % 76.6 Lymphocytes % 14.4 L Monocytes % 5.0 Eosinophils % 3.1 Basophils % 0.5 Nucleated Red Blood Cells % 0.0 Immature Granulocytes # 0.040 H Neutrophils # 8.3 H Lymphocytes # 1.6 Monocytes # 0.5 Eosinophils # 0.3 Basophils # 0.1 Nucleated Red Blood Cells # 0.0 Sodium Level 136 Potassium Level 4.8 Chloride Level 98 Carbon Dioxide Level 30 Anion Gap 8 Blood Urea Nitrogen 19 Creatinine 0.25 L Est Glomerular Filtrat Rate mL/min > 60 Glucose Level 102 Calcium Level 9.3 Exam/Review of Systems Exam Vitals Vital Signs Date Temp Pulse Resp B/P (MAP) Pulse Ox O2 O2 Flow FiO2 Time Delivery Rate 01/28/19 94 12:37 01/28/19 98.6 20 104/62 99 11:11 (76) 01/28/19 3.0 08:18 01/28/19 Nasal 08:16 Cannula 01/28/19 28 00:02 Intake and Output 01/27/19 01/27/19 01/28/19 1515:00 23:00 07:00 IntakeIntake Total 300 ml 850 ml OutputOutput Total 3 ml BalanceBalance 297 ml 850 ml Exam Constitutional: non-verbal Respiratory: diminished breath sounds Cardiovascular: nl pulse Gastrointestinal: soft, non-tender, other (G-tube) Musculoskeletal: muscle weakness Extremities: other (Contracted extremities) Results Results 24hrs Laboratory Tests Test 01/28/19 05:17 White Blood Count 10.8 Red Blood Count 3.67 L Hemoglobin 9.6 L Hematocrit 31.9 L Mean Corpuscular Volume 86.9 Mean Corpuscular Hemoglobin 26.2 L Mean Corpuscular Hemoglobin Concent 30.1 L Red Cell Distribution Width 13.6 Platelet Count 248 Mean Platelet Volume 10.3 Immature Granulocytes % 0.400 Neutrophils % 76.6 Lymphocytes % 14.4 L Monocytes % 5.0 Eosinophils % 3.1 Basophils % 0.5 Nucleated Red Blood Cells % 0.0 Immature Granulocytes # 0.040 H Neutrophils # 8.3 H Lymphocytes # 1.6 Monocytes # 0.5 Eosinophils # 0.3 Basophils # 0.1 Nucleated Red Blood Cells # 0.0 Sodium Level 136 Potassium Level 4.8 Chloride Level 98 Carbon Dioxide Level 30 Anion Gap 8 Blood Urea Nitrogen 19 Creatinine 0.25 L Est Glomerular Filtrat Rate mL/min > 60 Glucose Level 102 Calcium Level 9.3 Medications Medication Current Medications Miscellaneous Information (Pending Santyl Order For Wound Care) This patient huggins... PRN PRN XX WOUND CARE; Start 01/16/19 at 06:30 Collagenase (Santyl) 1 applic DAILY TOP Last administered on 01/28/19at 09:07; Admin Dose 1 APPLIC; Start 01/17/19 at 09:00 Amlodipine Besylate (Norvasc) 5 mg DAILY GTB Last administered on 01/28/19at 09:07; Admin Dose 5 MG; Start 01/17/19 at 09:00 Hydralazine HCl (Apresoline) 20 mg Q6H PRN IV HIGH BP; SYSTOLIC > 170; Start 01/16/19 at 20:30 Ascorbic Acid (Vitamin C) 500 mg DAILY GTB Last administered on 01/28/19 09:05; Admin Dose 500 MG; Start 01/22/19 at 09:00 Zinc Sulfate (Zinc Sulfate) 220 mg DAILY GTB Last administered on 01/28/19 09:06; Admin Dose 220 MG; Start 01/21/19 at 12:30 Acetaminophen (Tylenol Tab) 650 mg Q6H PRN PO MILD PAIN(1-3)OR ELEVATED TEMP Last administered on 01/27/19 16:26; Admin Dose 650 MG; Start 01/22/19 at 09:00 Acetaminophen/ Hydrocodone Bitart ([place] (5/325)) 1 tab Q6H PRN PO MODERATE PAIN LEVEL 4-6 Last administered on 01/28/19 01:04; Admin Dose 1 TAB; Start 01/22/19 at 09:00 Metoclopramide HCl (Reglan) 5 mg Q6 IV Last administered on 01/28/19 12:09; Admin Dose 5 MG; Start 01/22/19 at 12:00 Famotidine (Pepcid) 20 mg BID PO Last administered on 01/28/19 09:05; Admin Dose 20 MG; Start 01/22/19 at 21:00 Scopolamine (Transderm-Scop) 1 patch Q72H TRANSDERM Last administered on 01/25/19 17:12; Admin Dose 1 PATCH; Start 01/22/19 at 17:00 Levalbuterol (Xopenex Neb) 0.63 mg Q8H RESP THERAPY HHN Last administered on 01/28/19 08:11; Admin Dose 0.63 MG; Start 01/25/19 at 08:00 Cefepime HCl 50 ml @ 100 mls/hr Q12 IVPB Last administered on 01/28/19 09:07; Admin Dose 100 MLS/HR; Start 01/25/19 at 16:30 Doxycycline Hyclate 100 mg/ Sodium Chloride 250 ml @ 250 mls/hr Q12 IVPB Last administered on 01/28/19 10:42; Admin Dose 250 MLS/HR; Start 01/25/19 at 17:00 Enoxaparin Sodium (Lovenox) 30 mg DAILY SC Last administered on 5/14/19at 09:30; Admin Dose 30 MG; Start 01/28/19 at 09:00 LIBIA CARBALLO January 28, 2019 15:12
--- NOTE | 2019-01-28 15:35 | CONS ---
Assessment/Plan Assessment/Plan Hospital Course (Demo Recall) No acute events pt looks comfortable, no fevers, + LUE swelling 2 to IV infiltration Microbiology: Blood and urine cultures negative Indwelling: PEG Antimicrobials: Doxycycline, cefepime Physical examination: Chronically ill-appearing middle-aged woman who is laying comfortably in bed. Head atraumatic normocephalic sclera nonicteric vehicle mucosa dry neck is supple chest rise symmetrical breath sounds with bilateral rails. Heart: S1-S2 abdomen soft bowel sounds present extremities without cyanosis Assessment: 1. Acute hypoxemic respiratory failure on admission 2. Pneumonia possibly aspirated 3. Dysphasia 4. Cerebral palsy Plan: Clinically unchanged, dc abx, keep LUE elevated, continue aspiration precautions Consultation Date/Type/Reason Admit Date/Time January 15, 2019 at 22:36 Initial Consult Date 01/17/19 Type of Consult id Date/Time of Note DATE: 01/28/19 TIME: 15:34 Exam/Review of Systems Exam Vitals Vital Signs Date Temp Pulse Resp B/P (MAP) Pulse Ox O2 O2 Flow FiO2 Time Delivery Rate 01/28/19 94 12:37 01/28/19 98.6 20 104/62 99 11:11 (76) 01/28/19 3.0 08:18 01/28/19 Nasal 08:16 Cannula 01/28/19 28 00:02 Intake and Output 01/27/19 01/27/19 01/28/19 1515:00 23:00 07:00 IntakeIntake Total 300 ml 850 ml OutputOutput Total 3 ml BalanceBalance 297 ml 850 ml Results Result Diagram: 01/28/19 0517 01/28/19 0517 Results 24hrs Laboratory Tests Test 01/28/19 05:17 White Blood Count 10.8 Red Blood Count 3.67 L Hemoglobin 9.6 L Hematocrit 31.9 L Mean Corpuscular Volume 86.9 Mean Corpuscular Hemoglobin 26.2 L Mean Corpuscular Hemoglobin Concent 30.1 L Red Cell Distribution Width 13.6 Platelet Count 248 Mean Platelet Volume 10.3 Immature Granulocytes % 0.400 Neutrophils % 76.6 Lymphocytes % 14.4 L Monocytes % 5.0 Eosinophils % 3.1 Basophils % 0.5 Nucleated Red Blood Cells % 0.0 Immature Granulocytes # 0.040 H Neutrophils # 8.3 H Lymphocytes # 1.6 Monocytes # 0.5 Eosinophils # 0.3 Basophils # 0.1 Nucleated Red Blood Cells # 0.0 Sodium Level 136 Potassium Level 4.8 Chloride Level 98 Carbon Dioxide Level 30 Anion Gap 8 Blood Urea Nitrogen 19 Creatinine 0.25 L Est Glomerular Filtrat Rate mL/min > 60 Glucose Level 102 Calcium Level 9.3 Medications Medication Current Medications Miscellaneous Information (Pending Santyl Order For Wound Care) This patient huggins... PRN PRN XX WOUND CARE; Start 01/16/19 at 06:30 Collagenase (Santyl) 1 applic DAILY TOP Last administered on 01/28/19 09:07; Admin Dose 1 APPLIC; Start 01/17/19 at 09:00 Amlodipine Besylate (Norvasc) 5 mg DAILY GTB Last administered on 01/28/19 09:07; Admin Dose 5 MG; Start 01/17/19 at 09:00 Hydralazine HCl (Apresoline) 20 mg Q6H PRN IV HIGH BP; SYSTOLIC > 170; Start 01/16/19 at 20:30 Ascorbic Acid (Vitamin C) 500 mg DAILY GTB Last administered on 01/28/19 09:05; Admin Dose 500 MG; Start 01/22/19 at 09:00 Zinc Sulfate (Zinc Sulfate) 220 mg DAILY GTB Last administered on 01/28/19 09:06; Admin Dose 220 MG; Start 01/21/19 at 12:30 Acetaminophen (Tylenol Tab) 650 mg Q6H PRN PO MILD PAIN(1-3)OR ELEVATED TEMP Last administered on 01/27/19 16:26; Admin Dose 650 MG; Start 01/22/19 at 09:00 Acetaminophen/ Hydrocodone Bitart ([place] (5/325)) 1 tab Q6H PRN PO MODERATE PAIN LEVEL 4-6 Last administered on 01/28/19 01:04; Admin Dose 1 TAB; Start 01/22/19 at 09:00 Metoclopramide HCl (Reglan) 5 mg Q6 IV Last administered on 01/28/19 12:09; Admin Dose 5 MG; Start 01/22/19 at 12:00 Famotidine (Pepcid) 20 mg BID PO Last administered on 01/28/19 09:05; Admin Dose 20 MG; Start 01/22/19 at 21:00 Scopolamine (Transderm-Scop) 1 patch Q72H TRANSDERM Last administered on 01/25/19 17:12; Admin Dose 1 PATCH; Start 01/22/19 at 17:00 Levalbuterol (Xopenex Neb) 0.63 mg Q8H RESP THERAPY HHN Last administered on 01/28/19 08:11; Admin Dose 0.63 MG; Start 01/25/19 at 08:00 Cefepime HCl 50 ml @ 100 mls/hr Q12 IVPB Last administered on 01/28/19 09:07; Admin Dose 100 MLS/HR; Start 01/25/19 at 16:30 Doxycycline Hyclate 100 mg/ Sodium Chloride 250 ml @ 250 mls/hr Q12 IVPB Last administered on 01/28/19 10:42; Admin Dose 250 MLS/HR; Start 01/25/19 at 17:00 Enoxaparin Sodium (Lovenox) 30 mg DAILY SC Last administered on 01/28/19 09:30; Admin Dose 30 MG; Start 01/28/19 at 09:00 ALLISON LOMELI NP January 28, 2019 15:35
[2019-01-28] MEDS: SCOPOLAMINE 1.5 MG PATCH TRANSDERM SCH (17:34)
[2019-01-29] VITALS (10 sets, daily range): BP systolic 97–123; BP diastolic 55–72; PULSE 81–114; RESP 17–20
[2019-01-29] MEDS: METOCLOPRAMIDE 10 MG INJ IV SCH ×4 (00:22→18:00)
[2019-01-29] MEDS: LEVALBUTEROL (NEB) 0.63 MG/3 ML AMP HHN SCH ×2 (08:06→16:36)
[2019-01-29] MEDS: ZINC SULFATE 220 MG CAP GTB SCH (08:28)
[2019-01-29] MEDS: FAMOTIDINE 20 MG TAB PO SCH (08:28)
[2019-01-29] MEDS: AMLODIPINE 5 MG TAB GTB SCH (08:30)
[2019-01-29] MEDS: COLLAGENASE 5 GM (UD JAR) TOP SCH (08:30)
[2019-01-29] MEDS: ENOXAPARIN 30 MG/0.3 ML SYG SC SCH (09:42)
[2019-01-29] MEDS: ASCORBIC ACID 500 MG TAB GTB SCH (10:57)
--- NOTE | 2019-01-29 11:29 | PN ---
Date/Time of Note Date/Time of Note DATE: 01/29/19 TIME: 11:11 Assessment/Plan VTE Prophylaxis Risk score (from [facility])>0 risk: 6 SCD applied (from Ns): Yes Pharmacological prophylaxis: LMWH Lines/Catheters IV Catheter Type (from [facility] Saline Lock Urinary Cath still in place: No Assessment/Plan Hospital Course Patient continues on supplemental oxygen, requires frequent suctioning,completed treatment with Doxy and Cefepime for pneumonia. D/c planning. Assessment/Plan -Acute respiratory insufficiency. Dr. Clayton is following in pulmonology consultation -Healthcare facility acquired pneumonia versus aspiration pneumonia. Continue abx per ID. Dr. Poole is following in infection disease consultation. -Dysphagia with G-tube. -Cerebral palsy. -Chronic coccygeal decubitus ulcer. Continue current wound care, air mattress, offloading. -Protein calorie malnutrition, continue G-tube feeding, vitamins, zinc sulfate. -DNR status. Further recommendations based on clinical course. Plan of care discussed with Dr. Bowman. Result Diagram: 01/29/1919 01/29/1918 Results 24hrs Laboratory Tests Test 01/29/19 05:18 01/29/19 05:19 Sodium Level 137 Potassium Level 4.2 Chloride Level 99 Carbon Dioxide Level 30 Anion Gap 8 Blood Urea Nitrogen 15 Creatinine 0.28 L Est Glomerular Filtrat Rate mL/min > 60 Glucose Level 108 Calcium Level 9.2 White Blood Count 8.4 # Red Blood Count 3.27 L Hemoglobin 8.3 L Hematocrit 28.4 L Mean Corpuscular Volume 86.9 Mean Corpuscular Hemoglobin 25.4 L Mean Corpuscular Hemoglobin Concent 29.2 L Red Cell Distribution Width 13.8 Platelet Count 239 Mean Platelet Volume 10.1 Immature Granulocytes % 0.200 Neutrophils % 63.4 Lymphocytes % 22.1 Monocytes % 5.9 Eosinophils % 8.0 H Basophils % 0.4 Nucleated Red Blood Cells % 0.0 Immature Granulocytes # 0.020 Neutrophils # 5.3 Lymphocytes # 1.9 Monocytes # 0.5 Eosinophils # 0.7 H Basophils # 0.0 Nucleated Red Blood Cells # 0.0 Exam/Review of Systems Exam Vitals Vital Signs Date Temp Pulse Resp B/P (MAP) Pulse Ox O2 O2 Flow FiO2 Time Delivery Rate 01/29/19 97.8 100 18 109/56 91 11:09 (73) 01/29/19 Nasal 2.0 08:33 Cannula 01/28/19 28 00:02 Intake and Output 01/28/19 01/28/19 01/29/19 1515:00 23:00 07:00 IntakeIntake Total 300 ml 600 ml BalanceBalance 300 ml 600 ml Exam Constitutional: non-verbal Respiratory: diminished breath sounds Cardiovascular: nl pulse Gastrointestinal: soft, non-tender, other (G-tube) Musculoskeletal: muscle weakness Extremities: other (Contracted extremities) Results Results 24hrs Laboratory Tests Test 01/29/19 05:18 01/29/19 05:19 Sodium Level 137 Potassium Level 4.2 Chloride Level 99 Carbon Dioxide Level 30 Anion Gap 8 Blood Urea Nitrogen 15 Creatinine 0.28 L Est Glomerular Filtrat Rate mL/min > 60 Glucose Level 108 Calcium Level 9.2 White Blood Count 8.4 # Red Blood Count 3.27 L Hemoglobin 8.3 L Hematocrit 28.4 L Mean Corpuscular Volume 86.9 Mean Corpuscular Hemoglobin 25.4 L Mean Corpuscular Hemoglobin Concent 29.2 L Red Cell Distribution Width 13.8 Platelet Count 239 Mean Platelet Volume 10.1 Immature Granulocytes % 0.200 Neutrophils % 63.4 Lymphocytes % 22.1 Monocytes % 5.9 Eosinophils % 8.0 H Basophils % 0.4 Nucleated Red Blood Cells % 0.0 Immature Granulocytes # 0.020 Neutrophils # 5.3 Lymphocytes # 1.9 Monocytes # 0.5 Eosinophils # 0.7 H Basophils # 0.0 Nucleated Red Blood Cells # 0.0 Medications Medication Current Medications Miscellaneous Information (Pending Santyl Order For Wound Care) This patient huggins... PRN PRN XX WOUND CARE; Start 01/16/19 at 06:30 Collagenase (Santyl) 1 applic DAILY TOP Last administered on 01/29/19at 08:30; Admin Dose 1 APPLIC; Start 01/17/19 at 09:00 Amlodipine Besylate (Norvasc) 5 mg DAILY GTB Last administered on 01/29/19at 08:30; Admin Dose 5 MG; Start 01/17/19 at 09:00 Hydralazine HCl (Apresoline) 20 mg Q6H PRN IV HIGH BP; SYSTOLIC > 170; Start 01/16/19 at 20:30 Ascorbic Acid (Vitamin C) 500 mg DAILY GTB Last administered on 01/29/19 10:57; Admin Dose 500 MG; Start 01/22/19 at 09:00 Zinc Sulfate (Zinc Sulfate) 220 mg DAILY GTB Last administered on 01/29/19 08:28; Admin Dose 220 MG; Start 01/21/19 at 12:30 Acetaminophen (Tylenol Tab) 650 mg Q6H PRN PO MILD PAIN(1-3)OR ELEVATED TEMP Last administered on 01/27/19 16:26; Admin Dose 650 MG; Start 01/22/19 at 09:00 Acetaminophen/ Hydrocodone Bitart ([place] (5/325)) 1 tab Q6H PRN PO MODERATE PAIN LEVEL 4-6 Last administered on 01/28/19 01:04; Admin Dose 1 TAB; Start 01/22/19 at 09:00 Metoclopramide HCl (Reglan) 5 mg Q6 IV Last administered on 01/29/19 10:57; Admin Dose 5 MG; Start 01/22/19 at 12:00 Famotidine (Pepcid) 20 mg BID PO Last administered on 01/29/19 08:28; Admin Dose 20 MG; Start 01/22/19 at 21:00 Scopolamine (Transderm-Scop) 1 patch Q72H TRANSDERM Last administered on 01/28/19 17:34; Admin Dose 1 PATCH; Start 01/22/19 at 17:00 Levalbuterol (Xopenex Neb) 0.63 mg Q8H RESP THERAPY HHN Last administered on 01/29/19 08:06; Admin Dose 0.63 MG; Start 01/25/19 at 08:00 Enoxaparin Sodium (Lovenox) 30 mg DAILY SC Last administered on 01/29/19 09:42; Admin Dose 30 MG; Start 01/28/19 at 09:00 LIBIA CARBALLO January 29, 2019 11:21
--- NOTE | 2019-01-29 14:50 | CONS ---
Assessment/Plan Assessment/Plan Hospital Course (Demo Recall) No acute events pt looks comfortable, no fevers, shortness of breath Microbiology: Blood and urine cultures negative Indwelling: PEG Antimicrobials: None Physical examination: Chronically ill-appearing middle-aged woman who is laying comfortably in bed. Head atraumatic normocephalic sclera nonicteric vehicle mucosa dry neck is supple chest rise symmetrical breath sounds with bilateral r ails. Heart: S1-S2 abdomen soft bowel sounds present extremities without cyanosis Assessment: 1. Acute hypoxemic respiratory failure on admission 2. Status post pneumonia possibly aspirated 3. Dysphasia 4. Cerebral palsy Plan: Stable, completed antibiotics, pending discharge back to [facility] Consultation Date/Type/Reason Admit Date/Time January 15, 2019 at 22:36 Initial Consult Date 01/17/19 Type of Consult id Date/Time of Note DATE: 01/29/19 TIME: 14:50 Exam/Review of Systems Exam Vitals Vital Signs Date Temp Pulse Resp B/P (MAP) Pulse Ox O2 O2 Flow FiO2 Time Delivery Rate 01/29/19 103 13:00 01/29/19 97.8 18 109/56 91 11:09 (73) 01/29/19 Nasal 2.0 08:33 Cannula 01/28/19 28 00:02 Intake and Output 01/28/19 01/28/19 01/29/19 1414:59 22:59 06:59 IntakeIntake Total 300 ml 600 ml BalanceBalance 300 ml 600 ml Results Result Diagram: 01/29/19 0519 01/29/19 0518 Results 24hrs Laboratory Tests Test 01/29/19 05:18 01/29/19 05:19 Sodium Level 137 Potassium Level 4.2 Chloride Level 99 Carbon Dioxide Level 30 Anion Gap 8 Blood Urea Nitrogen 15 Creatinine 0.28 L Est Glomerular Filtrat Rate mL/min > 60 Glucose Level 108 Calcium Level 9.2 White Blood Count 8.4 # Red Blood Count 3.27 L Hemoglobin 8.3 L Hematocrit 28.4 L Mean Corpuscular Volume 86.9 Mean Corpuscular Hemoglobin 25.4 L Mean Corpuscular Hemoglobin Concent 29.2 L Red Cell Distribution Width 13.8 Platelet Count 239 Mean Platelet Volume 10.1 Immature Granulocytes % 0.200 Neutrophils % 63.4 Lymphocytes % 22.1 Monocytes % 5.9 Eosinophils % 8.0 H Basophils % 0.4 Nucleated Red Blood Cells % 0.0 Immature Granulocytes # 0.020 Neutrophils # 5.3 Lymphocytes # 1.9 Monocytes # 0.5 Eosinophils # 0.7 H Basophils # 0.0 Nucleated Red Blood Cells # 0.0 Medications Medication Current Medications Miscellaneous Information (Pending Santyl Order For Wound Care) This patient huggins... PRN PRN XX WOUND CARE; Start 01/16/19 at 06:30 Collagenase (Santyl) 1 applic DAILY TOP Last administered on 01/29/19 08:30; Admin Dose 1 APPLIC; Start 01/17/19 at 09:00 Amlodipine Besylate (Norvasc) 5 mg DAILY GTB Last administered on 01/29/19 08:30; Admin Dose 5 MG; Start 01/17/19 at 09:00 Hydralazine HCl (Apresoline) 20 mg Q6H PRN IV HIGH BP; SYSTOLIC > 170; Start 01/16/19 at 20:30 Ascorbic Acid (Vitamin C) 500 mg DAILY GTB Last administered on 01/29/19 10:57; Admin Dose 500 MG; Start 01/22/19 at 09:00 Zinc Sulfate (Zinc Sulfate) 220 mg DAILY GTB Last administered on 01/29/19 08:28; Admin Dose 220 MG; Start 01/21/19 at 12:30 Acetaminophen (Tylenol Tab) 650 mg Q6H PRN PO MILD PAIN(1-3)OR ELEVATED TEMP Last administered on 01/27/19 16:26; Admin Dose 650 MG; Start 01/22/19 at 09:00 Acetaminophen/ Hydrocodone Bitart ([place] (5/325)) 1 tab Q6H PRN PO MODERATE PAIN LEVEL 4-6 Last administered on 01/28/19 01:04; Admin Dose 1 TAB; Start 01/22/19 at 09:00 Metoclopramide HCl (Reglan) 5 mg Q6 IV Last administered on 01/29/19 10:57; Admin Dose 5 MG; Start 01/22/19 at 12:00 Famotidine (Pepcid) 20 mg BID PO Last administered on 01/29/19 08:28; Admin Dose 20 MG; Start 01/22/19 at 21:00 Scopolamine (Transderm-Scop) 1 patch Q72H TRANSDERM Last administered on 5/14/19at 17:34; Admin Dose 1 PATCH; Start 01/22/19 at 17:00 Levalbuterol (Xopenex Neb) 0.63 mg Q8H RESP THERAPY HHN Last administered on 01/29/19at 08:06; Admin Dose 0.63 MG; Start 01/25/19 at 08:00 Enoxaparin Sodium (Lovenox) 30 mg DAILY SC Last administered on 01/29/19at 09:42; Admin Dose 30 MG; Start 01/28/19 at 09:00 ALLISON LOMELI NP January 29, 2019 14:50
--- NOTE | 2019-01-29 14:56 | CONS ---
Consult Date/Type/Reason Admit Date/Time January 15, 2019 at 22:36 Initial Consult Date 01/17/19 Type of Consult Pulmonary Date/Time of Note DATE: 01/29/19 TIME: 14:55 Subjective Appears comfortable no significant changes. Objective Vital Signs Date Temp Pulse Resp B/P (MAP) Pulse Ox O2 O2 Flow FiO2 Time Delivery Rate 01/29/19 103 13:00 01/29/19 97.8 18 109/56 91 11:09 (73) 01/29/19 Nasal 2.0 08:33 Cannula 01/28/19 28 00:02 Intake and Output 01/28/19 01/28/19 01/29/19 1515:00 23:00 07:00 IntakeIntake Total 300 ml 600 ml BalanceBalance 300 ml 600 ml Exam GENERAL: VITAL SIGNS: per chart NECK: Supple. No JVD or lymphadenopathy. CARDIAC EXAM: S1, S2. No added sounds or murmurs. CHEST: Diminished air entry bilaterally ABDOMEN: Soft, nontender. No guarding or rebound. EXTREMITIES: No cyanosis, clubbing or edema. NEUROLOGIC: Generalized weakness. No focal deficits. Vent Setting Fraction of Inspired Oxygen pe: 28 Results/Medications Result Diagram: 01/29/19 0519 01/29/19 0518 Results 24 hrs Laboratory Tests Test 01/29/19 05:18 01/29/19 05:19 Sodium Level 137 Potassium Level 4.2 Chloride Level 99 Carbon Dioxide Level 30 Anion Gap 8 Blood Urea Nitrogen 15 Creatinine 0.28 L Est Glomerular Filtrat Rate mL/min > 60 Glucose Level 108 Calcium Level 9.2 White Blood Count 8.4 # Red Blood Count 3.27 L Hemoglobin 8.3 L Hematocrit 28.4 L Mean Corpuscular Volume 86.9 Mean Corpuscular Hemoglobin 25.4 L Mean Corpuscular Hemoglobin Concent 29.2 L Red Cell Distribution Width 13.8 Platelet Count 239 Mean Platelet Volume 10.1 Immature Granulocytes % 0.200 Neutrophils % 63.4 Lymphocytes % 22.1 Monocytes % 5.9 Eosinophils % 8.0 H Basophils % 0.4 Nucleated Red Blood Cells % 0.0 Immature Granulocytes # 0.020 Neutrophils # 5.3 Lymphocytes # 1.9 Monocytes # 0.5 Eosinophils # 0.7 H Basophils # 0.0 Nucleated Red Blood Cells # 0.0 Medications Current Medications Miscellaneous Information (Pending Santyl Order For Wound Care) This patient huggins... PRN PRN XX WOUND CARE; Start 01/16/19 at 06:30 Collagenase (Santyl) 1 applic DAILY TOP Last administered on 01/29/19 08:30; Admin Dose 1 APPLIC; Start 01/17/19 at 09:00 Amlodipine Besylate (Norvasc) 5 mg DAILY GTB Last administered on 01/29/19 08:30; Admin Dose 5 MG; Start 01/17/19 at 09:00 Hydralazine HCl (Apresoline) 20 mg Q6H PRN IV HIGH BP; SYSTOLIC > 170; Start 01/16/19 at 20:30 Ascorbic Acid (Vitamin C) 500 mg DAILY GTB Last administered on 01/29/19 10:57; Admin Dose 500 MG; Start 01/22/19 at 09:00 Zinc Sulfate (Zinc Sulfate) 220 mg DAILY GTB Last administered on 01/29/19 08:28; Admin Dose 220 MG; Start 01/21/19 at 12:30 Acetaminophen (Tylenol Tab) 650 mg Q6H PRN PO MILD PAIN(1-3)OR ELEVATED TEMP Last administered on 01/27/19 16:26; Admin Dose 650 MG; Start 01/22/19 at 09:00 Acetaminophen/ Hydrocodone Bitart ([place] (5/325)) 1 tab Q6H PRN PO MODERATE PAIN LEVEL 4-6 Last administered on 01/28/19 01:04; Admin Dose 1 TAB; Start 01/22/19 at 09:00 Metoclopramide HCl (Reglan) 5 mg Q6 IV Last administered on 01/29/19 10:57; Admin Dose 5 MG; Start 01/22/19 at 12:00 Famotidine (Pepcid) 20 mg BID PO Last administered on 01/29/19 08:28; Admin Dose 20 MG; Start 01/22/19 at 21:00 Scopolamine (Transderm-Scop) 1 patch Q72H TRANSDERM Last administered on 01/28/19 17:34; Admin Dose 1 PATCH; Start 01/22/19 at 17:00 Levalbuterol (Xopenex Neb) 0.63 mg Q8H RESP THERAPY HHN Last administered on 01/29/19 08:06; Admin Dose 0.63 MG; Start 01/25/19 at 08:00 Enoxaparin Sodium (Lovenox) 30 mg DAILY SC Last administered on 01/29/19at 09:42; Admin Dose 30 MG; Start 01/28/19 at 09:00 Assessment/Plan Hospital Course (Demo Recall) IMP: 1. Hypoxemic Resp Insufficiency 2. Aspiration vs. CAP--repeat CXR with no significant infiltrates/mild LLL atelectasis vs. consolidation (improved) 3. Anemia 4. CP RECS: 1. BDs 2. Abx per ID 3. Aspiration precautions Consider DC planning PAYTON SOTO MD, [facility] January 29, 2019 14:56
--- NOTE | 2019-01-29 23:06 | DS ---
Date/Time of Note Date/Time of Note DATE: 01/29/19 TIME: 23:04 Discharge Summary Admission/Discharge Info Admit Date/Time January 15, 2019 at 22:36 Discharge Date/Time January 29, 2019 at 18:43 Patient Condition: Stable Hx of Present Illness The patient is 43-year-old female brought in from her alf with shortness of breath and chest congestion. Pt has a history of cerebral palsy and is nonverbal at baseline. Hospital Course Patient continues on supplemental oxygen, requires frequent suctioning,completed treatment with Doxy and Cefepime for pneumonia. D/c planning. Assessment/Plan -Acute respiratory insufficiency. Dr. Clayton is following in pulmonology consultation -Healthcare facility acquired pneumonia versus aspiration pneumonia. Completed treatment with abx. Dr. Poole is following in infection disease consultation. -Dysphagia with G-tube. -Cerebral palsy. -Chronic coccygeal decubitus ulcer. Continue current wound care, air mattress, offloading. -Protein calorie malnutrition, continue G-tube feeding, vitamins, zinc sulfate. -DNR status. Plan of care discussed with Dr. Bowman. Home Meds Reported Medications Ascorbic Acid (Vitamin C) 500 Mg Tab, 500 MG GTB DAILY, TAB 12/18/18 Cran/Vitc/Mannose/Inulin/Brom (Uti-Stat Liquid) 3,875 Mg/30 Ml Liquid, 30 MG GTB BID 12/18/18 Acetaminophen* (Acetaminophen*) 500 MG Extra Strength Tablet, 1000 MG GTB BID PRN for PAIN AND OR ELEVATED TEMP, TAB 12/18/18 Acetaminophen* (Acetaminophen*) 500 MG Extra Strength Tablet, 1000 MG GTB Q4H PRN for PAIN 4-6/10, TAB 12/18/18 Acetaminophen* (Tylenol*) 325 Mg Tablet, 650 MG GTB Q4H PRN for MILD PAIN LEVEL 1-3, TAB 12/18/18 Oxcarbazepine* (Trileptal*) 150 Mg Tablet, 150 MG GTB BID, TAB 12/18/18 Sodium Chloride* (Sodium Chloride*) 1 Gm Tablet, 1 GM GTB TID, TAB 12/18/18 Amino Acids/Protein Hydrolys (PRO-STAT LIQUID) 30 Ml Liquid.pkt, 30 ML GTB BID SUGAR FREE 12/18/18 Multivit &Minerals/Ferrous Fum (MULTIVITAMIN LIQUID) 9 Mg/15 Ml Liquid, 5 MG GTB DAILY 12/18/18 Magnesium Hydroxide* (Milk Of Magnesia*) 400 Mg/5 Ml Oral.susp, 30 ML GTB NEEDED for CONSTIPATION, ML 12/18/18 Na Phos,M-B/Na Phos,Di-Ba (Fleet Enema Extra) 230 Ml Enema, 1 APPLIC RC Q 2D, ENEMA 12/18/18 Ipratropium-Albuterol (Ipratropium-Albuterol) 0.5-3 Mg/3 Ml Ampul.neb, 3 ML INHALATION Q6, #30 VIAL 12/18/18 Bisacodyl* (Bisacodyl*) 10 Mg Supp, 10 MG NM Q24H for CONSTIPATION, SUPP 12/18/18 Cranberry Extract (Cranberry) 425 Mg Capsule, 425 MG GTB DAILY, CAP 12/18/18 Docusate Sodium* (Colace*) 100 Mg Capsule, 200 MG GTB QHS, #30 CAP 12/18/18 Follow-up Plan CBC BMP in 1 week Primary Care Provider Stephen Bowman MD Time spent on discharge: > 30 minutes Pending Labs Laboratory Tests Test 01/29/19 05:18 01/29/19 05:19 Sodium Level 137 mmol/L (135-144) Potassium Level 4.2 mmol/L (3.5-5.1) Chloride Level 99 mmol/L (97-110) Carbon Dioxide Level 30 mmol/L (21-31) Anion Gap 8 (5-13) Blood Urea Nitrogen 15 mg/dl (7-20) Creatinine 0.28 mg/dl (0.44-1.00) Est Glomerular Filtrat > 60 mL/min (>60) Rate mL/min Glucose Level 108 mg/dl (70-220) Calcium Level 9.2 mg/dl (8.4-10.2) White Blood Count 8.4 10^3/ul (4.8-10.8) Red Blood Count 3.27 10^6/ul (4.20-5.40) Hemoglobin 8.3 g/dl (12.0-16.0) Hematocrit 28.4 % (37.0-47.0) Mean Corpuscular Volume 86.9 fl (82.0-101.0) Mean Corpuscular Hemoglobin 25.4 pg (29.0-33.0) Mean Corpuscular 29.2 g/dl (32.0-37.0) Hemoglobin Concent Red Cell Distribution Width 13.8 % (11.5-14.5) Platelet Count 239 10^3/UL (140-415) Mean Platelet Volume 10.1 fl (7.4-10.4) Immature Granulocytes % 0.200 % (0.001-0.429) Neutrophils % 63.4 % (39.0-77.0) Lymphocytes % 22.1 % (15.0-51.0) Monocytes % 5.9 % (0.0-11.0) Eosinophils % 8.0 % (0.0-7.0) Basophils % 0.4 % (0.0-2.0) Nucleated Red Blood Cells % 0.0 /100WBC (0.0-0.0) Immature Granulocytes # 0.020 10^3/ul (0.0-0.031) Neutrophils # 5.3 10^3/ul (1.6-7.5) Lymphocytes # 1.9 10^3/ul (0.8-2.9) Monocytes # 0.5 10^3/ul (0.3-0.9) Eosinophils # 0.7 10^3/ul (0.0-0.5) Basophils # 0.0 10^3/ul (0.0-0.1) Nucleated Red Blood Cells # 0.0 10^3/ul (0.0-0.0) LIBIA CARBALLO January 29, 2019 23:06
== END 2019-01-29 18:43 | DRG 177 ==
LOC: E/R 20:32 → 6WM 22:36
PROVIDERS: ADMIT Internal Medicine; ATTEND Internal Medicine
DX: J69.0 Pneumonitis due to inhalation of food and vomit (principal); L89.153 Pressure ulcer of sacral region, stage 3; J96.01 Acute respiratory failure with hypoxia; E46 Unspecified protein-calorie malnutrition; R13.10 Dysphagia, unspecified; G80.9 Cerebral palsy, unspecified; D64.9 Anemia, unspecified; E87.6 Hypokalemia; F32.9 Major depressive disorder, single episode, unspecified; Z66 Do not resuscitate; Z93.1 Gastrostomy status
CPT/HCPCS: 36415; 36600; 71045; 80048; 80053; 80202; 81001; 81003; 82803; 83605; 84484; 85025; 85610; 85730; 87081; 87086; 93005; 94640; 94664; 96374; A4310; J0692; J1650; J1940; J2765; J3370; J7030; J7042; J7050

== ENCOUNTER 2019-02-19 09:13 | Inpatient (IN) | payer MEDICAID ==
[~2019-02-19] VITALS: Ht 157.5 cm; Wt 46.5 kg
[2019-02-19] MEDS ORDERED: CEFEPIME 2GM/50 ML (PMX) 50 ML IVPB STA (09:21)
[2019-02-19] MEDS ORDERED: ACETAMINOPHEN 650MG/20.3ML CUP NGT STA (09:21)
[2019-02-19] MEDS ORDERED: SODIUM CHLORIDE 0.9% 1L BAG IV* STA (09:21)
[2019-02-19] MEDS ORDERED: VANCOMYCIN 1 GM (PMX) 250 ML IVPB ONE (09:30)
[2019-02-19] MEDS ORDERED: ONDANSETRON 4 MG INJ ONE (09:52)
[2019-02-19] MEDS ORDERED: ONDANSETRON 4 MG INJ IV STA (10:18)
[2019-02-19] MEDS ORDERED: AMLO5TAB4 GTB (11:25)
[2019-02-19] MEDS ORDERED: ENOX30DI2 SC (11:26)
[2019-02-19] MEDS ORDERED: FAMO20TA18 GTB (11:26)
[2019-02-19] MEDS ORDERED: UDFER GTB (11:27)
[2019-02-19] MEDS ORDERED: HYDR-3670 GTB (11:28)
[2019-02-19] MEDS ORDERED: LEVA0.634 INHALATION (11:29)
[2019-02-19] MEDS ORDERED: MAGN400O19 GTB (11:30)
[2019-02-19] MEDS ORDERED: HYDR-4011 GTB (11:30)
[2019-02-19] MEDS ORDERED: POTA20TA15 GTB (11:31)
[2019-02-19] MEDS ORDERED: SCOP1PAT16 TD (11:32)
[2019-02-19] MEDS ORDERED: ZINC220T GTB (11:33)
[2019-02-19] MEDS ORDERED: ACETAMINOPHEN 325 MG TAB PO PRN (12:30)
[2019-02-19] MEDS ORDERED: ONDANSETRON 4 MG INJ IV PRN ×2 (12:30→17:30)
--- NOTE | 2019-02-19 12:40 | ERD ---
ER Documentation Chief Complaint Chief Complaint SENT FROM [facility] FOR EVAL OF SOB. HPI This is a 43-year-old female who has a history of cerebral palsy who presents the emergency room with cough congestion fever and hypoxia. Patient is DNR/DNI based on documentation that arise with the patient. Remainder of HPI is extremely limited. ROS Limited given above Medications Home Meds Reported Medications Zinc Sulfate* (Zinc Sulfate*) 220 Mg Tablet, 220 MG GTB DAILY, TAB 02/19/19 Scopolamine (Scopolamine) 1 Each Patch.td.3, 1 EACH TD EVERY 3 DAYS 02/19/19 Potassium Chloride* (K-Dur*) 20 Meq Tab.prt.sr, 20 MEQ GTB DAILY, TAB.SA 02/19/19 Hydrocodone/Acetaminophen (Agness 5-325 Tablet) 1 Each Tablet, 1 EACH GTB Q6, TAB 02/19/19 Magnesium Hydroxide* (Milk Of Magnesia*) 400 Mg/5 Ml Oral.susp, 30 ML GTB DAILY, ML 02/19/19 Levalbuterol Hcl* (Levalbuterol Hcl*) 0.63 Mg/3 Ml Vial.neb, 0.63 MG INHALATION Q8 PRN for WHEEZING AND SOB, VIAL 02/19/19 Hydralazine Hcl* (Hydralazine Hcl*) 10 Mg Tablet, 20 MG GTB Q6H PRN for ELEVATED BLOOD PRESSURE, #60 TAB 02/19/19 Ferrous Sulfate (Ferrous Sulfate) 300 Mg/5 Ml Liquid, 330 MG GTB BID 02/19/19 Famotidine* (Famotidine*) 20 Mg Tablet, 20 MG GTB BID, #60 TAB 02/19/19 Enoxaparin Sodium* (Enoxaparin Sodium*) 30 Mg/0.3 Ml Syringe, 30 MG SC DAILY, SYR 02/19/19 Amlodipine Besylate* (Norvasc*) 5 Mg Tablet, 5 MG GTB DAILY, TAB 02/19/19 Ascorbic Acid (Vitamin C) 500 Mg Tab, 500 MG GTB DAILY, TAB 12/18/18 Cran/Vitc/Mannose/Inulin/Brom (Uti-Stat Liquid) 3,875 Mg/30 Ml Liquid, 30 MG GTB BID 12/18/18 Acetaminophen* (Acetaminophen*) 500 MG Extra Strength Tablet, 1000 MG GTB BID PRN for PAIN AND OR ELEVATED TEMP, TAB 12/18/18 Acetaminophen* (Acetaminophen*) 500 MG Extra Strength Tablet, 1000 MG GTB Q4H PRN for PAIN -02/24, TAB 12/18/18 Acetaminophen* (Tylenol*) 325 Mg Tablet, 650 MG GTB Q4H PRN for MILD PAIN LEVEL 1-3, TAB 12/18/18 Oxcarbazepine* (Trileptal*) 150 Mg Tablet, 150 MG GTB BID, TAB 12/18/18 Amino Acids/Protein Hydrolys (PRO-STAT LIQUID) 30 Ml Liquid.pkt, 30 ML GTB BID SUGAR FREE 12/18/18 Multivit &Minerals/Ferrous Fum (MULTIVITAMIN LIQUID) 9 Mg/15 Ml Liquid, 5 MG GTB DAILY 12/18/18 Na Phos,M-B/Na Phos,Di-Ba (Fleet Enema Extra) 230 Ml Enema, 1 APPLIC RC Q 2D, ENEMA 12/18/18 Bisacodyl* (Bisacodyl*) 10 Mg Supp, 10 MG ID Q24H for CONSTIPATION, SUPP 12/18/18 Cranberry Extract (Cranberry) 425 Mg Capsule, 425 MG GTB DAILY, CAP 12/18/18 Docusate Sodium* (Colace*) 100 Mg Capsule, 200 MG GTB QHS, #30 CAP 12/18/18 Discontinued Reported Medications Sodium Chloride* (Sodium Chloride*) 1 Gm Tablet, 1 GM GTB TID, TAB 12/18/18 Magnesium Hydroxide* (Milk Of Magnesia*) 400 Mg/5 Ml Oral.susp, 30 ML GTB NEEDED for CONSTIPATION, ML 12/18/18 Ipratropium-Albuterol (Ipratropium-Albuterol) 0.5-3 Mg/3 Ml Ampul.neb, 3 ML INHALATION Q6, #30 VIAL 12/18/18 Allergies Allergies: Coded Allergies: No Known Allergy (Unverified , 02/19/19) PMhx/Soc History of Surgery: Yes (PEG PLACEMENT) Hx Respiratory Disorders: Yes (SOB) Hx Psychiatric Problems: Yes (DEPRESSION ANXIETY) Hx Miscellaneous Medical Probl: No Hx Alcohol Use: No Hx Substance Use: No Hx Tobacco Use: No Smoking Status: Never smoker FmHx Family History: No diabetes Physical Exam Vitals Vital Signs Date Temp Pulse Resp B/P (MAP) Pulse Ox O2 O2 Flow FiO2 Time Delivery Rate 02/19/19 98.8 103 26 105/73 100 Nasal 4.0 12:30 (84) Cannula 02/19/19 126 32 125/83 100 Nasal 10:22 (97) Cannula 02/19/19 Nasal 2.0 10:22 Cannula 02/19/19 Nasal 2 10:20 Cannula 02/19/19 100.5 09:45 02/19/19 100.5 139 26 136/108 99 09:22 (117) Physical Exam General: Increased work of breathing Head: Normocephalic, atraumatic. Eyes: Pupils equally reactive, EOM intact ENT: Moist mucous membranes Neck: Supple, no lymphadenopathy Respiratory: Wheezing and rhonchi bilaterally Cardiovascular: Tachycardia, no murmurs, rubs, or gallops Abdominal: Soft, non-tender, non-distended, no peritoneal signs : Deferred MSK: Limited movement of all 4 extremities, no bony abnormalities Neurologic: Limited exam, and encephalopathic, limited movement of all 4 extremities Skin: No rash, no significant breakdown Psych: Unable to assess Result Diagram: 02/19/1935 02/19/1935 Results 24 hrs Laboratory Tests Test 02/19/19 09:35 02/19/19 09:37 02/19/19 10:15 02/19/19 11:16 White Blood Count 18.8 10^3/ul Red Blood Count 4.89 10^6/ul Hemoglobin 12.4 g/dl Hematocrit 41.8 % Mean Corpuscular 85.5 fl Volume Mean Corpuscular 25.4 pg Hemoglobin Mean Corpuscular 29.7 g/dl Hemoglobin Concent Red Cell 17.0 % Distribution Width Platelet Count 507 10^3/UL Mean Platelet 9.5 fl Volume Immature 0.400 % Granulocytes % Neutrophils % 92.9 % Lymphocytes % 4.7 % Monocytes % 1.5 % Eosinophils % 0.0 % Basophils % 0.5 % Nucleated Red Blood 0.0 /100WBC Cells % Immature 0.080 10^3/ul Granulocytes # Neutrophils # 17.5 10^3/ul Lymphocytes # 0.9 10^3/ul Monocytes # 0.3 10^3/ul Eosinophils # 0.0 10^3/ul Basophils # 0.1 10^3/ul Nucleated Red Blood 0.0 10^3/ul Cells # Prothrombin Time 12.9 Sec Prothrombin Time 1.0 Ratio INR International 0.96 Normalized Ratio Activated 32.0 Sec Partial Thromboplas t Time Sodium Level 137 mmol/L Potassium Level 4.5 mmol/L Chloride Level 98 mmol/L Carbon Dioxide 26 mmol/L Level Anion Gap 13 Blood Urea Nitrogen 16 mg/dl Creatinine 0.26 mg/dl Est Glomerular > 60 mL/min Filtrat Rate mL/min Glucose Level 155 mg/dl Calcium Level 9.5 mg/dl Total Bilirubin 0.4 mg/dl Direct Bilirubin 0.00 mg/dl Indirect Bilirubin 0.4 mg/dl Aspartate Amino 21 IU/L Transf (AST/SGOT) Alanine < 6 IU/L Aminotransferase (A LT/SGPT) Alkaline 125 IU/L Phosphatase Troponin I < 0.012 ng/ml Total Protein 9.3 g/dl Albumin 4.2 g/dl Globulin 5.10 g/dl Albumin/Globulin 0.82 Ratio POC Venous Lactate 3.5 mmol/L Urine Color YELLOW Urine Clarity CLOUDY Urine pH 7.0 Urine Specific 1.019 [place] Urine Ketones NEGATIVE mg/dL Urine Nitrite NEGATIVE mg/dL Urine Bilirubin NEGATIVE mg/dL Urine Urobilinogen NEGATIVE mg/dL Urine Leukocyte 2+ Margot/ul Esterase Urine Microscopic 3 /HPF RBC Urine Microscopic 76 /HPF WBC Urine Amorphous FEW /HPF Crystals Urine Bacteria FEW /HPF Urine Mucus MODERATE /HPF Urine Hemoglobin NEGATIVE mg/dL Urine Glucose NEGATIVE mg/dL Urine Total Protein NEGATIVE mg/dl Lactic Acid Level 4.1 mmol/L Current Medications Medications Dose Sig/Robyn Start Time Status Last (Trade) Ordered Route PRN Stop Time Admin Dose Reason Admin Sodium 1,800 ml BOLUS OVER 2 02/19/19 DC 02/19/19 Chloride HOURS STAT 09:21 02/19/19 09:41 (NS) IV* 09:22 650 mg ONCE STAT 02/19/19 DC 02/19/19 Acetaminophen NGT 09:21 02/19/19 09:45 (Tylenol 09:22 Liquid) Cefepime HCl 50 ml @ ONCE STAT 02/19/19 DC 02/19/19 100 mls/hr IVPB 09:21 02/19/19 09:45 09:50 Vancomycin 250 ml @ ONCE ONCE 02/19/19 DC 02/19/19 HCl 125 mls/hr IVPB 09:30 02/19/19 11:31 11:29 Ondansetron 4 mg STK-MED 02/19/19 DC HCl (Zofran ONCE .ROUTE 09:52 02/19/19 Inj) 09:53 Ondansetron 4 mg ONCE STAT 02/19/19 DC 02/19/19 HCl (Zofran IV 10:18 02/19/19 10:20 Inj) 10:19 Ondansetron 4 mg ER BRIDGE 02/19/19 HCl (Zofran PRN IV 12:30 02/20/19 Inj) NAUSEA/VOMITI 12:29 NG 650 mg ER BRIDGE 02/19/19 Acetaminophen PRN PO 12:30 02/20/19 (Tylenol .MILD PAIN 12:29 Tab) 1-3 OR TEMP Procedures/MDM EKG, MONITORS, & DIAGNOSTIC IMAGING: EKG: I reviewed and interpreted a 12-lead EKG. Rhythm: tachycardia ST Changes: No contiguous ST segment elevations T waves: No contiguous T wave inversions Impression: No evidence of acute cardiac ischemia cxr IMPRESSION: 1. Worsening consolidation within the lung bases, possibly worsening pneumonia. 2. Mild cardiomegaly with mild central vascular congestion. 3. Stable dense opacity in the retrocardiac left lower lung with presumed elevated left hemidiaphragm. 4. Otherwise, stable chest x-ray. RPTAT: PP LAB INTERPRETATION: Patient has leukocytosis of 18, elevated lactic acid of 3-1/2-4.1. Negative troponin. MEDICAL DECISION MAKING: The patient presents with signs and symptoms concerning for severe sepsis and possible septic shock. The patient has respiratory distress likely consistent with aspiration pneumonia versus healthcare associated pneumonia. The patient is DNR/DNI based on documentation that arise with the patient. Patient would li ke to focus on comfort measures but is okay with IV fluids and antibiotics. Central line, intubation are not indicated. ER COURSE: * Code sepsis was initiated. The patient was given a 30/kg bolus of saline. Antipyretics. Broad-spectrum antibiotics. Breathing treatment. * The patient will be further managed based on her goals of care. The patient does not have an indication for central line or pressors or intubation. The patient is protecting her airway and does not require positive pressure ventilation. DISPOSITION PLAN: Accepting care team and consultations: I discussed the current laboratory data, diagnostic imaging and emergency care provided. Admitting team: Dr. Bowman Admitting team indication: Insurance directed Sepsis Documentation: Patient's infectious symptoms have not stabilized and the patient is at risk of rapid decompensation. The patient will be admitted for careful hydration, antibiotic therapy, and infectious source control. SEVERE SEPSIS CRITERIA: Infectious source: Healthcare associated pneumonia End organ damage indicated by: [Lactate > 2.0 mmol/L Acute Resp Failure (sat < 92% w/o oxygen) SEPSIS MANAGEMENT Time of recognition of sepsis: Upon MD assessment. Time of recognition of severe sepsis: Upon MD assessment. Time of recognition of septic shock: At 11:16 AM. 3 HOUR BUNDLE Blood cultures x 2 before broad-spectrum antibiotics: Yes 30 ml/kg NS bolus completed Initial lactate 3.5 Repeat lactate 4.1 SEPTIC SHOCK ASSESSMENT: YES lactic acid > 4.0 No persistent hypotension (SBP < 90 or 40 mmHg drop, MAP < 65) despite 30 mL/kg IV fluid bolus VOLUME REASSESSMENT FOR SEPTIC SHOCK: Reevaluation Time: 12:30 PM Temperature of 98.8 heart rate 103 respiratory rate 26 blood pressure 105/73 pulse ox 90% on nasal cannula 4 L Heart regular rate & rhythm Lungs wheezing Skin warm & dry Cap Refill less than 2 seconds Peripheral pulses radially present PERSISTENT HYPOTENSION TREATMENT: Comfort care patient is DNR/DNI with comfort measures requested Central line not Required Vasopressor started not required I considered further perfusion assessment with CVP measurement, SCVO2, bedside ultrasound volume assessment, passive leg raise, trial of further fluid bolus. And proceeded with 30 ml/kg fluid bolus of NSS, broad spectrum antibiotics, and admission. CRITICAL CARE Critical care time 35 minutes Emergent fluid management while maintaining close respiratory support. Provision of immediate and broad-spectrum antibiotic therapy. Simultaneous assessment for possible sources in order to direct targeted therapy. Conside ration for invasive and chemical support to prevent cardiopulmonary collapse. Critical care time is independent of procedures performed. Departure Diagnosis: Primary Impression: Acute respiratory distress Additional Impressions: Healthcare-associated pneumonia Septic shock DNR (do not resuscitate) DNI (do not intubate) Condition: Critical MARIJA PERRY MD Feb 19, 2019 12:40
--- NOTE | 2019-02-19 17:22 | HP ---
Date/Time of Note Date/Time of Note DATE: 02/19/19 TIME: 17:11 Assessment/Plan VTE Prophylaxis SCD applied (from Nsg): Yes Pharmacological prophylaxis: LMWH Lines/Catheters IV Catheter Type (from Nrsg): Saline Lock Urinary Cath still in place: No Assessment/Plan Assessment/Plan -Sepsis with shock, continue IV fluids and broad-spectrum antibiotics. Dr. Poole is asked to see patient in infection disease consultation. -Healthcare facility acquired pneumonia. -Acute respiratory distress continue supplemental oxygen bronchodilators continue. -Dysphagia with G-tube. -Cerebral palsy. -Chronic coccygeal decubitus ulcer. Obtain wound care consult. -Protein calorie malnutrition. -DNR/DNI status. Further recommendations based on clinical course. Plan of care discussed with Dr. Bowman. Result Diagram: 02/19/19 0935 02/19/19 0935 Results 24hrs Laboratory Tests Test 02/19/19 09:35 02/19/19 09:37 02/19/19 10:15 02/19/19 11:16 White Blood Count 18.8 #H Red Blood Count 4.89 # Hemoglobin 12.4 # Hematocrit 41.8 # Mean Corpuscular Volume 85.5 Mean Corpuscular 25.4 L Hemoglobin Mean Corpuscular 29.7 L Hemoglobin Concent Red Cell Distribution 17.0 #H Width Platelet Count 507 #H Mean Platelet Volume 9.5 Immature Granulocytes % 0.400 Neutrophils % 92.9 H Lymphocytes % 4.7 L Monocytes % 1.5 Eosinophils % 0.0 Basophils % 0.5 Nucleated Red Blood 0.0 Cells % Immature Granulocytes # 0.080 H Neutrophils # 17.5 H Lymphocytes # 0.9 Monocytes # 0.3 Eosinophils # 0.0 Basophils # 0.1 Nucleated Red Blood 0.0 Cells # Prothrombin Time 12.9 Prothrombin Time Ratio 1.0 INR International 0.96 Normalized Ratio Activated 32.0 Partial Thromboplast Time Sodium Level 137 Potassium Level 4.5 Chloride Level 98 Carbon Dioxide Level 26 Anion Gap 13 Blood Urea Nitrogen 16 Creatinine 0.26 L Est Glomerular Filtrat > 60 Rate mL/min Glucose Level 155 Calcium Level 9.5 Total Bilirubin 0.4 Direct Bilirubin 0.00 Indirect Bilirubin 0.4 Aspartate Amino 21 Transf (AST/SGOT) Alanine < 6 L Aminotransferase (ALT/SG PT) Alkaline Phosphatase 125 H Troponin I < 0.012 Total Protein 9.3 H Albumin 4.2 Globulin 5.10 H Albumin/Globulin Ratio 0.82 POC Venous Lactate 3.5 *H Urine Color YELLOW Urine Clarity CLOUDY A Urine pH 7.0 Urine Specific [place] 1.019 Urine Ketones NEGATIVE Urine Nitrite NEGATIVE Urine Bilirubin NEGATIVE Urine Urobilinogen NEGATIVE Urine Leukocyte Esterase 2+ H Urine Microscopic RBC 3 Urine Microscopic WBC 76 H Urine Amorphous Crystals FEW A Urine Bacteria FEW A Urine Mucus MODERATE Urine Hemoglobin NEGATIVE Urine Glucose NEGATIVE Urine Total Protein NEGATIVE Lactic Acid Level 4.1 *H Test 02/19/19 13:23 Lactic Acid Level 1.7 HPI/ROS Admit Date/Time Admit Date/Time Hx of Present Illness The patient is a 43-year-old female with brittle palsy and dysphagia was sent to emergency room from custodial facility for evaluation for hypoxia, fever, productive cough and congestion. Patient is a lethargic and is bedridden at baseline and cannot provide any detailed history. Evaluation patient had a white blood cells elevated to 18,000 and lactate elevated to 4 patient had a low-grade fever. Chest x-ray revealed worsening consolidation within the lung bases. Urinalysis is positive for leukocyte esterase. Patient was started on broad-spectrum antibiotics and admitted for further evaluation and management to telemetry floor. ROS Unable to obtain due to patient condition PMH/Family/Social Past Medical History Per HPI Medications Current Medications Ondansetron HCl (Zofran Inj) 4 mg ER BRIDGE PRN IV NAUSEA/VOMITING; Start 02/19/19 at 12:30; Stop 02/20/19 at 12:29 Acetaminophen (Tylenol Tab) 650 mg ER BRIDGE PRN PO .MILD PAIN 1-3 OR TEMP; Start 02/19/19 at 12:30; Stop 02/20/19 at 12:29 Coded Allergies: No Known Allergy (Unverified , 02/19/19) Past Surgical History Past Surgical Hx: other (Tube placement) Family History Significant Family History: no pertinent family hx Social History Alcohol Use: none Smoking Status: Never smoker Drug Use: none Exam/Review of Systems Vital Signs Vitals Vital Signs Date Temp Pulse Resp B/P (MAP) Pulse Ox O2 O2 Flow FiO2 Time Delivery Rate 02/19/19 98.8 103 26 105/73 100 Nasal 4.0 12:30 (84) Cannula Exam Constitutional: frail Head: normocephalic Neck: supple Respiratory: diminished breath sounds Cardiovascular: regular rate and rhythm Gastrointestinal: soft, non-tender, other (G tube) Musculoskeletal: nl extremities to inspection Extremities: normal pulses Neurological: confused, lethargic Skin: other (Sacral decubitus ulcer) LIBIA CARBALLO Feb 19, 2019 17:22
[2019-02-19] MEDS ORDERED: NACL 0.9% 3 ML SYG IV SCH (17:30)
[2019-02-19 18:03] VITALS: PULSE 83
[2019-02-19 18:08] VITALS: Ht 157.5 cm; Wt 46.5 kg
[2019-02-19 18:14] VITALS: BP 120/78; PULSE 92; RESP 23
[2019-02-19 20:00] VITALS: BP 94/54; PULSE 85; PULSE 90; RESP 20
[2019-02-19] MEDS ORDERED: FERROUS SULFATE 60 MG/ML 5ML CUP GTB SCH (21:00)
[2019-02-19] MEDS: DOCUSATE SODIUM 10 MG/ML (10ML CUP) GTB SCH (21:34)
[2019-02-19] MEDS: FERROUS SULFATE 60 MG/ML 5ML CUP GTB SCH (21:35)
[2019-02-19] MEDS: FAMOTIDINE 20 MG TAB GTB SCH (21:35)
[2019-02-19] MEDS: OXCARBAZEPINE 150 MG TAB GTB SCH (21:39)
--- NOTE | 2019-02-19 22:53 | CONS ---
DATE OF ADMISSION: 02/19/2019 DATE OF CONSULTATION: 02/19/2019 TYPE OF CONSULTATION: Infectious Disease. REASON FOR CONSULTATION: Antibiotic management. HISTORY OF PRESENT ILLNESS: Rosaura Vega is a 43-year-old female sent from [facility] with shortness of breath. The patient has a history of cerebral palsy and comes in with congestion, fever and hypoxia. She is DNR/DNI. PAST MEDICAL HISTORY: Include hypertension. She has a surgical history of PEG placement. She is sh ort of breath. She has anxiety and depression. FAMILY HISTORY: Not contributory. SOCIAL HISTORY: She does not smoke, drink or abuse drugs. ALLERGIES: NONE TO PENICILLIN, SULFA OR FOODS. MEDICATIONS: Per chart. REVIEW OF SYSTEMS: As per HPI. PHYSICAL EXAMINATION: GENERAL: The patient has cerebral palsy. She has increased work of breathing. VITAL SIGNS: T-max temperature is 100.5. SKIN: Without generalized rash. HEENT: Within normal limits. NECK: Supple. LYMPH NODES: None palpable. CHEST: Decreased breath sounds at the bases with wheezing and rhonchi bilaterally. HEART: Tachycardic without murmur or gallop. ABDOMEN: Soft, nontender, without organosplenomegaly or masses. EXTREMITIES: Without cyanosis, clubbing, or edema. RECTAL AND GENITAL: Deferred. NEUROLOGIC: She is encephalopathic. She moves all extremities. ANCILLARY LABORATORY DATA: White count 18.8 with 93% neutrophils, H and H of 12.4 and 41.8, platelet count 507,000. BUN and creatinine to 60/0.26. The patient's urine was negative for nitrite, 2+ mark kocyte esterase, 76 white cells per high-power field. Chest x-ray, worsening of consolidation within the lung bases, worsening pneumonia, mild cardiomegaly with mild central vascular congestion, stable dense opacity in the retrocardiac left lung with presumed elevated left hemidiaphragm. IMPRESSION AND PLAN: The patient absolutely has pneumonia and also probable urinary tract infection. She was placed on vancomycin and cefepime. She has leukocytosis, elevated lactic acid of 3.5 to 4. 1. Code sepsis was initiated. The patient is septic, healthcare facility-acquired pneumonia, dyspha familia with G-tube, acute respiratory distress cerebral palsy, coccygeal decubitus ulcer. Wound care wa s called. She is DNR/DNI. I want to thank Dr. Bowman and nurse practitioner Dolores for asking us to see this unfortunate l maximus in consultation. Dictated By: JOEY TYLER MD, JD/NTS Conf#: [id number] DID#: [id number] CC: GLORIA BOWMAN MD;*EndCC*
[2019-02-20] VITALS (11 sets, daily range): BP systolic 102–149; BP diastolic 62–83; PULSE 64–106; RESP 20–24
[2019-02-20] MEDS: OXCARBAZEPINE 150 MG TAB GTB SCH ×2 (08:59→20:00)
[2019-02-20] MEDS: FAMOTIDINE 20 MG TAB GTB SCH ×2 (08:59→20:01)
[2019-02-20] MEDS: ASCORBIC ACID 500 MG TAB GTB SCH (08:59)
[2019-02-20] MEDS: FERROUS SULFATE 60 MG/ML 5ML CUP GTB SCH ×2 (08:59→20:01)
[2019-02-20] MEDS: ZINC SULFATE 220 MG CAP GTB SCH (08:59)
--- NOTE | 2019-02-20 09:51 | CONS ---
Assessment/Plan Assessment/Plan Assessment/Plan (Daily) Chest x-ray showing bilateral pneumonia. Assessment and recommendations; 1. Patient with history of cerebral palsy admitted with bilateral pneumonia currently on appropriate antimicrobial regimen. 2. Stage II coccygeal ulcer. 3. Apparently chronic anemia. Continue current supportive care. Obtain follow-up chest x-ray in 48 hours. Consultation Date/Type/Reason Admit Date/Time Date of Consultation: Feb 20, 2019 Type of Consult Pulmonary Pulmonary consult requested for evaluation of pneumonia. Patient is a 43-year-old woman with a history of cerebral palsy transferred [facility] with hypoxemia. Upon evaluation a chest x-ray was done which is showing bilateral pneumonia. Patient has been started on appropriate antimicrobial regimen. Because of cerebral palsy, patient was unable to give any history by herself whatsoever. Patient also appeared tachypneic on examination. History is obtained from medical records. Past medical history; 1. History of cerebral palsy 2. Decubitus ulcer involving coccyx. 3. Likely chronic anemia. Medications; reviewed. Allergies; none. Family history, social history, occupational history is not available. Review of system; unable to be obtained. General exam; middle-aged woman, on Ventimask. Noncommunicative. Mildly tachypneic. Date/Time of Note DATE: 02/20/19 TIME: 09:48 Past Medical History Home Meds Reported Medications Zinc Sulfate* (Zinc Sulfate*) 220 Mg Tablet, 220 MG GTB DAILY, TAB 02/19/19 Scopolamine (Scopolamine) 1 Each Patch.td.3, 1 EACH TD EVERY 3 DAYS 02/19/19 Potassium Chloride* (K-Dur*) 20 Meq Tab.prt.sr, 20 MEQ GTB DAILY, TAB.SA 02/19/19 Hydrocodone/Acetaminophen ([place] 5-325 Tablet) 1 Each Tablet, 1 EACH GTB Q6, TAB 02/19/19 Magnesium Hydroxide* (Milk Of Magnesia*) 400 Mg/5 Ml Oral.susp, 30 ML GTB DAILY, ML 02/19/19 Levalbuterol Hcl* (Levalbuterol Hcl*) 0.63 Mg/3 Ml Vial.neb, 0.63 MG INHALATION Q8 PRN for WHEEZING AND SOB, VIAL 02/19/19 Hydralazine Hcl* (Hydralazine Hcl*) 10 Mg Tablet, 20 MG GTB Q6H PRN for ELEVATED BLOOD PRESSURE, #60 TAB 02/19/19 Ferrous Sulfate (Ferrous Sulfate) 300 Mg/5 Ml Liquid, 330 MG GTB BID 02/19/19 Famotidine* (Famotidine*) 20 Mg Tablet, 20 MG GTB BID, #60 TAB 02/19/19 Enoxaparin Sodium* (Enoxaparin Sodium*) 30 Mg/0.3 Ml Syringe, 30 MG SC DAILY, SYR 02/19/19 Amlodipine Besylate* (Norvasc*) 5 Mg Tablet, 5 MG GTB DAILY, TAB 02/19/19 Ascorbic Acid (Vitamin C) 500 Mg Tab, 500 MG GTB DAILY, TAB 12/18/18 Cran/Vitc/Mannose/Inulin/Brom (Uti-Stat Liquid) 3,875 Mg/30 Ml Liquid, 30 MG GTB BID 12/18/18 Acetaminophen* (Acetaminophen*) 500 MG Extra Strength Tablet, 1000 MG GTB BID ME N for PAIN AND OR ELEVATED TEMP, TAB 12/18/18 Acetaminophen* (Acetaminophen*) 500 MG Extra Strength Tablet, 1000 MG GTB Q4H PRN for PAIN -02/24, TAB 12/18/18 Acetaminophen* (Tylenol*) 325 Mg Tablet, 650 MG GTB Q4H PRN for MILD PAIN LEVEL 1-3, TAB 12/18/18 Oxcarbazepine* (Trileptal*) 150 Mg Tablet, 150 MG GTB BID, TAB 12/18/18 Amino Acids/Protein Hydrolys (PRO-STAT LIQUID) 30 Ml Liquid.pkt, 30 ML GTB BID SUGAR FREE 12/18/18 Multivit &Minerals/Ferrous Fum (MULTIVITAMIN LIQUID) 9 Mg/15 Ml Liquid, 5 MG GTB DAILY 12/18/18 Na Phos,M-B/Na Phos,Di-Ba (Fleet Enema Extra) 230 Ml Enema, 1 APPLIC RC Q 2D, ENEMA 12/18/18 Bisacodyl* (Bisacodyl*) 10 Mg Supp, 10 MG ME Q24H for CONSTIPATION, SUPP 12/18/18 Cranberry Extract (Cranberry) 425 Mg Capsule, 425 MG GTB DAILY, CAP 12/18/18 Docusate Sodium* (Colace*) 100 Mg Capsule, 200 MG GTB QHS, #30 CAP 12/18/18 Discontinued Reported Medications Sodium Chloride* (Sodium Chloride*) 1 Gm Tablet, 1 GM GTB TID, TAB 12/18/18 Magnesium Hydroxide* (Milk Of Magnesia*) 400 Mg/5 Ml Oral.susp, 30 ML GTB NEEDED for CONSTIPATION, ML 12/18/18 Ipratropium-Albuterol (Ipratropium-Albuterol) 0.5-3 Mg/3 Ml Ampul.neb, 3 ML INHALATION Q6, #30 VIAL 12/18/18 Medications Current Medications Ondansetron HCl (Zofran Inj) 4 mg ER BRIDGE PRN IV NAUSEA/VOMITING; Start 02/19/19 at 12:30; Stop 02/20/19 at 12:29 Acetaminophen (Tylenol Tab) 650 mg ER BRIDGE PRN PO .MILD PAIN 1-3 OR TEMP; Start 02/19/19 at 12:30; Stop 02/20/19 at 12:29 Ascorbic Acid (Vitamin C) 500 mg DAILY GTB ; Start 02/20/19 at 09:00 Docusate Sodium (Colace Liquid Cup) 200 mg QHS GTB Last administered on 02/19/19at 21:34; Admin Dose 200 MG; Start 02/19/19 at 21:00 Famotidine (Pepcid) 20 mg BID GTB Last administered on 02/19/19at 21:35; Admin Dose 20 MG; Start 02/19/19 at 21:00 Oxcarbazepine (Trileptal) 150 mg BID GTB Last administered on 02/19/19at 21:39; Admin Dose 150 MG; Start 02/19/19 at 21:00 Zinc Sulfate (Zinc Sulfate) 220 mg DAILY GTB ; Start 02/20/19 at 09:00 IV Flush (NS 3 ml) 3 ml PER PROTOCOL IV ; Start 02/19/19 at 17:30 Ondansetron HCl (Zofran Inj) 4 mg Q6H PRN IV NAUSEA/VOMITING; Start 02/19/19 at 17:30 Acetaminophen (Tylenol Liquid) 650 mg Q6H PRN GTB .PAIN 1-3 OR TEMP; Start 02/19/19 at 17:30 Enoxaparin Sodium (Lovenox) 30 mg DAILY SC ; Start 02/20/19 at 09:00 Ferrous Sulfate (Feosol Liquid Cup) 300 mg BID GTB Last administered on 02/19/19at 21:35; Admin Dose 300 MG; Start 02/19/19 at 21:00 Allergies: Coded Allergies: No Known Allergy (Unverified , 02/19/19) Past Surgical History Past Surgical Hx: other (Tube placement) Social History Alcohol Use: none Smoking Status: Never smoker Drug Use: none Exam/Review of Systems Exam Vitals Vital Signs Date Temp Pulse Resp B/P (MAP) Pulse Ox O2 O2 Flow FiO2 Time Delivery Rate 02/20/19 93 08:01 02/20/19 Simple 5.0 07:39 Mask 02/20/19 98.4 24 121/81 96 07:28 (94) 02/20/19 53 06:10 Exam H ENT exam; supple neck, no JVD. No lymphadenopathy. Midline trachea. No thyromegaly. Patient has fair dentition. No neck masses. Chest exam; diminished breath sounds bilaterally. S1-S2 audible, no murmurs. Regular rhythm. Abdomen exam; soft, no organomegaly. G-tube in place. Bowel sounds audible. Abdomen is nondistended. Extremity exam; no peripheral edema clubbing. Patient does have flexion contractures. IMPLEMENTATION ARCHITECT exam; patient awake but noncommunicative. Results Result Diagram: 02/20/19 0618 02/20/1918 Results 24hrs Laboratory Tests Test 02/19/19 10:15 02/19/19 11:16 02/19/19 13:23 02/19/19 22:57 Urine Color YELLOW Urine Clarity CLOUDY A Urine pH 7.0 Urine Specific 1.019 Beatty Urine Ketones NEGATIVE Urine Nitrite NEGATIVE Urine Bilirubin NEGATIVE Urine Urobilinogen NEGATIVE Urine Leukocyte 2+ H Esterase Urine Microscopic 3 RBC Urine Microscopic 76 H WBC Urine Amorphous FEW A Crystals Urine Bacteria FEW A Urine Mucus MODERATE Urine Hemoglobin NEGATIVE Urine Glucose NEGATIVE Urine Total NEGATIVE Protein Lactic Acid Level 4.1 *H 1.7 Blood Gas Specimen Blood arterial Source Arterial Blood 02/19/2019 11:20:13 Date Drawn PM Arterial Blood pH 7.400 (Temp corrected) Arterial Blood 35.3 pCO2 (Temp correct) Arterial Blood pO2 187.3 H (Temp corrected) Arterial Blood 21.4 L HCO3 Arterial Blood -3.0 Base Excess Arterial Blood 99.3 H Oxygen Saturation Nabil Test N/A Arterial Blood Gas LB Puncture Site Arterial 0.3 Blood Carboxyhemog lobin Arterial Blood 0.3 Methemoglobin Blood Gas A-a O2 490.4 H Differential Oxyhemoglobin 98.7 Percent Blood Gas 37.0 Temperature Blood Gas Modality MASK - NRB FiO2 100.0 Blood Gas Notified MA Whom Blood Gas Notified 02/19/2019 11:30:55 Time PM Test 02/20/19 06:18 White Blood Count 17.9 H Red Blood Count 3.46 #L Hemoglobin 8.8 #L Hematocrit 30.0 #L Mean Corpuscular 86.7 Volume Mean Corpuscular 25.4 L Hemoglobin Mean Corpuscular 29.3 L Hemoglobin Concent Red Cell 17.1 H Distribution Width Platelet Count 399 # Mean Platelet 10.3 Volume Immature 0.600 H Granulocytes % Neutrophils % 81.1 H Lymphocytes % 13.9 L Monocytes % 2.2 Eosinophils % 1.8 Basophils % 0.4 Nucleated Red 0.0 Blood Cells % Immature 0.110 H Granulocytes # Neutrophils # 14.5 H Lymphocytes # 2.5 Monocytes # 0.4 Eosinophils # 0.3 Basophils # 0.1 Nucleated Red 0.0 Blood Cells # Sodium Level 138 Potassium Level 3.3 L Chloride Level 105 Carbon Dioxide 25 Level Anion Gap 8 Blood Urea 7 # Nitrogen Creatinine 0.24 L Est Glomerular > 60 Filtrat Rate mL/min Glucose Level 82 # Calcium Level 8.8 Total Bilirubin 0.4 Direct Bilirubin 0.00 Indirect Bilirubin 0.4 Aspartate Amino 23 Transf (AST/SGOT) Alanine 11 L Aminotransferase ( ALT/SGPT) Alkaline 99 Phosphatase Total Protein 7.2 # Albumin 3.2 #L Globulin 4.00 H Albumin/Globulin 0.80 Ratio Medications Medication Current Medications Ondansetron HCl (Zofran Inj) 4 mg ER BRIDGE PRN IV NAUSEA/VOMITING; Start 02/19/19 at 12:30; Stop 02/20/19 at 12:29 Acetaminophen (Tylenol Tab) 650 mg ER BRIDGE PRN PO .MILD PAIN 1-3 OR TEMP; Start 02/19/19 at 12:30; Stop 02/20/19 at 12:29 Ascorbic Acid (Vitamin C) 500 mg DAILY GTB ; Start 02/20/19 at 09:00 Docusate Sodium (Colace Liquid Cup) 200 mg QHS GTB Last administered on 02/19/19at 21:34; Admin Dose 200 MG; Start 02/19/19 at 21:00 Famotidine (Pepcid) 20 mg BID GTB Last administered on 02/19/19at 21:35; Admin Dose 20 MG; Start 02/19/19 at 21:00 Oxcarbazepine (Trileptal) 150 mg BID GTB Last administered on 02/19/19at 21:39; Admin Dose 150 MG; Start 02/19/19 at 21:00 Zinc Sulfate (Zinc Sulfate) 220 mg DAILY GTB ; Start 02/20/19 at 09:00 IV Flush (NS 3 ml) 3 ml PER PROTOCOL IV ; Start 02/19/19 at 17:30 Ondansetron HCl (Zofran Inj) 4 mg Q6H PRN IV NAUSEA/VOMITING; Start 02/19/19 at 17:30 Acetaminophen (Tylenol Liquid) 650 mg Q6H PRN GTB .PAIN 1-3 OR TEMP; Start 02/19/19 at 17:30 Enoxaparin Sodium (Lovenox) 30 mg DAILY SC ; Start 02/20/19 at 09:00 Ferrous Sulfate (Feosol Liquid Cup) 300 mg BID GTB Last administered on 02/19/19at 21:35; Admin Dose 300 MG; Start 02/19/19 at 21:00 TRACY MARTINEZ Feb 20, 2019 09:51
[2019-02-20] MEDS: ENOXAPARIN 30 MG/0.3 ML SYG SC SCH (10:08)
--- NOTE | 2019-02-20 15:38 | CONS ---
Assessment/Plan Assessment/Plan Hospital Course (Demo Recall) Patient is noncommunicative in no distress she is on facemask looks comfortable afebrile WBC 17.9 neutrophils 81.1 BUN 7 creatinine 0.24. Lactic acid on admission 4.1 Blood cultures negative urine culture growing yeast Chest x-ray on admission revealed worsening consolidation within the lung bases possibly worsening pneumonia Indwelling [place], Pap Antimicrobials: Vanco cefepime Physical examination: Chronically ill-appearing middle-aged woman who is laying comfortably in bed. Head atraumatic normocephalic sclera nonicteric vehicle mucosa dry neck is supple chest rise symmetrical breath sounds with bilateral rails. Heart: S1-S2 abdomen soft bowel sounds present extremities without cyanosis Assessment: 1. Sepsis 2. Recurrent pneumonia possibly aspirated 3. UTI 4. Acute hypoxemic respiratory failure 5. History of cerebral palsy with severe debility Plan: Continue antibiotics, add fluconazole Consultation Date/Type/Reason Admit Date/Time Feb 19, 2019 at 12:11 Initial Consult Date 02/20/19 Type of Consult id Date/Time of Note DATE: 02/20/19 TIME: 15:37 Exam/Review of Systems Exam Vitals Vital Signs Date Temp Pulse Resp B/P (MAP) Pulse Ox O2 O2 Flow FiO2 Time Delivery Rate 02/20/19 98.6 94 20 120/62 100 Mask 15:22 (81) 02/20/19 5.0 07:39 02/20/19 53 06:10 Results Result Diagram: 02/20/19 0618 02/20/19 0618 Results 24hrs Laboratory Tests Test 02/19/19 22:57 02/20/19 06:18 Blood Gas Specimen Source Blood arterial Arterial Blood Date Drawn 02/19/2019 11:20:13 PM Arterial Blood pH (Temp corrected) 7.400 Arterial Blood pCO2 (Temp correct) 35.3 Arterial Blood pO2 (Temp corrected) 187.3 H Arterial Blood HCO3 21.4 L Arterial Blood Base Excess -3.0 Arterial Blood Oxygen Saturation 99.3 H Nabil Test N/A Arterial Blood Gas Puncture Site LB Arterial Blood Carboxyhemoglobin 0.3 Arterial Blood Methemoglobin 0.3 Blood Gas A-a O2 Differential 490.4 H Oxyhemoglobin Percent 98.7 Blood Gas Temperature 37.0 Blood Gas Modality MASK - NRB FiO2 100.0 Blood Gas Notified Whom MA Blood Gas Notified Time 02/19/2019 11:30:55 PM White Blood Count 17.9 H Red Blood Count 3.46 #L Hemoglobin 8.8 #L Hematocrit 30.0 #L Mean Corpuscular Volume 86.7 Mean Corpuscular Hemoglobin 25.4 L Mean Corpuscular Hemoglobin Concent 29.3 L Red Cell Distribution Width 17.1 H Platelet Count 399 # Mean Platelet Volume 10.3 Immature Granulocytes % 0.600 H Neutrophils % 81.1 H Lymphocytes % 13.9 L Monocytes % 2.2 Eosinophils % 1.8 Basophils % 0.4 Nucleated Red Blood Cells % 0.0 Immature Granulocytes # 0.110 H Neutrophils # 14.5 H Lymphocytes # 2.5 Monocytes # 0.4 Eosinophils # 0.3 Basophils # 0.1 Nucleated Red Blood Cells # 0.0 Sodium Level 138 Potassium Level 3.3 L Chloride Level 105 Carbon Dioxide Level 25 Anion Gap 8 Blood Urea Nitrogen 7 # Creatinine 0.24 L Est Glomerular Filtrat Rate mL/min > 60 Glucose Level 82 # Calcium Level 8.8 Total Bilirubin 0.4 Direct Bilirubin 0.00 Indirect Bilirubin 0.4 Aspartate Amino Transf (AST/SGOT) 23 Alanine Aminotransferase (ALT/SGPT) 11 L Alkaline Phosphatase 99 Total Protein 7.2 # Albumin 3.2 #L Globulin 4.00 H Albumin/Globulin Ratio 0.80 Medications Medication Current Medications Ascorbic Acid (Vitamin C) 500 mg DAILY GTB Last administered on 02/20/19 08:59; Admin Dose 500 MG; Start 02/20/19 at 09:00 Docusate Sodium (Colace Liquid Cup) 200 mg QHS GTB Last administered on 02/19/19 21:34; Admin Dose 200 MG; Start 02/19/19 at 21:00 Famotidine (Pepcid) 20 mg BID GTB Last administered on 02/20/19 08:59; Admin Dose 20 MG; Start 02/19/19 at 21:00 Oxcarbazepine (Trileptal) 150 mg BID GTB Last administered on 02/20/19 08:59; Admin Dose 150 MG; Start 02/19/19 at 21:00 Zinc Sulfate (Zinc Sulfate) 220 mg DAILY GTB Last administered on 02/20/19 08:59; Admin Dose 220 MG; Start 02/20/19 at 09:00 IV Flush (NS 3 ml) 3 ml PER PROTOCOL IV ; Start 02/19/19 at 17:30 Ondansetron HCl (Zofran Inj) 4 mg Q6H PRN IV NAUSEA/VOMITING; Start 02/19/19 at 17:30 Acetaminophen (Tylenol Liquid) 650 mg Q6H PRN GTB .PAIN 1-3 OR TEMP; Start 02/19/19 at 17:30 Enoxaparin Sodium (Lovenox) 30 mg DAILY SC Last administered on 02/20/19at 10:08; Admin Dose 30 MG; Start 02/20/19 at 09:00 Ferrous Sulfate (Feosol Liquid Cup) 300 mg BID GTB Last administered on 02/20/19at 08:59; Admin Dose 300 MG; Start 02/19/19 at 21:00 ALLISON LOMELI NP Feb 20, 2019 15:38
[2019-02-20] MEDS: FLUCONAZOLE 100 MG/50 ML (PMX) 50 ML IVPB SCH ×2 (16:00→17:32)
[2019-02-20] MEDS ORDERED: VANCOMYCIN IV PER PHARMACY XX SCH (16:00)
[2019-02-20] MEDS: CEFEPIME 1GM/50 ML (PMX) 50 ML IVPB SCH ×2 (16:15→20:01)
[2019-02-20] MEDS ORDERED: VANCOMYCIN 1 GM (PMX) 250 ML IVPB ONE (17:00)
[2019-02-20] MEDS ORDERED: POTASSIUM CHLORIDE 20 MEQ POWDER FOR ORAL SOLN GTB ONE (18:00)
--- NOTE | 2019-02-20 19:56 | PN ---
Date/Time of Note Date/Time of Note DATE: 02/20/19 TIME: 19:53 Assessment/Plan VTE Prophylaxis Risk score (from [facility] [place])>0 risk: 4 SCD applied (from Ns): Yes Pharmacological prophylaxis: LMWH Lines/Catheters IV Catheter Type (from [facility]): Saline Lock Urinary Cath still in place: Yes Reason Cath still needed: urinary retention Assessment/Plan Hospital Course Patient is continued continues on supplemental oxygen oxygen, congested, requiring suctioning, afebrile. Assessment/Plan -Sepsis with shock, continue IV fluids and broad-spectrum antibiotics. Dr. Poole, infection disease consultation. -Healthcare facility acquired pneumonia. -Acute respiratory distress continue supplemental oxygen bronchodilators continue. Dr. Hyatt is following in pulmonology consultation. -Dysphagia with G-tube. -Cerebral palsy. -Chronic coccygeal decubitus ulcer. Continue current wound care. -Protein calorie malnutrition. -DNR/DNI status. Further recommendations based on clinical course. Plan of care discussed with Dr. Bowman. Result Diagram: 02/20/19 0618 02/20/19 0618 Results 24hrs Laboratory Tests Test 02/19/19 22:57 02/20/19 06:18 Blood Gas Specimen Source Blood arterial Arterial Blood Date Drawn 02/19/2019 11:20:13 PM Arterial Blood pH (Temp corrected) 7.400 Arterial Blood pCO2 (Temp correct) 35.3 Arterial Blood pO2 (Temp corrected) 187.3 H Arterial Blood HCO3 21.4 L Arterial Blood Base Excess -3.0 Arterial Blood Oxygen Saturation 99.3 H Nabil Test N/A Arterial Blood Gas Puncture Site LB Arterial Blood Carboxyhemoglobin 0.3 Arterial Blood Methemoglobin 0.3 Blood Gas A-a O2 Differential 490.4 H Oxyhemoglobin Percent 98.7 Blood Gas Temperature 37.0 Blood Gas Modality MASK - NRB FiO2 100.0 Blood Gas Notified Whom MA Blood Gas Notified Time 02/19/2019 11:30:55 PM White Blood Count 17.9 H Red Blood Count 3.46 #L Hemoglobin 8.8 #L Hematocrit 30.0 #L Mean Corpuscular Volume 86.7 Mean Corpuscular Hemoglobin 25.4 L Mean Corpuscular Hemoglobin Concent 29.3 L Red Cell Distribution Width 17.1 H Platelet Count 399 # Mean Platelet Volume 10.3 Immature Granulocytes % 0.600 H Neutrophils % 81.1 H Lymphocytes % 13.9 L Monocytes % 2.2 Eosinophils % 1.8 Basophils % 0.4 Nucleated Red Blood Cells % 0.0 Immature Granulocytes # 0.110 H Neutrophils # 14.5 H Lymphocytes # 2.5 Monocytes # 0.4 Eosinophils # 0.3 Basophils # 0.1 Nucleated Red Blood Cells # 0.0 Sodium Level 138 Potassium Level 3.3 L Chloride Level 105 Carbon Dioxide Level 25 Anion Gap 8 Blood Urea Nitrogen 7 # Creatinine 0.24 L Est Glomerular Filtrat Rate mL/min > 60 Glucose Level 82 # Calcium Level 8.8 Total Bilirubin 0.4 Direct Bilirubin 0.00 Indirect Bilirubin 0.4 Aspartate Amino Transf (AST/SGOT) 23 Alanine Aminotransferase (ALT/SGPT) 11 L Alkaline Phosphatase 99 Total Protein 7.2 # Albumin 3.2 #L Globulin 4.00 H Albumin/Globulin Ratio 0.80 Exam/Review of Systems Exam Vitals Vital Signs Date Temp Pulse Resp B/P (MAP) Pulse Ox O2 O2 Flow FiO2 Time Delivery Rate 02/20/19 Nasal 3.0 17:00 Cannula 02/20/19 89 16:01 02/20/19 98.6 20 120/62 100 15:22 (81) 02/20/19 53 06:10 Exam Constitutional: frail Head: normocephalic Neck: supple Respiratory: diminished breath sounds Cardiovascular: regular rate and rhythm Gastrointestinal: soft, non-tender, other (G tube) Musculoskeletal: nl extremities to inspection Extremities: normal pulses Neurological: confused, lethargic Skin: other (Sacral decubitus ulcer) Results Results 24hrs Laboratory Tests Test 02/19/19 22:57 02/20/19 06:18 Blood Gas Specimen Source Blood arterial Arterial Blood Date Drawn 02/19/2019 11:20:13 PM Arterial Blood pH (Temp corrected) 7.400 Arterial Blood pCO2 (Temp correct) 35.3 Arterial Blood pO2 (Temp corrected) 187.3 H Arterial Blood HCO3 21.4 L Arterial Blood Base Excess -3.0 Arterial Blood Oxygen Saturation 99.3 H Nabil Test N/A Arterial Blood Gas Puncture Site LB Arterial Blood Carboxyhemoglobin 0.3 Arterial Blood Methemoglobin 0.3 Blood Gas A-a O2 Differential 490.4 H Oxyhemoglobin Percent 98.7 Blood Gas Temperature 37.0 Blood Gas Modality MASK - NRB FiO2 100.0 Blood Gas Notified Whom MA Blood Gas Notified Time 02/19/2019 11:30:55 PM White Blood Count 17.9 H Red Blood Count 3.46 #L Hemoglobin 8.8 #L Hematocrit 30.0 #L Mean Corpuscular Volume 86.7 Mean Corpuscular Hemoglobin 25.4 L Mean Corpuscular Hemoglobin Concent 29.3 L Red Cell Distribution Width 17.1 H Platelet Count 399 # Mean Platelet Volume 10.3 Immature Granulocytes % 0.600 H Neutrophils % 81.1 H Lymphocytes % 13.9 L Monocytes % 2.2 Eosinophils % 1.8 Basophils % 0.4 Nucleated Red Blood Cells % 0.0 Immature Granulocytes # 0.110 H Neutrophils # 14.5 H Lymphocytes # 2.5 Monocytes # 0.4 Eosinophils # 0.3 Basophils # 0.1 Nucleated Red Blood Cells # 0.0 Sodium Level 138 Potassium Level 3.3 L Chloride Level 105 Carbon Dioxide Level 25 Anion Gap 8 Blood Urea Nitrogen 7 # Creatinine 0.24 L Est Glomerular Filtrat Rate mL/min > 60 Glucose Level 82 # Calcium Level 8.8 Total Bilirubin 0.4 Direct Bilirubin 0.00 Indirect Bilirubin 0.4 Aspartate Amino Transf (AST/SGOT) 23 Alanine Aminotransferase (ALT/SGPT) 11 L Alkaline Phosphatase 99 Total Protein 7.2 # Albumin 3.2 #L Globulin 4.00 H Albumin/Globulin Ratio 0.80 Medications Medication Current Medications Ascorbic Acid (Vitamin C) 500 mg DAILY GTB Last administered on 02/20/19 08:59; Admin Dose 500 MG; Start 02/20/19 at 09:00 Docusate Sodium (Colace Liquid Cup) 200 mg QHS GTB Last administered on 02/19/19 21:34; Admin Dose 200 MG; Start 02/19/19 at 21:00 Famotidine (Pepcid) 20 mg BID GTB Last administered on 02/20/19 08:59; Admin Dose 20 MG; Start 02/19/19 at 21:00 Oxcarbazepine (Trileptal) 150 mg BID GTB Last administered on 02/20/19 08:59; Admin Dose 150 MG; Start 02/19/19 at 21:00 Zinc Sulfate (Zinc Sulfate) 220 mg DAILY GTB Last administered on 02/20/19 08:59; Admin Dose 220 MG; Start 02/20/19 at 09:00 IV Flush (NS 3 ml) 3 ml PER PROTOCOL IV ; Start 02/19/19 at 17:30 Ondansetron HCl (Zofran Inj) 4 mg Q6H PRN IV NAUSEA/VOMITING; Start 02/19/19 at 17:30 Acetaminophen (Tylenol Liquid) 650 mg Q6H PRN GTB .PAIN 1-3 OR TEMP; Start 02/19/19 at 17:30 Enoxaparin Sodium (Lovenox) 30 mg DAILY SC Last administered on 02/20/19at 10:08; Admin Dose 30 MG; Start 02/20/19 at 09:00 Ferrous Sulfate (Feosol Liquid Cup) 300 mg BID GTB Last administered on 02/20/19at 08:59; Admin Dose 300 MG; Start 02/19/19 at 21:00 Vancomycin HCl (Vanco Iv Per Pharmacy) VANCOMYCIN PER PHARMACY PER PROTOCOL XX ; Start 02/20/19 at 16:00 Cefepime HCl 50 ml @ 100 mls/hr Q12 IVPB Last administered on 02/20/19at 16:15; Admin Dose 100 MLS/HR; Start 02/20/19 at 16:00 Fluconazole/ Sodium Chloride 50 ml @ 50 mls/hr Q24H IVPB Last administered on 02/20/19at 17:32; Admin Dose 50 MLS/HR; Start 02/20/19 at 16:00 Vancomycin/Sodium Chloride 250 ml @ 125 mls/hr Q12H IVPB ; Start 02/21/19 at 06:00 LIBIA CARBALLO Feb 20, 2019 19:56
[2019-02-20] MEDS: DOCUSATE SODIUM 10 MG/ML (10ML CUP) GTB SCH (20:01)
[2019-02-21] VITALS (10 sets, daily range): BP systolic 116–162; BP diastolic 65–92; PULSE 78–109; RESP 16–24
--- NOTE | 2019-02-21 04:47 | PN ---
Date/Time of Note Date/Time of Note DATE: 02/21/19 TIME: 04:47 Assessment/Plan VTE Prophylaxis Risk score (from [facility])>0 risk: 3 SCD applied (from [facility]): Yes SCD contraindicated: other Pharmacological prophylaxis: other Pharm contraindication: other Lines/Catheters IV Catheter Type (from [facility]): Saline Lock Urinary Cath still in place: Yes Reason Cath still needed: urinary retention Assessment/Plan Assessment/Plan - Hypokalemia- resolved -Sepsis with shock, continue IV fluids and broad-spectrum antibiotics. Dr. Poole, infection disease consultation. -Healthcare facility acquired pneumonia. -Acute respiratory distress continue supplemental oxygen bronchodilators continue. Dr. Hyatt is following in pulmonology consultation. -Dysphagia with G-tube. -Cerebral palsy. -Chronic coccygeal decubitus ulcer. Continue current wound care. -Protein calorie malnutrition. -DNR/DNI status. Further recommendations based on clinical course. Plan of care discussed with Dr. Bowman. Result Diagram: 02/20/19 0618 02/20/19 0618 Results 24hrs Laboratory Tests Test 02/20/19 06:18 White Blood Count 17.9 H Red Blood Count 3.46 #L Hemoglobin 8.8 #L Hematocrit 30.0 #L Mean Corpuscular Volume 86.7 Mean Corpuscular Hemoglobin 25.4 L Mean Corpuscular Hemoglobin Concent 29.3 L Red Cell Distribution Width 17.1 H Platelet Count 399 # Mean Platelet Volume 10.3 Immature Granulocytes % 0.600 H Neutrophils % 81.1 H Lymphocytes % 13.9 L Monocytes % 2.2 Eosinophils % 1.8 Basophils % 0.4 Nucleated Red Blood Cells % 0.0 Immature Granulocytes # 0.110 H Neutrophils # 14.5 H Lymphocytes # 2.5 Monocytes # 0.4 Eosinophils # 0.3 Basophils # 0.1 Nucleated Red Blood Cells # 0.0 Sodium Level 138 Potassium Level 3.3 L Chloride Level 105 Carbon Dioxide Level 25 Anion Gap 8 Blood Urea Nitrogen 7 # Creatinine 0.24 L Est Glomerular Filtrat Rate mL/min > 60 Glucose Level 82 # Calcium Level 8.8 Total Bilirubin 0.4 Direct Bilirubin 0.00 Indirect Bilirubin 0.4 Aspartate Amino Transf (AST/SGOT) 23 Alanine Aminotransferase (ALT/SGPT) 11 L Alkaline Phosphatase 99 Total Protein 7.2 # Albumin 3.2 #L Globulin 4.00 H Albumin/Globulin Ratio 0.80 Exam/Review of Systems Exam Vitals Vital Signs Date Temp Pulse Resp B/P (MAP) Pulse Ox O2 O2 Flow FiO2 Time Delivery Rate 02/21/19 98.8 99 22 119/75 96 04:00 (90) 02/20/19 Nasal 3.0 20:00 Cannula 02/20/19 53 06:10 Intake and Output 02/20/19 02/20/19 02/21/19 1515:00 23:00 07:00 IntakeIntake Total 100 ml OutputOutput Total 750 ml BalanceBalance -650 ml Constitutional: alert, non-verbal, frail Psych: nl mood/affect Eyes: nl lids, nl sclera ENMT: nl external ears & nose Neck: non-tender Respiratory: clear to auscultation Cardiovascular: nl pulses, other (s1s2) Gastrointestinal: soft, other (gt i ntact) Musculoskeletal: joint tenderness, muscle weakness, range of motion Extremities: normal pulses Neurological: lethargic Results Results 24hrs Laboratory Tests Test 02/20/19 06:18 White Blood Count 17.9 H Red Blood Count 3.46 #L Hemoglobin 8.8 #L Hematocrit 30.0 #L Mean Corpuscular Volume 86.7 Mean Corpuscular Hemoglobin 25.4 L Mean Corpuscular Hemoglobin Concent 29.3 L Red Cell Distribution Width 17.1 H Platelet Count 399 # Mean Platelet Volume 10.3 Immature Granulocytes % 0.600 H Neutrophils % 81.1 H Lymphocytes % 13.9 L Monocytes % 2.2 Eosinophils % 1.8 Basophils % 0.4 Nucleated Red Blood Cells % 0.0 Immature Granulocytes # 0.110 H Neutrophils # 14.5 H Lymphocytes # 2.5 Monocytes # 0.4 Eosinophils # 0.3 Basophils # 0.1 Nucleated Red Blood Cells # 0.0 Sodium Level 138 Potassium Level 3.3 L Chloride Level 105 Carbon Dioxide Level 25 Anion Gap 8 Blood Urea Nitrogen 7 # Creatinine 0.24 L Est Glomerular Filtrat Rate mL/min > 60 Glucose Level 82 # Calcium Level 8.8 Total Bilirubin 0.4 Direct Bilirubin 0.00 Indirect Bilirubin 0.4 Aspartate Amino Transf (AST/SGOT) 23 Alanine Aminotransferase (ALT/SGPT) 11 L Alkaline Phosphatase 99 Total Protein 7.2 # Albumin 3.2 #L Globulin 4.00 H Albumin/Globulin Ratio 0.80 Medications Medication Current Medications Ascorbic Acid (Vitamin C) 500 mg DAILY GTB Last administered on 02/20/19 08:59; Admin Dose 500 MG; Start 02/20/19 at 09:00 Docusate Sodium (Colace Liquid Cup) 200 mg QHS GTB Last administered on 02/20/19 20:01; Admin Dose 200 MG; Start 02/19/19 at 21:00 Famotidine (Pepcid) 20 mg BID GTB Last administered on 02/20/19 20:01; Admin Dose 20 MG; Start 02/19/19 at 21:00 Oxcarbazepine (Trileptal) 150 mg BID GTB Last administered on 02/20/19 20:00; Admin Dose 150 MG; Start 02/19/19 at 21:00 Zinc Sulfate (Zinc Sulfate) 220 mg DAILY GTB Last administered on 02/20/19 08:59; Admin Dose 220 MG; Start 02/20/19 at 09:00 IV Flush (NS 3 ml) 3 ml PER PROTOCOL IV ; Start 02/19/19 at 17:30 Ondansetron HCl (Zofran Inj) 4 mg Q6H PRN IV NAUSEA/VOMITING; Start 02/19/19 at 17:30 Acetaminophen (Tylenol Liquid) 650 mg Q6H PRN GTB .PAIN 1-3 OR TEMP; Start 02/19/19 at 17:30 Enoxaparin Sodium (Lovenox) 30 mg DAILY SC Last administered on 02/20/19at 10:08; Admin Dose 30 MG; Start 02/20/19 at 09:00 Ferrous Sulfate (Feosol Liquid Cup) 300 mg BID GTB Last administered on 02/20/19 20:01; Admin Dose 300 MG; Start 02/19/19 at 21:00 Vancomycin HCl (Vanco Iv Per Pharmacy) VANCOMYCIN PER PHARMACY PER PROTOCOL XX ; Start 02/20/19 at 16:00 Cefepime HCl 50 ml @ 100 mls/hr Q12 IVPB Last administered on 02/20/19at 20:01; Admin Dose 100 MLS/HR; Start 02/20/19 at 16:00 Fluconazole/ Sodium Chloride 50 ml @ 50 mls/hr Q24H IVPB Last administered on 02/20/19at 17:32; Admin Dose 50 MLS/HR; Start 02/20/19 at 16:00 Vancomycin/Sodium Chloride 250 ml @ 125 mls/hr Q12H IVPB ; Start 02/21/19 at 06:00 JASMYNE HOOKS Feb 21, 2019 04:47
[2019-02-21] MEDS: VANCOMYCIN 750 MG (PMX) 250 ML IVPB SCH ×2 (05:39→17:32)
[2019-02-21] MEDS: FERROUS SULFATE 60 MG/ML 5ML CUP GTB SCH ×2 (09:07→20:32)
[2019-02-21] MEDS: BALSAM PERU/CASTOR OIL 60 GM TUBE TOP SCH (09:07)
[2019-02-21] MEDS: ZINC SULFATE 220 MG CAP GTB SCH (09:08)
[2019-02-21] MEDS: ASCORBIC ACID 500 MG TAB GTB SCH (09:08)
[2019-02-21] MEDS: CEFEPIME 1GM/50 ML (PMX) 50 ML IVPB SCH ×2 (09:08→20:33)
[2019-02-21] MEDS: OXCARBAZEPINE 150 MG TAB GTB SCH ×2 (09:08→20:33)
[2019-02-21] MEDS: FAMOTIDINE 20 MG TAB GTB SCH ×2 (09:08→20:32)
[2019-02-21] MEDS: ENOXAPARIN 30 MG/0.3 ML SYG SC SCH (09:25)
--- NOTE | 2019-02-21 10:33 | CONS ---
Assessment/Plan Assessment/Plan Assessment/Plan (Daily) Assessment and recommendations; 1. Patient with history of cerebral palsy admitted with bilateral pneumonia with interval clinical improvement. 2. Stage II coccygeal ulcer. Continue current supportive care. Patient responding well to current treatment regimen. Antibiotics per ID recommendations. Consultation Date/Type/Reason Admit Date/Time Feb 19, 2019 at 12:11 Initial Consult Date 02/20/19 Type of Consult Pulmonary Pulmonary consult requested for evaluation of pneumonia. Patient is a 43-year-old woman with a history of cerebral palsy transferred from retirement with hypoxemia. Upon evaluation a chest x-ray was done which is showing bilateral pneumonia. Patient has been started on appropriate antimicrobial regimen. Because of cerebral palsy, patient was unable to give any history by herself whatsoever. Patient also appeared tachypneic on examination. History is obtained from medical records. Past medical history; 1. History of cerebral palsy 2. Decubitus ulcer involving coccyx. 3. Likely chronic anemia. Medications; reviewed. Allergies; none. Family history, social history, occupational history is not available. Review of system; unable to be obtained. General exam; middle-aged woman, on Ventimask. Noncommunicative. Mildly tachypneic. Date/Time of Note DATE: 02/21/19 TIME: 10:32 24 HR Interval Summary Free Text/Dictation Patient's condition is stable. Has remained hemodynamically stable. General exam; young woman, noncommunicative. Currently no distress. Exam/Review of Systems Exam Vitals Vital Signs Date Temp Pulse Resp B/P (MAP) Pulse Ox O2 O2 Flow FiO2 Time Delivery Rate 02/21/19 3.0 08:35 02/21/19 99.0 93 24 137/92 100 Nasal 07:25 (107) Cannula 02/20/19 53 06:10 Intake and Output 02/20/19 02/20/19 02/21/19 1515:00 23:00 07:00 IntakeIntake Total 100 ml OutputOutput Total 750 ml BalanceBalance -650 ml Exam H EENT exam; supple neck, no JVD. No lymphadenopathy. Midline trachea. No thyromegaly. Patient has fair dentition. Chest exam; diminished but clear breath sounds. S1-S2 audible, no murmurs. Abdomen exam; soft, no organomegaly. G-tube in place. Bowel sounds audible. Extremity exam; peripheral edema. STAFF AUDITOR exam; patient remains noncommunicative. Results Result Diagram: 02/21/19 0607 02/21/19 0607 Results 24hrs Laboratory Tests Test 02/21/19 06:07 White Blood Count 10.7 # Red Blood Count 3.61 L Hemoglobin 9.0 L Hematocrit 30.6 L Mean Corpuscular Volume 84.8 Mean Corpuscular Hemoglobin 24.9 L Mean Corpuscular Hemoglobin Concent 29.4 L Red Cell Distribution Width 16.7 H Platelet Count 394 Mean Platelet Volume 10.0 Immature Granulocytes % 0.500 H Neutrophils % 78.8 H Lymphocytes % 14.7 L Monocytes % 3.7 Eosinophils % 1.9 Basophils % 0.4 Nucleated Red Blood Cells % 0.0 Immature Granulocytes # 0.050 H Neutrophils # 8.4 H Lymphocytes # 1.6 Monocytes # 0.4 Eosinophils # 0.2 Basophils # 0.0 Nucleated Red Blood Cells # 0.0 Sodium Level 136 Potassium Level 3.7 Chloride Level 100 Carbon Dioxide Level 30 Anion Gap 6 Blood Urea Nitrogen 8 Creatinine 0.26 L Est Glomerular Filtrat Rate mL/min > 60 Glucose Level 122 # Calcium Level 8.9 Medications Medication Current Medications Ascorbic Acid (Vitamin C) 500 mg DAILY GTB Last administered on 02/21/19 09:08; Admin Dose 500 MG; Start 02/20/19 at 09:00 Docusate Sodium (Colace Liquid Cup) 200 mg QHS GTB Last administered on 02/20/19at 20:01; Admin Dose 200 MG; Start 02/19/19 at 21:00 Famotidine (Pepcid) 20 mg BID GTB Last administered on 02/21/19at 09:08; Admin Dose 20 MG; Start 02/19/19 at 21:00 Oxcarbazepine (Trileptal) 150 mg BID GTB Last administered on 02/21/19at 09:08; Admin Dose 150 MG; Start 02/19/19 at 21:00 Zinc Sulfate (Zinc Sulfate) 220 mg DAILY GTB Last administered on 02/21/19at 09:08; Admin Dose 220 MG; Start 02/20/19 at 09:00 IV Flush (NS 3 ml) 3 ml PER PROTOCOL IV ; Start 02/19/19 at 17:30 Ondansetron HCl (Zofran Inj) 4 mg Q6H PRN IV NAUSEA/VOMITING; Start 02/19/19 at 17:30 Acetaminophen (Tylenol Liquid) 650 mg Q6H PRN GTB .PAIN 1-3 OR TEMP; Start 02/19/19 at 17:30 Enoxaparin Sodium (Lovenox) 30 mg DAILY SC Last administered on 02/21/19at 09:25; Admin Dose 30 MG; Start 02/20/19 at 09:00 Ferrous Sulfate (Feosol Liquid Cup) 300 mg BID GTB Last administered on 02/21/19at 09:07; Admin Dose 300 MG; Start 02/19/19 at 21:00 Vancomycin HCl (Vanco Iv Per Pharmacy) VANCOMYCIN PER PHARMACY PER PROTOCOL XX ; Start 02/20/19 at 16:00 Cefepime HCl 50 ml @ 100 mls/hr Q12 IVPB Last administered on 02/21/19at 09:08; Admin Dose 100 MLS/HR; Start 02/20/19 at 16:00 Fluconazole/ Sodium Chloride 50 ml @ 50 mls/hr Q24H IVPB Last administered on 02/20/19at 17:32; Admin Dose 50 MLS/HR; Start 02/20/19 at 16:00 Vancomycin/Sodium Chloride 250 ml @ 125 mls/hr Q12H IVPB Last administered on 02/21/19at 05:39; Admin Dose 125 MLS/HR; Start 02/21/19 at 06:00 TRACY MARTINEZ Feb 21, 2019 10:33
[2019-02-21] MEDS: ACETAMINOPHEN 650MG/20.3ML CUP GTB PRN (13:47)
[2019-02-21] MEDS: FLUCONAZOLE 100 MG/50 ML (PMX) 50 ML IVPB SCH (16:24)
--- NOTE | 2019-02-21 19:09 | CONS ---
Assessment/Plan Assessment/Plan Hospital Course (Demo Recall) 1100 Noncommunicative, comfortable on nasal cannula, no fevers Blood cultures negative urine culture growing yeast Chest x-ray on admission revealed worsening consolidation within the lung bases possibly worsening pneumonia Indwelling [place], PEG Antimicrobials: Vanco cefepime fluconazole Physical examination: Chronically ill-appearing middle-aged woman who is laying comfortably in bed. Head atraumatic normocephalic sclera nonicteric vehicle mucosa dry neck is supple chest rise symmetrical breath sounds with bilateral rails. Heart: S1-S2 abdomen soft bowel sounds present extremities without cyanosis Assessment: 1. Sepsis 2. Recurrent pneumonia possibly aspirated 3. UTI 4. Acute hypoxemic respiratory failure 5. History of cerebral palsy with severe debility Plan: Clinically improving, continue antibiotics, aspiration precautions, follow pulmonary recommendations Consultation Date/Type/Reason Admit Date/Time Feb 19, 2019 at 12:11 Initial Consult Date 02/20/19 Type of Consult id Date/Time of Note DATE: 02/21/19 TIME: 19:08 Exam/Review of Systems Exam Vitals Vital Signs Date Temp Pulse Resp B/P (MAP) Pulse Ox O2 O2 Flow FiO2 Time Delivery Rate 02/21/19 89 16:00 02/21/19 98.7 23 116/65 96 Nasal 15:09 (82) Cannula 02/21/19 3.0 08:35 02/20/19 53 06:10 Intake and Output 02/20/19 02/20/19 02/21/19 1515:00 23:00 07:00 IntakeIntake Total 100 ml OutputOutput Total 750 ml BalanceBalance -650 ml Results Result Diagram: 02/21/19 0607 02/21/19 0607 Results 24hrs Laboratory Tests Test 02/21/19 06:07 White Blood Count 10.7 # Red Blood Count 3.61 L Hemoglobin 9.0 L Hematocrit 30.6 L Mean Corpuscular Volume 84.8 Mean Corpuscular Hemoglobin 24.9 L Mean Corpuscular Hemoglobin Concent 29.4 L Red Cell Distribution Width 16.7 H Platelet Count 394 Mean Platelet Volume 10.0 Immature Granulocytes % 0.500 H Neutrophils % 78.8 H Lymphocytes % 14.7 L Monocytes % 3.7 Eosinophils % 1.9 Basophils % 0.4 Nucleated Red Blood Cells % 0.0 Immature Granulocytes # 0.050 H Neutrophils # 8.4 H Lymphocytes # 1.6 Monocytes # 0.4 Eosinophils # 0.2 Basophils # 0.0 Nucleated Red Blood Cells # 0.0 Sodium Level 136 Potassium Level 3.7 Chloride Level 100 Carbon Dioxide Level 30 Anion Gap 6 Blood Urea Nitrogen 8 Creatinine 0.26 L Est Glomerular Filtrat Rate mL/min > 60 Glucose Level 122 # Calcium Level 8.9 Medications Medication Current Medications Ascorbic Acid (Vitamin C) 500 mg DAILY GTB Last administered on 02/21/19 09:08; Admin Dose 500 MG; Start 02/20/19 at 09:00 Docusate Sodium (Colace Liquid Cup) 200 mg QHS GTB Last administered on 02/20/19 20:01; Admin Dose 200 MG; Start 02/19/19 at 21:00 Famotidine (Pepcid) 20 mg BID GTB Last administered on 02/21/19 09:08; Admin Dose 20 MG; Start 02/19/19 at 21:00 Oxcarbazepine (Trileptal) 150 mg BID GTB Last administered on 02/21/19 09:08; Admin Dose 150 MG; Start 02/19/19 at 21:00 Zinc Sulfate (Zinc Sulfate) 220 mg DAILY GTB Last administered on 02/21/19 09:08; Admin Dose 220 MG; Start 02/20/19 at 09:00 IV Flush (NS 3 ml) 3 ml PER PROTOCOL IV ; Start 02/19/19 at 17:30 Ondansetron HCl (Zofran Inj) 4 mg Q6H PRN IV NAUSEA/VOMITING; Start 02/19/19 at 17:30 Acetaminophen (Tylenol Liquid) 650 mg Q6H PRN GTB .PAIN 1-3 OR TEMP Last administered on 02/21/19 13:47; Admin Dose 650 MG; Start 02/19/19 at 17:30 Enoxaparin Sodium (Lovenox) 30 mg DAILY SC Last administered on 02/21/19 09:25; Admin Dose 30 MG; Start 02/20/19 at 09:00 Ferrous Sulfate (Feosol Liquid Cup) 300 mg BID GTB Last administered on 02/21/19 09:07; Admin Dose 300 MG; Start 02/19/19 at 21:00 Vancomycin HCl (Vanco Iv Per Pharmacy) VANCOMYCIN PER PHARMACY PER PROTOCOL XX ; Start 02/20/19 at 16:00 Cefepime HCl 50 ml @ 100 mls/hr Q12 IVPB Last administered on 02/21/19at 09:08; Admin Dose 100 MLS/HR; Start 02/20/19 at 16:00 Fluconazole/ Sodium Chloride 50 ml @ 50 mls/hr Q24H IVPB Last administered on 02/21/19at 16:24; Admin Dose 50 MLS/HR; Start 02/20/19 at 16:00 Vancomycin/Sodium Chloride 250 ml @ 125 mls/hr Q12H IVPB Last administered on 02/21/19at 17:32; Admin Dose 125 MLS/HR; Start 02/21/19 at 06:00 Miscellaneous Information (*Rx Drug Level Order Reminder*) VANCO TROUGH @ 0,500 ON... 0500 ONCE XX ; Start 02/22/19 at 05:00; Stop 02/22/19 at 05:01 ALLISON LOMELI NP Feb 21, 2019 19:09
[2019-02-21] MEDS: DOCUSATE SODIUM 10 MG/ML (10ML CUP) GTB SCH (20:32)
[2019-02-22] VITALS (10 sets, daily range): BP systolic 100–140; BP diastolic 55–92; PULSE 74–106; RESP 20–24
[2019-02-22] MEDS: VANCOMYCIN 750 MG (PMX) 250 ML IVPB SCH (06:54)
[2019-02-22] MEDS: ZINC SULFATE 220 MG CAP GTB SCH (09:03)
[2019-02-22] MEDS: FERROUS SULFATE 60 MG/ML 5ML CUP GTB SCH ×2 (09:03→20:20)
[2019-02-22] MEDS: FAMOTIDINE 20 MG TAB GTB SCH ×2 (09:03→20:20)
[2019-02-22] MEDS: OXCARBAZEPINE 150 MG TAB GTB SCH ×2 (09:03→20:20)
[2019-02-22] MEDS: CEFEPIME 1GM/50 ML (PMX) 50 ML IVPB SCH ×2 (09:03→20:20)
[2019-02-22] MEDS: BALSAM PERU/CASTOR OIL 60 GM TUBE TOP SCH (09:03)
[2019-02-22] MEDS: ASCORBIC ACID 500 MG TAB GTB SCH (09:03)
[2019-02-22] MEDS: ENOXAPARIN 30 MG/0.3 ML SYG SC SCH (09:17)
--- NOTE | 2019-02-22 09:46 | CONS ---
Assessment/Plan Assessment/Plan Assessment/Plan (Daily) Assessment and recommendations; 1. patient with history of cerebral palsy admitted with bilateral pneumonia with interval clinical improvement. Currently on appropriate antimicrobial regimen. 2. Chronic encephalopathy. 3. Stage II coccygeal ulcer. Continue current supportive care. Consultation Date/Type/Reason Admit Date/Time Feb 19, 2019 at 12:11 Initial Consult Date 02/20/19 Type of Consult Pulmonary Pulmonary consult requested for evaluation of pneumonia. Patient is a 43-year-old woman with a history of cerebral palsy transferred from longterm with hypoxemia. Upon evaluation a chest x-ray was done which is showing bilateral pneumonia. Patient has been started on appropriate antimicrobial regimen. Because of cerebral palsy, patient was unable to give any history by herself whatsoever. Patient also appeared tachypneic on examination. History is obtained from medical records. Past medical history; 1. History of cerebral palsy 2. Decubitus ulcer involving coccyx. 3. Likely chronic anemia. Medications; reviewed. Allergies; none. Family history, social history, occupational history is not available. Review of system; unable to be obtained. General exam; middle-aged woman, on Ventimask. Noncommunicative. Mildly tachypneic. Date/Time of Note DATE: 02/22/19 TIME: 09:45 24 HR Interval Summary Free Text/Dictation Patient's condition is stable. Doing fairly well on 2 L nasal cannula. General exam; middle-aged woman, awake, noncommunicative. Currently in no distress. Exam/Review of Systems Exam Vitals Vital Signs Date Temp Pulse Resp B/P (MAP) Pulse Ox O2 O2 Flow FiO2 Time Delivery Rate 02/22/19 86 08:30 02/22/19 98.9 22 100/76 98 Nasal 07:31 (84) Cannula 02/22/19 3.0 02:36 02/20/19 53 06:10 Intake and Output 02/21/19 02/21/19 02/22/19 1515:00 23:00 07:00 IntakeIntake Total 300 ml 1075 ml OutputOutput Total 1250 ml BalanceBalance 300 ml -175 ml Exam H EENT exam; supple neck, no JVD. No lymphadenopathy. Midline trachea. No thyromegaly. Patient has fair dentition. Chest exam; diminished but clear breath sounds. S1-S2 audible, no murmurs. Regular rhythm. Abdomen exam; soft, no organomegaly. G-tube in place. Bowel sounds audible. Extremity exam; peripheral edema. Patient has a flexion contractures. Patient has a stage II coccygeal ulcer. VERIFIER exam; patient awake but noncommunicative. Results Result Diagram: 02/22/19 0534 02/22/19 0534 Results 24hrs Laboratory Tests Test 02/22/19 05:34 White Blood Count 8.9 Red Blood Count 3.52 L Hemoglobin 8.9 L Hematocrit 30.0 L Mean Corpuscular Volume 85.2 Mean Corpuscular Hemoglobin 25.3 L Mean Corpuscular Hemoglobin Concent 29.7 L Red Cell Distribution Width 16.8 H Platelet Count 376 Mean Platelet Volume 9.9 Immature Granulocytes % 0.500 H Neutrophils % 75.7 Lymphocytes % 16.5 Monocytes % 3.3 Eosinophils % 3.3 Basophils % 0.7 Nucleated Red Blood Cells % 0.0 Immature Granulocytes # 0.040 H Neutrophils # 6.7 Lymphocytes # 1.5 Monocytes # 0.3 Eosinophils # 0.3 Basophils # 0.1 Nucleated Red Blood Cells # 0.0 Sodium Level 137 Potassium Level 3.8 Chloride Level 100 Carbon Dioxide Level 30 Anion Gap 7 Blood Urea Nitrogen 9 Creatinine 0.19 L Est Glomerular Filtrat Rate mL/min > 60 Glucose Level 116 Calcium Level 8.8 Vancomycin Level Trough 7.2 L Medications Medication Current Medications Ascorbic Acid (Vitamin C) 500 mg DAILY GTB Last administered on 02/22/19 09:03; Admin Dose 500 MG; Start 02/20/19 at 09:00 Docusate Sodium (Colace Liquid Cup) 200 mg QHS GTB Last administered on 02/21/19at 20:32; Admin Dose 200 MG; Start 02/19/19 at 21:00 Famotidine (Pepcid) 20 mg BID GTB Last administered on 02/22/19 09:03; Admin Dose 20 MG; Start 02/19/19 at 21:00 Oxcarbazepine (Trileptal) 150 mg BID GTB Last administered on 02/22/19 09:03; Admin Dose 150 MG; Start 02/19/19 at 21:00 Zinc Sulfate (Zinc Sulfate) 220 mg DAILY GTB Last administered on 02/22/19 09:03; Admin Dose 220 MG; Start 02/20/19 at 09:00 IV Flush (NS 3 ml) 3 ml PER PROTOCOL IV ; Start 02/19/19 at 17:30 Ondansetron HCl (Zofran Inj) 4 mg Q6H PRN IV NAUSEA/VOMITING; Start 02/19/19 at 17:30 Acetaminophen (Tylenol Liquid) 650 mg Q6H PRN GTB .PAIN 1-3 OR TEMP Last administered on 02/21/19 13:47; Admin Dose 650 MG; Start 02/19/19 at 17:30 Enoxaparin Sodium (Lovenox) 30 mg DAILY SC Last administered on 02/22/19 09:17; Admin Dose 30 MG; Start 02/20/19 at 09:00 Ferrous Sulfate (Feosol Liquid Cup) 300 mg BID GTB Last administered on 02/22/19 09:03; Admin Dose 300 MG; Start 02/19/19 at 21:00 Vancomycin HCl (Vanco Iv Per Pharmacy) VANCOMYCIN PER PHARMACY PER PROTOCOL XX ; Start 02/20/19 at 16:00 Cefepime HCl 50 ml @ 100 mls/hr Q12 IVPB Last administered on 02/22/19 09:03; Admin Dose 100 MLS/HR; Start 02/20/19 at 16:00 Fluconazole/ Sodium Chloride 50 ml @ 50 mls/hr Q24H IVPB Last administered on 02/21/19 16:24; Admin Dose 50 MLS/HR; Start 02/20/19 at 16:00 Vancomycin/Sodium Chloride 250 ml @ 125 mls/hr Q12H IVPB Last administered on 02/22/19 06:54; Admin Dose 125 MLS/HR; Start 02/21/19 at 06:00 TARCY MARTINEZ Feb 22, 2019 09:46
--- NOTE | 2019-02-22 11:08 | PN ---
Date/Time of Note Date/Time of Note DATE: 02/22/19 TIME: 11:07 Assessment/Plan VTE Prophylaxis Risk [place] [facility] [place] risk: 4 SCD applied (from [facility] [place] Yes SCD contraindicated: other Pharmacological prophylaxis: other Pharm contraindication: other Lines/Catheters [facility]ter [facility] (from [facility] Saline Lock Urinary Cath still in place: Yes Reason Cath still needed: urinary retention Assessment/Plan Assessment/Plan -Sepsis with shock, continue IV fluids and broad-spectrum antibiotics. Dr. Poole, infection disease consultation. -Healthcare facility acquired pneumonia. -Acute respiratory distress continue supplemental oxygen bronchodilators continue. Dr. Hyatt is following in pulmonology consultation. -Dysphagia with G-tube. -Cerebral palsy. -Chronic coccygeal decubitus ulcer. Continue current wound care. -Protein calorie malnutrition. -DNR/DNI status. Further recommendations based on clinical course. Plan of care discussed with Dr. Bowman. Result Diagram: 02/22/19 0534 02/22/19 0534 Results 24hrs Laboratory Tests Test 02/22/19 05:34 White Blood Count 8.9 Red Blood Count 3.52 L Hemoglobin 8.9 L Hematocrit 30.0 L Mean Corpuscular Volume 85.2 Mean Corpuscular Hemoglobin 25.3 L Mean Corpuscular Hemoglobin Concent 29.7 L Red Cell Distribution Width 16.8 H Platelet Count 376 Mean Platelet Volume 9.9 Immature Granulocytes % 0.500 H Neutrophils % 75.7 Lymphocytes % 16.5 Monocytes % 3.3 Eosinophils % 3.3 Basophils % 0.7 Nucleated Red Blood Cells % 0.0 Immature Granulocytes # 0.040 H Neutrophils # 6.7 Lymphocytes # 1.5 Monocytes # 0.3 Eosinophils # 0.3 Basophils # 0.1 Nucleated Red Blood Cells # 0.0 Sodium Level 137 Potassium Level 3.8 Chloride Level 100 Carbon Dioxide Level 30 Anion Gap 7 Blood Urea Nitrogen 9 Creatinine 0.19 L Est Glomerular Filtrat Rate mL/min > 60 Glucose Level 116 Calcium Level 8.8 Vancomycin Level Trough 7.2 L Subjective 24 Hr Interval Summary Free Text/Dictation nad vss no events reported last night dw saff Subjective hx not possible: pt non-verbal Constitutional: requiring O2 Exam/Review of Systems Exam Vitals Vital Signs Date Temp Pulse Resp B/P (MAP) Pulse Ox O2 O2 Flow FiO2 Time Delivery Rate 02/22/19 86 08:30 02/22/19 98.9 22 100/76 98 Nasal 07:31 (84) Cannula 02/22/19 3.0 02:36 02/20/19 53 06:10 Intake and Output 02/21/19 02/21/19 02/22/19 1515:00 23:00 07:00 IntakeIntake Total 300 ml 1075 ml OutputOutput Total 1250 ml BalanceBalance 300 ml -175 ml Constitutional: non-verbal Psych: nl mood/affect Eyes: nl lids, nl sclera ENMT: nl external ears & nose Neck: non-tender Respiratory: clear to auscultation Cardiovascular: nl pulses, other (s1s2) Gastrointestinal: soft, non-tender Musculoskeletal: muscle weakness Extremities: normal pulses Neurological: lethargic Results Results 24hrs Laboratory Tests Test 02/22/19 05:34 White Blood Count 8.9 Red Blood Count 3.52 L Hemoglobin 8.9 L Hematocrit 30.0 L Mean Corpuscular Volume 85.2 Mean Corpuscular Hemoglobin 25.3 L Mean Corpuscular Hemoglobin Concent 29.7 L Red Cell Distribution Width 16.8 H Platelet Count 376 Mean Platelet Volume 9.9 Immature Granulocytes % 0.500 H Neutrophils % 75.7 Lymphocytes % 16.5 Monocytes % 3.3 Eosinophils % 3.3 Basophils % 0.7 Nucleated Red Blood Cells % 0.0 Immature Granulocytes # 0.040 H Neutrophils # 6.7 Lymphocytes # 1.5 Monocytes # 0.3 Eosinophils # 0.3 Basophils # 0.1 Nucleated Red Blood Cells # 0.0 Sodium Level 137 Potassium Level 3.8 Chloride Level 100 Carbon Dioxide Level 30 Anion Gap 7 Blood Urea Nitrogen 9 Creatinine 0.19 L Est Glomerular Filtrat Rate mL/min > 60 Glucose Level 116 Calcium Level 8.8 Vancomycin Level Trough 7.2 L Medications Medication Current Medications Ascorbic Acid (Vitamin C) 500 mg DAILY GTB Last administered on 02/22/19at 09:03; Admin Dose 500 MG; Start 02/20/19 at 09:00 Docusate Sodium (Colace Liquid Cup) 200 mg QHS GTB Last administered on 02/21/19at 20:32; Admin Dose 200 MG; Start 02/19/19 at 21:00 Famotidine (Pepcid) 20 mg BID GTB Last administered on 02/22/19 09:03; Admin Dose 20 MG; Start 02/19/19 at 21:00 Oxcarbazepine (Trileptal) 150 mg BID GTB Last administered on 02/22/19 09:03; Admin Dose 150 MG; Start 02/19/19 at 21:00 Zinc Sulfate (Zinc Sulfate) 220 mg DAILY GTB Last administered on 02/22/19 09:03; Admin Dose 220 MG; Start 02/20/19 at 09:00 IV Flush (NS 3 ml) 3 ml PER PROTOCOL IV ; Start 02/19/19 at 17:30 Ondansetron HCl (Zofran Inj) 4 mg Q6H PRN IV NAUSEA/VOMITING; Start 02/19/19 at 17:30 Acetaminophen (Tylenol Liquid) 650 mg Q6H PRN GTB .PAIN 1-3 OR TEMP Last administered on 02/21/19 13:47; Admin Dose 650 MG; Start 02/19/19 at 17:30 Enoxaparin Sodium (Lovenox) 30 mg DAILY SC Last administered on 02/22/19 09:17; Admin Dose 30 MG; Start 02/20/19 at 09:00 Ferrous Sulfate (Feosol Liquid Cup) 300 mg BID GTB Last administered on 02/22/19 09:03; Admin Dose 300 MG; Start 02/19/19 at 21:00 Vancomycin HCl (Vanco Iv Per Pharmacy) VANCOMYCIN PER PHARMACY PER PROTOCOL XX ; Start 02/20/19 at 16:00 Cefepime HCl 50 ml @ 100 mls/hr Q12 IVPB Last administered on 02/22/19 09:03; Admin Dose 100 MLS/HR; Start 02/20/19 at 16:00 Fluconazole/ Sodium Chloride 50 ml @ 50 mls/hr Q24H IVPB Last administered on 02/21/19 16:24; Admin Dose 50 MLS/HR; Start 02/20/19 at 16:00 Vancomycin/Sodium Chloride 250 ml @ 125 mls/hr Q12H IVPB Last administered on 02/22/19 06:54; Admin Dose 125 MLS/HR; Start 02/21/19 at 06:00 JASMYNE HOOKS Feb 22, 2019 11:07
--- NOTE | 2019-02-22 12:58 | CONS ---
Assessment/Plan Assessment/Plan Hospital Course (Demo Recall) ID PROGRESS NOTE CURRENT ABX: DAY # =>Vanco IV + Cefepime + Diflucan 02/22/19 0534 02/22/19 0534 24H INTERVAL SUMMARY * Awake, moaning, contracted extremities, supplemental O2 via NC without dyspnea IMAGING: * 02/19/19 CXR: 1. Worsening consolidation within the lung bases, possibly worsening pneumonia.2. Mild cardiomegaly with mild central vascular congestion.3. Stable dense opacity in the retrocardiac left lower lung with presumed elevated left hemidiaphragm.4. Otherwise, stable chest x-ray. MICRO/OTHER * (-)MRSA Nares * 02/19/19 BCx (-) * 02/19/19 URINE CX (+)URINE CULTURE Preliminary Organism 1 YEAST COLONY COUNT 50,000 - 60,000 CFU/ml PHYSICAL EXAMINATION: GENERAL: VSS, NAD, awake, noncommunicative HEENT: AT, NC, anicteric, dry oral membranes NECK: Supple, CHEST: Equal chest rise bilaterally, without dyspnea on observation HEART: Pulse RRR ABDOMEN: Soft : deferred EXTREMITIES: Warm, contracted SKIN: No rash, no diaphoresis ID ASSESSMENT 43 yo F admit with: 1. Sepsis 2. Recurrent pneumonia possibly aspirated 3. UTI 4. Acute hypoxemic respiratory failure 5. History of cerebral palsy with severe debility (-)MRSA Nares ABX ALLERGIES: None to ABX INVASIVES: PIV CURRENT ABX: DAY # => Vanco IV + Cefepime + Diflucan ID RECOMMENDATIONS/PLAN: 1. Continue current ABX Consultation Date/Type/Reason Admit Date/Time Feb 19, 2019 at 12:11 Initial Consult Date 02/20/19 Date/Time of Note DATE: 02/22/19 TIME: 12:57 Exam/Review of Systems Exam Vitals Vital Signs Date Temp Pulse Resp B/P (MAP) Pulse Ox O2 O2 Flow FiO2 Time Delivery Rate 02/22/19 106 12:01 02/22/19 99.0 24 123/78 96 Nasal 11:16 (93) Cannula 02/22/19 3.0 02:36 02/20/19 53 06:10 Intake and Output 02/21/19 02/21/19 02/22/19 1515:00 23:00 07:00 IntakeIntake Total 300 ml 1075 ml OutputOutput Total 1250 ml BalanceBalance 300 ml -175 ml Results Result Diagram: 02/22/19 0534 02/22/19 0534 Results 24hrs Laboratory Tests Test 02/22/19 05:34 White Blood Count 8.9 Red Blood Count 3.52 L Hemoglobin 8.9 L Hematocrit 30.0 L Mean Corpuscular Volume 85.2 Mean Corpuscular Hemoglobin 25.3 L Mean Corpuscular Hemoglobin Concent 29.7 L Red Cell Distribution Width 16.8 H Platelet Count 376 Mean Platelet Volume 9.9 Immature Granulocytes % 0.500 H Neutrophils % 75.7 Lymphocytes % 16.5 Monocytes % 3.3 Eosinophils % 3.3 Basophils % 0.7 Nucleated Red Blood Cells % 0.0 Immature Granulocytes # 0.040 H Neutrophils # 6.7 Lymphocytes # 1.5 Monocytes # 0.3 Eosinophils # 0.3 Basophils # 0.1 Nucleated Red Blood Cells # 0.0 Sodium Level 137 Potassium Level 3.8 Chloride Level 100 Carbon Dioxide Level 30 Anion Gap 7 Blood Urea Nitrogen 9 Creatinine 0.19 L Est Glomerular Filtrat Rate mL/min > 60 Glucose Level 116 Calcium Level 8.8 Vancomycin Level Trough 7.2 L Medications Medication Current Medications Ascorbic Acid (Vitamin C) 500 mg DAILY GTB Last administered on 02/22/19at 09:03; Admin Dose 500 MG; Start 02/20/19 at 09:00 Docusate Sodium (Colace Liquid Cup) 200 mg QHS GTB Last administered on 02/21/19at 20:32; Admin Dose 200 MG; Start 02/19/19 at 21:00 Famotidine (Pepcid) 20 mg BID GTB Last administered on 02/22/19at 09:03; Admin Dose 20 MG; Start 02/19/19 at 21:00 Oxcarbazepine (Trileptal) 150 mg BID GTB Last administered on 02/22/19at 09:03; Admin Dose 150 MG; Start 02/19/19 at 21:00 Zinc Sulfate (Zinc Sulfate) 220 mg DAILY GTB Last administered on 02/22/19 09:03; Admin Dose 220 MG; Start 02/20/19 at 09:00 IV Flush (NS 3 ml) 3 ml PER PROTOCOL IV ; Start 02/19/19 at 17:30 Ondansetron HCl (Zofran Inj) 4 mg Q6H PRN IV NAUSEA/VOMITING; Start 02/19/19 at 17:30 Acetaminophen (Tylenol Liquid) 650 mg Q6H PRN GTB .PAIN 1-3 OR TEMP Last administered on 02/21/19at 13:47; Admin Dose 650 MG; Start 02/19/19 at 17:30 Enoxaparin Sodium (Lovenox) 30 mg DAILY SC Last administered on 02/22/19 09:17; Admin Dose 30 MG; Start 02/20/19 at 09:00 Ferrous Sulfate (Feosol Liquid Cup) 300 mg BID GTB Last administered on 02/22/19 09:03; Admin Dose 300 MG; Start 02/19/19 at 21:00 Vancomycin HCl (Vanco Iv Per Pharmacy) VANCOMYCIN PER PHARMACY PER PROTOCOL XX ; Start 02/20/19 at 16:00 Cefepime HCl 50 ml @ 100 mls/hr Q12 IVPB Last administered on 02/22/19 09:03; Admin Dose 100 MLS/HR; Start 02/20/19 at 16:00 Fluconazole/ Sodium Chloride 50 ml @ 50 mls/hr Q24H IVPB Last administered on 02/21/19 16:24; Admin Dose 50 MLS/HR; Start 02/20/19 at 16:00 Vancomycin HCl 250 ml @ 125 mls/hr Q12H IVPB ; Start 02/22/19 at 16:00 CHARLOTTE THOMAS NP Feb 22, 2019 12:58
[2019-02-22] MEDS: VANCOMYCIN 1 GM 250 ML IVPB SCH (15:35)
[2019-02-22] MEDS: FLUCONAZOLE 100 MG/50 ML (PMX) 50 ML IVPB SCH (15:35)
[2019-02-22] MEDS: DOCUSATE SODIUM 10 MG/ML (10ML CUP) GTB SCH (20:20)
[2019-02-23] VITALS (9 sets, daily range): BP systolic 97–134; BP diastolic 62–93; PULSE 71–114; RESP 17–20
[2019-02-23] MEDS: VANCOMYCIN 1 GM 250 ML IVPB SCH ×2 (04:06→16:00)
--- NOTE | 2019-02-23 07:05 | PN ---
Date/Time of Note Date/Time of Note DATE: 02/23/19 TIME: 07:04 Assessment/Plan VTE Pro[place]axis [place] [facility] [place]: 1 [place] [facility] [place] Yes SCD contraindicated: other Pharmacological prophylaxis: other Pharm contraindication: other Lines/Catheters IV Catheter Type (from [facility]): Saline Lock Urinary Cath still in place: Yes Reason Cath still needed: urinary retention Assessment/Plan Assessment/Plan -Sepsis with shock, continue IV fluids and broad-spectrum antibiotics. Dr. Poole, infection disease consultation. -Healthcare facility acquired pneumonia. -Acute respiratory distress continue supplemental oxygen bronchodilators continue. Dr. Hyatt is following in pulmonology consultation. -Dysphagia with G-tube. -Cerebral palsy. -Chronic coccygeal decubitus ulcer. Continue current wound care. -Protein calorie malnutrition. -DNR/DNI status. Further recommendations based on clinical course. Plan of care discussed with Dr. Bowman. Result Diagram: 02/23/19 0502 02/22/19 0534 Results 24hrs Laboratory Tests Test 02/23/19 05:02 White Blood Count 7.6 Red Blood Count 3.24 L Hemoglobin 8.0 L Hematocrit 27.6 L Mean Corpuscular Volume 85.2 Mean Corpuscular Hemoglobin 24.7 L Mean Corpuscular Hemoglobin Concent 29.0 L Red Cell Distribution Width 16.5 H Platelet Count 350 Mean Platelet Volume 10.1 Immature Granulocytes % 0.400 Neutrophils % 62.6 Lymphocytes % 26.3 Monocytes % 4.6 Eosinophils % 5.6 Basophils % 0.5 Nucleated Red Blood Cells % 0.0 Immature Granulocytes # 0.030 Neutrophils # 4.8 Lymphocytes # 2.0 Monocytes # 0.4 Eosinophils # 0.4 Basophils # 0.0 Nucleated Red Blood Cells # 0.0 Subjective 24 Hr Interval Summary Free Text/Dictation nad afebrile no events reported overnight dw staff Subjective hx not possible: pt non-verbal Constitutional: requiring O2 Exam/Review of Systems Exam Vitals Vital Signs Date Temp Pulse Resp B/P (MAP) Pulse Ox O2 O2 Flow FiO2 Time Delivery Rate 02/23/19 71 04:00 02/23/19 97.8 19 120/81 100 04:00 (94) 02/23/19 3.0 02:28 02/22/19 Nasal 19:52 Cannula 02/20/19 53 06:10 Intake and Output 02/22/19 02/22/19 02/23/19 1515:00 23:00 07:00 IntakeIntake Total 50 ml 1310 ml 1210 ml OutputOutput Total 1250 ml 1000 ml BalanceBalance 50 ml 60 ml 210 ml Constitutional: non-verbal, frail Psych: nl mood/affect Head: atraumatic Eyes: nl lids, nl sclera ENMT: nl external ears & nose Neck: non-tender Respiratory: clear to auscultation Cardiovascular: regular rate and rhythm, other (s1s2) Gastrointestinal: soft, other (gt intact) Musculoskeletal: muscle weakness Extremities: normal pulses Neurological: confused, lethargic Skin: other Results Results 24hrs Laboratory Tests Test 02/23/19 05:02 White Blood Count 7.6 Red Blood Count 3.24 L Hemoglobin 8.0 L Hematocrit 27.6 L Mean Corpuscular Volume 85.2 Mean Corpuscular Hemoglobin 24.7 L Mean Corpuscular Hemoglobin Concent 29.0 L Red Cell Distribution Width 16.5 H Platelet Count 350 Mean Platelet Volume 10.1 Immature Granulocytes % 0.400 Neutrophils % 62.6 Lymphocytes % 26.3 Monocytes % 4.6 Eosinophils % 5.6 Basophils % 0.5 Nucleated Red Blood Cells % 0.0 Immature Granulocytes # 0.030 Neutrophils # 4.8 Lymphocytes # 2.0 Monocytes # 0.4 Eosinophils # 0.4 Basophils # 0.0 Nucleated Red Blood Cells # 0.0 Medications Medication Current Medications Ascorbic Acid (Vitamin C) 500 mg DAILY GTB Last administered on 02/22/19at 09:03; Admin Dose 500 MG; Start 02/20/19 at 09:00 Docusate Sodium (Colace Liquid Cup) 200 mg QHS GTB Last administered on 02/22/19at 20:20; Admin Dose 200 MG; Start 02/19/19 at 21:00 Famotidine (Pepcid) 20 mg BID GTB Last administered on 02/22/19at 20:20; Admin Dose 20 MG; Start 02/19/19 at 21:00 Oxcarbazepine (Trileptal) 150 mg BID GTB Last administered on 02/22/19at 20:20; Admin Dose 150 MG; Start 02/19/19 at 21:00 Zinc Sulfate (Zinc Sulfate) 220 mg DAILY GTB Last administered on 02/22/19 09:03; Admin Dose 220 MG; Start 02/20/19 at 09:00 IV Flush (NS 3 ml) 3 ml PER PROTOCOL IV ; Start 02/19/19 at 17:30 Ondansetron HCl (Zofran Inj) 4 mg Q6H PRN IV NAUSEA/VOMITING; Start 02/19/19 at 17:30 Acetaminophen (Tylenol Liquid) 650 mg Q6H PRN GTB .PAIN 1-3 OR TEMP Last administered on 02/21/19 13:47; Admin Dose 650 MG; Start 02/19/19 at 17:30 Enoxaparin Sodium (Lovenox) 30 mg DAILY SC Last administered on 02/22/19 09:17; Admin Dose 30 MG; Start 02/20/19 at 09:00 Ferrous Sulfate (Feosol Liquid Cup) 300 mg BID GTB Last administered on 02/22/19 20:20; Admin Dose 300 MG; Start 02/19/19 at 21:00 Vancomycin HCl (Vanco Iv Per Pharmacy) VANCOMYCIN PER PHARMACY PER PROTOCOL XX ; Start 02/20/19 at 16:00 Cefepime HCl 50 ml @ 100 mls/hr Q12 IVPB Last administered on 02/22/19 20:20; Admin Dose 100 MLS/HR; Start 02/20/19 at 16:00 Fluconazole/ Sodium Chloride 50 ml @ 50 mls/hr Q24H IVPB Last administered on 02/22/19 15:35; Admin Dose 50 MLS/HR; Start 02/20/19 at 16:00 Vancomycin HCl 250 ml @ 125 mls/hr Q12H IVPB Last administered on 02/23/19 04:06; Admin Dose 125 MLS/HR; Start 02/22/19 at 16:00 JASMYNE HOOKS Feb 23, 2019 07:05
[2019-02-23] MEDS: CEFEPIME 1GM/50 ML (PMX) 50 ML IVPB SCH ×2 (08:52→20:34)
[2019-02-23] MEDS: OXCARBAZEPINE 150 MG TAB GTB SCH ×2 (08:53→20:34)
[2019-02-23] MEDS: FAMOTIDINE 20 MG TAB GTB SCH ×2 (08:53→20:34)
[2019-02-23] MEDS: ASCORBIC ACID 500 MG TAB GTB SCH (08:53)
[2019-02-23] MEDS: ZINC SULFATE 220 MG CAP GTB SCH (08:53)
[2019-02-23] MEDS: FERROUS SULFATE 60 MG/ML 5ML CUP GTB SCH ×2 (08:53→20:34)
[2019-02-23] MEDS: ENOXAPARIN 30 MG/0.3 ML SYG SC SCH (09:02)
[2019-02-23] MEDS: BALSAM PERU/CASTOR OIL 60 GM TUBE TOP SCH (09:04)
--- NOTE | 2019-02-23 10:49 | CONS ---
Assessment/Plan Assessment/Plan Assessment/Plan (Daily) Assessment and recommendations; 1. Patient admitted with bilateral pneumonia likely aspiration with history of cerebral palsy. 2. Anemia. Continue current supportive care. Obtain follow-up chest x-ray. Consultation Date/Type/Reason Admit Date/Time Feb 19, 2019 at 12:11 Initial Consult Date 02/20/19 Type of Consult Pulmonary Pulmonary consult requested for evaluation of pneumonia. Patient is a 43-year-old woman with a history of cerebral palsy transferred from skilled nursing with hypoxemia. Upon evaluation a chest x-ray was done which is showing bilateral pneumonia. Patient has been started on appropriate antimicr obial regimen. Because of cerebral palsy, patient was unable to give any history by herself whatsoever. Patient also appeared tachypneic on examination. History is obtained from medical records. Past medical history; 1. History of cerebral palsy 2. Decubitus ulcer involving coccyx. 3. Likely chronic anemia. Medications; reviewed. Allergies; none. Family history, social history, occupational history is not available. Review of system; unable to be obtained. General exam; middle-aged woman, on Ventimask. Noncommunicative. Mildly tachypneic. Date/Time of Note DATE: 02/23/19 TIME: 10:47 24 HR Interval Summary Free Text/Dictation Patient's condition is fairly stable. Remains awake but noncommunicative due to cerebral palsy. Has remained hemodynamically stable. General exam; middle-aged female, awake, noncommunicative. Currently in no distress. Exam/Review of Systems Exam Vitals Vital Signs Date Temp Pulse Resp B/P (MAP) Pulse Ox O2 O2 Flow FiO2 Time Delivery Rate 02/23/19 85 08:00 02/23/19 98.7 17 133/89 100 07:34 (104) 02/23/19 3.0 02:28 02/22/19 Nasal 19:52 Cannula 02/20/19 53 06:10 Intake and Output 02/22/19 02/22/19 02/23/19 1515:00 23:00 07:00 IntakeIntake Total 50 ml 1310 ml 1210 ml OutputOutput Total 1250 ml 1000 ml BalanceBalance 50 ml 60 ml 210 ml Exam HEENT exam; supple neck, no JVD. No lymphadenopathy. Midline trachea. No thyromegaly. Patient has fair dentition. Chest exam; diminished breath sounds bilaterally. No added sounds. S1-S2 audible, no murmurs. Regular rhythm. Abdomen exam; soft, scaphoid. No organomegaly. G-tube in place. Bowel sounds audible. Extremity exam; no peripheral edema. Patient has a flexion contractures. ROUND UP RING HAND exam; patient remains awake but noncommunicative. Results Result Diagram: 02/23/19 0502 02/23/19 0502 Results 24hrs Laboratory Tests Test 02/23/19 05:02 White Blood Count 7.6 Red Blood Count 3.24 L Hemoglobin 8.0 L Hematocrit 27.6 L Mean Corpuscular Volume 85.2 Mean Corpuscular Hemoglobin 24.7 L Mean Corpuscular Hemoglobin Concent 29.0 L Red Cell Distribution Width 16.5 H Platelet Count 350 Mean Platelet Volume 10.1 Immature Granulocytes % 0.400 Neutrophils % 62.6 Lymphocytes % 26.3 Monocytes % 4.6 Eosinophils % 5.6 Basophils % 0.5 Nucleated Red Blood Cells % 0.0 Immature Granulocytes # 0.030 Neutrophils # 4.8 Lymphocytes # 2.0 Monocytes # 0.4 Eosinophils # 0.4 Basophils # 0.0 Nucleated Red Blood Cells # 0.0 Sodium Level 137 Potassium Level 3.6 Chloride Level 101 Carbon Dioxide Level 30 Anion Gap 6 Blood Urea Nitrogen 10 Creatinine 0.25 L Est Glomerular Filtrat Rate mL/min > 60 Glucose Level 100 Calcium Level 8.4 Medications Medication Current Medications Ascorbic Acid (Vitamin C) 500 mg DAILY GTB Last administered on 02/23/19 08:53; Admin Dose 500 MG; Start 02/20/19 at 09:00 Docusate Sodium (Colace Liquid Cup) 200 mg QHS GTB Last administered on 02/22/19at 20:20; Admin Dose 200 MG; Start 02/19/19 at 21:00 Famotidine (Pepcid) 20 mg BID GTB Last administered on 02/23/19 08:53; Admin Dose 20 MG; Start 02/19/19 at 21:00 Oxcarbazepine (Trileptal) 150 mg BID GTB Last administered on 02/23/19 08:53; Admin Dose 150 MG; Start 02/19/19 at 21:00 Zinc Sulfate (Zinc Sulfate) 220 mg DAILY GTB Last administered on 02/23/19 08:53; Admin Dose 220 MG; Start 02/20/19 at 09:00 IV Flush (NS 3 ml) 3 ml PER PROTOCOL IV ; Start 02/19/19 at 17:30 Ondansetron HCl (Zofran Inj) 4 mg Q6H PRN IV NAUSEA/VOMITING; Start 02/19/19 at 17:30 Acetaminophen (Tylenol Liquid) 650 mg Q6H PRN GTB .PAIN 1-3 OR TEMP Last administered on 02/21/19 13:47; Admin Dose 650 MG; Start 02/19/19 at 17:30 Enoxaparin Sodium (Lovenox) 30 mg DAILY SC Last administered on 02/23/19 09:02; Admin Dose 30 MG; Start 02/20/19 at 09:00 Ferrous Sulfate (Feosol Liquid Cup) 300 mg BID GTB Last administered on 02/23/19at 08:53; Admin Dose 300 MG; Start 02/19/19 at 21:00 Vancomycin HCl (Vanco Iv Per Pharmacy) VANCOMYCIN PER PHARMACY PER PROTOCOL XX ; Start 02/20/19 at 16:00 Cefepime HCl 50 ml @ 100 mls/hr Q12 IVPB Last administered on 02/23/19 08:52; Admin Dose 100 MLS/HR; Start 02/20/19 at 16:00 Fluconazole/ Sodium Chloride 50 ml @ 50 mls/hr Q24H IVPB Last administered on 02/22/19at 15:35; Admin Dose 50 MLS/HR; Start 02/20/19 at 16:00 Vancomycin HCl 250 ml @ 125 mls/hr Q12H IVPB Last administered on 02/23/19 04:06; Admin Dose 125 MLS/HR; Start 02/22/19 at 16:00 TRACY MARTINEZ Feb 23, 2019 10:49
--- NOTE | 2019-02-23 14:55 | CONS ---
Assessment/Plan Assessment/Plan Hospital Course (Demo Recall) ID PROGRESS NOTE CURRENT ABX: DAY # =>Vanco IV + Cefepime + Diflucan 24H INTERVAL SUMMARY * Clinically stable -- no new issues since yesterday * Awake, noncommunicative, contracted extremities, supplemental O2 via NC without dyspnea, VSS IMAGING: * 02/19/19 CXR: 1. Worsening consolidation within the lung bases, possibly worsening pneumonia.2. Mild cardiomegaly with mild central vascular congestion.3. Stable dense opacity in the retrocardiac left lower lung with presumed elevated left hemidiaphragm.4. Otherwise, stable chest x-ray. MICRO/OTHER * (-)MRSA Nares * 02/19/19 BCx (-) * 02/19/19 URINE CX (+)URINE CULTURE Preliminary Organism 1 YEAST COLONY COUNT 50,000 - 60,000 CFU/ml PHYSICAL EXAMINATION: GENERAL: VSS, NAD, awake, noncommunicative HEENT: AT, NC, anicteric, dry oral membranes NECK: Supple, CHEST: Equal chest rise bilaterally, without dyspnea on observation HEART: Pulse RRR ABDOMEN: Soft : deferred EXTREMITIES: Warm, contracted SKIN: No rash, no diaphoresis ID ASSESSMENT 43 yo F admit with: 1. Sepsis 2. Recurrent pneumonia possibly aspirated 3. UTI 4. Acute hypoxemic respiratory failure 5. History of cerebral palsy with severe debility (-)MRSA Nares ABX ALLERGIES: None to ABX INVASIVES: PIV CURRENT ABX: DAY # => Vanco IV + Cefepime + Diflucan ID RECOMMENDATIONS/PLAN: 1. Continue current ABX 2. ASP Precautions Consultation Date/Type/Reason Admit Date/Time Feb 19, 2019 at 12:11 Initial Consult Date 02/20/19 Date/Time of Note DATE: 02/23/19 TIME: 14:54 Exam/Review of Systems Exam Vitals Vital Signs Date Temp Pulse Resp B/P (MAP) Pulse Ox O2 O2 Flow FiO2 Time Delivery Rate 02/23/19 93 12:00 02/23/19 98.3 18 121/84 100 11:58 (96) 02/23/19 3.0 02:28 02/22/19 Nasal 19:52 Cannula 02/20/19 53 06:10 Intake and Output 02/22/19 02/22/19 02/23/19 1515:00 23:00 07:00 IntakeIntake Total 50 ml 1310 ml 1210 ml OutputOutput Total 1250 ml 1000 ml BalanceBalance 50 ml 60 ml 210 ml Results Result Diagram: 02/23/19 0502 02/23/19 0502 Results 24hrs Laboratory Tests Test 02/23/19 05:02 White Blood Count 7.6 Red Blood Count 3.24 L Hemoglobin 8.0 L Hematocrit 27.6 L Mean Corpuscular Volume 85.2 Mean Corpuscular Hemoglobin 24.7 L Mean Corpuscular Hemoglobin Concent 29.0 L Red Cell Distribution Width 16.5 H Platelet Count 350 Mean Platelet Volume 10.1 Immature Granulocytes % 0.400 Neutrophils % 62.6 Lymphocytes % 26.3 Monocytes % 4.6 Eosinophils % 5.6 Basophils % 0.5 Nucleated Red Blood Cells % 0.0 Immature Granulocytes # 0.030 Neutrophils # 4.8 Lymphocytes # 2.0 Monocytes # 0.4 Eosinophils # 0.4 Basophils # 0.0 Nucleated Red Blood Cells # 0.0 Sodium Level 137 Potassium Level 3.6 Chloride Level 101 Carbon Dioxide Level 30 Anion Gap 6 Blood Urea Nitrogen 10 Creatinine 0.25 L Est Glomerular Filtrat Rate mL/min > 60 Glucose Level 100 Calcium Level 8.4 Medications Medication Current Medications Ascorbic Acid (Vitamin C) 500 mg DAILY GTB Last administered on 02/23/19at 08:53; Admin Dose 500 MG; Start 02/20/19 at 09:00 Docusate Sodium (Colace Liquid Cup) 200 mg QHS GTB Last administered on 02/22/19at 20:20; Admin Dose 200 MG; Start 02/19/19 at 21:00 Famotidine (Pepcid) 20 mg BID GTB Last administered on 02/23/19at 08:53; Admin Dose 20 MG; Start 02/19/19 at 21:00 Oxcarbazepine (Trileptal) 150 mg BID GTB Last administered on 02/23/19at 08:53; Admin Dose 150 MG; Start 02/19/19 at 21:00 Zinc Sulfate (Zinc Sulfate) 220 mg DAILY GTB Last administered on 02/23/19at 08:53; Admin Dose 220 MG; Start 02/20/19 at 09:00 IV Flush (NS 3 ml) 3 ml PER PROTOCOL IV ; Start 02/19/19 at 17:30 Ondansetron HCl (Zofran Inj) 4 mg Q6H PRN IV NAUSEA/VOMITING; Start 02/19/19 at 17:30 Acetaminophen (Tylenol Liquid) 650 mg Q6H PRN GTB .PAIN 1-3 OR TEMP Last administered on 02/21/19at 13:47; Admin Dose 650 MG; Start 02/19/19 at 17:30 Enoxaparin Sodium (Lovenox) 30 mg DAILY SC Last administered on 02/23/19at 09:02; Admin Dose 30 MG; Start 02/20/19 at 09:00 Ferrous Sulfate (Feosol Liquid Cup) 300 mg BID GTB Last administered on 02/23/19 at 08:53; Admin Dose 300 MG; Start 02/19/19 at 21:00 Vancomycin HCl (Vanco Iv Per Pharmacy) VANCOMYCIN PER PHARMACY PER PROTOCOL XX ; Start 02/20/19 at 16:00 Cefepime HCl 50 ml @ 100 mls/hr Q12 IVPB Last administered on 02/23/19at 08:52; Admin Dose 100 MLS/HR; Start 02/20/19 at 16:00 Fluconazole/ Sodium Chloride 50 ml @ 50 mls/hr Q24H IVPB Last administered on 02/22/19at 15:35; Admin Dose 50 MLS/HR; Start 02/20/19 at 16:00 Vancomycin HCl 250 ml @ 125 mls/hr Q12H IVPB Last administered on 02/23/19at 0 4:06; Admin Dose 125 MLS/HR; Start 02/22/19 at 16:00 Miscellaneous Information (*Rx Drug Level Order Reminder*) VANCO TROUGH @ 1,500 ON... 1500 ONCE XX ; Start 02/24/19 at 15:00; Stop 02/24/19 at 15:01 CHARLOTTE THOMAS NP Feb 23, 2019 14:55
[2019-02-23] MEDS: FLUCONAZOLE 100 MG/50 ML (PMX) 50 ML IVPB SCH (16:00)
[2019-02-23] MEDS: DOCUSATE SODIUM 10 MG/ML (10ML CUP) GTB SCH (20:34)
[2019-02-24] VITALS (9 sets, daily range): BP systolic 110–140; BP diastolic 78–89; PULSE 92–121; RESP 17–18
[2019-02-24] MEDS: VANCOMYCIN 1 GM 250 ML IVPB SCH ×3 (03:10→18:09)
[2019-02-24] MEDS: FERROUS SULFATE 60 MG/ML 5ML CUP GTB SCH ×2 (09:01→20:20)
[2019-02-24] MEDS: ZINC SULFATE 220 MG CAP GTB SCH (09:01)
[2019-02-24] MEDS: OXCARBAZEPINE 150 MG TAB GTB SCH ×2 (09:01→20:21)
[2019-02-24] MEDS: ASCORBIC ACID 500 MG TAB GTB SCH (09:02)
[2019-02-24] MEDS: CEFEPIME 1GM/50 ML (PMX) 50 ML IVPB SCH ×2 (09:02→20:20)
[2019-02-24] MEDS: FAMOTIDINE 20 MG TAB GTB SCH ×2 (09:02→20:21)
[2019-02-24] MEDS: ENOXAPARIN 30 MG/0.3 ML SYG SC SCH (09:07)
[2019-02-24] MEDS: BALSAM PERU/CASTOR OIL 60 GM TUBE TOP SCH (09:51)
--- NOTE | 2019-02-24 11:22 | CONS ---
Assessment/Plan Assessment/Plan Assessment/Plan (Daily) Chest x-ray from yesterday showing persistent left lower lobe consolidation. Assessment and recommendations; 1. Patient with history of cerebral palsy admitted with left lower lobe pneumonia likely aspiration without any significant interval radiological improvement. Add chest PT left lower lobe. Continue current antimicrobial regimen. Continue other supportive measures as well. [facility] with continuation of current treatment with a follow-up chest x-ray to be obtained in 1 week. Consultation Date/Type/Reason Admit Date/Time Feb 19, 2019 at 12:11 Initial Consult Date 02/20/19 Type of Consult Pulmonary Pulmonary consult requested for evaluation of pneumonia. Patient is a 43-year-old woman with a history of cerebral palsy transferred from jail with hypoxemia. Upon evaluation a chest x-ray was done which is showing bilateral pneumonia. Patient has been started on appropriate antimicrobial regimen. Because of cerebral palsy, patient was unable to give any history by herself whatsoever. Patient also appeared tachypneic on examination. History is obtained from medical records. Past medical history; 1. History of cerebral palsy 2. Decubitus ulcer involving coccyx. 3. Likely chronic anemia. Medications; reviewed. Allergies; none. Family history, social history, occupational history is not available. Review of system; unable to be obtained. General exam; middle-aged woman, on Ventimask. Noncommunicative. Mildly tachypneic. Date/Time of Note DATE: 02/24/19 TIME: 11:20 24 HR Interval Summary Free Text/Dictation Patient's condition is stable. Remains noncommunicative due to cerebral palsy. Patient has remained hemodynamically stable. General exam; middle-aged woman, currently no distress. Exam/Review of Systems Exam Vitals Vital Signs Date Temp Pulse Resp B/P (MAP) Pulse Ox O2 O2 Flow FiO2 Time Delivery Rate 02/24/19 Nasal 3.0 08:07 Cannula 02/24/19 96 08:01 02/24/19 98.4 17 115/78 99 07:34 (90) Intake and Output 02/23/19 02/23/19 02/24/19 1515:00 23:00 07:00 IntakeIntake Total 1010 ml 1210 ml OutputOutput Total 2650 ml 900 ml BalanceBalance -1640 ml 310 ml Exam H EENT exam; supple neck, no JVD. No lymphadenopathy. Midline trachea. No thy romegaly. Patient has fair dentition. Chest exam; diminished breath sounds bilaterally. S1-S2 audible, no murmurs. Abdomen exam; soft, no organomegaly. G-tube in place. Bowel sounds audible. Extremity exam; no peripheral edema. Patient has a flexion contractures. [employer] exam; patient is awake but noncommunicative. Results Result Diagram: 02/23/19 0502 02/23/19 0502 Medications Medication Current Medications Ascorbic Acid (Vitamin C) 500 mg DAILY GTB Last administered on 02/24/19 09:02; Admin Dose 500 MG; Start 02/20/19 at 09:00 Docusate Sodium (Colace Liquid Cup) 200 mg QHS GTB Last administered on 02/23/19 20:34; Admin Dose 200 MG; Start 02/19/19 at 21:00 Famotidine (Pepcid) 20 mg BID GTB Last administered on 02/24/19 09:02; Admin Dose 20 MG; Start 02/19/19 at 21:00 Oxcarbazepine (Trileptal) 150 mg BID GTB Last administered on 02/24/19 09:01; Admin Dose 150 MG; Start 02/19/19 at 21:00 Zinc Sulfate (Zinc Sulfate) 220 mg DAILY GTB Last administered on 02/24/19 09:01; Admin Dose 220 MG; Start 02/20/19 at 09:00 IV Flush (NS 3 ml) 3 ml PER PROTOCOL IV ; Start 02/19/19 at 17:30 Ondansetron HCl (Zofran Inj) 4 mg Q6H PRN IV NAUSEA/VOMITING; Start 02/19/19 at 17:30 Acetaminophen (Tylenol Liquid) 650 mg Q6H PRN GTB .PAIN 1-3 OR TEMP Last administered on 02/21/19 13:47; Admin Dose 650 MG; Start 02/19/19 at 17:30 Enoxaparin Sodium (Lovenox) 30 mg DAILY SC Last administered on 02/24/19 09:07; Admin Dose 30 MG; Start 02/20/19 at 09:00 Ferrous Sulfate (Feosol Liquid Cup) 300 mg BID GTB Last administered on 02/24/19 09:01; Admin Dose 300 MG; Start 02/19/19 at 21:00 Vancomycin HCl (Vanco Iv Per Pharmacy) VANCOMYCIN PER PHARMACY PER PROTOCOL XX ; Start 02/20/19 at 16:00 Cefepime HCl 50 ml @ 100 mls/hr Q12 IVPB Last administered on 02/24/19at 09:02; Admin Dose 100 MLS/HR; Start 02/20/19 at 16:00 Fluconazole/ Sodium Chloride 50 ml @ 50 mls/hr Q24H IVPB Last administered on 02/23/19at 16:00; Admin Dose 50 MLS/HR; Start 02/20/19 at 16:00 Vancomycin HCl 250 ml @ 125 mls/hr Q12H IVPB Last administered on 02/24/19at 0 3:10; Admin Dose 125 MLS/HR; Start 02/22/19 at 16:00 Miscellaneous Information (*Rx Drug Level Order Reminder*) VANCO TROUGH @ 1,500 ON... 1500 ONCE XX ; Start 02/24/19 at 15:00; Stop 02/24/19 at 15:01 TRACY MARTINEZ Feb 24, 2019 11:22
--- NOTE | 2019-02-24 14:36 | PN ---
Date/Time of Note Date/Time of Note DATE: 02/24/19 TIME: 14:34 Assessment/Plan VTE Prophylaxis Risk score (from Ns)>0 risk: 1 SCD applied (from Ns): Yes Pharmacological prophylaxis: LMWH Lines/Catheters [facility]from [facility]): Saline Lock Urinary Cath still in place: Yes Reason Cath still needed: urinary retention Assessment/Plan Hospital Course No acute events overnight, patient continues on supplemental oxygen, on antibiotics for pneumonia, remains afebrile. Assessment/Plan -Sepsis with shock, continue IV fluids and broad-spectrum antibiotics. Dr. Poole, infection disease consultation. -Healthcare facility acquired pneumonia. -Acute respiratory distress continue supplemental oxygen bronchodilators continue. Dr. Hyatt is following in pulmonology consultation. -Dysphagia with G-tube. -Cerebral palsy. -Chronic coccygeal decubitus ulcer. Continue current wound care. -Protein calorie malnutrition. -DNR/DNI status. Further recommendations based on clinical course. Plan of care discussed with Dr. Bowman. Result Diagram: 02/23/19 0502 02/23/19 0502 Exam/Review of Systems Exam Vitals Vital Signs Date Temp Pulse Resp B/P (MAP) Pulse Ox O2 O2 Flow FiO2 Time Delivery Rate 02/24/19 93 12:00 02/24/19 98.3 17 110/78 97 11:35 (89) 02/24/19 Nasal 3.0 08:07 Cannula Intake and Output 02/23/19 02/23/19 02/24/19 1515:00 23:00 07:00 IntakeIntake Total 1010 ml 1210 ml OutputOutput Total 2650 ml 900 ml BalanceBalance -1640 ml 310 ml Exam Constitutional: frail Respiratory: diminished breath sounds Cardiovascular: regular rate and rhythm Gastrointestinal: soft, non-tender, other (G tube) Musculoskeletal: nl extremities to inspection Extremities: normal pulses Neurological: confused, lethargic Skin: other (Sacral decubitus ulcer) Medications Medication Current Medications Ascorbic Acid (Vitamin C) 500 mg DAILY GTB Last administered on 02/24/19at 09:02; Admin Dose 500 MG; Start 02/20/19 at 09:00 Docusate Sodium (Colace Liquid Cup) 200 mg QHS GTB Last administered on at 20:34; Admin Dose 200 MG; Start 02/19/19 at 21:00 Famotidine (Pepcid) 20 mg BID GTB Last administered on 02/24/19 09:02; Admin Dose 20 MG; Start 02/19/19 at 21:00 Oxcarbazepine (Trileptal) 150 mg BID GTB Last administered on 02/24/19 09:01; Admin Dose 150 MG; Start 02/19/19 at 21:00 Zinc Sulfate (Zinc Sulfate) 220 mg DAILY GTB Last administered on 02/24/19 09:01; Admin Dose 220 MG; Start 02/20/19 at 09:00 IV Flush (NS 3 ml) 3 ml PER PROTOCOL IV ; Start 02/19/19 at 17:30 Ondansetron HCl (Zofran Inj) 4 mg Q6H PRN IV NAUSEA/VOMITING; Start 02/19/19 at 17:30 Acetaminophen (Tylenol Liquid) 650 mg Q6H PRN GTB .PAIN 1-3 OR TEMP Last administered on 02/21/19 13:47; Admin Dose 650 MG; Start 02/19/19 at 17:30 Enoxaparin Sodium (Lovenox) 30 mg DAILY SC Last administered on 02/24/19 09:07; Admin Dose 30 MG; Start 02/20/19 at 09:00 Ferrous Sulfate (Feosol Liquid Cup) 300 mg BID GTB Last administered on 02/24/19 09:01; Admin Dose 300 MG; Start 02/19/19 at 21:00 Vancomycin HCl (Vanco Iv Per Pharmacy) VANCOMYCIN PER PHARMACY PER PROTOCOL XX ; Start 02/20/19 at 16:00 Cefepime HCl 50 ml @ 100 mls/hr Q12 IVPB Last administered on 02/24/19 09:02; Admin Dose 100 MLS/HR; Start 02/20/19 at 16:00 Fluconazole/ Sodium Chloride 50 ml @ 50 mls/hr Q24H IVPB Last administered on 02/23/19 16:00; Admin Dose 50 MLS/HR; Start 02/20/19 at 16:00 Vancomycin HCl 250 ml @ 125 mls/hr Q12H IVPB Last administered on 02/24/19 03:10; Admin Dose 125 MLS/HR; Start 02/22/19 at 16:00 Miscellaneous Information (*Rx Drug Level Order Reminder*) VANCO TROUGH @ 1,500 ON... 1500 ONCE XX ; Start 02/24/19 at 15:00; Stop 02/24/19 at 15:01 LIBIA CARBALLO Feb 24, 2019 14:36
--- NOTE | 2019-02-24 14:51 | CONS ---
Assessment/Plan Assessment/Plan Hospital Course (Demo Recall) Noncommunicative, comfortable on nasal cannula, no fevers Blood cultures negative urine culture growing yeast Chest x-ray on admission revealed worsening consolidation within the lung bases possibly worsening pneumonia Indwelling Stanford, PEG Antimicrobials: Vanco cefepime fluconazole Physical examination: Chronically ill-appearing middle-aged woman who is laying comfortably in bed. Head atraumatic normocephalic sclera nonicteric vehicle mucosa dry neck is supple chest rise symmetrical breath sounds with bilateral rails. Heart: S1-S2 abdomen soft bowel sounds present extremities without cyanosis Assessment: 1. Sepsis 2. Recurrent pneumonia possibly aspirated 3. UTI 4. Acute hypoxemic respiratory failure 5. History of cerebral palsy with severe debility Plan: Remains stable, continue antibiotics, aspiration precautions, follow pulmonary recommendations Consultation Date/Type/Reason Admit Date/Time Feb 19, 2019 at 12:11 Initial Consult Date 02/20/19 Type of Consult id Date/Time of Note DATE: 02/24/19 TIME: 14:51 Exam/Review of Systems Exam Vitals Vital Signs Date Temp Pulse Resp B/P (MAP) Pulse Ox O2 O2 Flow FiO2 Time Delivery Rate 02/24/19 93 12:00 02/24/19 98.3 17 110/78 97 11:35 (89) 02/24/19 Nasal 3.0 08:07 Cannula Intake and Output 02/23/19 02/23/19 02/24/19 1515:00 23:00 07:00 IntakeIntake Total 1010 ml 1210 ml OutputOutput Total 2650 ml 900 ml BalanceBalance -1640 ml 310 ml Results Result Diagram: 02/23/19 0502 02/23/19 0502 Medications Medication Current Medications Ascorbic Acid (Vitamin C) 500 mg DAILY GTB Last administered on 02/24/19at 09:02; Admin Dose 500 MG; Start 02/20/19 at 09:00 Docusate Sodium (Colace Liquid Cup) 200 mg QHS GTB Last administered on 02/23/19a t 20:34; Admin Dose 200 MG; Start 02/19/19 at 21:00 Famotidine (Pepcid) 20 mg BID GTB Last administered on 02/24/19at 09:02; Admin Dose 20 MG; Start 02/19/19 at 21:00 Oxcarbazepine (Trileptal) 150 mg BID GTB Last administered on 02/24/19 09:01; Admin Dose 150 MG; Start 02/19/19 at 21:00 Zinc Sulfate (Zinc Sulfate) 220 mg DAILY GTB Last administered on 02/24/19 09:01; Admin Dose 220 MG; Start 02/20/19 at 09:00 IV Flush (NS 3 ml) 3 ml PER PROTOCOL IV ; Start 02/19/19 at 17:30 Ondansetron HCl (Zofran Inj) 4 mg Q6H PRN IV NAUSEA/VOMITING; Start 02/19/19 at 17:30 Acetaminophen (Tylenol Liquid) 650 mg Q6H PRN GTB .PAIN 1-3 OR TEMP Last administered on 02/21/19 13:47; Admin Dose 650 MG; Start 02/19/19 at 17:30 Enoxaparin Sodium (Lovenox) 30 mg DAILY SC Last administered on 02/24/19 09:07; Admin Dose 30 MG; Start 02/20/19 at 09:00 Ferrous Sulfate (Feosol Liquid Cup) 300 mg BID GTB Last administered on 02/24/19 09:01; Admin Dose 300 MG; Start 02/19/19 at 21:00 Vancomycin HCl (Vanco Iv Per Pharmacy) VANCOMYCIN PER PHARMACY PER PROTOCOL XX ; Start 02/20/19 at 16:00 Cefepime HCl 50 ml @ 100 mls/hr Q12 IVPB Last administered on 02/24/19 09:02; Admin Dose 100 MLS/HR; Start 02/20/19 at 16:00 Fluconazole/ Sodium Chloride 50 ml @ 50 mls/hr Q24H IVPB Last administered on 02/23/19 16:00; Admin Dose 50 MLS/HR; Start 02/20/19 at 16:00 Vancomycin HCl 250 ml @ 125 mls/hr Q12H IVPB Last administered on 02/24/19 03:10; Admin Dose 125 MLS/HR; Start 02/22/19 at 16:00 Miscellaneous Information (*Rx Drug Level Order Reminder*) VANCO TROUGH @ 1,500 ON... 1500 ONCE XX ; Start 02/24/19 at 15:00; Stop 02/24/19 at 15:01 ALLISON LOMELI NP Feb 24, 2019 14:51
[2019-02-24] MEDS: FLUCONAZOLE 100 MG/50 ML (PMX) 50 ML IVPB SCH (15:39)
[2019-02-24] MEDS: DOCUSATE SODIUM 10 MG/ML (10ML CUP) GTB SCH (21:00)
[2019-02-25] VITALS (12 sets, daily range): BP systolic 105–133; BP diastolic 75–93; PULSE 82–114; RESP 18–20
[2019-02-25] MEDS: VANCOMYCIN 750 MG (PMX) 250 ML IVPB SCH ×3 (03:19→16:37)
[2019-02-25] MEDS: CEFEPIME 1GM/50 ML (PMX) 50 ML IVPB SCH ×2 (08:34→21:37)
[2019-02-25] MEDS: FAMOTIDINE 20 MG TAB GTB SCH ×2 (08:34→21:37)
[2019-02-25] MEDS: OXCARBAZEPINE 150 MG TAB GTB SCH ×2 (08:34→21:37)
[2019-02-25] MEDS: ASCORBIC ACID 500 MG TAB GTB SCH (08:34)
[2019-02-25] MEDS: FERROUS SULFATE 60 MG/ML 5ML CUP GTB SCH ×2 (08:34→21:37)
[2019-02-25] MEDS: BALSAM PERU/CASTOR OIL 60 GM TUBE TOP SCH (08:34)
[2019-02-25] MEDS: ZINC SULFATE 220 MG CAP GTB SCH (08:34)
[2019-02-25] MEDS: ENOXAPARIN 30 MG/0.3 ML SYG SC SCH (08:43)
--- NOTE | 2019-02-25 12:24 | CONS ---
Assessment/Plan Assessment/Plan Hospital Course (Demo Recall) Remains unchanged, no fevers Blood cultures negative urine culture growing yeast Chest x-ray on admission revealed worsening consolidation within the lung bases possibly worsening pneumonia Indwelling Stanford, PEG Antimicrobials: Vanco cefepime fluconazole Physical examination: Chronically ill-appearing middle-aged woman who is laying comfortably in bed. Head atraumatic normocephalic sclera nonicteric vehicle mucosa dry neck is supple chest rise symmetrical breath sounds with bilateral rails. Heart: S1-S2 abdomen soft bowel sounds present extremities without cyanosis Assessment: 1. Sepsis 2. Recurrent pneumonia possibly aspirated 3. UTI 4. Acute hypoxemic respiratory failure 5. History of cerebral palsy with severe debility Plan: Remains stable, continue antibiotics, aspiration precautions Consultation Date/Type/Reason Admit Date/Time Feb 19, 2019 at 12:11 Initial Consult Date 02/20/19 Type of Consult id Date/Time of Note DATE: 02/25/19 TIME: 12:24 Exam/Review of Systems Exam Vitals Vital Signs Date Temp Pulse Resp B/P (MAP) Pulse Ox O2 O2 Flow FiO2 Time Delivery Rate 02/25/19 99 12:07 02/25/19 98.0 19 126/85 100 11:32 (99) 02/25/19 3.0 09:00 02/25/19 Nasal 09:00 Cannula Intake and Output 02/24/19 02/24/19 02/25/19 1515:00 23:00 07:00 IntakeIntake Total 50 ml 1310 ml 1210 ml OutputOutput Total 2400 ml 800 ml BalanceBalance 50 ml -1090 ml 410 ml Results Result Diagram: 02/23/19 0502 02/25/19 0516 Results 24hrs Laboratory Tests Test 02/24/19 17:04 02/25/19 05:16 Vancomycin Level Trough 8.0 L Blood Urea Nitrogen 10 Creatinine 0.27 L Medications Medication Current Medications Ascorbic Acid (Vitamin C) 500 mg DAILY GTB Last administered on 02/25/19at 08:34; Admin Dose 500 MG; Start 02/20/19 at 09:00 Docusate Sodium (Colace Liquid Cup) 200 mg QHS GTB Last administered on 02/23/19at 20:34; Admin Dose 200 MG; Start 02/19/19 at 21:00 Famotidine (Pepcid) 20 mg BID GTB Last administered on 02/25/19 08:34; Admin Dose 20 MG; Start 02/19/19 at 21:00 Oxcarbazepine (Trileptal) 150 mg BID GTB Last administered on 02/25/19 08:34; Admin Dose 150 MG; Start 02/19/19 at 21:00 Zinc Sulfate (Zinc Sulfate) 220 mg DAILY GTB Last administered on 02/25/19 08:34; Admin Dose 220 MG; Start 02/20/19 at 09:00 IV Flush (NS 3 ml) 3 ml PER PROTOCOL IV ; Start 02/19/19 at 17:30 Ondansetron HCl (Zofran Inj) 4 mg Q6H PRN IV NAUSEA/VOMITING; Start 02/19/19 at 17:30 Acetaminophen (Tylenol Liquid) 650 mg Q6H PRN GTB .PAIN 1-3 OR TEMP Last administered on 02/21/19 13:47; Admin Dose 650 MG; Start 02/19/19 at 17:30 Enoxaparin Sodium (Lovenox) 30 mg DAILY SC Last administered on 02/25/19 08:43; Admin Dose 30 MG; Start 02/20/19 at 09:00 Ferrous Sulfate (Feosol Liquid Cup) 300 mg BID GTB Last administered on 02/25/19 08:34; Admin Dose 300 MG; Start 02/19/19 at 21:00 Vancomycin HCl (Vanco Iv Per Pharmacy) VANCOMYCIN PER PHARMACY PER PROTOCOL XX ; Start 02/20/19 at 16:00 Cefepime HCl 50 ml @ 100 mls/hr Q12 IVPB Last administered on 02/25/19 08:34; Admin Dose 100 MLS/HR; Start 02/20/19 at 16:00 Fluconazole/ Sodium Chloride 50 ml @ 50 mls/hr Q24H IVPB Last administered on 02/24/19 15:39; Admin Dose 50 MLS/HR; Start 02/20/19 at 16:00 Vancomycin/Sodium Chloride 250 ml @ 125 mls/hr Q8H IVPB Last administered on 02/25/19 08:34; Admin Dose 125 MLS/HR; Start 02/25/19 at 00:00 ALLISON LOMELI NP Feb 25, 2019 12:24
[2019-02-25] MEDS: ALBUTEROL/IPRATROPIUM (NEB) 3 ML AMP HHN SCH ×2 (15:02→19:48)
--- NOTE | 2019-02-25 15:22 | PN ---
Date/Time of Note Date/Time of Note DATE: 02/25/19 TIME: 15:13 Assessment/Plan VTE Prophylaxis Risk score (from Ns)>0 risk: 1 SCD applied (from Ns): Yes Pharmacological prophylaxis: LMWH Lines/Catheters [facility]from [facility] Saline Lock Urinary Cath still in place: Yes Reason Cath still needed: urinary retention Assessment/Plan Hospital Course Patient sounds congested, continue breathing treatment, pulmonary toilet, oxygen supplementation and antibiotics for pneumonia. Assessment/Plan -Sepsis with shock, continue IV fluids and broad-spectrum antibiotics. Dr. Poole, infection disease consultation. -Healthcare facility acquired pneumonia. -Acute respiratory distress continue supplemental oxygen bronchodilators continue. Dr. Hyatt is following in pulmonology consultation. -Dysphagia with G-tube. -Cerebral palsy. -Chronic coccygeal decubitus ulcer. Continue current wound care. -Protein calorie malnutrition. -DNR/DNI status. Further recommendations based on clinical course. Plan of care discussed with Dr. Bowman. Result Diagram: 02/23/19 0502 02/25/19 0516 Results 24hrs Laboratory Tests Test 02/24/19 17:04 02/25/19 05:16 Vancomycin Level Trough 8.0 L Blood Urea Nitrogen 10 Creatinine 0.27 L Exam/Review of Systems Exam Vitals Vital Signs Date Temp Pulse Resp B/P (MAP) Pulse Ox O2 O2 Flow FiO2 Time Delivery Rate 02/25/19 103 24 94 Nasal 3.0 15:03 Cannula 02/25/19 98.0 126/85 11:32 (99) Intake and Output 02/24/19 02/24/19 02/25/19 1414:59 22:59 06:59 IntakeIntake Total 50 ml 1310 ml 1210 ml OutputOutput Total 2400 ml 800 ml BalanceBalance 50 ml -1090 ml 410 ml Exam Constitutional: frail Respiratory: diminished breath sounds Cardiovascular: regular rate and rhythm Gastrointestinal: soft, non-tender, other (G tube) Musculoskeletal: nl extremities to inspection Extremities: normal pulses Neurological: confused, lethargic Skin: other (Sacral decubitus ulcer) Results Results 24hrs Laboratory Tests Test 02/24/19 17:04 02/25/19 05:16 Vancomycin Level Trough 8.0 L Blood Urea Nitrogen 10 Creatinine 0.27 L Medications Medication Current Medications Ascorbic Acid (Vitamin C) 500 mg DAILY GTB Last administered on 02/25/19 08:34; Admin Dose 500 MG; Start 02/20/19 at 09:00 Docusate Sodium (Colace Liquid Cup) 200 mg QHS GTB Last administered on 02/23/19 20:34; Admin Dose 200 MG; Start 02/19/19 at 21:00 Famotidine (Pepcid) 20 mg BID GTB Last administered on 02/25/19 08:34; Admin Dose 20 MG; Start 02/19/19 at 21:00 Oxcarbazepine (Trileptal) 150 mg BID GTB Last administered on 02/25/19 08:34; Admin Dose 150 MG; Start 02/19/19 at 21:00 Zinc Sulfate (Zinc Sulfate) 220 mg DAILY GTB Last administered on 02/25/19 08:34; Admin Dose 220 MG; Start 02/20/19 at 09:00 IV Flush (NS 3 ml) 3 ml PER PROTOCOL IV ; Start 02/19/19 at 17:30 Ondansetron HCl (Zofran Inj) 4 mg Q6H PRN IV NAUSEA/VOMITING; Start 02/19/19 at 17:30 Acetaminophen (Tylenol Liquid) 650 mg Q6H PRN GTB .PAIN 1-3 OR TEMP Last administered on 02/21/19 13:47; Admin Dose 650 MG; Start 02/19/19 at 17:30 Enoxaparin Sodium (Lovenox) 30 mg DAILY SC Last administered on 02/25/19 08:43; Admin Dose 30 MG; Start 02/20/19 at 09:00 Ferrous Sulfate (Feosol Liquid Cup) 300 mg BID GTB Last administered on 02/25/19 08:34; Admin Dose 300 MG; Start 02/19/19 at 21:00 Vancomycin HCl (Vanco Iv Per Pharmacy) VANCOMYCIN PER PHARMACY PER PROTOCOL XX ; Start 02/20/19 at 16:00 Cefepime HCl 50 ml @ 100 mls/hr Q12 IVPB Last administered on 02/25/19 08:34; Admin Dose 100 MLS/HR; Start 02/20/19 at 16:00 Fluconazole/ Sodium Chloride 50 ml @ 50 mls/hr Q24H IVPB Last administered on 02/24/19 15:39; Admin Dose 50 MLS/HR; Start 02/20/19 at 16:00 Vancomycin/Sodium Chloride 250 ml @ 125 mls/hr Q8H IVPB Last administered on 02/25/19at 08:34; Admin Dose 125 MLS/HR; Start 02/25/19 at 00:00 Albuterol/ Ipratropium (Duoneb) 3 ml Q6HWA RESP THERAPY HHN Last administered on 02/25/19at 15:02; Admin Dose 3 ML; Start 02/25/19 at 14:00 LIBIA CARBALLO Feb 25, 2019 15:22
[2019-02-25] MEDS: FLUCONAZOLE 100 MG/50 ML (PMX) 50 ML IVPB SCH (16:38)
[2019-02-25] MEDS: DOCUSATE SODIUM 10 MG/ML (10ML CUP) GTB SCH (21:37)
[2019-02-26] VITALS (10 sets, daily range): BP systolic 102–148; BP diastolic 74–101; PULSE 93–112; RESP 18–20
[2019-02-26] MEDS: VANCOMYCIN 500 MG (PMX) 100 ML IVPB SCH ×3 (01:51→17:55)
[2019-02-26] MEDS: CEFEPIME 1GM/50 ML (PMX) 50 ML IVPB SCH ×2 (08:39→21:34)
[2019-02-26] MEDS: BALSAM PERU/CASTOR OIL 60 GM TUBE TOP SCH (08:39)
[2019-02-26] MEDS: ZINC SULFATE 220 MG CAP GTB SCH (08:40)
[2019-02-26] MEDS: FAMOTIDINE 20 MG TAB GTB SCH ×2 (08:40→21:34)
[2019-02-26] MEDS: OXCARBAZEPINE 150 MG TAB GTB SCH ×2 (08:40→21:34)
[2019-02-26] MEDS: ASCORBIC ACID 500 MG TAB GTB SCH (08:40)
[2019-02-26] MEDS: FERROUS SULFATE 60 MG/ML 5ML CUP GTB SCH ×2 (08:40→21:34)
[2019-02-26] MEDS: ALBUTEROL/IPRATROPIUM (NEB) 3 ML AMP HHN SCH ×3 (08:44→20:06)
[2019-02-26] MEDS: ENOXAPARIN 30 MG/0.3 ML SYG SC SCH (08:50)
--- NOTE | 2019-02-26 10:34 | CONS ---
Consultation Date/Type/Reason Admit Date/Time Feb 19, 2019 at 12:11 Initial Consult Date 02/20/19 Type of Consult Pulmonary Pulmonary consult requested for evaluation of pneumonia. Patient is a 43-year-old woman with a history of cerebral palsy transferred from retirement with hypoxemia. Upon evaluation a chest x-ray was done which is showing bilateral pneumonia. Patient has been started on appropriate antimicrobial regimen. Because of cerebral palsy, patient was unable to give any history by herself whatsoever. Patient also appeared tachypneic on examination. History is obtained from medical records. Past medical history; 1. History of cerebral palsy 2. Decubitus ulcer involving coccyx. 3. Likely chronic anemia. Medications; reviewed. Allergies; none. Family history, social history, occupational history is not available. Review of system; unable to be obtained. General exam; middle-aged woman, on Ventimask. Noncommunicative. Mildly tachypneic. Date/Time of Note DATE: 02/26/19 TIME: 10:33 24 HR Interval Summary Free Text/Dictation Patient's condition remains stable. Has remained hemodynamically stable. No untoward events reported. General exam; middle-aged woman, awake but noncommunicative. Currently in no distress. HEENT exam; supple neck, no JVD. No lymphadenopathy. Midline trachea. No thyromegaly. Patient has fair dentition. Chest exam; diminished breath sounds left lower lobe. Rest of the lung pool are clear. S1-S2 audible, no murmurs. Regular rhythm. Abdomen exam; soft, no organomegaly. G-tube in place. Bowel sounds audible. Extremity exam; no peripheral edema. Patient has a flexion contractures. [facility] [employer] exam; patient remains noncommunicative. Assessment and recommendations; 1. Patient with history of cerebral palsy admitted with left lower lobe pneumonia with dense consolidation. Chest. Yesterday. Patient currently on appropriate antimicrobial regimen. 2. History of coccygeal ulcer. 3. Chronic anemia. Continue with supportive care. Consider discharge to retirement. Continue chest PT to left lower lobe 4 times daily at least for 5 days. Obtain follow-up chest x-ray in 1 week. Exam/Review of Systems Exam Vitals Vital Signs Date Temp Pulse Resp B/P (MAP) Pulse Ox O2 O2 Flow FiO2 Time Delivery Rate 02/26/19 3.0 08:44 02/26/19 98 22 98 Nasal 08:44 Cannula 02/26/19 98.2 116/81 07:25 (93) Intake and Output 02/25/19 02/25/19 02/26/19 1515:00 23:00 07:00 IntakeIntake Total 650 ml 1200 ml OutputOutput Total 1100 ml 800 ml BalanceBalance -450 ml 400 ml Results Result Diagram: 02/26/19 0528 02/26/19 0528 Results 24hrs Laboratory Tests Test 02/25/19 23:17 02/26/19 05:28 Vancomycin Level Trough 19.1 White Blood Count 12.2 #H Red Blood Count 3.82 L Hemoglobin 9.5 L Hematocrit 32.5 L Mean Corpuscular Volume 85.1 Mean Corpuscular Hemoglobin 24.9 L Mean Corpuscular Hemoglobin Concent 29.2 L Red Cell Distribution Width 16.7 H Platelet Count 382 Mean Platelet Volume 9.9 Immature Granulocytes % 0.700 H Neutrophils % 70.5 Lymphocytes % 18.9 Monocytes % 3.7 Eosinophils % 5.8 Basophils % 0.4 Nucleated Red Blood Cells % 0.0 Immature Granulocytes # 0.090 H Neutrophils # 8.6 H Lymphocytes # 2.3 Monocytes # 0.5 Eosinophils # 0.7 H Basophils # 0.1 Nucleated Red Blood Cells # 0.0 Sodium Level 136 Potassium Level 4.4 Chloride Level 99 Carbon Dioxide Level 31 Anion Gap 6 Blood Urea Nitrogen 10 Creatinine 0.30 L Est Glomerular Filtrat Rate mL/min > 60 Glucose Level 105 Calcium Level 9.6 Medications Medication Current Medications Ascorbic Acid (Vitamin C) 500 mg DAILY GTB Last administered on 02/26/19at 08:40; Admin Dose 500 MG; Start 02/20/19 at 09:00 Docusate Sodium (Colace Liquid Cup) 200 mg QHS GTB Last administered on 02/25/19at 21:37; Admin Dose 200 MG; Start 02/19/19 at 21:00 Famotidine (Pepcid) 20 mg BID GTB Last administered on 02/26/19at 08:40; Admin Dose 20 MG; Start 02/19/19 at 21:00 Oxcarbazepine (Trileptal) 150 mg BID GTB Last administered on 02/26/19at 08:40; Admin Dose 150 MG; Start 02/19/19 at 21:00 Zinc Sulfate (Zinc Sulfate) 220 mg DAILY GTB Last administered on 02/26/19 08:40; Admin Dose 220 MG; Start 02/20/19 at 09:00 IV Flush (NS 3 ml) 3 ml PER PROTOCOL IV ; Start 02/19/19 at 17:30 Ondansetron HCl (Zofran Inj) 4 mg Q6H PRN IV NAUSEA/VOMITING; Start 02/19/19 at 17:30 Acetaminophen (Tylenol Liquid) 650 mg Q6H PRN GTB .PAIN 1-3 OR TEMP Last administered on 02/21/19 13:47; Admin Dose 650 MG; Start 02/19/19 at 17:30 Enoxaparin Sodium (Lovenox) 30 mg DAILY SC Last administered on 02/26/19 08:50; Admin Dose 30 MG; Start 02/20/19 at 09:00 Ferrous Sulfate (Feosol Liquid Cup) 300 mg BID GTB Last administered on 02/26/19 08:40; Admin Dose 300 MG; Start 02/19/19 at 21:00 Vancomycin HCl (Vanco Iv Per Pharmacy) VANCOMYCIN PER PHARMACY PER PROTOCOL XX ; Start 02/20/19 at 16:00 Cefepime HCl 50 ml @ 100 mls/hr Q12 IVPB Last administered on 02/26/19 08:39; Admin Dose 100 MLS/HR; Start 02/20/19 at 16:00 Fluconazole/ Sodium Chloride 50 ml @ 50 mls/hr Q24H IVPB Last administered on 02/25/19 16:38; Admin Dose 50 MLS/HR; Start 02/20/19 at 16:00 Albuterol/ Ipratropium (Duoneb) 3 ml Q6HWA RESP THERAPY HHN Last administered on 02/26/19 08:44; Admin Dose 3 ML; Start 02/25/19 at 14:00 Vancomycin HCl 100 ml @ 100 mls/hr Q8H IVPB Last administered on 02/26/19 09:28; Admin Dose 100 MLS/HR; Start 02/26/19 at 02:00 Miscellaneous Information (*Rx Drug Level Order Reminder*) VANCO TR AT 0100 0100 ONCE XX ; Start 02/27/19 at 01:00; Stop 02/27/19 at 01:01 TRACY MARTINEZ 12, 2019 10:34
[2019-02-26] MEDS: ACETAMINOPHEN 650MG/20.3ML CUP GTB PRN (12:17)
--- NOTE | 2019-02-26 14:27 | CONS ---
Assessment/Plan Assessment/Plan Hospital Course (Demo Recall) No acute changes, afebrile, family at bedside, no fevers overnight Blood cultures negative urine culture growing yeast Chest x-ray on admission revealed worsening consolidation within the lung bases possibly worsening pneumonia Indwelling Stanford, PEG Antimicrobials: Vanco cefepime fluconazole Physical examination: Chronically ill-appearing middle-aged woman who is laying comfortably in bed. Head atraumatic normocephalic sclera nonicteric vehicle mucosa dry neck is supple chest rise symmetrical breath sounds with bilateral rails. Heart: S1-S2 abdomen soft bowel sounds present extremities without cyanosis Assessment: 1. Sepsis 2. Recurrent aspiration pneumonia 3. UTI 4. Acute hypoxemic respiratory failure 5. History of cerebral palsy with severe debility Plan: Remains stable, continue antibiotics, aspiration precautions, keep head of the bed above 45 degrees at all time, patient is at high risk for re-aspiration given significant secretion retention and inability to control her gag reflex Consultation Date/Type/Reason Admit Date/Time Feb 19, 2019 at 12:11 Initial Consult Date 02/20/19 Type of Consult id Date/Time of Note DATE: 02/26/19 TIME: 14:26 Exam/Review of Systems Exam Vitals Vital Signs Date Temp Pulse Resp B/P (MAP) Pulse Ox O2 O2 Flow FiO2 Time Delivery Rate 02/26/19 95 20 100 Nasal 3.0 13:45 Cannula 02/26/19 97.7 134/88 11:05 (103) Intake and Output 02/25/19 02/25/19 02/26/19 1515:00 23:00 07:00 IntakeIntake Total 650 ml 1200 ml OutputOutput Total 1100 ml 800 ml BalanceBalance -450 ml 400 ml Results Result Diagram: 02/26/19 0528 02/26/19 0528 Results 24hrs Laboratory Tests Test 02/25/19 23:17 02/26/19 05:28 Vancomycin Level Trough 19.1 White Blood Count 12.2 #H Red Blood Count 3.82 L Hemoglobin 9.5 L Hematocrit 32.5 L Mean Corpuscular Volume 85.1 Mean Corpuscular Hemoglobin 24.9 L Mean Corpuscular Hemoglobin Concent 29.2 L Red Cell Distribution Width 16.7 H Platelet Count 382 Mean Platelet Volume 9.9 Immature Granulocytes % 0.700 H Neutrophils % 70.5 Lymphocytes % 18.9 Monocytes % 3.7 Eosinophils % 5.8 Basophils % 0.4 Nucleated Red Blood Cells % 0.0 Immature Granulocytes # 0.090 H Neutrophils # 8.6 H Lymphocytes # 2.3 Monocytes # 0.5 Eosinophils # 0.7 H Basophils # 0.1 Nucleated Red Blood Cells # 0.0 Sodium Level 136 Potassium Level 4.4 Chloride Level 99 Carbon Dioxide Level 31 Anion Gap 6 Blood Urea Nitrogen 10 Creatinine 0.30 L Est Glomerular Filtrat Rate mL/min > 60 Glucose Level 105 Calcium Level 9.6 Medications Medication Current Medications Ascorbic Acid (Vitamin C) 500 mg DAILY GTB Last administered on 02/26/19 08:40; Admin Dose 500 MG; Start 02/20/19 at 09:00 Docusate Sodium (Colace Liquid Cup) 200 mg QHS GTB Last administered on 02/25/19 21:37; Admin Dose 200 MG; Start 02/19/19 at 21:00 Famotidine (Pepcid) 20 mg BID GTB Last administered on 02/26/19 08:40; Admin Dose 20 MG; Start 02/19/19 at 21:00 Oxcarbazepine (Trileptal) 150 mg BID GTB Last administered on 02/26/19 08:40; Admin Dose 150 MG; Start 02/19/19 at 21:00 Zinc Sulfate (Zinc Sulfate) 220 mg DAILY GTB Last administered on 02/26/19 08:40; Admin Dose 220 MG; Start 02/20/19 at 09:00 IV Flush (NS 3 ml) 3 ml PER PROTOCOL IV ; Start 02/19/19 at 17:30 Ondansetron HCl (Zofran Inj) 4 mg Q6H PRN IV NAUSEA/VOMITING; Start 02/19/19 at 17:30 Acetaminophen (Tylenol Liquid) 650 mg Q6H PRN GTB .PAIN 1-3 OR TEMP Last administered on 02/26/19 12:17; Admin Dose 650 MG; Start 02/19/19 at 17:30 Enoxaparin Sodium (Lovenox) 30 mg DAILY SC Last administered on 02/26/19 08:50; Admin Dose 30 MG; Start 02/20/19 at 09:00 Ferrous Sulfate (Feosol Liquid Cup) 300 mg BID GTB Last administered on 02/26/19 08:40; Admin Dose 300 MG; Start 02/19/19 at 21:00 Vancomycin HCl (Vanco Iv Per Pharmacy) VANCOMYCIN PER PHARMACY PER PROTOCOL XX ; Start 02/20/19 at 16:00 Cefepime HCl 50 ml @ 100 mls/hr Q12 IVPB Last administered on 02/26/19at 08:39; Admin Dose 100 MLS/HR; Start 02/20/19 at 16:00 Fluconazole/ Sodium Chloride 50 ml @ 50 mls/hr Q24H IVPB Last administered on 02/25/19at 16:38; Admin Dose 50 MLS/HR; Start 02/20/19 at 16:00 Albuterol/ Ipratropium (Duoneb) 3 ml Q6HWA RESP THERAPY HHN Last administered on 02/26/19at 13:44; Admin Dose 3 ML; Start 02/25/19 at 14:00 Vancomycin HCl 100 ml @ 100 mls/hr Q8H IVPB Last administered on 02/26/19at 09:28; Admin Dose 100 MLS/HR; Start 02/26/19 at 02:00 Miscellaneous Information (*Rx Drug Level Order Reminder*) VANCO TR AT 0100 0100 ONCE XX ; Start 02/27/19 at 01:00; Stop 02/27/19 at 01:01 ALLISON LOMELI NP Feb 26, 2019 14:27
[2019-02-26] MEDS: FLUCONAZOLE 100 MG/50 ML (PMX) 50 ML IVPB SCH (15:07)
--- NOTE | 2019-02-26 15:29 | PN ---
Date/Time of Note Date/Time of Note DATE: 02/26/19 TIME: 15:27 Assessment/Plan VTE Prophylaxis Risk score (from Ns)>0 risk: 5 SCD applied (from Ns): Yes Pharmacological prophylaxis: LMWH Lines/Catheters IV Catheter Type (from [facility]): Saline Lock Urinary Cath still in place: Yes Reason Cath still needed: urinary retention Assessment/Plan Hospital Course Patient has large amount of secretions that requiring frequent suctioning, sounds congested continue pulmonary toilet alert, bronchodilators, antibiotics. Assessment/Plan -Sepsis with shock, continue IV fluids and broad-spectrum antibiotics. Dr. Poole, infection disease consultation. -Healthcare facility acquired pneumonia. -Acute respiratory distress continue supplemental oxygen bronchodilators continue. Dr. Hyatt is following in pulmonology consultation. -Dysphagia with G-tube. -Cerebral palsy. -Chronic coccygeal decubitus ulcer. Continue current wound care. -Protein calorie malnutrition. -DNR/DNI status. Further recommendations based on clinical course. Plan of care discussed with Dr. Bowman. Result Diagram: 02/26/1928 02/26/1928 Results 24hrs Laboratory Tests Test 02/25/19 23:17 02/26/19 05:28 Vancomycin Level Trough 19.1 White Blood Count 12.2 #H Red Blood Count 3.82 L Hemoglobin 9.5 L Hematocrit 32.5 L Mean Corpuscular Volume 85.1 Mean Corpuscular Hemoglobin 24.9 L Mean Corpuscular Hemoglobin Concent 29.2 L Red Cell Distribution Width 16.7 H Platelet Count 382 Mean Platelet Volume 9.9 Immature Granulocytes % 0.700 H Neutrophils % 70.5 Lymphocytes % 18.9 Monocytes % 3.7 Eosinophils % 5.8 Basophils % 0.4 Nucleated Red Blood Cells % 0.0 Immature Granulocytes # 0.090 H Neutrophils # 8.6 H Lymphocytes # 2.3 Monocytes # 0.5 Eosinophils # 0.7 H Basophils # 0.1 Nucleated Red Blood Cells # 0.0 Sodium Level 136 Potassium Level 4.4 Chloride Level 99 Carbon Dioxide Level 31 Anion Gap 6 Blood Urea Nitrogen 10 Creatinine 0.30 L Est Glomerular Filtrat Rate mL/min > 60 Glucose Level 105 Calcium Level 9.6 Exam/Review of Systems Exam Vitals Vital Signs Date Temp Pulse Resp B/P (MAP) Pulse Ox O2 O2 Flow FiO2 Time Delivery Rate 02/26/19 95 20 100 Nasal 3.0 13:45 Cannula 02/26/19 97.7 134/88 11:05 (103) Intake and Output 02/25/19 02/25/19 02/26/19 1515:00 23:00 07:00 IntakeIntake Total 650 ml 1200 ml OutputOutput Total 1100 ml 800 ml BalanceBalance -450 ml 400 ml Exam Constitutional: frail Respiratory: diminished breath sounds Cardiovascular: regular rate and rhythm Gastrointestinal: soft, non-tender, other (G tube) Musculoskeletal: nl extremities to inspection Extremities: normal pulses Neurological: confused, lethargic Skin: other (Sacral decubitus ulcer) Results Results 24hrs Laboratory Tests Test 02/25/19 23:17 02/26/19 05:28 Vancomycin Level Trough 19.1 White Blood Count 12.2 #H Red Blood Count 3.82 L Hemoglobin 9.5 L Hematocrit 32.5 L Mean Corpuscular Volume 85.1 Mean Corpuscular Hemoglobin 24.9 L Mean Corpuscular Hemoglobin Concent 29.2 L Red Cell Distribution Width 16.7 H Platelet Count 382 Mean Platelet Volume 9.9 Immature Granulocytes % 0.700 H Neutrophils % 70.5 Lymphocytes % 18.9 Monocytes % 3.7 Eosinophils % 5.8 Basophils % 0.4 Nucleated Red Blood Cells % 0.0 Immature Granulocytes # 0.090 H Neutrophils # 8.6 H Lymphocytes # 2.3 Monocytes # 0.5 Eosinophils # 0.7 H Basophils # 0.1 Nucleated Red Blood Cells # 0.0 Sodium Level 136 Potassium Level 4.4 Chloride Level 99 Carbon Dioxide Level 31 Anion Gap 6 Blood Urea Nitrogen 10 Creatinine 0.30 L Est Glomerular Filtrat Rate mL/min > 60 Glucose Level 105 Calcium Level 9.6 Medications Medication Current Medications Ascorbic Acid (Vitamin C) 500 mg DAILY GTB Last administered on 02/26/19at 0 8:40; Admin Dose 500 MG; Start 02/20/19 at 09:00 Docusate Sodium (Colace Liquid Cup) 200 mg QHS GTB Last administered on 02/25/19at 21:37; Admin Dose 200 MG; Start 02/19/19 at 21:00 Famotidine (Pepcid) 20 mg BID GTB Last administered on 02/26/19at 08:40; Admin Dose 20 MG; Start 02/19/19 at 21:00 Oxcarbazepine (Trileptal) 150 mg BID GTB Last administered on 02/26/19 08:40; Admin Dose 150 MG; Start 02/19/19 at 21:00 Zinc Sulfate (Zinc Sulfate) 220 mg DAILY GTB Last administered on 02/26/19 08:40; Admin Dose 220 MG; Start 02/20/19 at 09:00 IV Flush (NS 3 ml) 3 ml PER PROTOCOL IV ; Start 02/19/19 at 17:30 Ondansetron HCl (Zofran Inj) 4 mg Q6H PRN IV NAUSEA/VOMITING; Start 02/19/19 at 17:30 Acetaminophen (Tylenol Liquid) 650 mg Q6H PRN GTB .PAIN 1-3 OR TEMP Last administered on 02/26/19 12:17; Admin Dose 650 MG; Start 02/19/19 at 17:30 Enoxaparin Sodium (Lovenox) 30 mg DAILY SC Last administered on 02/26/19 08:50; Admin Dose 30 MG; Start 02/20/19 at 09:00 Ferrous Sulfate (Feosol Liquid Cup) 300 mg BID GTB Last administered on 02/26/19 08:40; Admin Dose 300 MG; Start 02/19/19 at 21:00 Vancomycin HCl (Vanco Iv Per Pharmacy) VANCOMYCIN PER PHARMACY PER PROTOCOL XX ; Start 02/20/19 at 16:00 Cefepime HCl 50 ml @ 100 mls/hr Q12 IVPB Last administered on 02/26/19 08:39; Admin Dose 100 MLS/HR; Start 02/20/19 at 16:00 Fluconazole/ Sodium Chloride 50 ml @ 50 mls/hr Q24H IVPB Last administered on 02/26/19 15:07; Admin Dose 50 MLS/HR; Start 02/20/19 at 16:00 Albuterol/ Ipratropium (Duoneb) 3 ml Q6HWA RESP THERAPY HHN Last administered on 02/26/19 13:44; Admin Dose 3 ML; Start 02/25/19 at 14:00 Vancomycin HCl 100 ml @ 100 mls/hr Q8H IVPB Last administered on 02/26/19 09:28; Admin Dose 100 MLS/HR; Start 02/26/19 at 02:00 Miscellaneous Information (*Rx Drug Level Order Reminder*) VANCO TR AT 0100 0100 ONCE XX ; Start 02/27/19 at 01:00; Stop 02/27/19 at 01:01 LIBIA CARBALLO Feb 26, 2019 15:29
[2019-02-26] MEDS: DOCUSATE SODIUM 10 MG/ML (10ML CUP) GTB SCH (21:34)
[2019-02-27] VITALS (9 sets, daily range): BP systolic 108–140; BP diastolic 73–93; PULSE 70–120; RESP 18–24
[2019-02-27] MEDS: VANCOMYCIN 500 MG (PMX) 100 ML IVPB SCH ×2 (05:41→17:44)
[2019-02-27] MEDS: CEFEPIME 1GM/50 ML (PMX) 50 ML IVPB SCH ×2 (08:59→20:55)
[2019-02-27] MEDS: FERROUS SULFATE 60 MG/ML 5ML CUP GTB SCH ×2 (08:59→20:54)
[2019-02-27] MEDS: FAMOTIDINE 20 MG TAB GTB SCH ×2 (09:00→20:55)
[2019-02-27] MEDS: ASCORBIC ACID 500 MG TAB GTB SCH (09:00)
[2019-02-27] MEDS: ZINC SULFATE 220 MG CAP GTB SCH (09:00)
[2019-02-27] MEDS: OXCARBAZEPINE 150 MG TAB GTB SCH ×2 (09:00→20:55)
[2019-02-27] MEDS: BALSAM PERU/CASTOR OIL 60 GM TUBE TOP SCH (09:01)
[2019-02-27] MEDS: ENOXAPARIN 30 MG/0.3 ML SYG SC SCH (09:17)
[2019-02-27] MEDS: ALBUTEROL/IPRATROPIUM (NEB) 3 ML AMP HHN SCH ×3 (10:17→20:21)
--- NOTE | 2019-02-27 10:38 | CONS ---
Assessment/Plan Assessment/Plan Assessment/Plan (Daily) Assessment and recommendations; next 1. Patient with history of cerebral palsy admitted with left lower lobe dense pneumonia currently on chest PT as well as appropriate antimicrobial regimen. Consider discharge to long-term with continuation of chest PT as well as antibiotics per ID recommendations. Obtain follow-up chest x-ray in about 6 days. Consultation Date/Type/Reason Admit Date/Time Feb 19, 2019 at 12:11 Initial Consult Date 02/20/19 Type of Consult Pulmonary Pulmonary consult requested for evaluation of pneumonia. Patient is a 43-year-old woman with a history of cerebral palsy transferred from long-term with hypoxemia. Upon evaluation a chest x-ray was done which is showing bilateral pneumonia. Patient has been started on appropriate antimicrobial regimen. Because of cerebral palsy, patient was unable to give any history by herself whatsoever. Patient also appeared tachypneic on examination. History is obtained from medical records. Past medical history; 1. History of cerebral palsy 2. Decubitus ulcer involving coccyx. 3. Likely chronic anemia. Medications; reviewed. Allergies; none. Family history, social history, occupational history is not available. Review of system; unable to be obtained. General exam; middle-aged woman, on Ventimask. Noncommunicative. Mildly tachypneic. Date/Time of Note DATE: 02/27/19 TIME: 10:37 24 HR Interval Summary Free Text/Dictation Patient's condition is stable. Because of chronic encephalopathy patient remains unresponsive and noncommunicative. Patient however has remained hemod ynamically stable. General exam; middle-aged female, awake, but noncommunicative. Currently in no distress. Exam/Review of Systems Exam Vitals Vital Signs Date Temp Pulse Resp B/P (MAP) Pulse Ox O2 O2 Flow FiO2 Time Delivery Rate 02/27/19 101 08:00 02/27/19 97.7 20 122/81 99 Nasal 07:36 (95) Cannula 02/27/19 3.0 04:57 Intake and Output 02/26/19 02/26/19 02/27/19 1515:00 23:00 07:00 IntakeIntake Total 150 ml 1050 ml 1020 ml OutputOutput Total 450 ml 750 ml BalanceBalance 150 ml 600 ml 270 ml Exam HEENT exam; supple neck, no JVD. No lymphadenopathy. Midline trachea. No thyromegaly. Patient has fair dentition. Chest exam; diminished breath sounds left lower lobe. S1-S2 audible, no murmurs. Abdomen exam; soft, scaphoid. G-tube in place. No organomegaly. Bowel sounds are audible. Extremity exam; peripheral edema. Patient has flexion contractures. [employer]MENT [employer] exam; patient remains noncommunicative. Results Result Diagram: 02/27/19 0512 02/27/19 0512 Results 24hrs Laboratory Tests Test 02/27/19 00:51 02/27/19 05:12 Vancomycin Level Trough 14.8 White Blood Count 9.5 # Red Blood Count 3.56 L Hemoglobin 8.8 L Hematocrit 29.9 L Mean Corpuscular Volume 84.0 Mean Corpuscular Hemoglobin 24.7 L Mean Corpuscular Hemoglobin Concent 29.4 L Red Cell Distribution Width 16.7 H Platelet Count 370 Mean Platelet Volume 9.9 Immature Granulocytes % 0.500 H Neutrophils % 71.6 Lymphocytes % 18.0 Monocytes % 4.1 Eosinophils % 5.5 Basophils % 0.3 Nucleated Red Blood Cells % 0.0 Immature Granulocytes # 0.050 H Neutrophils # 6.8 Lymphocytes # 1.7 Monocytes # 0.4 Eosinophils # 0.5 Basophils # 0.0 Nucleated Red Blood Cells # 0.0 Sodium Level 134 L Potassium Level 4.4 Chloride Level 97 Carbon Dioxide Level 29 Anion Gap 8 Blood Urea Nitrogen 12 Creatinine 0.29 L Est Glomerular Filtrat Rate mL/min > 60 Glucose Level 123 Calcium Level 9.4 Medications Medication Current Medications Ascorbic Acid (Vitamin C) 500 mg DAILY GTB Last administered on 02/27/19at 09:00; Admin Dose 500 MG; Start 02/20/19 at 09:00 Docusate Sodium (Colace Liquid Cup) 200 mg QHS GTB Last administered on 02/26at 21:34; Admin Dose 200 MG; Start 02/19/19 at 21:00 Famotidine (Pepcid) 20 mg BID GTB Last administered on 02/27/19at 09:00; Admin Dose 20 MG; Start 02/19/19 at 21:00 Oxcarbazepine (Trileptal) 150 mg BID GTB Last administered on 02/27/19at 09:00; Admin Dose 150 MG; Start 02/19/19 at 21:00 Zinc Sulfate (Zinc Sulfate) 220 mg DAILY GTB Last administered on 02/27/19 09:00; Admin Dose 220 MG; Start 02/20/19 at 09:00 IV Flush (NS 3 ml) 3 ml PER PROTOCOL IV ; Start 02/19/19 at 17:30 Ondansetron HCl (Zofran Inj) 4 mg Q6H PRN IV NAUSEA/VOMITING; Start 02/19/19 at 17:30 Acetaminophen (Tylenol Liquid) 650 mg Q6H PRN GTB .PAIN 1-3 OR TEMP Last administered on 02/26/19 12:17; Admin Dose 650 MG; Start 02/19/19 at 17:30 Enoxaparin Sodium (Lovenox) 30 mg DAILY SC Last administered on 02/27/19 09:17; Admin Dose 30 MG; Start 02/20/19 at 09:00 Ferrous Sulfate (Feosol Liquid Cup) 300 mg BID GTB Last administered on 02/27/19 08:59; Admin Dose 300 MG; Start 02/19/19 at 21:00 Vancomycin HCl (Vanco Iv Per Pharmacy) VANCOMYCIN PER PHARMACY PER PROTOCOL XX ; Start 02/20/19 at 16:00 Cefepime HCl 50 ml @ 100 mls/hr Q12 IVPB Last administered on 02/27/19 08:59; Admin Dose 100 MLS/HR; Start 02/20/19 at 16:00 Fluconazole/ Sodium Chloride 50 ml @ 50 mls/hr Q24H IVPB Last administered on 02/26/19 15:07; Admin Dose 50 MLS/HR; Start 02/20/19 at 16:00 Albuterol/ Ipratropium (Duoneb) 3 ml Q6HWA RESP THERAPY HHN Last administered on 02/27/19 10:17; Admin Dose 3 ML; Start 02/25/19 at 14:00 Vancomycin HCl 100 ml @ 100 mls/hr Q12H IVPB Last administered on 02/27/19 05:41; Admin Dose 100 MLS/HR; Start 02/27/19 at 06:00 TRACY MARTINEZ 13, 2019 10:38
--- NOTE | 2019-02-27 11:49 | CONS ---
Assessment/Plan Assessment/Plan Hospital Course (Demo Recall) All noted, no acute changes Blood cultures negative urine culture growing yeast Chest x-ray on admission revealed worsening consolidation within the lung bases possibly worsening pneumonia Indwelling Stanford, PEG Antimicrobials: Vanco cefepime fluconazole Physical examination: Chronically ill-appearing middle-aged woman who is laying comfortably in bed. Head atraumatic normocephalic sclera nonicteric vehicle mucosa dry neck is supple chest rise symmetrical breath sounds with bilateral rails. Heart: S1-S2 abdomen soft bowel sounds present extremities without cyanosis Assessment: 1. Sepsis 2. Recurrent aspiration pneumonia 3. UTI 4. Acute hypoxemic respiratory failure 5. History of cerebral palsy with severe debility Plan: Remains stable, continue antibiotics, aspiration precautions, patient is at high risk for relapse, continue head of the bed above 45 degrees at all time Consultation Date/Type/Reason Admit Date/Time Feb 19, 2019 at 12:11 Initial Consult Date 02/20/19 Type of Consult id Date/Time of Note DATE: 02/27/19 TIME: 11:48 Exam/Review of Systems Exam Vitals Vital Signs Date Temp Pulse Resp B/P (MAP) Pulse Ox O2 O2 Flow FiO2 Time Delivery Rate 02/27/19 97.5 102 20 125/84 99 Nasal 11:05 (98) Cannula 02/27/19 3.0 08:00 Intake and Output 02/26/19 02/26/19 02/27/19 1515:00 23:00 07:00 IntakeIntake Total 150 ml 1050 ml 1020 ml OutputOutput Total 450 ml 750 ml BalanceBalance 150 ml 600 ml 270 ml Results Result Diagram: 02/27/1951102/27/1912 Results 24hrs Laboratory Tests Test 02/27/19 00:51 02/27/19 05:12 Vancomycin Level Trough 14.8 White Blood Count 9.5 # Red Blood Count 3.56 L Hemoglobin 8.8 L Hematocrit 29.9 L Mean Corpuscular Volume 84.0 Mean Corpuscular Hemoglobin 24.7 L Mean Corpuscular Hemoglobin Concent 29.4 L Red Cell Distribution Width 16.7 H Platelet Count 370 Mean Platelet Volume 9.9 Immature Granulocytes % 0.500 H Neutrophils % 71.6 Lymphocytes % 18.0 Monocytes % 4.1 Eosinophils % 5.5 Basophils % 0.3 Nucleated Red Blood Cells % 0.0 Immature Granulocytes # 0.050 H Neutrophils # 6.8 Lymphocytes # 1.7 Monocytes # 0.4 Eosinophils # 0.5 Basophils # 0.0 Nucleated Red Blood Cells # 0.0 Sodium Level 134 L Potassium Level 4.4 Chloride Level 97 Carbon Dioxide Level 29 Anion Gap 8 Blood Urea Nitrogen 12 Creatinine 0.29 L Est Glomerular Filtrat Rate mL/min > 60 Glucose Level 123 Calcium Level 9.4 Medications Medication Current Medications Ascorbic Acid (Vitamin C) 500 mg DAILY GTB Last administered on 02/27/19 09:00; Admin Dose 500 MG; Start 02/20/19 at 09:00 Docusate Sodium (Colace Liquid Cup) 200 mg QHS GTB Last administered on 9at 21:34; Admin Dose 200 MG; Start 02/19/19 at 21:00 Famotidine (Pepcid) 20 mg BID GTB Last administered on 02/27/19 09:00; Admin Dose 20 MG; Start 02/19/19 at 21:00 Oxcarbazepine (Trileptal) 150 mg BID GTB Last administered on 02/27/19 09:00; Admin Dose 150 MG; Start 02/19/19 at 21:00 Zinc Sulfate (Zinc Sulfate) 220 mg DAILY GTB Last administered on 02/27/19 09:00; Admin Dose 220 MG; Start 02/20/19 at 09:00 IV Flush (NS 3 ml) 3 ml PER PROTOCOL IV ; Start 02/19/19 at 17:30 Ondansetron HCl (Zofran Inj) 4 mg Q6H PRN IV NAUSEA/VOMITING; Start 02/19/19 at 17:30 Acetaminophen (Tylenol Liquid) 650 mg Q6H PRN GTB .PAIN 1-3 OR TEMP Last administered on 02/26/19 12:17; Admin Dose 650 MG; Start 02/19/19 at 17:30 Enoxaparin Sodium (Lovenox) 30 mg DAILY SC Last administered on 02/27/19 09:17; Admin Dose 30 MG; Start 02/20/19 at 09:00 Ferrous Sulfate (Feosol Liquid Cup) 300 mg BID GTB Last administered on 02/27/19 08:59; Admin Dose 300 MG; Start 02/19/19 at 21:00 Vancomycin HCl (Vanco Iv Per Pharmacy) VANCOMYCIN PER PHARMACY PER PROTOCOL XX ; Start 02/20/19 at 16:00 Cefepime HCl 50 ml @ 100 mls/hr Q12 IVPB Last administered on 02/27/19at 08:59; Admin Dose 100 MLS/HR; Start 02/20/19 at 16:00 Fluconazole/ Sodium Chloride 50 ml @ 50 mls/hr Q24H IVPB Last administered on 02/26/19at 15:07; Admin Dose 50 MLS/HR; Start 02/20/19 at 16:00 Albuterol/ Ipratropium (Duoneb) 3 ml Q6HWA RESP THERAPY HHN Last administered on 02/27/19at 10:17; Admin Dose 3 ML; Start 02/25/19 at 14:00 Vancomycin HCl 100 ml @ 100 mls/hr Q12H IVPB Last administered on 02/27/19at 05:41; Admin Dose 100 MLS/HR; Start 02/27/19 at 06:00 ALLISON LOMELI NP Feb 27, 2019 11:49
--- NOTE | 2019-02-27 11:52 | PN ---
Date/Time of Note Date/Time of Note DATE: 02/27/19 TIME: 11:49 Assessment/Plan VTE Prophylaxis Risk score (from Ns)>0 risk: 5 SCD applied (from Ns): Yes Pharmacological prophylaxis: LMWH Lines/Catheters IV Catheter Type (from [facility]): Saline Lock Urinary Cath still in place: Yes Reason Cath still needed: urinary retention Assessment/Plan Hospital Course She is continues on supplemental oxygen, with large amount of thick secretions requiring frequent suctioning, will add multivitamins to the regiment patient is currently on G-tube feeding at the goal rate tolerates it well, continue current care. Assessment/Plan -Sepsis with shock, resolving, continue IV fluids and broad-spectrum antibiotics. Dr. Poole, infection disease consultation. -Healthcare facility acquired pneumonia. -Acute respiratory distress continue supplemental oxygen bronchodilators continue. Dr. Hyatt is following in pulmonology consultation. -Dysphagia with G-tube. -Cerebral palsy. -Chronic coccygeal decubitus ulcer. Continue current wound care. -Protein calorie malnutrition. -DNR/DNI status. Further recommendations based on clinical course. Plan of care discussed with Dr. Bowman. Result Diagram: 02/27/1912 02/27/19 0512 Results 24hrs Laboratory Tests Test 02/27/19 00:51 02/27/19 05:12 Vancomycin Level Trough 14.8 White Blood Count 9.5 # Red Blood Count 3.56 L Hemoglobin 8.8 L Hematocrit 29.9 L Mean Corpuscular Volume 84.0 Mean Corpuscular Hemoglobin 24.7 L Mean Corpuscular Hemoglobin Concent 29.4 L Red Cell Distribution Width 16.7 H Platelet Count 370 Mean Platelet Volume 9.9 Immature Granulocytes % 0.500 H Neutrophils % 71.6 Lymphocytes % 18.0 Monocytes % 4.1 Eosinophils % 5.5 Basophils % 0.3 Nucleated Red Blood Cells % 0.0 Immature Granulocytes # 0.050 H Neutrophils # 6.8 Lymphocytes # 1.7 Monocytes # 0.4 Eosinophils # 0.5 Basophils # 0.0 Nucleated Red Blood Cells # 0.0 Sodium Level 134 L Potassium Level 4.4 Chloride Level 97 Carbon Dioxide Level 29 Anion Gap 8 Blood Urea Nitrogen 12 Creatinine 0.29 L Est Glomerular Filtrat Rate mL/min > 60 Glucose Level 123 Calcium Level 9.4 Exam/Review of Systems Exam Vitals Vital Signs Date Temp Pulse Resp B/P (MAP) Pulse Ox O2 O2 Flow FiO2 Time Delivery Rate 02/27/19 97.5 102 20 125/84 99 Nasal 11:05 (98) Cannula 02/27/19 3.0 08:00 Intake and Output 02/26/19 02/26/19 02/27/19 1515:00 23:00 07:00 IntakeIntake Total 150 ml 1050 ml 1020 ml OutputOutput Total 450 ml 750 ml BalanceBalance 150 ml 600 ml 270 ml Exam Constitutional: frail Respiratory: diminished breath sounds Cardiovascular: regular rate and rhythm Gastrointestinal: soft, non-tender, other (G tube) Musculoskeletal: nl extremities to inspection Extremities: normal pulses Neurological: confused, lethargic Skin: other (Sacral decubitus ulcer) Results Results 24hrs Laboratory Tests Test 02/27/19 00:51 02/27/19 05:12 Vancomycin Level Trough 14.8 White Blood Count 9.5 # Red Blood Count 3.56 L Hemoglobin 8.8 L Hematocrit 29.9 L Mean Corpuscular Volume 84.0 Mean Corpuscular Hemoglobin 24.7 L Mean Corpuscular Hemoglobin Concent 29.4 L Red Cell Distribution Width 16.7 H Platelet Count 370 Mean Platelet Volume 9.9 Immature Granulocytes % 0.500 H Neutrophils % 71.6 Lymphocytes % 18.0 Monocytes % 4.1 Eosinophils % 5.5 Basophils % 0.3 Nucleated Red Blood Cells % 0.0 Immature Granulocytes # 0.050 H Neutrophils # 6.8 Lymphocytes # 1.7 Monocytes # 0.4 Eosinophils # 0.5 Basophils # 0.0 Nucleated Red Blood Cells # 0.0 Sodium Level 134 L Potassium Level 4.4 Chloride Level 97 Carbon Dioxide Level 29 Anion Gap 8 Blood Urea Nitrogen 12 Creatinine 0.29 L Est Glomerular Filtrat Rate mL/min > 60 Glucose Level 123 Calcium Level 9.4 Medications Medication Current Medications Ascorbic Acid (Vitamin C) 500 mg DAILY GTB Last administered on 02/27/19at 09:00; Admin Dose 500 MG; Start 02/20/19 at 09:00 Docusate Sodium (Colace Liquid Cup) 200 mg QHS GTB Last administered on 02/26/19at 21:34; Admin Dose 200 MG; Start 02/19/19 at 21:00 Famotidine (Pepcid) 20 mg BID GTB Last administered on 02/27/19 09:00; Admin Dose 20 MG; Start 02/19/19 at 21:00 Oxcarbazepine (Trileptal) 150 mg BID GTB Last administered on 02/27/19 09:00; Admin Dose 150 MG; Start 02/19/19 at 21:00 Zinc Sulfate (Zinc Sulfate) 220 mg DAILY GTB Last administered on 02/27/19 09:00; Admin Dose 220 MG; Start 02/20/19 at 09:00 IV Flush (NS 3 ml) 3 ml PER PROTOCOL IV ; Start 02/19/19 at 17:30 Ondansetron HCl (Zofran Inj) 4 mg Q6H PRN IV NAUSEA/VOMITING; Start 02/19/19 at 17:30 Acetaminophen (Tylenol Liquid) 650 mg Q6H PRN GTB .PAIN 1-3 OR TEMP Last administered on 02/26/19 12:17; Admin Dose 650 MG; Start 02/19/19 at 17:30 Enoxaparin Sodium (Lovenox) 30 mg DAILY SC Last administered on 02/27/19 09:17; Admin Dose 30 MG; Start 02/20/19 at 09:00 Ferrous Sulfate (Feosol Liquid Cup) 300 mg BID GTB Last administered on 02/27/19 08:59; Admin Dose 300 MG; Start 02/19/19 at 21:00 Vancomycin HCl (Vanco Iv Per Pharmacy) VANCOMYCIN PER PHARMACY PER PROTOCOL XX ; Start 02/20/19 at 16:00 Cefepime HCl 50 ml @ 100 mls/hr Q12 IVPB Last administered on 02/27/19 08:59; Admin Dose 100 MLS/HR; Start 02/20/19 at 16:00 Fluconazole/ Sodium Chloride 50 ml @ 50 mls/hr Q24H IVPB Last administered on 02/26/19 15:07; Admin Dose 50 MLS/HR; Start 02/20/19 at 16:00 Albuterol/ Ipratropium (Duoneb) 3 ml Q6HWA RESP THERAPY HHN Last administered on 02/27/19 10:17; Admin Dose 3 ML; Start 02/25/19 at 14:00 Vancomycin HCl 100 ml @ 100 mls/hr Q12H IVPB Last administered on 02/27/19 05:41; Admin Dose 100 MLS/HR; Start 02/27/19 at 06:00 LIBIA CARBALLO Feb 27, 2019 11:52
[2019-02-27] MEDS: MULTIVITAMINS 30 ML CUP GTB SCH (12:12)
[2019-02-27] MEDS: FLUCONAZOLE 100 MG/50 ML (PMX) 50 ML IVPB SCH (16:17)
[2019-02-27] MEDS: DOCUSATE SODIUM 10 MG/ML (10ML CUP) GTB SCH (20:55)
[2019-02-28] VITALS (12 sets, daily range): BP systolic 96–124; BP diastolic 60–75; PULSE 90–111; RESP 18–24
--- NOTE | 2019-02-28 03:51 | PN ---
Date/Time of Note Date/Time of Note DATE: 02/28/19 TIME: 03:49 Assessment/Plan VTE Prophylaxis Risk score (from Ns)>0 risk: 6 SCD applied (from Nsg): Yes Lines/Catheters IV Catheter Type (from Nrs): Saline Lock Urinary Cath still in place: Yes Assessment/Plan Assessment/Plan -Sepsis with shock, resolving, continue IV fluids and broad-spectrum antibiotics. Dr. Poole, infection disease consultation. -Healthcare facility acquired pneumonia. -Acute respiratory distress continue supplemental oxygen bronchodilators continue. Dr. Hyatt is following in pulmonology consultation. -Dysphagia with G-tube. -Cerebral palsy. -Chronic coccygeal decubitus ulcer. Continue current wound care. -Protein calorie malnutrition. -DNR/DNI status. Further recommendations based on clinical course. Plan of care discussed with Dr. Bowman. Result Diagram: 02/27/1951102/27/19511 Results 24hrs Laboratory Tests Test 02/27/19 05:12 White Blood Count 9.5 # Red Blood Count 3.56 L Hemoglobin 8.8 L Hematocrit 29.9 L Mean Corpuscular Volume 84.0 Mean Corpuscular Hemoglobin 24.7 L Mean Corpuscular Hemoglobin Concent 29.4 L Red Cell Distribution Width 16.7 H Platelet Count 370 Mean Platelet Volume 9.9 Immature Granulocytes % 0.500 H Neutrophils % 71.6 Lymphocytes % 18.0 Monocytes % 4.1 Eosinophils % 5.5 Basophils % 0.3 Nucleated Red Blood Cells % 0.0 Immature Granulocytes # 0.050 H Neutrophils # 6.8 Lymphocytes # 1.7 Monocytes # 0.4 Eosinophils # 0.5 Basophils # 0.0 Nucleated Red Blood Cells # 0.0 Sodium Level 134 L Potassium Level 4.4 Chloride Level 97 Carbon Dioxide Level 29 Anion Gap 8 Blood Urea Nitrogen 12 Creatinine 0.29 L Est Glomerular Filtrat Rate mL/min > 60 Glucose Level 123 Calcium Level 9.4 Subjective 24 Hr Interval Summary Free Text/Dictation Had residual of 90 cc today; feeding was held x 2 hrs- ok now - no coughing/vomiiting reported - patient is at risk fot aspiration so will do CXR to r/o aspiration pneumonia Subjective hx not possible: pt non-verbal Exam/Review of Systems Exam Vitals Vital Signs Date Temp Pulse Resp B/P (MAP) Pulse Ox O2 O2 Flow FiO2 Time Delivery Rate 02/28/19 97.8 101 24 96/66 (76) 100 Nasal 03:31 Cannula 02/28/19 4.0 01:49 Intake and Output 02/27/19 02/27/19 02/28/19 1515:00 23:00 07:00 IntakeIntake Total 50 ml 1360 ml OutputOutput Total 1100 ml BalanceBalance 50 ml 260 ml Results Results 24hrs Laboratory Tests Test 02/27/19 05:12 White Blood Count 9.5 # Red Blood Count 3.56 L Hemoglobin 8.8 L Hematocrit 29.9 L Mean Corpuscular Volume 84.0 Mean Corpuscular Hemoglobin 24.7 L Mean Corpuscular Hemoglobin Concent 29.4 L Red Cell Distribution Width 16.7 H Platelet Count 370 Mean Platelet Volume 9.9 Immature Granulocytes % 0.500 H Neutrophils % 71.6 Lymphocytes % 18.0 Monocytes % 4.1 Eosinophils % 5.5 Basophils % 0.3 Nucleated Red Blood Cells % 0.0 Immature Granulocytes # 0.050 H Neutrophils # 6.8 Lymphocytes # 1.7 Monocytes # 0.4 Eosinophils # 0.5 Basophils # 0.0 Nucleated Red Blood Cells # 0.0 Sodium Level 134 L Potassium Level 4.4 Chloride Level 97 Carbon Dioxide Level 29 Anion Gap 8 Blood Urea Nitrogen 12 Creatinine 0.29 L Est Glomerular Filtrat Rate mL/min > 60 Glucose Level 123 Calcium Level 9.4 Medications Medication Current Medications Ascorbic Acid (Vitamin C) 500 mg DAILY GTB Last administered on 02/27/19at 09:00; Admin Dose 500 MG; Start 02/20/19 at 09:00 Docusate Sodium (Colace Liquid Cup) 200 mg QHS GTB Last administered on 9at 20:55; Admin Dose 200 MG; Start 02/19/19 at 21:00 Famotidine (Pepcid) 20 mg BID GTB Last administered on 02/27/19at 20:55; Admin Dose 20 MG; Start 02/19/19 at 21:00 Oxcarbazepine (Trileptal) 150 mg BID GTB Last administered on 02/27/19at 20:55; Admin Dose 150 MG; Start 02/19/19 at 21:00 Zinc Sulfate (Zinc Sulfate) 220 mg DAILY GTB Last administered on 02/27/19at 09:00; Admin Dose 220 MG; Start 02/20/19 at 09:00 IV Flush (NS 3 ml) 3 ml PER PROTOCOL IV ; Start 02/19/19 at 17:30 Ondansetron HCl (Zofran Inj) 4 mg Q6H PRN IV NAUSEA/VOMITING; Start 02/19/19 at 17:30 Acetaminophen (Tylenol Liquid) 650 mg Q6H PRN GTB .PAIN 1-3 OR TEMP Last administered on 02/26/19 12:17; Admin Dose 650 MG; Start 02/19/19 at 17:30 Enoxaparin Sodium (Lovenox) 30 mg DAILY SC Last administered on 02/27/19 09:17; Admin Dose 30 MG; Start 02/20/19 at 09:00 Ferrous Sulfate (Feosol Liquid Cup) 300 mg BID GTB Last administered on 02/27/19 20:54; Admin Dose 300 MG; Start 02/19/19 at 21:00 Vancomycin HCl (Vanco Iv Per Pharmacy) VANCOMYCIN PER PHARMACY PER PROTOCOL XX ; Start 02/20/19 at 16:00 Cefepime HCl 50 ml @ 100 mls/hr Q12 IVPB Last administered on 02/27/19 20:55; Admin Dose 100 MLS/HR; Start 02/20/19 at 16:00 Fluconazole/ Sodium Chloride 50 ml @ 50 mls/hr Q24H IVPB Last administered on 02/27/19 16:17; Admin Dose 50 MLS/HR; Start 02/20/19 at 16:00 Albuterol/ Ipratropium (Duoneb) 3 ml Q6HWA RESP THERAPY HHN Last administered on 02/27/19 20:21; Admin Dose 3 ML; Start 02/25/19 at 14:00 Vancomycin HCl 100 ml @ 100 mls/hr Q12H IVPB Last administered on 02/27/19 17:44; Admin Dose 100 MLS/HR; Start 02/27/19 at 06:00 Multivitamins (Multivitamin) 30 ml DAILY GTB Last administered on 02/27/19 12:12; Admin Dose 30 ML; Start 02/27/19 at 12:00 JASMYNE HOOKS Feb 28, 2019 03:51
[2019-02-28] MEDS: VANCOMYCIN 500 MG (PMX) 100 ML IVPB SCH (05:36)
[2019-02-28] MEDS: ALBUTEROL/IPRATROPIUM (NEB) 3 ML AMP HHN SCH ×3 (08:19→19:49)
[2019-02-28] MEDS: CEFEPIME 1GM/50 ML (PMX) 50 ML IVPB SCH (08:31)
[2019-02-28] MEDS: MULTIVITAMINS 30 ML CUP GTB SCH (08:32)
[2019-02-28] MEDS: OXCARBAZEPINE 150 MG TAB GTB SCH ×2 (08:32→21:20)
[2019-02-28] MEDS: ZINC SULFATE 220 MG CAP GTB SCH (08:32)
[2019-02-28] MEDS: ASCORBIC ACID 500 MG TAB GTB SCH (08:32)
[2019-02-28] MEDS: FERROUS SULFATE 60 MG/ML 5ML CUP GTB SCH ×2 (08:32→21:11)
[2019-02-28] MEDS: FAMOTIDINE 20 MG TAB GTB SCH ×2 (08:32→21:11)
[2019-02-28] MEDS: BALSAM PERU/CASTOR OIL 60 GM TUBE TOP SCH (08:34)
[2019-02-28] MEDS: ENOXAPARIN 30 MG/0.3 ML SYG SC SCH (08:49)
--- NOTE | 2019-02-28 10:41 | CONS ---
Consultation Date/Type/Reason Admit Date/Time Feb 19, 2019 at 12:11 Initial Consult Date 02/20/19 Type of Consult Pulmonary Pulmonary consult requested for evaluation of pneumonia. Patient is a 43-year-old woman with a history of cerebral palsy transferred from custodial with hypoxemia. Upon evaluation a chest x-ray was done which is showing bilateral pneumonia. Patient has been started on appropriate antimicrobial regimen. Because of cerebral palsy, patient was unable to give any history by herself whatsoever. Patient also appeared tachypneic on examination. History is obtained from medical records. Past medical history; 1. History of cerebral palsy 2. Decubitus ulcer involving coccyx. 3. Likely chronic anemia. Medications; reviewed. Allergies; none. Family history, social history, occupational history is not available. Review of system; unable to be obtained. General exam; middle-aged woman, on Ventimask. Noncommunicative. Mildly tachypneic. Date/Time of Note DATE: 02/28/19 TIME: 10:39 24 HR Interval Summary Free Text/Dictation Patient's condition is stable. Has remained hemodynamically stable. No untoward events reported. General exam; middle-aged woman, awake but noncommunicative due to cerebral palsy. Currently in no distress. HEENT exam; supple neck, no JVD. No lymphadenopathy. Midline trachea. No thyromegaly. Patient has fair dentition. Chest exam; clear to auscultation. S1-S2 audible, no murmurs. Regular rhythm. Abdomen exam; soft, scaphoid. No organomegaly. G-tube in place. Bowel sounds audible. Extremity exam; no peripheral edema. Patient has a flexion contractures. RN [facility] exam; patient remains noncommunicative. Chest x-ray was reviewed from today which is showing marked improvement in left lower lobe pneumonia. Assessment and recommendations; 1. Patient with history of cerebral palsy admitted with dense left lower lobe consolidation with marked interval clinical and radiological improvement. 2. Chronic anemia. Consider discharge to custodial off antibiotics. Continue other supportive measures. Exam/Review of Systems Exam Vitals Vital Signs Date Temp Pulse Resp B/P (MAP) Pulse Ox O2 O2 Flow FiO2 Time Delivery Rate 02/28/19 105 18 Nasal 2.0 08:22 Cannula 02/28/19 97.8 111/60 97 07:34 (77) Intake and Output 02/27/19 02/27/19 02/28/19 1515:00 23:00 07:00 IntakeIntake Total 50 ml 1360 ml 690 ml OutputOutput Total 1100 ml 850 ml BalanceBalance 50 ml 260 ml -160 ml Results Result Diagram: 02/28/19 0510 02/28/19 0510 Results 24hrs Laboratory Tests Test 02/28/19 05:10 White Blood Count 13.2 #H Red Blood Count 3.71 L Hemoglobin 9.2 L Hematocrit 31.2 L Mean Corpuscular Volume 84.1 Mean Corpuscular Hemoglobin 24.8 L Mean Corpuscular Hemoglobin Concent 29.5 L Red Cell Distribution Width 16.7 H Platelet Count 390 Mean Platelet Volume 9.7 Immature Granulocytes % 0.500 H Neutrophils % 69.4 Lymphocytes % 18.9 Monocytes % 4.5 Eosinophils % 6.2 Basophils % 0.5 Nucleated Red Blood Cells % 0.0 Immature Granulocytes # 0.070 H Neutrophils # 9.2 H Lymphocytes # 2.5 Monocytes # 0.6 Eosinophils # 0.8 H Basophils # 0.1 Nucleated Red Blood Cells # 0.0 Sodium Level 136 Potassium Level 4.7 Chloride Level 98 Carbon Dioxide Level 31 Anion Gap 7 Blood Urea Nitrogen 13 Creatinine 0.24 L Est Glomerular Filtrat Rate mL/min > 60 Glucose Level 95 Calcium Level 9.1 Medications Medication Current Medications Ascorbic Acid (Vitamin C) 500 mg DAILY GTB Last administered on 02/28/19 08:32; Admin Dose 500 MG; Start 02/20/19 at 09:00 Docusate Sodium (Colace Liquid Cup) 200 mg QHS GTB Last administered on 02/27/19at 20:55; Admin Dose 200 MG; Start 02/19/19 at 21:00 Famotidine (Pepcid) 20 mg BID GTB Last administered on 02/28/19 08:32; Admin Dose 20 MG; Start 02/19/19 at 21:00 Oxcarbazepine (Trileptal) 150 mg BID GTB Last administered on 02/28/19 08:32; Admin Dose 150 MG; Start 02/19/19 at 21:00 Zinc Sulfate (Zinc Sulfate) 220 mg DAILY GTB Last administered on 02/28/19 08:32; Admin Dose 220 MG; Start 02/20/19 at 09:00 IV Flush (NS 3 ml) 3 ml PER PROTOCOL IV ; Start 02/19/19 at 17:30 Ondansetron HCl (Zofran Inj) 4 mg Q6H PRN IV NAUSEA/VOMITING; Start 02/19/19 at 17:30 Acetaminophen (Tylenol Liquid) 650 mg Q6H PRN GTB .PAIN 1-3 OR TEMP Last administered on 02/26/19 12:17; Admin Dose 650 MG; Start 02/19/19 at 17:30 Enoxaparin Sodium (Lovenox) 30 mg DAILY SC Last administered on 02/28/19 08:49; Admin Dose 30 MG; Start 02/20/19 at 09:00 Ferrous Sulfate (Feosol Liquid Cup) 300 mg BID GTB Last administered on 02/28/19 08:32; Admin Dose 300 MG; Start 02/19/19 at 21:00 Vancomycin HCl (Vanco Iv Per Pharmacy) VANCOMYCIN PER PHARMACY PER PROTOCOL XX ; Start 02/20/19 at 16:00 Cefepime HCl 50 ml @ 100 mls/hr Q12 IVPB Last administered on 02/28/19 08:31; Admin Dose 100 MLS/HR; Start 02/20/19 at 16:00 Fluconazole/ Sodium Chloride 50 ml @ 50 mls/hr Q24H IVPB Last administered on 02/27/19 16:17; Admin Dose 50 MLS/HR; Start 02/20/19 at 16:00 Albuterol/ Ipratropium (Duoneb) 3 ml Q6HWA RESP THERAPY HHN Last administered on 02/28/19 08:19; Admin Dose 3 ML; Start 02/25/19 at 14:00 Vancomycin HCl 100 ml @ 100 mls/hr Q12H IVPB Last administered on 02/28/19 05:36; Admin Dose 100 MLS/HR; Start 02/27/19 at 06:00 Multivitamins (Multivitamin) 30 ml DAILY GTB Last administered on 02/28/19 08:32; Admin Dose 30 ML; Start 02/27/19 at 12:00 TRACY MARTINEZ 14, 2019 10:41
--- NOTE | 2019-02-28 13:01 | CONS ---
Assessment/Plan Assessment/Plan Hospital Course (Demo Recall) All noted, no acute changes, afebrile Blood cultures negative urine culture growing yeast Chest x-ray on admission revealed worsening consolidation within the lung bases possibly worsening pneumonia Indwelling Stanford, PEG Antimicrobials: Vanco cefepime fluconazole Physical examination: Chronically ill-appearing middle-aged woman who is laying comfortably in bed. Head atraumatic normocephalic sclera nonicteric vehicle mucosa dry neck is supple chest rise symmetrical breath sounds with bilateral rails. Heart: S1-S2 abdomen soft bowel sounds present extremities without cyanosis Assessment: 1. Sepsis 2. Recurrent aspiration pneumonia 3. UTI 4. Acute hypoxemic respiratory failure 5. History of cerebral palsy with severe debility Plan: Remains unchanged, will dc abx and monitor, patient is at high risk for relapse, continue anti aspiration measures, head of the bed above 45 degrees at all time Consultation Date/Type/Reason Admit Date/Time Feb 19, 2019 at 12:11 Initial Consult Date 02/20/19 Type of Consult id Date/Time of Note DATE: 02/28/19 TIME: 13:00 Exam/Review of Systems Exam Vitals Vital Signs Date Temp Pulse Resp B/P (MAP) Pulse Ox O2 O2 Flow FiO2 Time Delivery Rate 02/28/19 90 12:10 02/28/19 97.8 18 115/71 99 11:26 (86) 02/28/19 Nasal 2.0 08:22 Cannula Intake and Output 02/27/19 02/27/19 02/28/19 1515:00 23:00 07:00 IntakeIntake Total 50 ml 1360 ml 690 ml OutputOutput Total 1100 ml 850 ml BalanceBalance 50 ml 260 ml -160 ml Results Result Diagram: 02/28/19 0510 02/28/19 0510 Results 24hrs Laboratory Tests Test 02/28/19 05:10 White Blood Count 13.2 #H Red Blood Count 3.71 L Hemoglobin 9.2 L Hematocrit 31.2 L Mean Corpuscular Volume 84.1 Mean Corpuscular Hemoglobin 24.8 L Mean Corpuscular Hemoglobin Concent 29.5 L Red Cell Distribution Width 16.7 H Platelet Count 390 Mean Platelet Volume 9.7 Immature Granulocytes % 0.500 H Neutrophils % 69.4 Lymphocytes % 18.9 Monocytes % 4.5 Eosinophils % 6.2 Basophils % 0.5 Nucleated Red Blood Cells % 0.0 Immature Granulocytes # 0.070 H Neutrophils # 9.2 H Lymphocytes # 2.5 Monocytes # 0.6 Eosinophils # 0.8 H Basophils # 0.1 Nucleated Red Blood Cells # 0.0 Sodium Level 136 Potassium Level 4.7 Chloride Level 98 Carbon Dioxide Level 31 Anion Gap 7 Blood Urea Nitrogen 13 Creatinine 0.24 L Est Glomerular Filtrat Rate mL/min > 60 Glucose Level 95 Calcium Level 9.1 Medications Medication Current Medications Ascorbic Acid (Vitamin C) 500 mg DAILY GTB Last administered on 02/28/19 08:32; Admin Dose 500 MG; Start 02/20/19 at 09:00 Docusate Sodium (Colace Liquid Cup) 200 mg QHS GTB Last administered on 02/27/19 20:55; Admin Dose 200 MG; Start 02/19/19 at 21:00 Famotidine (Pepcid) 20 mg BID GTB Last administered on 02/28/19 08:32; Admin Dose 20 MG; Start 02/19/19 at 21:00 Oxcarbazepine (Trileptal) 150 mg BID GTB Last administered on 02/28/19 08:32; Admin Dose 150 MG; Start 02/19/19 at 21:00 Zinc Sulfate (Zinc Sulfate) 220 mg DAILY GTB Last administered on 02/28/19 08:32; Admin Dose 220 MG; Start 02/20/19 at 09:00 IV Flush (NS 3 ml) 3 ml PER PROTOCOL IV ; Start 02/19/19 at 17:30 Ondansetron HCl (Zofran Inj) 4 mg Q6H PRN IV NAUSEA/VOMITING; Start 02/19/19 at 17:30 Acetaminophen (Tylenol Liquid) 650 mg Q6H PRN GTB .PAIN 1-3 OR TEMP Last adm inistered on 02/26/19 12:17; Admin Dose 650 MG; Start 02/19/19 at 17:30 Enoxaparin Sodium (Lovenox) 30 mg DAILY SC Last administered on 02/28/19 08:49; Admin Dose 30 MG; Start 02/20/19 at 09:00 Ferrous Sulfate (Feosol Liquid Cup) 300 mg BID GTB Last administered on 02/28/19 08:32; Admin Dose 300 MG; Start 02/19/19 at 21:00 Vancomycin HCl (Vanco Iv Per Pharmacy) VANCOMYCIN PER PHARMACY PER PROTOCOL XX ; Start 02/20/19 at 16:00 Cefepime HCl 50 ml @ 100 mls/hr Q12 IVPB Last administered on 02/28/19at 08:31; Admin Dose 100 MLS/HR; Start 02/20/19 at 16:00 Fluconazole/ Sodium Chloride 50 ml @ 50 mls/hr Q24H IVPB Last administered on 02/27/19at 16:17; Admin Dose 50 MLS/HR; Start 02/20/19 at 16:00 Albuterol/ Ipratropium (Duoneb) 3 ml Q6HWA RESP THERAPY HHN Last administered on 02/28/19at 08:19; Admin Dose 3 ML; Start 02/25/19 at 14:00 Vancomycin HCl 100 ml @ 100 mls/hr Q12H IVPB Last administered on 02/28/19at 05:36; Admin Dose 100 MLS/HR; Start 02/27/19 at 06:00 Multivitamins (Multivitamin) 30 ml DAILY GTB Last administered on 02/28/19at 08:32; Admin Dose 30 ML; Start 02/27/19 at 12:00 ALLISON LOMELI NP Feb 28, 2019 13:01
[2019-02-28] MEDS: DOCUSATE SODIUM 10 MG/ML (10ML CUP) GTB SCH (21:11)
[2019-03-01] VITALS (10 sets, daily range): BP systolic 99–123; BP diastolic 67–85; PULSE 92–105; RESP 20–24
[2019-03-01] MEDS: ALBUTEROL/IPRATROPIUM (NEB) 3 ML AMP HHN SCH ×3 (08:16→20:40)
[2019-03-01] MEDS: BALSAM PERU/CASTOR OIL 60 GM TUBE TOP SCH (09:00)
--- NOTE | 2019-03-01 09:34 | CONS ---
DATE OF ADMISSION: 02/19/2019 DATE OF CONSULTATION: 02/28/2019 TYPE OF CONSULTATION: Gastrointestinal. REASON FOR CONSULTATION: Gastroparesis. HISTORY OF PRESENT ILLNESS: A 43-year-old female with a history of brittle pulse and dysphagia, came to the Emergency Room for hypoxemia, fever and productive cough. The patient is bedridden in the ER , she was evaluated and found to have a leukocytosis and sepsis. So was admitted for further managem ent. Patient has been on appropriate antibiotic. GI consult was called in because of the gastric re sidual was high. REVIEW OF SYSTEMS: Unable to do it. PAST MEDICAL HISTORY: Respiratory failure, dysphagia, status post G-tube, cerebral palsy, protein ca alec malnutrition. SOCIAL HISTORY: She is a resident of a [facility]. PHYSICAL EXAMINATION: GENERAL: Awake, contracted extremity. ABDOMEN: Benign. G-tube is in place. EXTREMITIES: No edema. CENTRAL NERVOUS SYSTEM: Patient does not communicate. LABORATORY DATA: WBC is high at 13.2, hematocrit is 31.2. BNP is grossly within normal limits. INR is normal. Chest x-ray last was today. It shows atelectasis versus pneumonia, small pleural effusi on and osteopenia. IMPRESSION: 1. Sepsis. 2. Pneumonia. 3. Dysphagia. 4. Cerebral palsy. 5. Decubitus ulcer. 6. Malnutrition. 7. Gastroparesis. PLAN: To continue present care. Will start the patient on low dose Reglan. Dictated By: NICOLA SOTO/NTS Conf#: [id number] DID#: [id number] CC: GLORIA VARGAS MD;*EndCC*
[2019-03-01] MEDS: MULTIVITAMINS 30 ML CUP GTB SCH (09:41)
[2019-03-01] MEDS: ASCORBIC ACID 500 MG TAB GTB SCH (09:41)
[2019-03-01] MEDS: OXCARBAZEPINE 150 MG TAB GTB SCH ×2 (09:41→22:02)
[2019-03-01] MEDS: ZINC SULFATE 220 MG CAP GTB SCH (09:41)
[2019-03-01] MEDS: FAMOTIDINE 20 MG TAB GTB SCH ×2 (09:41→22:01)
[2019-03-01] MEDS: FERROUS SULFATE 60 MG/ML 5ML CUP GTB SCH ×2 (09:41→22:01)
--- NOTE | 2019-03-01 10:13 | PN ---
Date/Time of Note Date/Time of Note DATE: 03/01/19 TIME: 10:12 Assessment/Plan VTE [place] [facility] [place]: 5 SCD applied (from Ns): Yes Pharmacological prophylaxis: LMWH Lines/Catheters IV Catheter Type (from [facility]): Peripheral IV Urinary Cath still in place: Yes Reason Cath still needed: skin wounds contaminated by urine Assessment/Plan Hospital Course -Sepsis with shock, resolving, continue IV fluids and broad-spectrum antibiotics. Dr. Poole, infection disease consultation. -Healthcare facility acquired pneumonia. -Acute respiratory distress continue supplemental oxygen bronchodilators continue. Dr. Hyatt is following in pulmonology consultation. -Dysphagia with G-tube. -Cerebral palsy. -Chronic coccygeal decubitus ulcer. Continue current wound care. -Protein calorie malnutrition. -DNR/DNI status. Result Diagram: 03/01/1952703/01/19527 Results 24hrs Laboratory Tests Test 03/01/19 05:28 White Blood Count 9.0 # Red Blood Count 3.91 L Hemoglobin 9.9 L Hematocrit 33.3 L Mean Corpuscular Volume 85.2 Mean Corpuscular Hemoglobin 25.3 L Mean Corpuscular Hemoglobin Concent 29.7 L Red Cell Distribution Width 16.7 H Platelet Count 317 Mean Platelet Volume 10.4 Immature Granulocytes % 0.300 Neutrophils % 67.9 Lymphocytes % 21.6 Monocytes % 4.1 Eosinophils % 5.5 Basophils % 0.6 Nucleated Red Blood Cells % 0.0 Immature Granulocytes # 0.030 Neutrophils # 6.1 Lymphocytes # 2.0 Monocytes # 0.4 Eosinophils # 0.5 Basophils # 0.1 Nucleated Red Blood Cells # 0.0 Sodium Level 136 Potassium Level 5.0 Chloride Level 96 L Carbon Dioxide Level 32 H Anion Gap 8 Blood Urea Nitrogen 16 Creatinine 0.25 L Est Glomerular Filtrat Rate mL/min > 60 Glucose Level 114 Calcium Level 9.5 Subjective 24 Hr Interval Summary Free Text/Dictation Patient has no complaints Exam/Review of Systems Exam Vitals Vital Signs Date Temp Pulse Resp B/P (MAP) Pulse Ox O2 O2 Flow FiO2 Time Delivery Rate 03/01/19 102 19 100 Nasal 2.0 08:17 Cannula 03/01/19 97.9 99/73 (82) 07:53 Intake and Output 02/28/19 02/28/19 03/01/19 1515:00 23:00 07:00 IntakeIntake Total 50 ml 960 ml 1010 ml OutputOutput Total 600 ml 300 ml BalanceBalance 50 ml 360 ml 710 ml Constitutional: well developed, frail Head: normocephalic, atraumatic Neck: supple Respiratory: diminished breath sounds Cardiovascular: regular rate and rhythm Gastrointestinal: soft, non-tender Extremities: normal pulses Results Results 24hrs Laboratory Tests Test 03/01/19 05:28 White Blood Count 9.0 # Red Blood Count 3.91 L Hemoglobin 9.9 L Hematocrit 33.3 L Mean Corpuscular Volume 85.2 Mean Corpuscular Hemoglobin 25.3 L Mean Corpuscular Hemoglobin Concent 29.7 L Red Cell Distribution Width 16.7 H Platelet Count 317 Mean Platelet Volume 10.4 Immature Granulocytes % 0.300 Neutrophils % 67.9 Lymphocytes % 21.6 Monocytes % 4.1 Eosinophils % 5.5 Basophils % 0.6 Nucleated Red Blood Cells % 0.0 Immature Granulocytes # 0.030 Neutrophils # 6.1 Lymphocytes # 2.0 Monocytes # 0.4 Eosinophils # 0.5 Basophils # 0.1 Nucleated Red Blood Cells # 0.0 Sodium Level 136 Potassium Level 5.0 Chloride Level 96 L Carbon Dioxide Level 32 H Anion Gap 8 Blood Urea Nitrogen 16 Creatinine 0.25 L Est Glomerular Filtrat Rate mL/min > 60 Glucose Level 114 Calcium Level 9.5 Medications Medication Current Medications Ascorbic Acid (Vitamin C) 500 mg DAILY GTB Last administered on 02/28/19 08:32; Admin Dose 500 MG; Start 02/20/19 at 09:00 Docusate Sodium (Colace Liquid Cup) 200 mg QHS GTB Last administered on 02/28/19 21:11; Admin Dose 200 MG; Start 02/19/19 at 21:00 Famotidine (Pepcid) 20 mg BID GTB Last administered on 02/28/19 21:11; Admin Dose 20 MG; Start 02/19/19 at 21:00 Oxcarbazepine (Trileptal) 150 mg BID GTB Last administered on 02/28/19 21:20; Admin Dose 150 MG; Start 02/19/19 at 21:00 Zinc Sulfate (Zinc Sulfate) 220 mg DAILY GTB Last administered on 02/28/19 08:32; Admin Dose 220 MG; Start 02/20/19 at 09:00 IV Flush (NS 3 ml) 3 ml PER PROTOCOL IV ; Start 02/19/19 at 17:30 Ondansetron HCl (Zofran Inj) 4 mg Q6H PRN IV NAUSEA/VOMITING; Start 02/19/19 at 17:30 Acetaminophen (Tylenol Liquid) 650 mg Q6H PRN GTB .PAIN 1-3 OR TEMP Last administered on 02/26/19 12:17; Admin Dose 650 MG; Start 02/19/19 at 17:30 Enoxaparin Sodium (Lovenox) 30 mg DAILY SC Last administered on 02/28/19 08:49; Admin Dose 30 MG; Start 02/20/19 at 09:00 Ferrous Sulfate (Feosol Liquid Cup) 300 mg BID GTB Last administered on 02/28/19at 21:11; Admin Dose 300 MG; Start 02/19/19 at 21:00 Albuterol/ Ipratropium (Duoneb) 3 ml Q6HWA RESP THERAPY HHN Last administered on 03/01/19 08:16; Admin Dose 3 ML; Start 02/25/19 at 14:00 Multivitamins (Multivitamin) 30 ml DAILY GTB Last administered on 02/28/19 08:32; Admin Dose 30 ML; Start 02/27/19 at 12:00 DICK WOOD Mar 01, 2019 10:13
[2019-03-01] MEDS: ENOXAPARIN 30 MG/0.3 ML SYG SC SCH (10:35)
--- NOTE | 2019-03-01 15:34 | CONS ---
Consult Date/Type/Reason Admit Date/Time Feb 19, 2019 at 12:11 Initial Consult Date 02/20/19 Type of Consultation: Pulm/CCM Date/Time of Note DATE: 03/01/19 TIME: 15:33 Subjective Better overall. On 2L oxygen via NC. Objective Vitals Vital Signs Date Temp Pulse Resp B/P (MAP) Pulse Ox O2 O2 Flow FiO2 Time Delivery Rate 03/01/19 105 12:01 03/01/19 98.3 24 113/80 98 Nasal 11:18 (91) Cannula 03/01/19 2.0 08:17 Intake and Output 02/28/19 02/28/19 03/01/19 1515:00 23:00 07:00 IntakeIntake Total 50 ml 960 ml 1010 ml OutputOutput Total 600 ml 300 ml BalanceBalance 50 ml 360 ml 710 ml Exam HEENT: Neck supple; no JVD; no LAD CVS: RRR, S1 and S2 CHEST: Clear ABD: Soft, NT, + BS EXT: No c/c/e Results/Medications Result Diagram: 03/01/1928 03/01/19 0528 Results 24 hrs Laboratory Tests Test 03/01/19 05:28 White Blood Count 9.0 # Red Blood Count 3.91 L Hemoglobin 9.9 L Hematocrit 33.3 L Mean Corpuscular Volume 85.2 Mean Corpuscular Hemoglobin 25.3 L Mean Corpuscular Hemoglobin Concent 29.7 L Red Cell Distribution Width 16.7 H Platelet Count 317 Mean Platelet Volume 10.4 Immature Granulocytes % 0.300 Neutrophils % 67.9 Lymphocytes % 21.6 Monocytes % 4.1 Eosinophils % 5.5 Basophils % 0.6 Nucleated Red Blood Cells % 0.0 Immature Granulocytes # 0.030 Neutrophils # 6.1 Lymphocytes # 2.0 Monocytes # 0.4 Eosinophils # 0.5 Basophils # 0.1 Nucleated Red Blood Cells # 0.0 Sodium Level 136 Potassium Level 5.0 Chloride Level 96 L Carbon Dioxide Level 32 H Anion Gap 8 Blood Urea Nitrogen 16 Creatinine 0.25 L Est Glomerular Filtrat Rate mL/min > 60 Glucose Level 114 Calcium Level 9.5 Home Meds Reported Medications Zinc Sulfate* (Zinc Sulfate*) 220 Mg Tablet, 220 MG GTB DAILY, TAB 02/19/19 Scopolamine (Scopolamine) 1 Each Patch.td.3, 1 EACH TD EVERY 3 DAYS 02/19/19 Potassium Chloride* (K-Dur*) 20 Meq Tab.prt.sr, 20 MEQ GTB DAILY, TAB.SA 02/19/19 Hydrocodone/Acetaminophen ([place] 5-325 Tablet) 1 Each Tablet, 1 EACH GTB Q6, TAB 02/19/19 Magnesium Hydroxide* (Milk Of Magnesia*) 400 Mg/5 Ml Oral.susp, 30 ML GTB DAILY, ML 02/19/19 Levalbuterol Hcl* (Levalbuterol Hcl*) 0.63 Mg/3 Ml Vial.neb, 0.63 MG INHALATION Q8 PRN for WHEEZING AND SOB, VIAL 02/19/19 Hydralazine Hcl* (Hydralazine Hcl*) 10 Mg Tablet, 20 MG GTB Q6H PRN for ELEVATED BLOOD PRESSURE, #60 TAB 02/19/19 Ferrous Sulfate (Ferrous Sulfate) 300 Mg/5 Ml Liquid, 330 MG GTB BID 02/19/19 Famotidine* (Famotidine*) 20 Mg Tablet, 20 MG GTB BID, #60 TAB 02/19/19 Enoxaparin Sodium* (Enoxaparin Sodium*) 30 Mg/0.3 Ml Syringe, 30 MG SC DAILY, SYR 02/19/19 Amlodipine Besylate* (Norvasc*) 5 Mg Tablet, 5 MG GTB DAILY, TAB 02/19/19 Ascorbic Acid (Vitamin C) 500 Mg Tab, 500 MG GTB DAILY, TAB 12/18/18 Cran/Vitc/Mannose/Inulin/Brom (Uti-Stat Liquid) 3,875 Mg/30 Ml Liquid, 30 MG GTB BID 12/18/18 Acetaminophen* (Acetaminophen*) 500 MG Extra Strength Tablet, 1000 MG GTB BID PRN for PAIN AND OR ELEVATED TEMP, TAB 12/18/18 Acetaminophen* (Acetaminophen*) 500 MG Extra Strength Tablet, 1000 MG GTB Q4H PRN for PAIN -02/24, TAB 12/18/18 Acetaminophen* (Tylenol*) 325 Mg Tablet, 650 MG GTB Q4H PRN for MILD PAIN LEVEL 1-3, TAB 12/18/18 Oxcarbazepine* (Trileptal*) 150 Mg Tablet, 150 MG GTB BID, TAB 12/18/18 Amino Acids/Protein Hydrolys (PRO-STAT LIQUID) 30 Ml Liquid.pkt, 30 ML GTB BID SUGAR FREE 12/18/18 Multivit &Minerals/Ferrous Fum (MULTIVITAMIN LIQUID) 9 Mg/15 Ml Liquid, 5 MG GTB DAILY 12/18/18 Na Phos,M-B/Na Phos,Di-Ba (Fleet Enema Extra) 230 Ml Enema, 1 APPLIC RC Q 2D, ENEMA 12/18/18 Bisacodyl* (Bisacodyl*) 10 Mg Supp, 10 MG [place] Q24H for CONSTIPATION, SUPP 12/18/18 Cranberry Extract (Cranberry) 425 Mg Capsule, 425 MG GTB DAILY, CAP 12/18/18 Docusate Sodium* (Colace*) 100 Mg Capsule, 200 MG GTB QHS, #30 CAP 12/18/18 Medications Current Medications Ascorbic Acid (Vitamin C) 500 mg DAILY GTB Last administered on 03/01/19 09:41; Admin Dose 500 MG; Start 02/20/19 at 09:00 Docusate Sodium (Colace Liquid Cup) 200 mg QHS GTB Last administered on 02/28/19at 21:11; Admin Dose 200 MG; Start 02/19/19 at 21:00 Famotidine (Pepcid) 20 mg BID GTB Last administered on 03/01/19 09:41; Admin Dose 20 MG; Start 02/19/19 at 21:00 Oxcarbazepine (Trileptal) 150 mg BID GTB Last administered on 03/01/19 09:41; Admin Dose 150 MG; Start 02/19/19 at 21:00 Zinc Sulfate (Zinc Sulfate) 220 mg DAILY GTB Last administered on 03/01/19 09:41; Admin Dose 220 MG; Start 02/20/19 at 09:00 IV Flush (NS 3 ml) 3 ml PER PROTOCOL IV ; Start 02/19/19 at 17:30 Ondansetron HCl (Zofran Inj) 4 mg Q6H PRN IV NAUSEA/VOMITING; Start 02/19/19 at 17:30 Acetaminophen (Tylenol Liquid) 650 mg Q6H PRN GTB .PAIN 1-3 OR TEMP Last administered on 02/26/19at 12:17; Admin Dose 650 MG; Start 02/19/19 at 17:30 Enoxaparin Sodium (Lovenox) 30 mg DAILY SC Last administered on 03/01/19 10:35; Admin Dose 30 MG; Start 02/20/19 at 09:00 Ferrous Sulfate (Feosol Liquid Cup) 300 mg BID GTB Last administered on 03/01/19 09:41; Admin Dose 300 MG; Start 02/19/19 at 21:00 Albuterol/ Ipratropium (Duoneb) 3 ml Q6HWA RESP THERAPY HHN Last administered on 03/01/19 08:16; Admin Dose 3 ML; Start 02/25/19 at 14:00 Multivitamins (Multivitamin) 30 ml DAILY GTB Last administered on 03/01/19 09:41; Admin Dose 30 ML; Start 02/27/19 at 12:00 Assessment/Plan Assessment/Plan (Daily) IMP: 1. Sepsis 2. Recurrent aspiration pneumonia 3. UTI 4. Acute hypoxemic respiratory failure 5. History of cerebral palsy with severe debility RECS: 1. Aspiration precautions; BD's and CPT prn 2. Abx per ID JOSSELYN COULTER MD Mar 01, 2019 15:34
--- NOTE | 2019-03-01 15:39 | CONS ---
Assessment/Plan Assessment/Plan Assessment/Plan (Daily) IMPRESSION: 1. Sepsis. 2. Pneumonia. 3. Dysphagia. 4. Cerebral palsy. 5. Decubitus ulcer. 6. Malnutrition. 7. Gastroparesis. Plan Continue Reglan Consultation Date/Type/Reason Admit Date/Time Feb 19, 2019 at 12:11 Initial Consult Date 02/20/19 Date/Time of Note DATE: 03/01/19 TIME: 15:38 24 HR Interval Summary Constitutional: improved Exam/Review of Systems Exam Vitals Vital Signs Date Temp Pulse Resp B/P (MAP) Pulse Ox O2 O2 Flow FiO2 Time Delivery Rate 03/01/19 105 12:01 03/01/19 98.3 24 113/80 98 Nasal 11:18 (91) Cannula 03/01/19 2.0 08:17 Intake and Output 02/28/19 02/28/19 03/01/19 1515:00 23:00 07:00 IntakeIntake Total 50 ml 960 ml 1010 ml OutputOutput Total 600 ml 300 ml BalanceBalance 50 ml 360 ml 710 ml Respiratory: diminished breath sounds Gastrointestinal: nl liver, spleen Musculoskeletal: nl gait and stance Extremities: normal pulses Results Result Diagram: 03/01/1928 03/01/1928 Results 24hrs Laboratory Tests Test 03/01/19 05:28 White Blood Count 9.0 # Red Blood Count 3.91 L Hemoglobin 9.9 L Hematocrit 33.3 L Mean Corpuscular Volume 85.2 Mean Corpuscular Hemoglobin 25.3 L Mean Corpuscular Hemoglobin Concent 29.7 L Red Cell Distribution Width 16.7 H Platelet Count 317 Mean Platelet Volume 10.4 Immature Granulocytes % 0.300 Neutrophils % 67.9 Lymphocytes % 21.6 Monocytes % 4.1 Eosinophils % 5.5 Basophils % 0.6 Nucleated Red Blood Cells % 0.0 Immature Granulocytes # 0.030 Neutrophils # 6.1 Lymphocytes # 2.0 Monocytes # 0.4 Eosinophils # 0.5 Basophils # 0.1 Nucleated Red Blood Cells # 0.0 Sodium Level 136 Potassium Level 5.0 Chloride Level 96 L Carbon Dioxide Level 32 H Anion Gap 8 Blood Urea Nitrogen 16 Creatinine 0.25 L Est Glomerular Filtrat Rate mL/min > 60 Glucose Level 114 Calcium Level 9.5 Medications Medication Current Medications Ascorbic Acid (Vitamin C) 500 mg DAILY GTB Last administered on 03/01/19 09:41; Admin Dose 500 MG; Start 02/20/19 at 09:00 Docusate Sodium (Colace Liquid Cup) 200 mg QHS GTB Last administered on 02/28/19 21:11; Admin Dose 200 MG; Start 02/19/19 at 21:00 Famotidine (Pepcid) 20 mg BID GTB Last administered on 03/01/19 09:41; Admin Dose 20 MG; Start 02/19/19 at 21:00 Oxcarbazepine (Trileptal) 150 mg BID GTB Last administered on 03/01/19 09:41; Admin Dose 150 MG; Start 02/19/19 at 21:00 Zinc Sulfate (Zinc Sulfate) 220 mg DAILY GTB Last administered on 03/01/19 09:41; Admin Dose 220 MG; Start 02/20/19 at 09:00 IV Flush (NS 3 ml) 3 ml PER PROTOCOL IV ; Start 02/19/19 at 17:30 Ondansetron HCl (Zofran Inj) 4 mg Q6H PRN IV NAUSEA/VOMITING; Start 02/19/19 at 17:30 Acetaminophen (Tylenol Liquid) 650 mg Q6H PRN GTB .PAIN 1-3 OR TEMP Last administered on 02/26/19 12:17; Admin Dose 650 MG; Start 02/19/19 at 17:30 Enoxaparin Sodium (Lovenox) 30 mg DAILY SC Last administered on 03/01/19 10:35; Admin Dose 30 MG; Start 02/20/19 at 09:00 Ferrous Sulfate (Feosol Liquid Cup) 300 mg BID GTB Last administered on 03/01/19 09:41; Admin Dose 300 MG; Start 02/19/19 at 21:00 Albuterol/ Ipratropium (Duoneb) 3 ml Q6HWA RESP THERAPY HHN Last administered on 03/01/19 08:16; Admin Dose 3 ML; Start 02/25/19 at 14:00 Multivitamins (Multivitamin) 30 ml DAILY GTB Last administered on 03/01/19 09:41; Admin Dose 30 ML; Start 02/27/19 at 12:00 NICOLA PETERSON MD Mar 01, 2019 15:39
--- NOTE | 2019-03-01 16:02 | CONS ---
Consultation Date/Type/Reason Admit Date/Time Feb 19, 2019 at 12:11 Initial Consult Date 02/20/19 Type of Consult SUBJECTIVE: Pt is weak, sleeping, afebrile VS: stable T: 98.6 LABS: WBC- 9.0 Blood cultures negative urine culture growing yeast Chest x-ray on admission revealed worsening consolidation within the lung bases possibly worsening pneumonia Indwelling Stanford, PEG Antimicrobials: Vanco cefepime fluconazole Physical examination: GEN: Chronically ill-appearing middle-aged woman, who is laying comfortably in bed. HENT: Head atraumatic normocephalic; sclera nonicteric vehicle mucosa dry; neck is supple PULM: chest rise symmetrical breath sounds with bilateral rails. Heart: S1-S2 Abdomen: soft, bowel sounds present Extremities without cyanosis Assessment: 1. Sepsis 2. Recurrent aspiration pneumonia 3. UTI 4. Acute hypoxemic respiratory failure 5. History of cerebral palsy with severe debility Plan: Pt remains unchanged. Will monitor off of abx. Continue anti aspiration measures. Head of the bed above 45 degrees at all time Date/Time of Note DATE: 03/01/19 TIME: 15:59 Exam/Review of Systems Exam Vitals Vital Signs Date Temp Pulse Resp B/P (MAP) Pulse Ox O2 O2 Flow FiO2 Time Delivery Rate 03/01/19 98.6 103 24 115/77 100 Nasal 15:55 (90) Cannula 03/01/19 2.0 08:17 Intake and Output 02/28/19 02/28/19 03/01/19 1414:59 22:59 06:59 IntakeIntake Total 50 ml 960 ml 1010 ml OutputOutput Total 600 ml 300 ml BalanceBalance 50 ml 360 ml 710 ml Results Result Diagram: 03/01/19 0528 03/01/19 0528 Results 24hrs Laboratory Tests Test 03/01/19 05:28 White Blood Count 9.0 # Red Blood Count 3.91 L Hemoglobin 9.9 L Hematocrit 33.3 L Mean Corpuscular Volume 85.2 Mean Corpuscular Hemoglobin 25.3 L Mean Corpuscular Hemoglobin Concent 29.7 L Red Cell Distribution Width 16.7 H Platelet Count 317 Mean Platelet Volume 10.4 Immature Granulocytes % 0.300 Neutrophils % 67.9 Lymphocytes % 21.6 Monocytes % 4.1 Eosinophils % 5.5 Basophils % 0.6 Nucleated Red Blood Cells % 0.0 Immature Granulocytes # 0.030 Neutrophils # 6.1 Lymphocytes # 2.0 Monocytes # 0.4 Eosinophils # 0.5 Basophils # 0.1 Nucleated Red Blood Cells # 0.0 Sodium Level 136 Potassium Level 5.0 Chloride Level 96 L Carbon Dioxide Level 32 H Anion Gap 8 Blood Urea Nitrogen 16 Creatinine 0.25 L Est Glomerular Filtrat Rate mL/min > 60 Glucose Level 114 Calcium Level 9.5 Medications Medication Current Medications Ascorbic Acid (Vitamin C) 500 mg DAILY GTB Last administered on 03/01/19 09:41; Admin Dose 500 MG; Start 02/20/19 at 09:00 Docusate Sodium (Colace Liquid Cup) 200 mg QHS GTB Last administered on 02/28/19 21:11; Admin Dose 200 MG; Start 02/19/19 at 21:00 Famotidine (Pepcid) 20 mg BID GTB Last administered on 03/01/19 09:41; Admin Dose 20 MG; Start 02/19/19 at 21:00 Oxcarbazepine (Trileptal) 150 mg BID GTB Last administered on 03/01/19 09:41; Admin Dose 150 MG; Start 02/19/19 at 21:00 Zinc Sulfate (Zinc Sulfate) 220 mg DAILY GTB Last administered on 03/01/19 09:41; Admin Dose 220 MG; Start 02/20/19 at 09:00 IV Flush (NS 3 ml) 3 ml PER PROTOCOL IV ; Start 02/19/19 at 17:30 Ondansetron HCl (Zofran Inj) 4 mg Q6H PRN IV NAUSEA/VOMITING; Start 02/19/19 at 17:30 Acetaminophen (Tylenol Liquid) 650 mg Q6H PRN GTB .PAIN 1-3 OR TEMP Last admin istered on 02/26/19 12:17; Admin Dose 650 MG; Start 02/19/19 at 17:30 Enoxaparin Sodium (Lovenox) 30 mg DAILY SC Last administered on 03/01/19 10:35; Admin Dose 30 MG; Start 02/20/19 at 09:00 Ferrous Sulfate (Feosol Liquid Cup) 300 mg BID GTB Last administered on 03/01/19 09:41; Admin Dose 300 MG; Start 02/19/19 at 21:00 Albuterol/ Ipratropium (Duoneb) 3 ml Q6HWA RESP THERAPY HHN Last administered on 03/01/19 08:16; Admin Dose 3 ML; Start 02/25/19 at 14:00 Multivitamins (Multivitamin) 30 ml DAILY GTB Last administered on 03/01/19at 09:41; Admin Dose 30 ML; Start 02/27/19 at 12:00 CASPER RODRIGUEZ Mar 01, 2019 16:02
[2019-03-01] MEDS: DOCUSATE SODIUM 10 MG/ML (10ML CUP) GTB SCH (22:01)
[2019-03-02] VITALS (9 sets, daily range): BP systolic 99–107; BP diastolic 65–74; PULSE 67–103; RESP 22–24
[2019-03-02] MEDS: ZINC SULFATE 220 MG CAP GTB SCH (08:10)
[2019-03-02] MEDS: ASCORBIC ACID 500 MG TAB GTB SCH (08:10)
[2019-03-02] MEDS: MULTIVITAMINS 30 ML CUP GTB SCH (08:11)
[2019-03-02] MEDS: OXCARBAZEPINE 150 MG TAB GTB SCH ×2 (08:11→21:16)
[2019-03-02] MEDS: FAMOTIDINE 20 MG TAB GTB SCH ×2 (08:11→21:16)
[2019-03-02] MEDS: FERROUS SULFATE 60 MG/ML 5ML CUP GTB SCH ×2 (08:11→21:15)
[2019-03-02] MEDS: ALBUTEROL/IPRATROPIUM (NEB) 3 ML AMP HHN SCH ×3 (08:20→19:57)
[2019-03-02] MEDS: ENOXAPARIN 30 MG/0.3 ML SYG SC SCH (08:22)
[2019-03-02] MEDS: BALSAM PERU/CASTOR OIL 60 GM TUBE TOP SCH (09:11)
--- NOTE | 2019-03-02 10:41 | PN ---
Date/Time of Note Date/Time of Note DATE: 03/02/19 TIME: 10:41 Assessment/Plan VTE Prophylaxis Risk score (from [facility] [place])>0 risk: 7 SCD applied (from [facility] [place]): Yes Pharmacological prophylaxis: LMWH Lines/Catheters IV Catheter Type (from [facility]): Peripheral IV Urinary Cath still in place: Yes Reason Cath still needed: skin wounds contaminated by urine Assessment/Plan Hospital Course -Sepsis with shock, resolving, continue IV fluids and broad-spectrum antibiotics. Dr. Poole, infection disease consultation. -Healthcare facility acquired pneumonia. -Acute respiratory distress continue supplemental oxygen bronchodilators continue. Dr. Hyatt is following in pulmonology consultation. -Dysphagia with G-tube. -Cerebral palsy. -Chronic coccygeal decubitus ulcer. Continue current wound care. -Protein calorie malnutrition. -DNR/DNI status. Result Diagram: 03/01/1952703/01/19527 Subjective 24 Hr Interval Summary Free Text/Dictation Patient not responsive to voice or touch Exam/Review of Systems Exam Vitals Vital Signs Date Temp Pulse Resp B/P (MAP) Pulse Ox O2 O2 Flow FiO2 Time Delivery Rate 03/02/19 92 18 96 Nasal 2.0 08:20 Cannula 03/02/19 98.2 99/67 (78) 07:57 Intake and Output 03/01/19 03/01/19 03/02/19 1515:00 23:00 07:00 IntakeIntake Total 1090 ml 945 ml OutputOutput Total 600 ml 350 ml BalanceBalance 490 ml 595 ml Constitutional: well developed Head: normocephalic, atraumatic Neck: supple Respiratory: crackles/rales, diminished breath sounds Cardiovascular: regular rate and rhythm Gastrointestinal: soft, non-tender Extremities: normal pulses Medications Medication Current Medications Ascorbic Acid (Vitamin C) 500 mg DAILY GTB Last administered on 03/02/19at 08:10; Admin Dose 500 MG; Start 02/20/19 at 09:00 Docusate Sodium (Colace Liquid Cup) 200 mg QHS GTB Last administered on 03/01/19at 22:01; Admin Dose 200 MG; Start 02/19/19 at 21:00 Famotidine (Pepcid) 20 mg BID GTB Last administered on 03/02/19at 08:11; Admin Dose 20 MG; Start 02/19/19 at 21:00 Oxcarbazepine (Trileptal) 150 mg BID GTB Last administered on 03/02/19 08:11; Admin Dose 150 MG; Start 02/19/19 at 21:00 Zinc Sulfate (Zinc Sulfate) 220 mg DAILY GTB Last administered on 03/02/19 08:10; Admin Dose 220 MG; Start 02/20/19 at 09:00 IV Flush (NS 3 ml) 3 ml PER PROTOCOL IV ; Start 02/19/19 at 17:30 Ondansetron HCl (Zofran Inj) 4 mg Q6H PRN IV NAUSEA/VOMITING; Start 02/19/19 at 17:30 Acetaminophen (Tylenol Liquid) 650 mg Q6H PRN GTB .PAIN 1-3 OR TEMP Last administered on 02/26/19 12:17; Admin Dose 650 MG; Start 02/19/19 at 17:30 Enoxaparin Sodium (Lovenox) 30 mg DAILY SC Last administered on 03/02/19 08:22; Admin Dose 30 MG; Start 02/20/19 at 09:00 Ferrous Sulfate (Feosol Liquid Cup) 300 mg BID GTB Last administered on 03/02/19 08:11; Admin Dose 300 MG; Start 02/19/19 at 21:00 Albuterol/ Ipratropium (Duoneb) 3 ml Q6HWA RESP THERAPY HHN Last administered on 03/02/19 08:20; Admin Dose 3 ML; Start 02/25/19 at 14:00 Multivitamins (Multivitamin) 30 ml DAILY GTB Last administered on 03/02/19 08:11; Admin Dose 30 ML; Start 02/27/19 at 12:00 DICK WOOD Mar 02, 2019 10:41
--- NOTE | 2019-03-02 14:18 | CONS ---
Consultation Date/Type/Reason Admit Date/Time Feb 19, 2019 at 12:11 Initial Consult Date 02/20/19 Type of Consult SUBJECTIVE: Pt is awake, resting in bed, afebrile VS: stable T: 98.1 LABS: Reviewed MICROBIOLOGY: Blood cultures negative urine culture growing yeast Chest x-ray on admission revealed worsening consolidation within the lung bases possibly worsening pneumonia Indwelling Stanford, PEG Antimicrobials: Completed course of antbx. Physical examination: GEN: Chronically ill-appearing middle-aged woman, who is laying comfortably in bed. HENT: Head atraumatic normocephalic; sclera nonicteric vehicle mucosa dry; neck is supple PULM: chest rise symmetrical breath sounds with bilateral rails. Heart: S1-S2 Abdomen: soft, bowel sounds present Extremities without cyanosis Assessment: 1. Sepsis 2. Recurrent aspiration pneumonia 3. UTI 4. Acute hypoxemic respiratory failure 5. History of cerebral palsy with severe debility Plan: Pt remains unchanged. Will monitor off of abx. Continue anti aspiration measures. Head of the bed above 45 degrees at all time Date/Time of Note DATE: 03/02/19 TIME: 14:15 Exam/Review of Systems Exam Vitals Vital Signs Date Temp Pulse Resp B/P (MAP) Pulse Ox O2 O2 Flow FiO2 Time Delivery Rate 03/02/19 91 16 98 Nasal 2.0 13:33 Cannula 03/02/19 98.1 101/65 11:51 (77) Intake and Output 03/01/19 03/01/19 03/02/19 1515:00 23:00 07:00 IntakeIntake Total 1090 ml 945 ml OutputOutput Total 600 ml 350 ml BalanceBalance 490 ml 595 ml Results Result Diagram: 03/01/19 0528 03/01/19 0528 Medications Medication Current Medications Ascorbic Acid (Vitamin C) 500 mg DAILY GTB Last administered on 03/02/19at 08:10; Admin Dose 500 MG; Start 02/20/19 at 09:00 Docusate Sodium (Colace Liquid Cup) 200 mg QHS GTB Last administered on 03/01/19at 22:01; Admin Dose 200 MG; Start 02/19/19 at 21:00 Famotidine (Pepcid) 20 mg BID GTB Last administered on 03/02/19at 08:11; Admin Dose 20 MG; Start 02/19/19 at 21:00 Oxcarbazepine (Trileptal) 150 mg BID GTB Last administered on 03/02/19 08:11; Admin Dose 150 MG; Start 02/19/19 at 21:00 Zinc Sulfate (Zinc Sulfate) 220 mg DAILY GTB Last administered on 03/02/19 08:10; Admin Dose 220 MG; Start 02/20/19 at 09:00 IV Flush (NS 3 ml) 3 ml PER PROTOCOL IV ; Start 02/19/19 at 17:30 Ondansetron HCl (Zofran Inj) 4 mg Q6H PRN IV NAUSEA/VOMITING; Start 02/19/19 at 17:30 Acetaminophen (Tylenol Liquid) 650 mg Q6H PRN GTB .PAIN 1-3 OR TEMP Last administered on 02/26/19 12:17; Admin Dose 650 MG; Start 02/19/19 at 17:30 Enoxaparin Sodium (Lovenox) 30 mg DAILY SC Last administered on 03/02/19 08:22; Admin Dose 30 MG; Start 02/20/19 at 09:00 Ferrous Sulfate (Feosol Liquid Cup) 300 mg BID GTB Last administered on 03/02/19 08:11; Admin Dose 300 MG; Start 02/19/19 at 21:00 Albuterol/ Ipratropium (Duoneb) 3 ml Q6HWA RESP THERAPY HHN Last administered on 03/02/19 13:33; Admin Dose 3 ML; Start 02/25/19 at 14:00 Multivitamins (Multivitamin) 30 ml DAILY GTB Last administered on 03/02/19 08:11; Admin Dose 30 ML; Start 02/27/19 at 12:00 CASPER RODRIGUEZ Mar 02, 2019 14:18
--- NOTE | 2019-03-02 15:51 | CONS ---
Consult Date/Type/Reason Admit Date/Time Feb 19, 2019 at 12:11 Initial Consult Date 02/20/19 Type of Consultation: Pulm/CCM Date/Time of Note DATE: 03/02/19 TIME: 15:47 Subjective No events overnight. Objective Vitals Vital Signs Date Temp Pulse Resp B/P (MAP) Pulse Ox O2 O2 Flow FiO2 Time Delivery Rate 03/02/19 96.9 103 24 99/73 (82) 99 Nasal 15:36 Cannula 03/02/19 2.0 13:33 Intake and Output 03/01/19 03/01/19 03/02/19 1515:00 23:00 07:00 IntakeIntake Total 1090 ml 945 ml OutputOutput Total 600 ml 350 ml BalanceBalance 490 ml 595 ml Exam HEENT: Neck supple; no JVD; no LAD CVS: RRR, S1 and S2 CHEST: Coarse BS b/L ABD: Soft, NT, + BS EXT: No c/c/e Results/Medications Result Diagram: 03/01/1952703/01/19527 Home Meds Reported Medications Zinc Sulfate* (Zinc Sulfate*) 220 Mg Tablet, 220 MG GTB DAILY, TAB 02/19/19 Scopolamine (Scopolamine) 1 Each Patch.td.3, 1 EACH TD EVERY 3 DAYS 02/19/19 Potassium Chloride* (K-Dur*) 20 Meq Tab.prt.sr, 20 MEQ GTB DAILY, TAB.SA 02/19/19 Hydrocodone/Acetaminophen (Saxon 5-325 Tablet) 1 Each Tablet, 1 EACH GTB Q6, TAB 02/19/19 Magnesium Hydroxide* (Milk Of Magnesia*) 400 Mg/5 Ml Oral.susp, 30 ML GTB DAILY, ML 02/19/19 Levalbuterol Hcl* (Levalbuterol Hcl*) 0.63 Mg/3 Ml Vial.neb, 0.63 MG INHALATION Q8 PRN for WHEEZING AND SOB, VIAL 02/19/19 Hydralazine Hcl* (Hydralazine Hcl*) 10 Mg Tablet, 20 MG GTB Q6H PRN for ELEVATED BLOOD PRESSURE, #60 TAB 02/19/19 Ferrous Sulfate (Ferrous Sulfate) 300 Mg/5 Ml Liquid, 330 MG GTB BID 02/19/19 Famotidine* (Famotidine*) 20 Mg Tablet, 20 MG GTB BID, #60 TAB 02/19/19 Enoxaparin Sodium* (Enoxaparin Sodium*) 30 Mg/0.3 Ml Syringe, 30 MG SC DAILY, SYR 02/19/19 Amlodipine Besylate* (Norvasc*) 5 Mg Tablet, 5 MG GTB DAILY, TAB 02/19/19 Ascorbic Acid (Vitamin C) 500 Mg Tab, 500 MG GTB DAILY, TAB 12/18/18 Cran/Vitc/Mannose/Inulin/Brom (Uti-Stat Liquid) 3,875 Mg/30 Ml Liquid, 30 MG GTB BID 12/18/18 Acetaminophen* (Acetaminophen*) 500 MG Extra Strength Tablet, 1000 MG GTB BID PRN for PAIN AND OR ELEVATED TEMP, TAB 12/18/18 Acetaminophen* (Acetaminophen*) 500 MG Extra Strength Tablet, 1000 MG GTB Q4H PRN for PAIN -02/24, TAB 12/18/18 Acetaminophen* (Tylenol*) 325 Mg Tablet, 650 MG GTB Q4H PRN for MILD PAIN LEVEL 1-3, TAB 12/18/18 Oxcarbazepine* (Trileptal*) 150 Mg Tablet, 150 MG GTB BID, TAB 12/18/18 Amino Acids/Protein Hydrolys (PRO-STAT LIQUID) 30 Ml Liquid.pkt, 30 ML GTB BID SUGAR FREE 12/18/18 Multivit &Minerals/Ferrous Fum (MULTIVITAMIN LIQUID) 9 Mg/15 Ml Liquid, 5 MG GTB DAILY 12/18/18 Na Phos,M-B/Na Phos,Di-Ba (Fleet Enema Extra) 230 Ml Enema, 1 APPLIC RC Q 2D, ENEMA 12/18/18 Bisacodyl* (Bisacodyl*) 10 Mg Supp, 10 MG DC Q24H for CONSTIPATION, SUPP 12/18/18 Cranberry Extract (Cranberry) 425 Mg Capsule, 425 MG GTB DAILY, CAP 12/18/18 Docusate Sodium* (Colace*) 100 Mg Capsule, 200 MG GTB QHS, #30 CAP 12/18/18 Medications Current Medications Ascorbic Acid (Vitamin C) 500 mg DAILY GTB Last administered on 03/02/19at 08:10; Admin Dose 500 MG; Start 02/20/19 at 09:00 Docusate Sodium (Colace Liquid Cup) 200 mg QHS GTB Last administered on 22:01; Admin Dose 200 MG; Start 02/19/19 at 21:00 Famotidine (Pepcid) 20 mg BID GTB Last administered on 03/02/19 08:11; Admin Dose 20 MG; Start 02/19/19 at 21:00 Oxcarbazepine (Trileptal) 150 mg BID GTB Last administered on 03/02/19 08:11; Admin Dose 150 MG; Start 02/19/19 at 21:00 Zinc Sulfate (Zinc Sulfate) 220 mg DAILY GTB Last administered on 03/02/19 08:10; Admin Dose 220 MG; Start 02/20/19 at 09:00 IV Flush (NS 3 ml) 3 ml PER PROTOCOL IV ; Start 02/19/19 at 17:30 Ondansetron HCl (Zofran Inj) 4 mg Q6H PRN IV NAUSEA/VOMITING; Start 02/19/19 at 17:30 Acetaminophen (Tylenol Liquid) 650 mg Q6H PRN GTB .PAIN 1-3 OR TEMP Last administered on 02/26/19 12:17; Admin Dose 650 MG; Start 02/19/19 at 17:30 Enoxaparin Sodium (Lovenox) 30 mg DAILY SC Last administered on 03/02/19 08:22; Admin Dose 30 MG; Start 02/20/19 at 09:00 Ferrous Sulfate (Feosol Liquid Cup) 300 mg BID GTB Last administered on 03/02/19 08:11; Admin Dose 300 MG; Start 02/19/19 at 21:00 Albuterol/ Ipratropium (Duoneb) 3 ml Q6HWA RESP THERAPY HHN Last administered on 03/02/19 13:33; Admin Dose 3 ML; Start 02/25/19 at 14:00 Multivitamins (Multivitamin) 30 ml DAILY GTB Last administered on 03/02/19 08:11; Admin Dose 30 ML; Start 02/27/19 at 12:00 Assessment/Plan Assessment/Plan (Daily) IMP: 1. Sepsis 2. Recurrent aspiration pneumonia 3. UTI 4. Acute on chronic hypoxemic respiratory failure 5. History of cerebral palsy with severe debility RECS: 1. Aspiration precautions; BD's and CPT prn 2. Off abx per ID JOSSELYN COULTER MD Mar 02, 2019 15:51
[2019-03-02] MEDS: DOCUSATE SODIUM 10 MG/ML (10ML CUP) GTB SCH (21:15)
[2019-03-03] VITALS (11 sets, daily range): BP systolic 101–129; BP diastolic 67–92; PULSE 99–126; RESP 20–25
--- NOTE | 2019-03-03 07:29 | CONS ---
Assessment/Plan Assessment/Plan Hospital Course (Demo Recall) 43 yo female with dysphagia experiencing high residuals 1. Sepsis secondary to recurrent aspiration pneumonia 2. Aspiration Pneumonia. 3. Dysphagia. 4. Cerebral palsy. 5. Decubitus ulcer. 6. Malnutrition. 7. Gastroparesis. PLAN: Continue with reglan and monitor residuals, hold for residuals greater than 100cc. Strict aspiration precautions Pt examined and plan of care discussed with Dr. Ron Consultation Date/Type/Reason Admit Date/Time Feb 19, 2019 at 12:11 Initial Consult Date 02/20/19 Date/Time of Note DATE: 03/03/19 TIME: 07:20 24 HR Interval Summary Free Text/Dictation WBC wnl. Afebrile. 2 L NC. Tolerating tube feeds. Having regular bowel movement. HOB at 45 degrees. Residuals 80 cc. Tube feeds are going at 55cc/hr Exam/Review of Systems Exam Vitals Vital Signs Date Temp Pulse Resp B/P (MAP) Pulse Ox O2 O2 Flow FiO2 Time Delivery Rate 03/03/19 98.3 109 20 123/88 99 07:14 (100) 03/03/19 2.0 05:50 03/02/19 Nasal 20:15 Cannula Intake and Output 03/02/19 03/02/19 03/03/19 1414:59 22:59 06:59 IntakeIntake Total 1100 ml 824 ml OutputOutput Total 600 ml 500 ml BalanceBalance 500 ml 324 ml Constitutional: alert Head: normocephalic Eyes: PERRL ENMT: other (bucchal mucosa dry and pink) Respiratory: other (coarse and diminished breath sounds) Cardiovascular: regular rate and rhythm, nl pulses Gastrointestinal: soft, non-tender, bowel sounds, other (g tube site clean, dry, non erythematous, non tender) Skin: nl turgor Results Result Diagram: 03/03/1951803/03/19518 Results 24hrs Laboratory Tests Test 03/03/19 05:19 White Blood Count 10.7 Red Blood Count 3.70 L Hemoglobin 9.1 L Hematocrit 31.3 L Mean Corpuscular Volume 84.6 Mean Corpuscular Hemoglobin 24.6 L Mean Corpuscular Hemoglobin Concent 29.1 L Red Cell Distribution Width 16.2 H Platelet Count 400 # Mean Platelet Volume 9.7 Immature Granulocytes % 0.400 Neutrophils % 69.3 Lymphocytes % 22.4 Monocytes % 4.1 Eosinophils % 3.1 Basophils % 0.7 Nucleated Red Blood Cells % 0.0 Immature Granulocytes # 0.040 H Neutrophils # 7.4 Lymphocytes # 2.4 Monocytes # 0.4 Eosinophils # 0.3 Basophils # 0.1 Nucleated Red Blood Cells # 0.0 Sodium Level 137 Potassium Level 4.6 Chloride Level 98 Carbon Dioxide Level 32 H Anion Gap 7 Blood Urea Nitrogen 14 Creatinine 0.24 L Est Glomerular Filtrat Rate mL/min > 60 Glucose Level 122 Calcium Level 9.3 Medications Medication Current Medications Ascorbic Acid (Vitamin C) 500 mg DAILY GTB Last administered on 03/02/19 08:10; Admin Dose 500 MG; Start 02/20/19 at 09:00 Docusate Sodium (Colace Liquid Cup) 200 mg QHS GTB Last administered on 03/02/19 21:15; Admin Dose 200 MG; Start 02/19/19 at 21:00 Famotidine (Pepcid) 20 mg BID GTB Last administered on 03/02/19 21:16; Admin Dose 20 MG; Start 02/19/19 at 21:00 Oxcarbazepine (Trileptal) 150 mg BID GTB Last administered on 03/02/19 21:16; Admin Dose 150 MG; Start 02/19/19 at 21:00 Zinc Sulfate (Zinc Sulfate) 220 mg DAILY GTB Last administered on 03/02/19 08:10; Admin Dose 220 MG; Start 02/20/19 at 09:00 IV Flush (NS 3 ml) 3 ml PER PROTOCOL IV ; Start 02/19/19 at 17:30 Ondansetron HCl (Zofran Inj) 4 mg Q6H PRN IV NAUSEA/VOMITING; Start 02/19/19 at 17:30 Acetaminophen (Tylenol Liquid) 650 mg Q6H PRN GTB .PAIN 1-3 OR TEMP Last administered on 02/26/19 12:17; Admin Dose 650 MG; Start 02/19/19 at 17:30 Enoxaparin Sodium (Lovenox) 30 mg DAILY SC Last administered on 03/02/19 08:22; Admin Dose 30 MG; Start 02/20/19 at 09:00 Ferrous Sulfate (Feosol Liquid Cup) 300 mg BID GTB Last administered on 03/02/19 21:15; Admin Dose 300 MG; Start 02/19/19 at 21:00 Albuterol/ Ipratropium (Duoneb) 3 ml Q6HWA RESP THERAPY HHN Last administered on 03/02/19 19:57; Admin Dose 3 ML; Start 02/25/19 at 14:00 Multivitamins (Multivitamin) 30 ml DAILY GTB Last administered on 03/02/19 08:11; Admin Dose 30 ML; Start 02/27/19 at 12:00 BLAIRE KWONG Mar 03, 2019 07:29
[2019-03-03] MEDS: ALBUTEROL/IPRATROPIUM (NEB) 3 ML AMP HHN SCH ×2 (08:00→13:51)
[2019-03-03] MEDS: FERROUS SULFATE 60 MG/ML 5ML CUP GTB SCH ×2 (09:17→20:28)
[2019-03-03] MEDS: MULTIVITAMINS 30 ML CUP GTB SCH (09:17)
[2019-03-03] MEDS: FAMOTIDINE 20 MG TAB GTB SCH ×2 (09:18→20:28)
[2019-03-03] MEDS: OXCARBAZEPINE 150 MG TAB GTB SCH ×2 (09:18→20:28)
[2019-03-03] MEDS: ZINC SULFATE 220 MG CAP GTB SCH (09:18)
[2019-03-03] MEDS: ASCORBIC ACID 500 MG TAB GTB SCH (09:18)
[2019-03-03] MEDS: BALSAM PERU/CASTOR OIL 60 GM TUBE TOP SCH (09:40)
[2019-03-03] MEDS: ENOXAPARIN 30 MG/0.3 ML SYG SC SCH (09:40)
--- NOTE | 2019-03-03 10:53 | CONS ---
Consultation Date/Type/Reason Admit Date/Time Feb 19, 2019 at 12:11 Initial Consult Date 02/20/19 Type of Consult Pulmonary Pulmonary consult requested for evaluation of pneumonia. Patient is a 43-year-old woman with a history of cerebral palsy transferred from [facility] with hypoxemia. Upon evaluation a chest x-ray was done which is showing bilateral pneumonia. Patient has been started on appropriate antimicrobial regimen. Because of cerebral palsy, patient was unable to give any history by herself whatsoever. Patient also appeared tachypneic on examination. History is obtained from medical records. Past medical history; 1. History of cerebral palsy 2. Decubitus ulcer involving coccyx. 3. Likely chronic anemia. Medications; reviewed. Allergies; none. Family history, social history, occupational history is not available. Review of system; unable to be obtained. General exam; middle-aged woman, on Ventimask. Noncommunicative. Mildly tachypneic. Date/Time of Note DATE: 03/03/19 TIME: 10:52 24 HR Interval Summary Free Text/Dictation Patient's condition is stable. General exam; middle-aged woman, awake but noncommunicative due to cerebral p alsy. Currently in no distress. H EENT exam; supple neck, no JVD. No lymphadenopathy. Midline trachea. No thyromegaly. Patient has fair dentition. Chest exam; diminished but clear breath sounds. S1-S2 audible, no murmurs. Regular rhythm. Abdomen exam; soft, G-tube in place. No organomegaly. Bowel sounds are audible. Extremity exam; no peripheral edema. Patient has a flexion contractures. 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 Assessment and recommendations; 1. Patient with history of cerebral palsy admitted with left lower lobe pneumonia with significant interval clinical and radiological improvement. Off antibiotics now. Consider discharge to [facility]. Exam/Review of Systems Exam Vitals Vital Signs Date Temp Pulse Resp B/P (MAP) Pulse Ox O2 O2 Flow FiO2 Time Delivery Rate 03/03/19 98 20 98 Nasal 2.0 08:26 Cannula 03/03/19 98.3 123/88 07:14 (100) Intake and Output 03/02/19 03/02/19 03/03/19 1515:00 23:00 07:00 IntakeIntake Total 1100 ml 824 ml OutputOutput Total 600 ml 500 ml BalanceBalance 500 ml 324 ml Results Result Diagram: 03/03/1919 03/03/19 0519 Results 24hrs Laboratory Tests Test 03/03/19 05:19 White Blood Count 10.7 Red Blood Count 3.70 L Hemoglobin 9.1 L Hematocrit 31.3 L Mean Corpuscular Volume 84.6 Mean Corpuscular Hemoglobin 24.6 L Mean Corpuscular Hemoglobin Concent 29.1 L Red Cell Distribution Width 16.2 H Platelet Count 400 # Mean Platelet Volume 9.7 Immature Granulocytes % 0.400 Neutrophils % 69.3 Lymphocytes % 22.4 Monocytes % 4.1 Eosinophils % 3.1 Basophils % 0.7 Nucleated Red Blood Cells % 0.0 Immature Granulocytes # 0.040 H Neutrophils # 7.4 Lymphocytes # 2.4 Monocytes # 0.4 Eosinophils # 0.3 Basophils # 0.1 Nucleated Red Blood Cells # 0.0 Sodium Level 137 Potassium Level 4.6 Chloride Level 98 Carbon Dioxide Level 32 H Anion Gap 7 Blood Urea Nitrogen 14 Creatinine 0.24 L Est Glomerular Filtrat Rate mL/min > 60 Glucose Level 122 Calcium Level 9.3 Medications Medication Current Medications Ascorbic Acid (Vitamin C) 500 mg DAILY GTB Last administered on 03/03/19at 09 :18; Admin Dose 500 MG; Start 02/20/19 at 09:00 Docusate Sodium (Colace Liquid Cup) 200 mg QHS GTB Last administered on 03/02/19at 21:15; Admin Dose 200 MG; Start 02/19/19 at 21:00 Famotidine (Pepcid) 20 mg BID GTB Last administered on 03/03/19at 09:18; Admin Dose 20 MG; Start 02/19/19 at 21:00 Oxcarbazepine (Trileptal) 150 mg BID GTB Last administered on 03/03/19at 09:18; Admin Dose 150 MG; Start 02/19/19 at 21:00 Zinc Sulfate (Zinc Sulfate) 220 mg DAILY GTB Last administered on 03/03/19at 09:18; Admin Dose 220 MG; Start 02/20/19 at 09:00 IV Flush (NS 3 ml) 3 ml PER PROTOCOL IV ; Start 02/19/19 at 17:30 Ondansetron HCl (Zofran Inj) 4 mg Q6H PRN IV NAUSEA/VOMITING; Start 02/19/19 at 17:30 Acetaminophen (Tylenol Liquid) 650 mg Q6H PRN GTB .PAIN 1-3 OR TEMP Last administered on 02/26/19at 12:17; Admin Dose 650 MG; Start 02/19/19 at 17:30 Enoxaparin Sodium (Lovenox) 30 mg DAILY SC Last administered on 03/03/19at 09:40; Admin Dose 30 MG; Start 02/20/19 at 09:00 Ferrous Sulfate (Feosol Liquid Cup) 300 mg BID GTB Last administered on 03/03/19at 09:17; Admin Dose 300 MG; Start 02/19/19 at 21:00 Albuterol/ Ipratropium (Duoneb) 3 ml Q6HWA RESP THERAPY HHN Last administered on 03/03/19at 08:00; Admin Dose 3 ML; Start 02/25/19 at 14:00 Multivitamins (Multivitamin) 30 ml DAILY GTB Last administered on 03/03/19 09:17; Admin Dose 30 ML; Start 02/27/19 at 12:00 TRACY MARTINEZ Mar 03, 2019 10:53
--- NOTE | 2019-03-03 16:19 | CONS ---
Assessment/Plan Assessment/Plan Hospital Course (Demo Recall) All noted, no acute changes Chest x-ray on admission revealed worsening consolidation within the lung bases possibly worsening pneumonia Indwelling Stanford, PEG Physical examination: Chronically ill-appearing middle-aged woman who is laying comfortably in bed. Head atraumatic normocephalic sclera nonicteric vehicle mucosa dry neck is supple chest rise symmetrical breath sounds with bilateral rails. Heart: S1-S2 abdomen soft bowel sounds present extremities without cyanosis Assessment: 1. Sepsis 2. Recurrent aspiration pneumonia 3. UTI 4. Acute hypoxemic respiratory failure 5. History of cerebral palsy with severe debility Plan: Remains unchanged, completed abx, patient is at high risk for relapse, continue anti aspiration measures, head of the bed above 45 degrees at all time Consultation Date/Type/Reason Admit Date/Time Feb 19, 2019 at 12:11 Initial Consult Date 02/20/19 Type of Consult id Date/Time of Note DATE: 03/03/19 TIME: 16:18 Exam/Review of Systems Exam Vitals Vital Signs Date Temp Pulse Resp B/P (MAP) Pulse Ox O2 O2 Flow FiO2 Time Delivery Rate 03/03/19 126 16:01 03/03/19 98.6 20 129/92 98 15:34 (104) 03/03/19 Nasal 2.0 13:51 Cannula Intake and Output 03/02/19 03/02/19 03/03/19 1515:00 23:00 07:00 IntakeIntake Total 1100 ml 824 ml OutputOutput Total 600 ml 500 ml BalanceBalance 500 ml 324 ml Results Result Diagram: 03/03/1919 03/03/1919 Results 24hrs Laboratory Tests Test 03/03/19 05:19 White Blood Count 10.7 Red Blood Count 3.70 L Hemoglobin 9.1 L Hematocrit 31.3 L Mean Corpuscular Volume 84.6 Mean Corpuscular Hemoglobin 24.6 L Mean Corpuscular Hemoglobin Concent 29.1 L Red Cell Distribution Width 16.2 H Platelet Count 400 # Mean Platelet Volume 9.7 Immature Granulocytes % 0.400 Neutrophils % 69.3 Lymphocytes % 22.4 Monocytes % 4.1 Eosinophils % 3.1 Basophils % 0.7 Nucleated Red Blood Cells % 0.0 Immature Granulocytes # 0.040 H Neutrophils # 7.4 Lymphocytes # 2.4 Monocytes # 0.4 Eosinophils # 0.3 Basophils # 0.1 Nucleated Red Blood Cells # 0.0 Sodium Level 137 Potassium Level 4.6 Chloride Level 98 Carbon Dioxide Level 32 H Anion Gap 7 Blood Urea Nitrogen 14 Creatinine 0.24 L Est Glomerular Filtrat Rate mL/min > 60 Glucose Level 122 Calcium Level 9.3 Medications Medication Current Medications Ascorbic Acid (Vitamin C) 500 mg DAILY GTB Last administered on 03/03/19 09:18; Admin Dose 500 MG; Start 02/20/19 at 09:00 Docusate Sodium (Colace Liquid Cup) 200 mg QHS GTB Last administered on 03/02/19 21:15; Admin Dose 200 MG; Start 02/19/19 at 21:00 Famotidine (Pepcid) 20 mg BID GTB Last administered on 03/03/19 09:18; Admin Dose 20 MG; Start 02/19/19 at 21:00 Oxcarbazepine (Trileptal) 150 mg BID GTB Last administered on 03/03/19 09:18; Admin Dose 150 MG; Start 02/19/19 at 21:00 Zinc Sulfate (Zinc Sulfate) 220 mg DAILY GTB Last administered on 03/03/19 09:18; Admin Dose 220 MG; Start 02/20/19 at 09:00 IV Flush (NS 3 ml) 3 ml PER PROTOCOL IV ; Start 02/19/19 at 17:30 Ondansetron HCl (Zofran Inj) 4 mg Q6H PRN IV NAUSEA/VOMITING; Start 02/19/19 at 17:30 Acetaminophen (Tylenol Liquid) 650 mg Q6H PRN GTB .PAIN 1-3 OR TEMP Last administered on 02/26/19at 12:17; Admin Dose 650 MG; Start 02/19/19 at 17:30 Enoxaparin Sodium (Lovenox) 30 mg DAILY SC Last administered on 03/03/19at 09:40; Admin Dose 30 MG; Start 02/20/19 at 09:00 Ferrous Sulfate (Feosol Liquid Cup) 300 mg BID GTB Last administered on 03/03/19 09:17; Admin Dose 300 MG; Start 02/19/19 at 21:00 Multivitamins (Multivitamin) 30 ml DAILY GTB Last administered on 03/03/19 09:17; Admin Dose 30 ML; Start 02/27/19 at 12:00 Levalbuterol (Xopenex Neb) 0.63 mg Q6H RESP THERAPY N ; Start 03/03/19 at 20:00 ALLISON LOMELI NP Mar 03, 2019 16:19
--- NOTE | 2019-03-03 18:36 | PN ---
Date/Time of Note Date/Time of Note DATE: 03/03/19 TIME: 18:34 Assessment/Plan VTE Prophylaxis Risk score (from Ns)>0 risk: 7 SCD applied (from Ns): Yes Pharmacological prophylaxis: LMWH Lines/Catheters IV C[facility]ter Type (from [facility]): Peripheral IV Urinary Cath still in place: Yes Reason Cath still needed: urinary retention Assessment/Plan Hospital Course Patient is tachycardic, continues on G-tube feeding with low residual, will give IV fluid bolus, continue pulmonary suctioning by RT and RN. Assessment/Plan -Sepsis with shock, resolving, continue IV fluids and broad-spectrum antibiotics. Dr. Poole, infection disease consultation. -Healthcare facility acquired pneumonia. -Acute respiratory distress continue supplemental oxygen bronchodilators continue. Dr. Hyatt is following in pulmonology consultation. -Dysphagia with G-tube. -Cerebral palsy. -Chronic coccygeal decubitus ulcer. Continue current wound care. -Protein calorie malnutrition. -DNR/DNI status. Further recommendations based on clinical course. Plan of care discussed with Dr. Bowman. Result Diagram: 03/03/1919 03/03/19 0519 Results 24hrs Laboratory Tests Test 03/03/19 05:19 White Blood Count 10.7 Red Blood Count 3.70 L Hemoglobin 9.1 L Hematocrit 31.3 L Mean Corpuscular Volume 84.6 Mean Corpuscular Hemoglobin 24.6 L Mean Corpuscular Hemoglobin Concent 29.1 L Red Cell Distribution Width 16.2 H Platelet Count 400 # Mean Platelet Volume 9.7 Immature Granulocytes % 0.400 Neutrophils % 69.3 Lymphocytes % 22.4 Monocytes % 4.1 Eosinophils % 3.1 Basophils % 0.7 Nucleated Red Blood Cells % 0.0 Immature Granulocytes # 0.040 H Neutrophils # 7.4 Lymphocytes # 2.4 Monocytes # 0.4 Eosinophils # 0.3 Basophils # 0.1 Nucleated Red Blood Cells # 0.0 Sodium Level 137 Potassium Level 4.6 Chloride Level 98 Carbon Dioxide Level 32 H Anion Gap 7 Blood Urea Nitrogen 14 Creatinine 0.24 L Est Glomerular Filtrat Rate mL/min > 60 Glucose Level 122 Calcium Level 9.3 Exam/Review of Systems Exam Vitals Vital Signs Date Temp Pulse Resp B/P (MAP) Pulse Ox O2 O2 Flow FiO2 Time Delivery Rate 03/03/19 126 16:01 03/03/19 98.6 20 129/92 98 15:34 (104) 03/03/19 Nasal 2.0 13:51 Cannula Intake and Output 03/02/19 03/02/19 03/03/19 1515:00 23:00 07:00 IntakeIntake Total 1100 ml 824 ml OutputOutput Total 600 ml 500 ml BalanceBalance 500 ml 324 ml Exam Constitutional: frail Respiratory: diminished breath sounds Cardiovascular: regular rate and rhythm Gastrointestinal: soft, non-tender, other (G tube) Musculoskeletal: nl extremities to inspection Extremities: normal pulses Neurological: confused, lethargic Skin: other (Sacral decubitus ulcer) Results Results 24hrs Laboratory Tests Test 03/03/19 05:19 White Blood Count 10.7 Red Blood Count 3.70 L Hemoglobin 9.1 L Hematocrit 31.3 L Mean Corpuscular Volume 84.6 Mean Corpuscular Hemoglobin 24.6 L Mean Corpuscular Hemoglobin Concent 29.1 L Red Cell Distribution Width 16.2 H Platelet Count 400 # Mean Platelet Volume 9.7 Immature Granulocytes % 0.400 Neutrophils % 69.3 Lymphocytes % 22.4 Monocytes % 4.1 Eosinophils % 3.1 Basophils % 0.7 Nucleated Red Blood Cells % 0.0 Immature Granulocytes # 0.040 H Neutrophils # 7.4 Lymphocytes # 2.4 Monocytes # 0.4 Eosinophils # 0.3 Basophils # 0.1 Nucleated Red Blood Cells # 0.0 Sodium Level 137 Potassium Level 4.6 Chloride Level 98 Carbon Dioxide Level 32 H Anion Gap 7 Blood Urea Nitrogen 14 Creatinine 0.24 L Est Glomerular Filtrat Rate mL/min > 60 Glucose Level 122 Calcium Level 9.3 Medications Medication Current Medications Ascorbic Acid (Vitamin C) 500 mg DAILY GTB Last administered on 03/03/19at 09:18; Admin Dose 500 MG; Start 02/20/19 at 09:00 Docusate Sodium (Colace Liquid Cup) 200 mg QHS GTB Last administered on 03/02/19at 21:15; Admin Dose 200 MG; Start 02/19/19 at 21:00 Famotidine (Pepcid) 20 mg BID GTB Last administered on 03/03/19at 09:18; Admin Dose 20 MG; Start 02/19/19 at 21:00 Oxcarbazepine (Trileptal) 150 mg BID GTB Last administered on 03/03/19 09:18; Admin Dose 150 MG; Start 02/19/19 at 21:00 Zinc Sulfate (Zinc Sulfate) 220 mg DAILY GTB Last administered on 03/03/19 09:18; Admin Dose 220 MG; Start 02/20/19 at 09:00 IV Flush (NS 3 ml) 3 ml PER PROTOCOL IV ; Start 02/19/19 at 17:30 Ondansetron HCl (Zofran Inj) 4 mg Q6H PRN IV NAUSEA/VOMITING; Start 02/19/19 at 17:30 Acetaminophen (Tylenol Liquid) 650 mg Q6H PRN GTB .PAIN 1-3 OR TEMP Last administered on 02/26/19 12:17; Admin Dose 650 MG; Start 02/19/19 at 17:30 Enoxaparin Sodium (Lovenox) 30 mg DAILY SC Last administered on 03/03/19 09:40; Admin Dose 30 MG; Start 02/20/19 at 09:00 Ferrous Sulfate (Feosol Liquid Cup) 300 mg BID GTB Last administered on 03/03/19at 09:17; Admin Dose 300 MG; Start 02/19/19 at 21:00 Multivitamins (Multivitamin) 30 ml DAILY GTB Last administered on 03/03/19 09:17; Admin Dose 30 ML; Start 02/27/19 at 12:00 Levalbuterol (Xopenex Neb) 0.63 mg Q6H RESP THERAPY HHN ; Start 03/03/19 at 20:00 LIBIA CARBALLO Mar 03, 2019 18:36
[2019-03-03] MEDS ORDERED: SOD CHLORIDE 0.9% 500 ML IV ONE (19:00)
[2019-03-03] MEDS: LEVALBUTEROL (NEB) 0.63 MG/3 ML AMP HHN SCH (20:17)
[2019-03-03] MEDS: DOCUSATE SODIUM 10 MG/ML (10ML CUP) GTB SCH (20:28)
[2019-03-04] VITALS (9 sets, daily range): BP systolic 93–120; BP diastolic 63–79; PULSE 88–116; RESP 20–25
[2019-03-04] MEDS: LEVALBUTEROL (NEB) 0.63 MG/3 ML AMP HHN SCH ×4 (02:00→19:48)
--- NOTE | 2019-03-04 07:27 | CONS ---
Assessment/Plan Assessment/Plan Hospital Course (Demo Recall) 43 yo female with dysphagia experiencing high residuals 1. Sepsis secondary to recurrent aspiration pneumonia 2. Aspiration Pneumonia. 3. Dysphagia. 4. Cerebral palsy. 5. Decubitus ulcer. 6. Malnutrition. 7. Gastroparesis. -improving PLAN: Continue present care Continue with reglan and monitor residuals, hold for residuals greater than 100cc. Strict aspiration precautions Pt examined and plan of care discussed with Dr. Ron Consultation Date/Type/Reason Admit Date/Time Feb 19, 2019 at 12:11 Initial Consult Date 02/20/19 Date/Time of Note DATE: 03/04/19 TIME: 07:24 24 HR Interval Summary Free Text/Dictation Per RN, pt has no residuals. BM soft green. G tube site clean and dry. HOB at 45 degrees. WBC wnl. Afebrile. Exam/Review of Systems Exam Vitals Vital Signs Date Temp Pulse Resp B/P (MAP) Pulse Ox O2 O2 Flow FiO2 Time Delivery Rate 03/04/19 98.2 93 20 93/63 (73) 100 07:05 03/04/19 2.0 02:04 03/04/19 Nasal 02:04 Cannula Intake and Output 03/03/19 03/03/19 03/04/19 1515:00 23:00 07:00 IntakeIntake Total 1450 ml 950 ml OutputOutput Total 1550 ml 500 ml BalanceBalance -100 ml 450 ml Head: normocephalic Eyes: PERRL Respiratory: other (non labored breathing, coarse breath sounds) Cardiovascular: regular rate and rhythm Gastrointestinal: soft, non-tender, bowel sounds, other (g tube site clean and dry) Musculoskeletal: nl extremities to inspection Results Result Diagram: 03/03/1951803/03/19518 Medications Medication Current Medications Ascorbic Acid (Vitamin C) 500 mg DAILY GTB Last administered on 03/03/19at 09:18; Admin Dose 500 MG; Start 02/20/19 at 09:00 Docusate Sodium (Colace Liquid Cup) 200 mg QHS GTB Last administered on 03/03/19at 20:28; Admin Dose 200 MG; Start 02/19/19 at 21:00 Famotidine (Pepcid) 20 mg BID GTB Last administered on 03/03/19at 20:28; Admin Dose 20 MG; Start 02/19/19 at 21:00 Oxcarbazepine (Trileptal) 150 mg BID GTB Last administered on 03/03/19 20:28; Admin Dose 150 MG; Start 02/19/19 at 21:00 Zinc Sulfate (Zinc Sulfate) 220 mg DAILY GTB Last administered on 03/03/19 09:18; Admin Dose 220 MG; Start 02/20/19 at 09:00 IV Flush (NS 3 ml) 3 ml PER PROTOCOL IV ; Start 02/19/19 at 17:30 Ondansetron HCl (Zofran Inj) 4 mg Q6H PRN IV NAUSEA/VOMITING; Start 02/19/19 at 17:30 Acetaminophen (Tylenol Liquid) 650 mg Q6H PRN GTB .PAIN 1-3 OR TEMP Last administered on 02/26/19 12:17; Admin Dose 650 MG; Start 02/19/19 at 17:30 Enoxaparin Sodium (Lovenox) 30 mg DAILY SC Last administered on 03/03/19 09:40; Admin Dose 30 MG; Start 02/20/19 at 09:00 Ferrous Sulfate (Feosol Liquid Cup) 300 mg BID GTB Last administered on 03/03/19 20:28; Admin Dose 300 MG; Start 02/19/19 at 21:00 Multivitamins (Multivitamin) 30 ml DAILY GTB Last administered on 03/03/19 09:17; Admin Dose 30 ML; Start 02/27/19 at 12:00 Levalbuterol (Xopenex Neb) 0.63 mg Q6H RESP THERAPY HHN Last administered on 03/04/19 02:00; Admin Dose 0.63 MG; Start 03/03/19 at 20:00 BLAIRE KWOGN Mar 04, 2019 07:26
[2019-03-04] MEDS: FERROUS SULFATE 60 MG/ML 5ML CUP GTB SCH ×2 (09:46→20:37)
[2019-03-04] MEDS: MULTIVITAMINS 30 ML CUP GTB SCH (09:46)
[2019-03-04] MEDS: ZINC SULFATE 220 MG CAP GTB SCH (09:46)
[2019-03-04] MEDS: OXCARBAZEPINE 150 MG TAB GTB SCH ×2 (09:46→20:36)
[2019-03-04] MEDS: ASCORBIC ACID 500 MG TAB GTB SCH (09:46)
[2019-03-04] MEDS: FAMOTIDINE 20 MG TAB GTB SCH ×2 (09:46→20:36)
[2019-03-04] MEDS: BALSAM PERU/CASTOR OIL 60 GM TUBE TOP SCH (09:47)
[2019-03-04] MEDS: ENOXAPARIN 30 MG/0.3 ML SYG SC SCH (10:06)
--- NOTE | 2019-03-04 14:56 | CONS ---
Assessment/Plan Assessment/Plan Hospital Course (Demo Recall) All noted, no acute changes Chest x-ray on admission revealed worsening consolidation within the lung bases possibly worsening pneumonia Indwelling Stanford, PEG Physical examination: Chronically ill-appearing middle-aged woman who is laying comfortably in bed. Head atraumatic normocephalic sclera nonicteric vehicle mucosa dry neck is supple chest rise symmetrical breath sounds with bilateral rails. Heart: S1-S2 abdomen soft bowel sounds present extremities without cyanosis Assessment: 1. Sepsis 2. Recurrent aspiration pneumonia 3. UTI 4. Acute hypoxemic respiratory failure 5. History of cerebral palsy with severe debility Plan: Remains unchanged, continue anti aspiration measures Consultation Date/Type/Reason Admit Date/Time Feb 19, 2019 at 12:11 Initial Consult Date 02/20/19 Type of Consult id Date/Time of Note DATE: 03/04/19 TIME: 14:55 Exam/Review of Systems Exam Vitals Vital Signs Date Temp Pulse Resp B/P (MAP) Pulse Ox O2 O2 Flow FiO2 Time Delivery Rate 03/04/19 98 2.0 13:51 03/04/19 100 22 Nasal 13:51 Cannula 03/04/19 98.6 108/74 11:24 (85) Intake and Output 03/03/19 03/03/19 03/04/19 1515:00 23:00 07:00 IntakeIntake Total 1450 ml 950 ml OutputOutput Total 1550 ml 500 ml BalanceBalance -100 ml 450 ml Results Result Diagram: 03/03/1951803/03/19518 Medications Medication Current Medications Ascorbic Acid (Vitamin C) 500 mg DAILY GTB Last administered on 03/04/19at 09:46; Admin Dose 500 MG; Start 02/20/19 at 09:00 Docusate Sodium (Colace Liquid Cup) 200 mg QHS GTB Last administered on 03/03/19at 20:28; Admin Dose 200 MG; Start 02/19/19 at 21:00 Famotidine (Pepcid) 20 mg BID GTB Last administered on 03/04/19at 09:46; Admin Dose 20 MG; Start 02/19/19 at 21:00 Oxcarbazepine (Trileptal) 150 mg BID GTB Last administered on 03/04/19at 09:46; Admin Dose 150 MG; Start 02/19/19 at 21:00 Zinc Sulfate (Zinc Sulfate) 220 mg DAILY GTB Last administered on 03/04/19 09:46; Admin Dose 220 MG; Start 02/20/19 at 09:00 IV Flush (NS 3 ml) 3 ml PER PROTOCOL IV ; Start 02/19/19 at 17:30 Ondansetron HCl (Zofran Inj) 4 mg Q6H PRN IV NAUSEA/VOMITING; Start 02/19/19 at 17:30 Acetaminophen (Tylenol Liquid) 650 mg Q6H PRN GTB .PAIN 1-3 OR TEMP Last administered on 02/26/19 12:17; Admin Dose 650 MG; Start 02/19/19 at 17:30 Enoxaparin Sodium (Lovenox) 30 mg DAILY SC Last administered on 03/04/19 10:06; Admin Dose 30 MG; Start 02/20/19 at 09:00 Ferrous Sulfate (Feosol Liquid Cup) 300 mg BID GTB Last administered on 03/04/19 09:46; Admin Dose 300 MG; Start 02/19/19 at 21:00 Multivitamins (Multivitamin) 30 ml DAILY GTB Last administered on 03/04/19 09:46; Admin Dose 30 ML; Start 02/27/19 at 12:00 Levalbuterol (Xopenex Neb) 0.63 mg Q6H RESP THERAPY HHN Last administered on 03/04/19 13:50; Admin Dose 0.63 MG; Start 03/03/19 at 20:00 ALLISON LOMELI NP Mar 04, 2019 14:56
--- NOTE | 2019-03-04 15:52 | PN ---
Date/Time of Note Date/Time of Note DATE: 03/04/19 TIME: 15:50 Assessment/Plan VTE Prophylaxis Risk score (from Ns)>0 risk: 7 SCD applied (from Ns): Yes Pharmacological prophylaxis: LMWH Lines/Catheters IV C[facility]ter Type (from [facility]): Peripheral IV Urinary Cath still in place: Yes Reason Cath still needed: urinary retention Assessment/Plan Hospital Course Patient is tachycardic, continues on G-tube feeding with low residual, continue pulmonary suctioning by RT and RN. Assessment/Plan -Sepsis with shock, resolving, continue IV fluids and broad-spectrum antibiotics. Dr. Poole, infection disease consultation. -Healthcare facility acquired pneumonia. -Acute respiratory distress continue supplemental oxygen bronchodilators continue. Dr. Hyatt is following in pulmonology consultation. -Dysphagia with G-tube. -Cerebral palsy. -Chronic coccygeal decubitus ulcer. Continue current wound care. -Protein calorie malnutrition. -DNR/DNI status. Further recommendations based on clinical course. Plan of care discussed with Dr. Bowman. Result Diagram: 03/03/1951803/03/19518 Exam/Review of Systems Exam Vitals Vital Signs Date Temp Pulse Resp B/P (MAP) Pulse Ox O2 O2 Flow FiO2 Time Delivery Rate 03/04/19 98.3 104 20 110/78 97 15:32 (89) 03/04/19 2.0 13:51 03/04/19 Nasal 13:51 Cannula Intake and Output 03/03/19 03/03/19 03/04/19 1414:59 22:59 06:59 IntakeIntake Total 1450 ml 950 ml OutputOutput Total 1550 ml 500 ml BalanceBalance -100 ml 450 ml Exam Constitutional: frail Respiratory: diminished breath sounds Cardiovascular: regular rate and rhythm Gastrointestinal: soft, non-tender, other (G tube) Musculoskeletal: nl extremities to inspection Extremities: normal pulses Neurological: confused, lethargic Skin: other (Sacral decubitus ulcer) Medications Medication Current Medications Ascorbic Acid (Vitamin C) 500 mg DAILY GTB Last administered on 03/04/19at 09:46; Admin Dose 500 MG; Start 02/20/19 at 09:00 Docusate Sodium (Colace Liquid Cup) 200 mg QHS GTB Last administered on 03/03/19at 20:28; Admin Dose 200 MG; Start 02/19/19 at 21:00 Famotidine (Pepcid) 20 mg BID GTB Last administered on 03/04/19 09:46; Admin Dose 20 MG; Start 02/19/19 at 21:00 Oxcarbazepine (Trileptal) 150 mg BID GTB Last administered on 03/04/19 09:46; Admin Dose 150 MG; Start 02/19/19 at 21:00 Zinc Sulfate (Zinc Sulfate) 220 mg DAILY GTB Last administered on 03/04/19 09:46; Admin Dose 220 MG; Start 02/20/19 at 09:00 IV Flush (NS 3 ml) 3 ml PER PROTOCOL IV ; Start 02/19/19 at 17:30 Ondansetron HCl (Zofran Inj) 4 mg Q6H PRN IV NAUSEA/VOMITING; Start 02/19/19 at 17:30 Acetaminophen (Tylenol Liquid) 650 mg Q6H PRN GTB .PAIN 1-3 OR TEMP Last administered on 02/26/19 12:17; Admin Dose 650 MG; Start 02/19/19 at 17:30 Enoxaparin Sodium (Lovenox) 30 mg DAILY SC Last administered on 03/04/19 10:06; Admin Dose 30 MG; Start 02/20/19 at 09:00 Ferrous Sulfate (Feosol Liquid Cup) 300 mg BID GTB Last administered on 03/04/19 09:46; Admin Dose 300 MG; Start 02/19/19 at 21:00 Multivitamins (Multivitamin) 30 ml DAILY GTB Last administered on 03/04/19 09:46; Admin Dose 30 ML; Start 02/27/19 at 12:00 Levalbuterol (Xopenex Neb) 0.63 mg Q6H RESP THERAPY HHN Last administered on 03/04/19 13:50; Admin Dose 0.63 MG; Start 03/03/19 at 20:00 LIBIA CARBALLO Mar 04, 2019 15:52
[2019-03-04] MEDS: DOCUSATE SODIUM 10 MG/ML (10ML CUP) GTB SCH (20:37)
[2019-03-05] VITALS (9 sets, daily range): BP systolic 93–132; BP diastolic 66–84; PULSE 90–112; RESP 18–21
[2019-03-05] MEDS: LEVALBUTEROL (NEB) 0.63 MG/3 ML AMP HHN SCH ×4 (01:29→20:01)
[2019-03-05] MEDS: ZINC SULFATE 220 MG CAP GTB SCH (08:17)
[2019-03-05] MEDS: FAMOTIDINE 20 MG TAB GTB SCH ×2 (08:18→20:44)
[2019-03-05] MEDS: FERROUS SULFATE 60 MG/ML 5ML CUP GTB SCH ×2 (08:18→20:44)
[2019-03-05] MEDS: OXCARBAZEPINE 150 MG TAB GTB SCH ×2 (08:18→20:44)
[2019-03-05] MEDS: MULTIVITAMINS 30 ML CUP GTB SCH (08:18)
[2019-03-05] MEDS: ASCORBIC ACID 500 MG TAB GTB SCH (08:18)
[2019-03-05] MEDS: ENOXAPARIN 30 MG/0.3 ML SYG SC SCH (08:24)
[2019-03-05] MEDS: BALSAM PERU/CASTOR OIL 60 GM TUBE TOP SCH (09:02)
--- NOTE | 2019-03-05 15:06 | PN ---
Date/Time of Note Date/Time of Note DATE: 03/05/19 TIME: 15:03 Assessment/Plan VTE Prophylaxis Risk score (from Ns)>0 risk: 7 SCD applied (from Ns): Yes Pharmacological prophylaxis: LMWH Lines/Catheters IV Catheter Type (from [facility]): Peripheral IV Urinary Cath still in place: Yes Reason Cath still needed: urinary retention Assessment/Plan Hospital Course Patient is completed antibiotics for pneumonia however white blood cells went up to 13.5, patient still requires frequent suctioning, tachycardic at times continues on supplemental oxygen via nasal cannula. Continue current treatment, pulmonary toilet, CBC tomorrow, follow-up ID recs. Assessment/Plan -Sepsis with shock, resolving, continue antibiotics per ID. Dr. Poole, infection disease consultation. -Healthcare facility acquired pneumonia. -Acute respiratory distress continue supplemental oxygen bronchodilators continue. Dr. Hyatt is following in pulmonology consultation. -Dysphagia with G-tube. -Cerebral palsy. -Chronic coccygeal decubitus ulcer. Continue current wound care. -Protein calorie malnutrition. -DNR/DNI status. Further recommendations based on clinical course. Plan of care discussed with Dr. Bowman. Result Diagram: 03/05/1952603/05/19526 Results 24hrs Laboratory Tests Test 03/05/19 05:27 White Blood Count 13.5 #H Red Blood Count 3.50 L Hemoglobin 8.7 L Hematocrit 29.2 L Mean Corpuscular Volume 83.4 Mean Corpuscular Hemoglobin 24.9 L Mean Corpuscular Hemoglobin Concent 29.8 L Red Cell Distribution Width 16.7 H Platelet Count 396 Mean Platelet Volume 9.9 Immature Granulocytes % 0.400 Neutrophils % 77.2 H Lymphocytes % 16.1 Monocytes % 3.8 Eosinophils % 2.2 Basophils % 0.3 Nucleated Red Blood Cells % 0.0 Immature Granulocytes # 0.050 H Neutrophils # 10.4 H Lymphocytes # 2.2 Monocytes # 0.5 Eosinophils # 0.3 Basophils # 0.0 Nucleated Red Blood Cells # 0.0 Sodium Level 137 Potassium Level 4.6 Chloride Level 97 Carbon Dioxide Level 29 Anion Gap 11 Blood Urea Nitrogen 14 Creatinine 0.25 L Est Glomerular Filtrat Rate mL/min > 60 Glucose Level 111 Calcium Level 8.9 Exam/Review of Systems Exam Vitals Vital Signs Date Temp Pulse Resp B/P (MAP) Pulse Ox O2 O2 Flow FiO2 Time Delivery Rate 03/05/19 84 18 98 Nasal 2.0 13:55 Cannula 03/05/19 97.7 110/67 11:14 (81) 03/05/19 27 08:45 Intake and Output 03/04/19 03/04/19 03/05/19 1515:00 23:00 07:00 IntakeIntake Total 950 ml OutputOutput Total 1250 ml 450 ml BalanceBalance -1250 ml 500 ml Exam Constitutional: frail Respiratory: diminished breath sounds Cardiovascular: regular rate and rhythm Gastrointestinal: soft, non-tender, other (G tube) Musculoskeletal: nl extremities to inspection Extremities: normal pulses Neurological: confused, lethargic Skin: other (Sacral decubitus ulcer) Results Results 24hrs Laboratory Tests Test 03/05/19 05:27 White Blood Count 13.5 #H Red Blood Count 3.50 L Hemoglobin 8.7 L Hematocrit 29.2 L Mean Corpuscular Volume 83.4 Mean Corpuscular Hemoglobin 24.9 L Mean Corpuscular Hemoglobin Concent 29.8 L Red Cell Distribution Width 16.7 H Platelet Count 396 Mean Platelet Volume 9.9 Immature Granulocytes % 0.400 Neutrophils % 77.2 H Lymphocytes % 16.1 Monocytes % 3.8 Eosinophils % 2.2 Basophils % 0.3 Nucleated Red Blood Cells % 0.0 Immature Granulocytes # 0.050 H Neutrophils # 10.4 H Lymphocytes # 2.2 Monocytes # 0.5 Eosinophils # 0.3 Basophils # 0.0 Nucleated Red Blood Cells # 0.0 Sodium Level 137 Potassium Level 4.6 Chloride Level 97 Carbon Dioxide Level 29 Anion Gap 11 Blood Urea Nitrogen 14 Creatinine 0.25 L Est Glomerular Filtrat Rate mL/min > 60 Glucose Level 111 Calcium Level 8.9 Medications Medication Current Medications Ascorbic Acid (Vitamin C) 500 mg DAILY GTB Last administered on 03/05/19at 08:18; Admin Dose 500 MG; Start 02/20/19 at 09:00 Docusate Sodium (Colace Liquid Cup) 200 mg QHS GTB Last administered on at 20:37; Admin Dose 200 MG; Start 02/19/19 at 21:00 Famotidine (Pepcid) 20 mg BID GTB Last administered on 03/05/19at 08:18; Admin Dose 20 MG; Start 02/19/19 at 21:00 Oxcarbazepine (Trileptal) 150 mg BID GTB Last administered on 03/05/19 08:18; Admin Dose 150 MG; Start 02/19/19 at 21:00 Zinc Sulfate (Zinc Sulfate) 220 mg DAILY GTB Last administered on 03/05/19 08:17; Admin Dose 220 MG; Start 02/20/19 at 09:00 IV Flush (NS 3 ml) 3 ml PER PROTOCOL IV ; Start 02/19/19 at 17:30 Ondansetron HCl (Zofran Inj) 4 mg Q6H PRN IV NAUSEA/VOMITING; Start 02/19/19 at 17:30 Acetaminophen (Tylenol Liquid) 650 mg Q6H PRN GTB .PAIN 1-3 OR TEMP Last administered on 02/26/19 12:17; Admin Dose 650 MG; Start 02/19/19 at 17:30 Enoxaparin Sodium (Lovenox) 30 mg DAILY SC Last administered on 03/05/19 08:24; Admin Dose 30 MG; Start 02/20/19 at 09:00 Ferrous Sulfate (Feosol Liquid Cup) 300 mg BID GTB Last administered on 03/05/19 08:18; Admin Dose 300 MG; Start 02/19/19 at 21:00 Multivitamins (Multivitamin) 30 ml DAILY GTB Last administered on 03/05/19 08:18; Admin Dose 30 ML; Start 02/27/19 at 12:00 Levalbuterol (Xopenex Neb) 0.63 mg Q6H RESP THERAPY HHN Last administered on 03/05/19 13:55; Admin Dose 0.63 MG; Start 03/03/19 at 20:00 LIBIA CARBALLO Mar 05, 2019 15:06
--- NOTE | 2019-03-05 15:13 | CONS ---
Assessment/Plan Assessment/Plan Hospital Course (Demo Recall) Patient is lying in bed and gargling on her secretions Indwelling Stanford, PEG Physical examination: Chronically ill-appearing middle-aged woman who is laying comfortably in bed. Head atraumatic normocephalic sclera nonicteric vehicle mucosa dry neck is supple chest rise symmetrical breath sounds with bilateral rails. Heart: S1-S2 abdomen soft bowel sounds present extremities without cyan osis Assessment: 1. S/p sepsis 2. Recurrent aspiration pneumonia 3. UTI 4. Acute hypoxemic respiratory failure 5. History of cerebral palsy with severe debility Plan: Clinically unchanged, wbc increased, will restart Cefepime and order cxr, continue aggressive pulmonary toilet with suctioning and head of bed elevation Discussed with RNt Consultation Date/Type/Reason Admit Date/Time Feb 19, 2019 at 12:11 Initial Consult Date 02/20/19 Type of Consult id Date/Time of Note DATE: 03/05/19 TIME: 15:12 Exam/Review of Systems Exam Vitals Vital Signs Date Temp Pulse Resp B/P (MAP) Pulse Ox O2 O2 Flow FiO2 Time Delivery Rate 03/05/19 84 18 98 Nasal 2.0 13:55 Cannula 03/05/19 97.7 110/67 11:14 (81) 03/05/19 27 08:45 Intake and Output 03/04/19 03/04/19 03/05/19 1515:00 23:00 07:00 IntakeIntake Total 950 ml OutputOutput Total 1250 ml 450 ml BalanceBalance -1250 ml 500 ml Results Result Diagram: 03/05/19 0527 03/05/19 0527 Results 24hrs Laboratory Tests Test 03/05/19 05:27 White Blood Count 13.5 #H Red Blood Count 3.50 L Hemoglobin 8.7 L Hematocrit 29.2 L Mean Corpuscular Volume 83.4 Mean Corpuscular Hemoglobin 24.9 L Mean Corpuscular Hemoglobin Concent 29.8 L Red Cell Distribution Width 16.7 H Platelet Count 396 Mean Platelet Volume 9.9 Immature Granulocytes % 0.400 Neutrophils % 77.2 H Lymphocytes % 16.1 Monocytes % 3.8 Eosinophils % 2.2 Basophils % 0.3 Nucleated Red Blood Cells % 0.0 Immature Granulocytes # 0.050 H Neutrophils # 10.4 H Lymphocytes # 2.2 Monocytes # 0.5 Eosinophils # 0.3 Basophils # 0.0 Nucleated Red Blood Cells # 0.0 Sodium Level 137 Potassium Level 4.6 Chloride Level 97 Carbon Dioxide Level 29 Anion Gap 11 Blood Urea Nitrogen 14 Creatinine 0.25 L Est Glomerular Filtrat Rate mL/min > 60 Glucose Level 111 Calcium Level 8.9 Medications Medication Current Medications Ascorbic Acid (Vitamin C) 500 mg DAILY GTB Last administered on 03/05/19 08:18; Admin Dose 500 MG; Start 02/20/19 at 09:00 Docusate Sodium (Colace Liquid Cup) 200 mg QHS GTB Last administered on 03/04/19 20:37; Admin Dose 200 MG; Start 02/19/19 at 21:00 Famotidine (Pepcid) 20 mg BID GTB Last administered on 03/05/19 08:18; Admin Dose 20 MG; Start 02/19/19 at 21:00 Oxcarbazepine (Trileptal) 150 mg BID GTB Last administered on 03/05/19 08:18; Admin Dose 150 MG; Start 02/19/19 at 21:00 Zinc Sulfate (Zinc Sulfate) 220 mg DAILY GTB Last administered on 03/05/19 08:17; Admin Dose 220 MG; Start 02/20/19 at 09:00 IV Flush (NS 3 ml) 3 ml PER PROTOCOL IV ; Start 02/19/19 at 17:30 Ondansetron HCl (Zofran Inj) 4 mg Q6H PRN IV NAUSEA/VOMITING; Start 02/19/19 at 17:30 Acetaminophen (Tylenol Liquid) 650 mg Q6H PRN GTB .PAIN 1-3 OR TEMP Last administered on 02/26/19 12:17; Admin Dose 650 MG; Start 02/19/19 at 17:30 Enoxaparin Sodium (Lovenox) 30 mg DAILY SC Last administered on 03/05/19 08:24; Admin Dose 30 MG; Start 02/20/19 at 09:00 Ferrous Sulfate (Feosol Liquid Cup) 300 mg BID GTB Last administered on 03/05/19 08:18; Admin Dose 300 MG; Start 02/19/19 at 21:00 Multivitamins (Multivitamin) 30 ml DAILY GTB Last administered on 03/05/19 08:18; Admin Dose 30 ML; Start 02/27/19 at 12:00 Levalbuterol (Xopenex Neb) 0.63 mg Q6H RESP THERAPY HHN Last administered on 03/05/19at 13:55; Admin Dose 0.63 MG; Start 03/03/19 at 20:00 ALLISON LOMELI NP Mar 05, 2019 15:13
[2019-03-05] MEDS ORDERED: CEFEPIME 1GM/50 ML (PMX) 50 ML IVPB SCH (15:30)
[2019-03-05] MEDS: DOCUSATE SODIUM 10 MG/ML (10ML CUP) GTB SCH (20:44)
[2019-03-06] VITALS (9 sets, daily range): BP systolic 96–121; BP diastolic 61–78; PULSE 82–108; RESP 19–20
[2019-03-06] MEDS: LEVALBUTEROL (NEB) 0.63 MG/3 ML AMP HHN SCH ×4 (01:49→19:45)
[2019-03-06] MEDS: CEFEPIME 1GM/50 ML (PMX) 50 ML IVPB SCH ×2 (05:34→16:32)
[2019-03-06] MEDS: MULTIVITAMINS 30 ML CUP GTB SCH (09:01)
[2019-03-06] MEDS: ZINC SULFATE 220 MG CAP GTB SCH (09:01)
[2019-03-06] MEDS: FERROUS SULFATE 60 MG/ML 5ML CUP GTB SCH ×2 (09:01→21:38)
[2019-03-06] MEDS: FAMOTIDINE 20 MG TAB GTB SCH ×2 (09:01→21:39)
[2019-03-06] MEDS: OXCARBAZEPINE 150 MG TAB GTB SCH ×2 (09:01→21:39)
[2019-03-06] MEDS: ASCORBIC ACID 500 MG TAB GTB SCH (09:01)
[2019-03-06] MEDS: BALSAM PERU/CASTOR OIL 60 GM TUBE TOP SCH (09:03)
[2019-03-06] MEDS: ENOXAPARIN 30 MG/0.3 ML SYG SC SCH (09:13)
--- NOTE | 2019-03-06 11:00 | CONS ---
Assessment/Plan Assessment/Plan Assessment/Plan (Daily) Chest x-ray was reviewed from today which is showing left lower lobe segmental atelectasis. Assessment and recommendations; 1. Patient with history of severe encephalopathy and cerebral palsy admitted with left lower lobe pneumonia with dense consolidation, patient initially improved but then again has what appears to be some element of left lower lobe segmental atelectasis. Started back on cefepime. Continue current supportive care. Add chest PT to left lower lobe 4 times daily again. Obtain follow-up chest x-ray in 48 hours. Patient also can be transferred to shelter facility with antibiotics per ID recommendations. Consultation Date/Type/Reason Admit Date/Time Feb 19, 2019 at 12:11 Initial Consult Date 02/20/19 Type of Consult Pulmonary Pulmonary consult requested for evaluation of pneumonia. Patient is a 43-year-old woman with a history of cerebral palsy transferred from shelter with hypoxemia. Upon evaluation a chest x-ray was done which is showing bilateral pneumonia. Patient has been started on appropriate antimicrobial regimen. Because of cerebral palsy, patient was unable to give any history by herself whatsoever. Patient also appeared tachypneic on examination. History is obtained from medical records. Past medical history; 1. History of cerebral palsy 2. Decubitus ulcer involving coccyx. 3. Likely chronic anemia. Medications; reviewed. Allergies; none. Family history, social history, occupational history is not available. Review of system; unable to be obtained. General exam; middle-aged woman, on Ventimask. Noncommunicative. Mildly tachypneic. Date/Time of Note DATE: 03/06/19 TIME: 10:58 24 HR Interval Summary Free Text/Dictation Patient's condition is stable overall. Because of severe chronic en cephalopathy, patient remains noncommunicative. General exam; young female, awake, noncommunicative. Currently in no distress. Exam/Review of Systems Exam Vitals Vital Signs Date Temp Pulse Resp B/P (MAP) Pulse Ox O2 O2 Flow FiO2 Time Delivery Rate 03/06/19 79 20 98 Nasal 2.0 08:22 Cannula 03/06/19 97.9 96/62 (73) 07:13 03/05/19 27 08:45 Intake and Output 03/05/19 03/05/19 03/06/19 1515:00 23:00 07:00 IntakeIntake Total 900 ml OutputOutput Total 1000 ml BalanceBalance -1000 ml 900 ml Exam H ENT exam; supple neck, no JVD. No lymphadenopathy. Midline trachea. No thyromegaly. Patient has fair dentition. Chest exam; diminished breath sounds bilaterally. S1-S2 audible, no murmurs. Regular rhythm. Abdomen exam; soft, no organomegaly. G-tube in place. Bowel sounds audible. Extremity exam; no peripheral edema clubbing. Patient has a flexion con tractures. 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 Results Result Diagram: 03/06/19 0510 03/06/19 0510 Results 24hrs Laboratory Tests Test 03/06/19 05:10 White Blood Count 9.6 # Red Blood Count 3.32 L Hemoglobin 8.3 L Hematocrit 27.9 L Mean Corpuscular Volume 84.0 Mean Corpuscular Hemoglobin 25.0 L Mean Corpuscular Hemoglobin Concent 29.7 L Red Cell Distribution Width 16.5 H Platelet Count 384 Mean Platelet Volume 9.9 Immature Granulocytes % 0.400 Neutrophils % 80.2 H Lymphocytes % 10.5 L Monocytes % 4.7 Eosinophils % 3.7 Basophils % 0.5 Nucleated Red Blood Cells % 0.0 Immature Granulocytes # 0.040 H Neutrophils # 7.7 H Lymphocytes # 1.0 Monocytes # 0.5 Eosinophils # 0.4 Basophils # 0.1 Nucleated Red Blood Cells # 0.0 Sodium Level 135 Potassium Level 5.1 Chloride Level 98 Carbon Dioxide Level 29 Anion Gap 8 Blood Urea Nitrogen 15 Creatinine 0.21 L Est Glomerular Filtrat Rate mL/min > 60 Glucose Level 104 Calcium Level 8.7 Medications Medication Current Medications Ascorbic Acid (Vitamin C) 500 mg DAILY GTB Last administered on 03/06/19at 0 9:01; Admin Dose 500 MG; Start 02/20/19 at 09:00 Docusate Sodium (Colace Liquid Cup) 200 mg QHS GTB Last administered on 03/05/19at 20:44; Admin Dose 200 MG; Start 02/19/19 at 21:00 Famotidine (Pepcid) 20 mg BID GTB Last administered on 03/06/19at 09:01; Admin Dose 20 MG; Start 02/19/19 at 21:00 Oxcarbazepine (Trileptal) 150 mg BID GTB Last administered on 03/06/19at 09:01; Admin Dose 150 MG; Start 02/19/19 at 21:00 Zinc Sulfate (Zinc Sulfate) 220 mg DAILY GTB Last administered on 03/06/19 09:01; Admin Dose 220 MG; Start 02/20/19 at 09:00 IV Flush (NS 3 ml) 3 ml PER PROTOCOL IV ; Start 02/19/19 at 17:30 Ondansetron HCl (Zofran Inj) 4 mg Q6H PRN IV NAUSEA/VOMITING; Start 02/19/19 at 17:30 Acetaminophen (Tylenol Liquid) 650 mg Q6H PRN GTB .PAIN 1-3 OR TEMP Last administered on 02/26/19 12:17; Admin Dose 650 MG; Start 02/19/19 at 17:30 Enoxaparin Sodium (Lovenox) 30 mg DAILY SC Last administered on 03/06/19 09:13; Admin Dose 30 MG; Start 02/20/19 at 09:00 Ferrous Sulfate (Feosol Liquid Cup) 300 mg BID GTB Last administered on 03/06/19 09:01; Admin Dose 300 MG; Start 02/19/19 at 21:00 Multivitamins (Multivitamin) 30 ml DAILY GTB Last administered on 03/06/19 09:01; Admin Dose 30 ML; Start 02/27/19 at 12:00 Levalbuterol (Xopenex Neb) 0.63 mg Q6H RESP THERAPY HHN Last administered on 03/06/19 08:12; Admin Dose 0.63 MG; Start 03/03/19 at 20:00 Cefepime HCl 50 ml @ 100 mls/hr Q12H IVPB Last administered on 03/06/19 05:34; Admin Dose 100 MLS/HR; Start 03/06/19 at 05:00 TRACY MARTINEZ 20, 2019 11:00
--- NOTE | 2019-03-06 15:20 | CONS ---
Assessment/Plan Assessment/Plan Hospital Course (Demo Recall) No changes overnight patient looks the same, unable to clear up secretions, gargling on saliva Indwelling [place], PEG Physical examination: Chronically ill-appearing middle-aged woman who is laying comfortably in bed. Head atraumatic normocephalic sclera nonicteric vehicle mucosa dry neck is supple chest rise symmetrical breath sounds with bilateral rails. Heart: S1-S2 abdomen soft bowel sounds present extremities without cyanosis Assessment: 1. S/p sepsis 2. Recurrent aspiration pneumonia 3. UTI 4. Acute hypoxemic respiratory failure 5. History of cerebral palsy with severe debility Plan: Clinically unchanged, restarted on cefepime for concern of aspiration, continue aggressive pulmonary toilet with suctioning and head of bed elevation t Consultation Date/Type/Reason Admit Date/Time Feb 19, 2019 at 12:11 Initial Consult Date 02/20/19 Type of Consult id Date/Time of Note DATE: 03/06/19 TIME: 15:19 Exam/Review of Systems Exam Vitals Vital Signs Date Temp Pulse Resp B/P (MAP) Pulse Ox O2 O2 Flow FiO2 Time Delivery Rate 03/06/19 2.0 13:26 03/06/19 80 20 98 Nasal 13:26 Cannula 03/06/19 98.7 113/72 12:00 (86) 03/05/19 27 08:45 Intake and Output 03/05/19 03/05/19 03/06/19 1515:00 23:00 07:00 IntakeIntake Total 900 ml OutputOutput Total 1000 ml BalanceBalance -1000 ml 900 ml Results Result Diagram: 03/06/19 0510 03/06/19 0510 Results 24hrs Laboratory Tests Test 03/06/19 05:10 White Blood Count 9.6 # Red Blood Count 3.32 L Hemoglobin 8.3 L Hematocrit 27.9 L Mean Corpuscular Volume 84.0 Mean Corpuscular Hemoglobin 25.0 L Mean Corpuscular Hemoglobin Concent 29.7 L Red Cell Distribution Width 16.5 H Platelet Count 384 Mean Platelet Volume 9.9 Immature Granulocytes % 0.400 Neutrophils % 80.2 H Lymphocytes % 10.5 L Monocytes % 4.7 Eosinophils % 3.7 Basophils % 0.5 Nucleated Red Blood Cells % 0.0 Immature Granulocytes # 0.040 H Neutrophils # 7.7 H Lymphocytes # 1.0 Monocytes # 0.5 Eosinophils # 0.4 Basophils # 0.1 Nucleated Red Blood Cells # 0.0 Sodium Level 135 Potassium Level 5.1 Chloride Level 98 Carbon Dioxide Level 29 Anion Gap 8 Blood Urea Nitrogen 15 Creatinine 0.21 L Est Glomerular Filtrat Rate mL/min > 60 Glucose Level 104 Calcium Level 8.7 Medications Medication Current Medications Ascorbic Acid (Vitamin C) 500 mg DAILY GTB Last administered on 03/06/19 09:01; Admin Dose 500 MG; Start 02/20/19 at 09:00 Docusate Sodium (Colace Liquid Cup) 200 mg QHS GTB Last administered on 03/05/19 20:44; Admin Dose 200 MG; Start 02/19/19 at 21:00 Famotidine (Pepcid) 20 mg BID GTB Last administered on 03/06/19 09:01; Admin Dose 20 MG; Start 02/19/19 at 21:00 Oxcarbazepine (Trileptal) 150 mg BID GTB Last administered on 03/06/19 09:01; Admin Dose 150 MG; Start 02/19/19 at 21:00 Zinc Sulfate (Zinc Sulfate) 220 mg DAILY GTB Last administered on 03/06/19 09:01; Admin Dose 220 MG; Start 02/20/19 at 09:00 IV Flush (NS 3 ml) 3 ml PER PROTOCOL IV ; Start 02/19/19 at 17:30 Ondansetron HCl (Zofran Inj) 4 mg Q6H PRN IV NAUSEA/VOMITING; Start 02/19/19 at 17:30 Acetaminophen (Tylenol Liquid) 650 mg Q6H PRN GTB .PAIN 1-3 OR TEMP Last administered on 02/26/19 12:17; Admin Dose 650 MG; Start 02/19/19 at 17:30 Enoxaparin Sodium (Lovenox) 30 mg DAILY SC Last administered on 03/06/19 09:1 3; Admin Dose 30 MG; Start 02/20/19 at 09:00 Ferrous Sulfate (Feosol Liquid Cup) 300 mg BID GTB Last administered on 03/06/19 09:01; Admin Dose 300 MG; Start 02/19/19 at 21:00 Multivitamins (Multivitamin) 30 ml DAILY GTB Last administered on 03/06/19 09:01; Admin Dose 30 ML; Start 02/27/19 at 12:00 Levalbuterol (Xopenex Neb) 0.63 mg Q6H RESP THERAPY HHN Last administered on 03/06/19at 13:19; Admin Dose 0.63 MG; Start 03/03/19 at 20:00 Cefepime HCl 50 ml @ 100 mls/hr Q12H IVPB Last administered on 03/06/19at 05:34; Admin Dose 100 MLS/HR; Start 03/06/19 at 05:00 ALLISON LOMELI NP Mar 06, 2019 15:20
--- NOTE | 2019-03-06 16:35 | PN ---
Date/Time of Note Date/Time of Note DATE: 03/06/19 TIME: 16:34 Assessment/Plan VTE Prophylaxis Risk score (from Ns)>0 risk: 7 SCD applied (from Ns): Yes Pharmacological prophylaxis: LMWH Lines/Catheters IV Catheter Type (from [facility]): Saline Lock Urinary Cath still in place: Yes Reason Cath still needed: urinary retention Assessment/Plan Hospital Course Patient was restarted on cefepime by ID due to increase in white blood cells and possible aspiration pneumonia, chest x-ray with retrocardiac opacity. Patient has a large amount of secretions required frequent suctioning and strict aspiration precaution. Assessment/Plan -Sepsis with shock, resolving, continue antibiotics per ID. Dr. Poole, infection disease consultation. -Healthcare facility acquired pneumonia versus aspiration pneumonia -Acute respiratory distress continue supplemental oxygen bronchodilators continue. Dr. Hyatt is following in pulmonology consultation. -Dysphagia with G-tube. -Cerebral palsy. -Chronic coccygeal decubitus ulcer. Continue current wound care. -Protein calorie malnutrition. -DNR/DNI status. Further recommendations based on clinical course. Plan of care discussed with Dr. Bowman. Result Diagram: 03/06/19 0510 03/06/19 0510 Results 24hrs Laboratory Tests Test 03/06/19 05:10 White Blood Count 9.6 # Red Blood Count 3.32 L Hemoglobin 8.3 L Hematocrit 27.9 L Mean Corpuscular Volume 84.0 Mean Corpuscular Hemoglobin 25.0 L Mean Corpuscular Hemoglobin Concent 29.7 L Red Cell Distribution Width 16.5 H Platelet Count 384 Mean Platelet Volume 9.9 Immature Granulocytes % 0.400 Neutrophils % 80.2 H Lymphocytes % 10.5 L Monocytes % 4.7 Eosinophils % 3.7 Basophils % 0.5 Nucleated Red Blood Cells % 0.0 Immature Granulocytes # 0.040 H Neutrophils # 7.7 H Lymphocytes # 1.0 Monocytes # 0.5 Eosinophils # 0.4 Basophils # 0.1 Nucleated Red Blood Cells # 0.0 Sodium Level 135 Potassium Level 5.1 Chloride Level 98 Carbon Dioxide Level 29 Anion Gap 8 Blood Urea Nitrogen 15 Creatinine 0.21 L Est Glomerular Filtrat Rate mL/min > 60 Glucose Level 104 Calcium Level 8.7 Exam/Review of Systems Exam Vitals Vital Signs Date Temp Pulse Resp B/P (MAP) Pulse Ox O2 O2 Flow FiO2 Time Delivery Rate 03/06/19 99 16:22 03/06/19 98.0 20 111/67 95 Nasal 15:30 (82) Cannula 03/06/19 2.0 13:26 03/05/19 27 08:45 Intake and Output 03/05/19 03/05/19 03/06/19 1515:00 23:00 07:00 IntakeIntake Total 900 ml OutputOutput Total 1000 ml BalanceBalance -1000 ml 900 ml Exam Constitutional: frail Respiratory: diminished breath sounds Cardiovascular: regular rate and rhythm Gastrointestinal: soft, non-tender, other (G tube) Musculoskeletal: nl extremities to inspection Extremities: normal pulses Neurological: confused, lethargic Skin: other (Sacral decubitus ulcer) Results Results 24hrs Laboratory Tests Test 03/06/19 05:10 White Blood Count 9.6 # Red Blood Count 3.32 L Hemoglobin 8.3 L Hematocrit 27.9 L Mean Corpuscular Volume 84.0 Mean Corpuscular Hemoglobin 25.0 L Mean Corpuscular Hemoglobin Concent 29.7 L Red Cell Distribution Width 16.5 H Platelet Count 384 Mean Platelet Volume 9.9 Immature Granulocytes % 0.400 Neutrophils % 80.2 H Lymphocytes % 10.5 L Monocytes % 4.7 Eosinophils % 3.7 Basophils % 0.5 Nucleated Red Blood Cells % 0.0 Immature Granulocytes # 0.040 H Neutrophils # 7.7 H Lymphocytes # 1.0 Monocytes # 0.5 Eosinophils # 0.4 Basophils # 0.1 Nucleated Red Blood Cells # 0.0 Sodium Level 135 Potassium Level 5.1 Chloride Level 98 Carbon Dioxide Level 29 Anion Gap 8 Blood Urea Nitrogen 15 Creatinine 0.21 L Est Glomerular Filtrat Rate mL/min > 60 Glucose Level 104 Calcium Level 8.7 Medications Medication Current Medications Ascorbic Acid (Vitamin C) 500 mg DAILY GTB Last administered on 03/06/19at 09:01; Admin Dose 500 MG; Start 02/20/19 at 09:00 Docusate Sodium (Colace Liquid Cup) 200 mg QHS GTB Last administered on 03/05/19at 20:44; Admin Dose 200 MG; Start 02/19/19 at 21:00 Famotidine (Pepcid) 20 mg BID GTB Last administered on 03/06/19at 09:01; Admin Dose 20 MG; Start 02/19/19 at 21:00 Oxcarbazepine (Trileptal) 150 mg BID GTB Last administered on 03/06/19 09:01; Admin Dose 150 MG; Start 02/19/19 at 21:00 Zinc Sulfate (Zinc Sulfate) 220 mg DAILY GTB Last administered on 03/06/19 09:01; Admin Dose 220 MG; Start 02/20/19 at 09:00 IV Flush (NS 3 ml) 3 ml PER PROTOCOL IV ; Start 02/19/19 at 17:30 Ondansetron HCl (Zofran Inj) 4 mg Q6H PRN IV NAUSEA/VOMITING; Start 02/19/19 at 17:30 Acetaminophen (Tylenol Liquid) 650 mg Q6H PRN GTB .PAIN 1-3 OR TEMP Last administered on 02/26/19 12:17; Admin Dose 650 MG; Start 02/19/19 at 17:30 Enoxaparin Sodium (Lovenox) 30 mg DAILY SC Last administered on 03/06/19 09 :13; Admin Dose 30 MG; Start 02/20/19 at 09:00 Ferrous Sulfate (Feosol Liquid Cup) 300 mg BID GTB Last administered on 03/06/19 09:01; Admin Dose 300 MG; Start 02/19/19 at 21:00 Multivitamins (Multivitamin) 30 ml DAILY GTB Last administered on 03/06/19 09:01; Admin Dose 30 ML; Start 02/27/19 at 12:00 Levalbuterol (Xopenex Neb) 0.63 mg Q6H RESP THERAPY HHN Last administered on 03/06/19 13:19; Admin Dose 0.63 MG; Start 03/03/19 at 20:00 Cefepime HCl 50 ml @ 100 mls/hr Q12H IVPB Last administered on 03/06/19 16:32; Admin Dose 100 MLS/HR; Start 03/06/19 at 05:00 LIBIA CARBALLO Mar 06, 2019 16:35
[2019-03-06] MEDS: DOCUSATE SODIUM 10 MG/ML (10ML CUP) GTB SCH (21:38)
[2019-03-06] MEDS ORDERED: SCOPOLAMINE 1.5 MG PATCH TRANSDERM SCH (22:30)
[2019-03-07] VITALS (8 sets, daily range): BP systolic 100–111; BP diastolic 59–74; PULSE 89–103; RESP 17–20
[2019-03-07] MEDS: LEVALBUTEROL (NEB) 0.63 MG/3 ML AMP HHN SCH ×3 (01:25→14:18)
--- NOTE | 2019-03-07 05:19 | PN ---
Date/Time of Note Date/Time of Note DATE: 03/07/19 TIME: 05:17 Assessment/Plan VTE Prophylaxis Risk score (from Ns)>0 risk: 7 SCD applied (from Ns): Yes Lines/Catheters IV Catheter Type (from Nrs): Saline Lock Urinary Cath still in place: Yes Reason Cath still needed: urinary retention Assessment/Plan Assessment/Plan -Sepsis with shock, resolving, continue antibiotics per ID. Dr. Poole, infection disease consultation. -Healthcare facility acquired pneumonia versus aspiration pneumonia -Acute respiratory distress continue supplemental oxygen bronchodilators continue. Dr. Hyatt is following in pulmonology consultation. -Dysphagia with G-tube. -Cerebral palsy. -Chronic coccygeal decubitus ulcer. Continue current wound care. -Protein calorie malnutrition. -DNR/DNI status. Further recommendations based on clinical course. Plan of care discussed with Dr. Bowman. Result Diagram: 03/06/1910 03/06/19 05 Subjective 24 Hr Interval Summary Free Text/Dictation NAD afebrile stable Exam/Review of Systems Exam Vitals Vital Signs Date Temp Pulse Resp B/P (MAP) Pulse Ox O2 O2 Flow FiO2 Time Delivery Rate 03/07/19 91 04:00 03/07/19 98.2 20 100/59 99 Nasal 04:00 (73) Cannula 03/07/19 2.0 01:25 03/05/19 27 08:45 Intake and Output 03/06/19 03/06/19 03/07/19 1515:00 23:00 07:00 IntakeIntake Total 950 ml OutputOutput Total 650 ml 600 ml BalanceBalance 300 ml -600 ml Medications Medication Current Medications Ascorbic Acid (Vitamin C) 500 mg DAILY GTB Last administered on 03/06/19at 09:01; Admin Dose 500 MG; Start 02/20/19 at 09:00 Docusate Sodium (Colace Liquid Cup) 200 mg QHS GTB Last administered on 03/06/19at 21:38; Admin Dose 200 MG; Start 02/19/19 at 21:00 Famotidine (Pepcid) 20 mg BID GTB Last administered on 03/06/19at 21:39; Admin Dose 20 MG; Start 02/19/19 at 21:00 Oxcarbazepine (Trileptal) 150 mg BID GTB Last administered on 03/06/19 21:39; Admin Dose 150 MG; Start 02/19/19 at 21:00 Zinc Sulfate (Zinc Sulfate) 220 mg DAILY GTB Last administered on 03/06/19 09:01; Admin Dose 220 MG; Start 02/20/19 at 09:00 IV Flush (NS 3 ml) 3 ml PER PROTOCOL IV ; Start 02/19/19 at 17:30 Ondansetron HCl (Zofran Inj) 4 mg Q6H PRN IV NAUSEA/VOMITING; Start 02/19/19 at 17:30 Acetaminophen (Tylenol Liquid) 650 mg Q6H PRN GTB .PAIN 1-3 OR TEMP Last administered on 02/26/19 12:17; Admin Dose 650 MG; Start 02/19/19 at 17:30 Enoxaparin Sodium (Lovenox) 30 mg DAILY SC Last administered on 03/06/19 09:13; Admin Dose 30 MG; Start 02/20/19 at 09:00 Ferrous Sulfate (Feosol Liquid Cup) 300 mg BID GTB Last administered on 03/06/19 21:38; Admin Dose 300 MG; Start 02/19/19 at 21:00 Multivitamins (Multivitamin) 30 ml DAILY GTB Last administered on 03/06/19 09:01; Admin Dose 30 ML; Start 02/27/19 at 12:00 Levalbuterol (Xopenex Neb) 0.63 mg Q6H RESP THERAPY HHN Last administered on 03/07/19 01:25; Admin Dose 0.63 MG; Start 03/03/19 at 20:00 Cefepime HCl 50 ml @ 100 mls/hr Q12H IVPB Last administered on 03/06/19 16:32; Admin Dose 100 MLS/HR; Start 03/06/19 at 05:00 Scopolamine (Transderm-Scop) 1 patch Q72H TRANSDERM Last administered on 03/06/19 22:41; Admin Dose 1 PATCH; Start 03/06/19 at 22:30 JASMYNE HOOKS Mar 07, 2019 05:19
[2019-03-07] MEDS: CEFEPIME 1GM/50 ML (PMX) 50 ML IVPB SCH ×2 (05:45→16:02)
[2019-03-07] MEDS: OXCARBAZEPINE 150 MG TAB GTB SCH (08:27)
[2019-03-07] MEDS: ASCORBIC ACID 500 MG TAB GTB SCH (08:27)
[2019-03-07] MEDS: FERROUS SULFATE 60 MG/ML 5ML CUP GTB SCH (08:27)
[2019-03-07] MEDS: ZINC SULFATE 220 MG CAP GTB SCH (08:27)
[2019-03-07] MEDS: MULTIVITAMINS 30 ML CUP GTB SCH (08:27)
[2019-03-07] MEDS: BALSAM PERU/CASTOR OIL 60 GM TUBE TOP SCH (08:27)
[2019-03-07] MEDS: FAMOTIDINE 20 MG TAB GTB SCH (08:27)
[2019-03-07] MEDS: ENOXAPARIN 30 MG/0.3 ML SYG SC SCH (08:54)
--- NOTE | 2019-03-07 10:40 | CONS ---
Assessment/Plan Assessment/Plan Assessment/Plan (Daily) Assessment and recommendations; 1. Patient with history of cerebral palsy admitted with left upper lobe pneumonia possibly aspiration, patient had improved initially but then had again increasing infiltrates requiring antibiotic to be resumed. Patient getting chest PT left lower lobe 4 times daily. 2. Chronic dysphagia, status post G-tube placement in the past. Continue current supportive care. Obtain follow-up chest x-ray 24 hours. Consultation Date/Type/Reason Admit Date/Time Feb 19, 2019 at 12:11 Initial Consult Date 02/20/19 Type of Consult Pulmonary Pulmonary consult requested for evaluation of pneumonia. Patient is a 43-year-old woman with a history of cerebral palsy [facility]. Upon evaluation a chest x-ray was done which is showing bilateral pneumonia. Patient has been started on appropriate antimicrobial regimen. Because of cerebral palsy, patient was unable to give any history by herself whatsoever. Patient also appeared tachypneic on examination. History is obtained from medical records. Past medical history; 1. History of cerebral palsy 2. Decubitus ulcer involving coccyx. 3. Likely chronic anemia. Medications; reviewed. Allergies; none. Family history, social history, occupational history is not available. Review of system; unable to be obtained. General exam; middle-aged woman, on Ventimask. Noncommunicative. Mildly tachypneic. Date/Time of Note DATE: 03/07/19 TIME: 10:38 24 HR Interval Summary Free Text/Dictation Patient's condition is fairly stable. Because of cerebral palsy patient remains noncommunicative. Patient has remained hemodynamically stable. General exam; middle-aged woman, currently no distress. Exam/Review of Systems Exam Vitals Vital Signs Date Temp Pulse Resp B/P (MAP) Pulse Ox O2 O2 Flow FiO2 Time Delivery Rate 03/07/19 89 08:30 03/07/19 Nasal 2.0 08:00 Cannula 03/07/19 100 07:32 03/07/19 98.3 109/74 07:26 (86) 03/05/19 27 08:45 Intake and Output 03/06/19 03/06/19 03/07/19 1515:00 23:00 07:00 IntakeIntake Total 950 ml 1000 ml OutputOutput Total 650 ml 1200 ml BalanceBalance 300 ml -200 ml Exam H EENT exam; supple neck, no JVD. No lymphadenopathy. Midline trachea. No thyromegaly. Patient has fair dentition. Chest exam; diminished breath sounds left lower lobe. Rest of the lung pool are clear. S1-S2 audible, no murmurs. Regular rhythm. Abdomen exam; soft, no organomegaly. G-tube in place. Bowel sounds are audible. Extremity exam; no peripheral edema clubbing. Patient has a flexion contractures. 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 Results Result Diagram: 03/07/19 0503 03/07/19 0503 Results 24hrs Laboratory Tests Test 03/07/19 05:03 White Blood Count 7.3 # Red Blood Count 3.40 L Hemoglobin 8.5 L Hematocrit 28.6 L Mean Corpuscular Volume 84.1 Mean Corpuscular Hemoglobin 25.0 L Mean Corpuscular Hemoglobin Concent 29.7 L Red Cell Distribution Width 16.4 H Platelet Count 377 Mean Platelet Volume 9.8 Immature Granulocytes % 0.300 Neutrophils % 69.2 Lymphocytes % 18.8 Monocytes % 4.7 Eosinophils % 6.6 Basophils % 0.4 Nucleated Red Blood Cells % 0.0 Immature Granulocytes # 0.020 Neutrophils # 5.1 Lymphocytes # 1.4 Monocytes # 0.3 Eosinophils # 0.5 Basophils # 0.0 Nucleated Red Blood Cells # 0.0 Sodium Level 138 Potassium Level 4.4 Chloride Level 99 Carbon Dioxide Level 31 Anion Gap 8 Blood Urea Nitrogen 14 Creatinine 0.28 L Est Glomerular Filtrat Rate mL/min > 60 Glucose Level 120 Calcium Level 9.1 Medications Medication Current Medications Ascorbic Acid (Vitamin C) 500 mg DAILY GTB Last administered on 03/07/19at 08:2 7; Admin Dose 500 MG; Start 02/20/19 at 09:00 Docusate Sodium (Colace Liquid Cup) 200 mg QHS GTB Last administered on 03/06/19at 21:38; Admin Dose 200 MG; Start 02/19/19 at 21:00 Famotidine (Pepcid) 20 mg BID GTB Last administered on 03/07/19at 08:27; Admin Dose 20 MG; Start 02/19/19 at 21:00 Oxcarbazepine (Trileptal) 150 mg BID GTB Last administered on 03/07/19at 08:27; Admin Dose 150 MG; Start 02/19/19 at 21:00 Zinc Sulfate (Zinc Sulfate) 220 mg DAILY GTB Last administered on 03/07/19 08:27; Admin Dose 220 MG; Start 02/20/19 at 09:00 IV Flush (NS 3 ml) 3 ml PER PROTOCOL IV ; Start 02/19/19 at 17:30 Ondansetron HCl (Zofran Inj) 4 mg Q6H PRN IV NAUSEA/VOMITING; Start 02/19/19 at 17:30 Acetaminophen (Tylenol Liquid) 650 mg Q6H PRN GTB .PAIN 1-3 OR TEMP Last administered on 02/26/19 12:17; Admin Dose 650 MG; Start 02/19/19 at 17:30 Enoxaparin Sodium (Lovenox) 30 mg DAILY SC Last administered on 03/07/19 08:54; Admin Dose 30 MG; Start 02/20/19 at 09:00 Ferrous Sulfate (Feosol Liquid Cup) 300 mg BID GTB Last administered on 03/07/19 08:27; Admin Dose 300 MG; Start 02/19/19 at 21:00 Multivitamins (Multivitamin) 30 ml DAILY GTB Last administered on 03/07/19 08:27; Admin Dose 30 ML; Start 02/27/19 at 12:00 Levalbuterol (Xopenex Neb) 0.63 mg Q6H RESP THERAPY HHN Last administered on 07:31; Admin Dose 0.63 MG; Start 03/03/19 at 20:00 Cefepime HCl 50 ml @ 100 mls/hr Q12H IVPB Last administered on 03/07/19 05:45; Admin Dose 100 MLS/HR; Start 03/06/19 at 05:00 Scopolamine (Transderm-Scop) 1 patch Q72H TRANSDERM Last administered on 03/06/19 22:41; Admin Dose 1 PATCH; Start 03/06/19 at 22:30 TRACY MARTINEZ Mar 07, 2019 10:40
--- NOTE | 2019-03-07 10:43 | CONS ---
Assessment/Plan Assessment/Plan Hospital Course (Demo Recall) No changes overnight patient looks the same no fevers Indwelling [place], PEG Physical examination: Chronically ill-appearing middle-aged woman who is laying comfortably in bed. Head atraumatic normocephalic sclera nonicteric vehicle mucosa dry neck is supple chest rise symmetrical breath sounds with bilateral rails. Heart: S1-S2 abdomen soft bowel sounds present extremities without cyanosis Assessment: 1. S/p sepsis 2. Recurrent aspiration pneumonia 3. UTI 4. Acute hypoxemic respiratory failure 5. History of cerebral palsy with severe debility Plan: Clinically unchanged, restarted on cefepime for concern of aspiration, continue aggressive pulmonary toilet with suctioning and head of bed elevation, repeat cxr in am Consultation Date/Type/Reason Admit Date/Time Feb 19, 2019 at 12:11 Initial Consult Date 02/20/19 Type of Consult id Date/Time of Note DATE: 03/07/19 TIME: 10:43 Exam/Review of Systems Exam Vitals Vital Signs Date Temp Pulse Resp B/P (MAP) Pulse Ox O2 O2 Flow FiO2 Time Delivery Rate 03/07/19 89 08:30 03/07/19 Nasal 2.0 08:00 Cannula 03/07/19 100 07:32 03/07/19 98.3 109/74 07:26 (86) 03/05/19 27 08:45 Intake and Output 03/06/19 03/06/19 03/07/19 1515:00 23:00 07:00 IntakeIntake Total 950 ml 1000 ml OutputOutput Total 650 ml 1200 ml BalanceBalance 300 ml -200 ml Results Result Diagram: 03/07/19 0503 03/07/19 0503 Results 24hrs Laboratory Tests Test 03/07/19 05:03 White Blood Count 7.3 # Red Blood Count 3.40 L Hemoglobin 8.5 L Hematocrit 28.6 L Mean Corpuscular Volume 84.1 Mean Corpuscular Hemoglobin 25.0 L Mean Corpuscular Hemoglobin Concent 29.7 L Red Cell Distribution Width 16.4 H Platelet Count 377 Mean Platelet Volume 9.8 Immature Granulocytes % 0.300 Neutrophils % 69.2 Lymphocytes % 18.8 Monocytes % 4.7 Eosinophils % 6.6 Basophils % 0.4 Nucleated Red Blood Cells % 0.0 Immature Granulocytes # 0.020 Neutrophils # 5.1 Lymphocytes # 1.4 Monocytes # 0.3 Eosinophils # 0.5 Basophils # 0.0 Nucleated Red Blood Cells # 0.0 Sodium Level 138 Potassium Level 4.4 Chloride Level 99 Carbon Dioxide Level 31 Anion Gap 8 Blood Urea Nitrogen 14 Creatinine 0.28 L Est Glomerular Filtrat Rate mL/min > 60 Glucose Level 120 Calcium Level 9.1 Medications Medication Current Medications Ascorbic Acid (Vitamin C) 500 mg DAILY GTB Last administered on 03/07/19 08:27; Admin Dose 500 MG; Start 02/20/19 at 09:00 Docusate Sodium (Colace Liquid Cup) 200 mg QHS GTB Last administered on 03/06/19 21:38; Admin Dose 200 MG; Start 02/19/19 at 21:00 Famotidine (Pepcid) 20 mg BID GTB Last administered on 03/07/19 08:27; Admin Dose 20 MG; Start 02/19/19 at 21:00 Oxcarbazepine (Trileptal) 150 mg BID GTB Last administered on 03/07/19 08:27; Admin Dose 150 MG; Start 02/19/19 at 21:00 Zinc Sulfate (Zinc Sulfate) 220 mg DAILY GTB Last administered on 03/07/19 08:27; Admin Dose 220 MG; Start 02/20/19 at 09:00 IV Flush (NS 3 ml) 3 ml PER PROTOCOL IV ; Start 02/19/19 at 17:30 Ondansetron HCl (Zofran Inj) 4 mg Q6H PRN IV NAUSEA/VOMITING; Start 02/19/19 at 17:30 Acetaminophen (Tylenol Liquid) 650 mg Q6H PRN GTB .PAIN 1-3 OR TEMP Last administered on 02/26/19 12:17; Admin Dose 650 MG; Start 02/19/19 at 17:30 Enoxaparin Sodium (Lovenox) 30 mg DAILY SC Last administered on 03/07/19 08:54; Admin Dose 30 MG; Start 02/20/19 at 09:00 Ferrous Sulfate (Feosol Liquid Cup) 300 mg BID GTB Last administered on 03/07/19 08:27; Admin Dose 300 MG; Start 02/19/19 at 21:00 Multivitamins (Multivitamin) 30 ml DAILY GTB Last administered on 6/21/19at 08:27; Admin Dose 30 ML; Start 02/27/19 at 12:00 Levalbuterol (Xopenex Neb) 0.63 mg Q6H RESP THERAPY HHN Last administered on 03/07/19at 07:31; Admin Dose 0.63 MG; Start 03/03/19 at 20:00 Cefepime HCl 50 ml @ 100 mls/hr Q12H IVPB Last administered on 03/07/19at 05:45; Admin Dose 100 MLS/HR; Start 03/06/19 at 05:00 Scopolamine (Transderm-Scop) 1 patch Q72H TRANSDERM Last administered on 03/06/19at 22:41; Admin Dose 1 PATCH; Start 03/06/19 at 22:30 ALLISON LOMELI NP Mar 07, 2019 10:43
--- NOTE | 2019-03-07 12:50 | PDOCDIS ---
Discharge Instructions CONDITION [id number] Patient Condition: [id number] Stable HOME CARE INSTRUCTIONS: [id number] Diet Instructions: [id number] ACTIVITY: [id number] Activity Restrictions: [id number] Slowly Increase Activity Rest between Activity Avoid heavy lifting Do not operate Machinery Do not operate Power Tool [id number] Bathing Restrictions: [id number] Sponge Bath FOLLOW UP/APPOINTMENTS Follow-up Plan FU with PMD Transfer to nearest ER/hospital if symptoms get worse Plan of care dw staff JASMYNE HOOKS Mar 07, 2019 12:50
--- NOTE | 2019-03-07 12:51 | DS ---
Date/Time of Note Date/Time of Note DATE: 03/07/19 TIME: 12:51 Discharge Summary Admission/Discharge Info Admit Date/Time Feb 19, 2019 at 12:11 Discharge Date/Time Discharge Diagnosis -Sepsis with shock, resolving, continue antibiotics -Healthcare facility acquired pneumonia versus aspiration pneumonia -Acute respiratory distress continue supplemental oxygen bronchodilators continue. -Dysphagia with G-tube. -Cerebral palsy. -Chronic coccygeal decubitus ulcer. Continue current wound care. -Protein calorie malnutrition. -DNR/DNI status. 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 Patient remains lethargic and is bedridden at baseline and cannot provide any detailed history. WBC wnl, will discharge on Cefepime. Constitutional: nad, vss, afebrile, frail Respiratory: diminished breath sounds Cardiovascular: regular rate and rhythm Gastrointestinal: soft, non-tender, other (G tube) Musculoskeletal: nl extremities to inspection Extremities: normal pulses Neurological: confused, lethargic Skin: other (Sacral decubitus ulcer) Patient seen in collaboration with Dr Bowman. Home Meds Reported Medications Zinc Sulfate* (Zinc Sulfate*) 220 Mg Tablet, 220 MG GTB DAILY, TAB 02/19/19 Scopolamine (Scopolamine) 1 Each Patch.td.3, 1 EACH TD EVERY 3 DAYS 02/19/19 Potassium Chloride* (K-Dur*) 20 Meq Tab.prt.sr, 20 MEQ GTB DAILY, TAB.SA 02/19/19 Hydrocodone/Acetaminophen ([place] 5-325 Tablet) 1 Each Tablet, 1 EACH GTB Q6, TAB 02/19/19 Magnesium Hydroxide* (Milk Of Magnesia*) 400 Mg/5 Ml Oral.susp, 30 ML GTB DAILY, ML 02/19/19 Levalbuterol Hcl* (Levalbuterol Hcl*) 0.63 Mg/3 Ml Vial.neb, 0.63 MG INHALATION Q8 PRN for WHEEZING AND SOB, VIAL 02/19/19 Hydralazine Hcl* (Hydralazine Hcl*) 10 Mg Tablet, 20 MG GTB Q6H PRN for ELEVATED BLOOD PRESSURE, #60 TAB 02/19/19 Ferrous Sulfate (Ferrous Sulfate) 300 Mg/5 Ml Liquid, 330 MG GTB BID 02/19/19 Famotidine* (Famotidine*) 20 Mg Tablet, 20 MG GTB BID, #60 TAB 02/19/19 Enoxaparin Sodium* (Enoxaparin Sodium*) 30 Mg/0.3 Ml Syringe, 30 MG SC DAILY, SYR 02/19/19 Amlodipine Besylate* (Norvasc*) 5 Mg Tablet, 5 MG GTB DAILY, TAB 02/19/19 Ascorbic Acid (Vitamin C) 500 Mg Tab, 500 MG GTB DAILY, TAB 12/18/18 Cran/Vitc/Mannose/Inulin/Brom (Uti-Stat Liquid) 3,875 Mg/30 Ml Liquid, 30 MG GTB BID 12/18/18 Acetaminophen* (Acetaminophen*) 500 MG Extra Strength Tablet, 1000 MG GTB BID PRN for PAIN AND OR ELEVATED TEMP, TAB 12/18/18 Acetaminophen* (Acetaminophen*) 500 MG Extra Strength Tablet, 1000 MG GTB Q4H PRN for PAIN -02/24, TAB 12/18/18 Acetaminophen* (Tylenol*) 325 Mg Tablet, 650 MG GTB Q4H PRN for MILD PAIN LEVEL 1-3, TAB 12/18/18 Oxcarbazepine* (Trileptal*) 150 Mg Tablet, 150 MG GTB BID, TAB 12/18/18 Amino Acids/Protein Hydrolys (PRO-STAT LIQUID) 30 Ml Liquid.pkt, 30 ML GTB BID SUGAR FREE 12/18/18 Multivit &Minerals/Ferrous Fum (MULTIVITAMIN LIQUID) 9 Mg/15 Ml Liquid, 5 MG GTB DAILY 12/18/18 Na Phos,M-B/Na Phos,Di-Ba (Fleet Enema Extra) 230 Ml Enema, 1 APPLIC RC Q 2D, ENEMA 12/18/18 Bisacodyl* (Bisacodyl*) 10 Mg Supp, 10 MG MS Q24H for CONSTIPATION, SUPP 12/18/18 Cranberry Extract (Cranberry) 425 Mg Capsule, 425 MG GTB DAILY, CAP 12/18/18 Docusate Sodium* (Colace*) 100 Mg Capsule, 200 MG GTB QHS, #30 CAP 12/18/18 Follow-up Plan FU with PMD Transfer to nearest ER/hospital if symptoms get worse Plan of care dw staff Primary Care Provider Stephen Bowman MD Pending Labs Laboratory Tests Test 03/07/19 05:03 White Blood Count 7.3 10^3/ul (4.8-10.8) Red Blood Count 3.40 10^6/ul (4.20-5.40) Hemoglobin 8.5 g/dl (12.0-16.0) Hematocrit 28.6 % (37.0-47.0) Mean Corpuscular Volume 84.1 fl (82.0-101.0) Mean Corpuscular Hemoglobin 25.0 pg (29.0-33.0) Mean Corpuscular Hemoglobin Concent 29.7 g/dl (32.0-37.0) Red Cell Distribution Width 16.4 % (11.5-14.5) Platelet Count 377 10^3/UL (140-415) Mean Platelet Volume 9.8 fl (7.4-10.4) Immature Granulocytes % 0.300 % (0.001-0.429) Neutrophils % 69.2 % (39.0-77.0) Lymphocytes % 18.8 % (15.0-51.0) Monocytes % 4.7 % (0.0-11.0) Eosinophils % 6.6 % (0.0-7.0) Basophils % 0.4 % (0.0-2.0) Nucleated Red Blood Cells % 0.0 /100WBC (0.0-0.0) Immature Granulocytes # 0.020 10^3/ul (0.0-0.031) Neutrophils # 5.1 10^3/ul (1.6-7.5) Lymphocytes # 1.4 10^3/ul (0.8-2.9) Monocytes # 0.3 10^3/ul (0.3-0.9) Eosinophils # 0.5 10^3/ul (0.0-0.5) Basophils # 0.0 10^3/ul (0.0-0.1) Nucleated Red Blood Cells # 0.0 10^3/ul (0.0-0.0) Sodium Level 138 mmol/L (135-144) Potassium Level 4.4 mmol/L (3.5-5.1) Chloride Level 99 mmol/L (97-110) Carbon Dioxide Level 31 mmol/L (21-31) Anion Gap 8 (5-13) Blood Urea Nitrogen 14 mg/dl (7-20) Creatinine 0.28 mg/dl (0.44-1.00) Est Glomerular Filtrat Rate mL/min > 60 mL/min (>60) Glucose Level 120 mg/dl (70-220) Calcium Level 9.1 mg/dl (8.4-10.2) JASMYNE HOOKS Mar 07, 2019 12:51
== END 2019-03-07 18:10 | DRG 871 ==
LOC: E/R 09:13 → 6WM 12:11
PROVIDERS: ADMIT Internal Medicine; ATTEND Internal Medicine
PROC: 3E0F7GC Introduction of Other Therapeutic Substance into Respiratory Tract, Via Natural or Artificial Opening (ICD-10-PCS; principal; 2019-02-19)
DX: A41.9 Sepsis, unspecified organism (principal); J18.9 Pneumonia, unspecified organism; J96.01 Acute respiratory failure with hypoxia; E43 Unspecified severe protein-calorie malnutrition; N39.0 Urinary tract infection, site not specified; Z68.1 Body mass index [BMI] 19.9 or less, adult; R13.10 Dysphagia, unspecified; R54 Age-related physical debility; F32.9 Major depressive disorder, single episode, unspecified; F41.9 Anxiety disorder, unspecified; G80.9 Cerebral palsy, unspecified; D64.9 Anemia, unspecified; Z90.3 Acquired absence of stomach [part of]; Z66 Do not resuscitate; L89.152 Pressure ulcer of sacral region, stage 2
CPT/HCPCS: 36600; 71045; 80048; 80053; 80202; 81001; 82565; 82803; 83605; 84484; 84520; 85025; 85610; 85730; 87081; 87086; 93005; 94640; 94664; 94667; 94668; 96374; 96375; 96376; J0692; J1450; J1650; J2405; J3370; J7030; J7040